=== PATIENT | male | born 1950 | race Caucasian/White ===

== ENCOUNTER 2016-04-06 05:29 | Inpatient (IN) | payer MEDICARE ==
[2016-04-06] VITALS (11 sets, daily range): BP systolic 132–149; BP diastolic 68–85; PULSE 73–97; RESP 10–16; O2SAT 99–100
[~2016-04-06] VITALS: Ht 176.5 cm; Wt 72.5 kg
[~2016-04-06 05:29] MED LIST: ASPI-973 PO; ATOR20TA65 PO; Acetaminophen IV 1,000 mg IV ONE; Bupivacaine Liposome 1.3% 20 mL Inj INFILTRATE ONE; EMPA25TA PO; GLIP2.5T2 PO; Heparin 5,000 Unit/mL Inj SUBQ ONE; LISI40TA PO; Lactated Ringer's 1,000 ML IV SCH; METF1000 PO; OMEG300C3 PO; OMEG500C3 PO; PANT20T PO
[2016-04-06] MEDS ORDERED: CeFAZolin 2 Gm/50 mL D5W IV Premix IV ONE (06:00)
[2016-04-06] MEDS ORDERED: Lactated Ringer's 1,000 ML IV ONE ×2 (06:10→11:10)
--- NOTE | 2016-04-06 07:18 | PCM.HPANE ---
Patient Data Surgeon Admitting Provider: Attending Provider:Fred Esposito MD Primary Care Physician:Darshana Yi PA-C Other Provider:Davina Baldwiningham Anesthesia Reason for Visit Colonic Mass Ht/WT & BMI Height (Feet): 5 Height (Inches): 9.50 Weight (Kilograms): 72 Body Mass Index 22.00 Allergies Coded Allergies: No Known Allergies (Verified Allergy, Unknown, 03/16/16) Past Anesthesia History Anesthesia History: Denies:: Abnormal Airway, Anesthesia Reactions, Difficult Intubation, Fam Anesthesia Reaction, Fam Malignant Hypertherm, Malignant Hyperthermia Diabetes History Hx Diabetes?: Yes (glipizide) Current Bedside Blood Glucose: 133 MRSA MRSA: No Medications Blood Thinner: Aspirin Hypertension Medication: No Home Meds Incl Beta Brittanie: No Active Scripts Pantoprazole DR (Protonix)20 Mg Mwincx29 Mg PO DAILY #30 TABLET Ref 0 Prov:Blade Arevalo MD 02/02/16 Reported Medications Glipizide ER 2.5 Mg Tab.er.242.5 Mg PO DAILY 03/10/16 Atorvastatin Calcium 20 Mg Gqhncv61 Mg PO HS #30 02/01/16 [place]-3 Fatty Acids (Fish Oil)300 Mg [id number] Mg PO DAILY 01/31/16 Aspirin 81 Mg Annprb01 Mg PO HS 01/31/16 Discontinued Reported Medications Lisinopril 5 Mg Tablet5 Mg PO DAILY 03/10/16 Nifedipine ER (Adalat CC)60 Mg Azqcaq62 Mg PO DAILY #30 01/31/16 History History of ENT Problems?: No HEENT History: Denies:: Abnormal Airway Cataracts Difficult Intubation Dysphagia Glaucoma Hearing Problem Sinus Problem Hx of Heart Problems?: Yes Cardiovascular History: Positive for:: Hypertension (rx on hold for last few weeks) Denies:: AICD Atrial Fibrillation Cardiac Surgery Chest Pain Congestive Heart Failure Edema Heart Murmur Irregular Heartbeat Pacemaker Thrombophlebitis Valvular Heart Disease Hx of Respiratory Problem?: No Respiratory History: Denies:: Asthma COPD Chest Surgery Dyspnea Emphysema Hemoptysis Oxygen Administration Pneumonia Tuberculosis Use of C-PAP Machine Use of Inhalers / NEBS Hx Neurologic Problems?: Yes Neurological History: Denies:: Alzheimer's Disease CVA Dementia Dizziness Headaches Multiple Sclerosis Parkinson's Disease Seizures Other Neurological Pertinent: diabetic neuropathy- feet- no hx of falls Hx of GI Problems?: Yes Gastrointestinal History: Positive for:: Gastroesphageal Reflux Denies:: Cirrhosis Diverticulitis Gall Bladder Disease Gastrointestinal Bleeding Heartburn Hepatitis Hiatal Hernia Rectal Bleeding Other GI Pertinent History: right colon mass current admission problem- obstructed Hx of Problems?: Yes Genitourinary History: Denies:: HX of Hemodialysis Kidney Stones Urinary Tract Infection HX of Peritoneal Dialysis: No Other Pertinent History: hx of recent kidney injury- recent admission, CRD Male Hx: Denies:: Prostate Problems Scrotal Mass Testicular Surgery Skin History: Positive for:: History Skin Disorders? (abrasion top right foot r/t orthotics) Denies:: Pressure Ulcers Hx Musculoskeletal Problems?: No Musculoskeletal History: Denies:: Back Injury Fibromyalgia Joint Replacement Musculoskeletal Trauma Myasthenia Gravis Osteoarthritis Hx of Psycho/Social Problems?: No Psycho Social History: Denies:: Anxiety Bipolar Disorder Hx Depression Suicide Attempt Hx Surgeries?: Yes (Wide excision melanoma, MOHS- mole surgery on head) Hx Any Other Health Problems?: Yes Other History: Positive for:: Cancer (Melanoma- right arm- elbow, bowel cancer current) Hospitalization (01/2016 for N/V/kidney failure) Denies:: Thyroid Disease History Blood Transfusions: Positive for:: Accept Blood Products? Denies:: Blood Transfuse Reaction Blood Transfusions Hx Diabetes: Yes (glipizide)Bedside Blood Glucose: 133 Hx Alcohol Use: NoHx Substance Use: No Smoking Status: Former Smoker Have You Smoked inLast 12 mo: No Stop/Bang Treated for Sleep Apnea?: No Do You Have a CPAP Machine?: No S-Snoring: Do You Snore Loudly: No T-Tired: feel tired, fatigued: No O-Obsered: Observed not breath: No P-Blood Pressure: treated: No B- Body Mass Index > 35 kg/m2: No A- Age over 50: Yes N- Neck Large Circumference: No G- Gender Male: Yes ALESHA Total Score: 2 ALESHA Risk Assessment: Low Risk, <3 Yes Risk Assessment Category Category 1A: Patient has history of documented sleep apnea, and HAS NOT received any narcotic, sedative or anesthesia administration during this stay. Category 1B: Patient has history of documented sleep apnea, and HAS received any narcotic , sedative or anesthesia administration during this stay Category 2: Patient has SUSPECTED Obstructive Sleep Apnea, and HAS received any narcotic , sedative or anesthesia administration during this stay. Category 3: Patient has SUSPECTED Obstructive Sleep Apnea and HAS NOT received narcotic, sedative or anesthesia administration during this stay. Category 4: Outpatient in Procedural Areas with known sleep apnea or who screen positive for High Risk via the STOP/BANG questionnaire. Exam Exam Vital Signs Vital Signs Date Time Temp Pulse Resp B/P Pulse Ox O2 Delivery O2 Flow Rate FiO2 04/06/16 06:09 35.7 97 14 134/81 100 Room Air General Appearance: Oriented X3 HEENT/AIRWAY: MP 2 Lungs: Normal Air Movement Heart: Regular Rate/Rhythm Meds/Labs/Diagnostics Admission Meds Current Medications Acetaminophen 1000 mg 1,000 mg STK-MED ONCE IV Last administered on 04/06/16 06:35; Start 04/06/16 at 05:33; Stop 04/06/16 at 05:34; Status DC Lactated Ringer's (Lr) 1,000 ml @ ud STK-MED ONCE IV Last administered on 04/06 06:10; Start 04/06/16 at 06:10; Stop 04/06/16 at 06:11; Status DC Bedside Blood Glucose: 133 Plan Impression Patient chart reviewed, patient interviewed and anesthestic plan with risks, benefits, and alternatives discussed, and informed consent obtained. NPO Status: 04/05@2100 ASA Physical Status: ASA3 Severe Disease Anesthetic Support Modalities: Arterial Line Anesthetic Plan: GA Bene/Risks/Altern/Consents: Yes HP Complete Prior to Induction: Yes Michael Odonnell MD Apr 06, 2016 07:18
[2016-04-06] MEDS ORDERED: Bupivacaine Liposome 1.3% 20 mL Inj ONE (07:35)
[2016-04-06] MEDS ORDERED: Heparin 5,000 Unit/mL Inj ONE (07:35)
[2016-04-06] MEDS ORDERED: Heparin 5,000 Unit/mL Inj SUBQ ONE (07:45)
[2016-04-06] MEDS ORDERED: Lactated Ringer's 500 ML IV PRN (07:48)
[2016-04-06] MEDS ORDERED: Lactated Ringer's 1,000 ML IV SCH (07:48)
[2016-04-06] MEDS ORDERED: EPHEDrine Sulfate 50 mg/mL Inj IVPUSH PRN (07:50)
[2016-04-06] MEDS ORDERED: MetoCLOpramide 5 mg/mL 2 mL Inj IVPUSH PRN ×2 (07:50→11:40)
[2016-04-06] MEDS ORDERED: Dexamethasone 4 mg/mL Inj IVPUSH PRN (07:50)
[2016-04-06] MEDS ORDERED: Labetalol 5 mg/mL 4 mL Inj IV PRN (07:50)
[2016-04-06] MEDS ORDERED: fentaNYL-PF 50 mCg/mL 2 mL Inj IVPUSH PRN (07:50)
[2016-04-06] MEDS ORDERED: Phenylephrine 10,000 mCg/mL Inj IVPUSH PRN (07:50)
[2016-04-06] MEDS ORDERED: Ondansetron 2 mg/mL 2 mL Inj IVPUSH PRN ×2 (07:50→11:40)
[2016-04-06] MEDS ORDERED: HYDROmorphone 1 mg/mL Inj IVPUSH PRN (07:50)
[2016-04-06] MEDS ORDERED: Bupivacaine-MPF 0.5% 30 mL Inj INFILTRATE ONE (08:22)
[2016-04-06] MEDS ORDERED: Bupivacaine Liposome 1.3% 20 mL Inj INFILTRATE ONE (08:23)
[2016-04-06 10:47] LABS: APPEARANCE,URINE HAZY (CLEAR,HAZY); COLOR,URINE YELLOW (YELLOW); OCCULT BLOOD,URINE LARGE (NEGATIVE); PH,URINE 5.5 (5.0-8.0); UROBILINOGEN,URINE NORMAL (NORMAL)
[2016-04-06 12:19] LABS: BASOPHILS % (AUTO) 0 % (0-3); EOSINOPHILS % (AUTO) 0.1 % (0-5); MONOCYTES % (AUTO) 4.3 % (4-12); Mean Corpuscular Hemoglobin 30.9 pg (27.0-35.0); Mean Corpuscular Volume 93.8 fL (81-100); NEUTROPHILS % (AUTO) 88.1 % (40-74); Platelet Count 517 bil/L (150-400)
--- NOTE | 2016-04-06 12:39 | OP ---
[address] [address] OPERATIVE REPORT PATIENT: ANA RAY : 1950 MR#: [id number] ADMIT: 04/06/2016 JOB ID: [id number] DATE OF SURGERY: 04/06/2016 ANESTHESIA: General. PREOPERATIVE DIAGNOSIS(ES): Malignant neoplasm of the ascending colon with chronic partial obstruction. POSTOPERATIVE DIAGNOSIS(ES): Malignant neoplasm of the ascending colon with chronic partial obstruction. OPERATIVE PROCEDURES: 1. Laparoscopic right colectomy with intracorporeal [id number]-vo-[id number] functional end-to-end stapled anastomosis. 2. Diverting loop ileostomy. SURGEON: Fred Esposito MD. DIRECTOR OF COLLECTIONS AND ARCHIVES: Shira Schultz MD (paraprofessional education assistant was required for safe and timely completion of the case). COMPLICATIONS: None. ESTIMATED BLOOD LOSS: Minimal. CONDITION: Satisfactory. SPECIMEN: Right colon. FINDINGS: There was an obvious obstructing mass up by the hepatic flexure. Proximal to this, the cecum was massively dilated. The terminal ileum was also dilated. Given the patient's preoperative risk factors for anastomotic leak, as well as the floppy, dilated terminal ileum, I elected to protect the anastomosis with a defunctioning loop ileostomy. INDICATIONS/SIGNIFICANT HISTORY: The patient is a 66-year-old man with a past medical history of diabetes who was been having progressively obstructive symptoms since October. He has had two hospitalizations for this related ti dehydration and acute kidney injury. Unfortunately, there was a delay in making a diagnosis. He eventually underwent a colonoscopy as an outpatient a number of weeks ago confirming the diagnosis. By this time,he had lost greater than 10% of his body weight, as he was restricted to a liquid diet. He was eventually referred to me, and I recommended laparoscopic right colectomy. He utilized preoperative protein shakes and Impact. He underwent an antibiotic and mechanical bowel prep. OPERATIVE TECHNIQUE: The patient was taken to the operating, placed in the supine position. General anesthesia was administered, and perioperative antibiotics given. Subcutaneous heparin was administered, and a Beckford catheter was placed. The abdomen was then prepped and draped in a standard surgical fashion. A procedure pause was performed. Entry was gained into the abdomen through a periumbilical incision, an 11 mm trocar was inserted and pneumoperitoneum achieved without complication. Local anesthetic was injected, followed by insertion of 5 mm ports in the lower midline and one in the upper midline. A second 11 mm port was inserted into the left lower quadrant. The abdomen was inspected, and there was no evidence of metastatic disease. The colectomy was then begun with isolation of the ileocolic vessels. These were taken with a white vascular staple load. Dissection continued in a medial to lateral and superior fashion. Eventually, I reached the transverse colon at the transection point. The colon was cleared and the omentum transected at this point. I then was able to fire across the colon with a GINO 45 blue load. I then continued the dissection laterally to the white line of Toldt at the hepatic flexure. I then turned my attention down to the terminal ileum. The mesentery was sequentially taken with an energy device to the transection point. The terminal ileum was so dilated that it took three loads of the GINO 45 to transect it. The white line of Toldt was then taken down using the energy device. The specimen was then placed up above the liver. There were some adhesions of the distal ileum to the right lower quadrant which were carefully taken down with scissors. The small bowel was then positioned in isoperistaltic fashion next to the transverse colon. Enterotomies were made in both the colon and the small bowel, and a GINO 60 white load fired to create a yvut-ns-raia, functional end-to-end anastomosis. The common enterotomy was then closed with a running 2-0 V-Loc suture. A Lapra- Ty was placed for added security. The omentum was then placed over the anastomosis. Because of the patient's preoperative risk factors including diabetes and severe malnutrition, as well as the intraoperative findings of a massively dilated terminal ileum, I elected to perform a defunctioning loop ileostomy. The site was chosen on the right lower quadrant and disc of skin excised. A cruciate incision was made in the anterior and posterior fascia. A wound protector was placed. I attempted to bring the specimen out through this. However, the specimen was so large that it would not fit. Rather than compromise the ileostomy site, I elected to make a small Pfannenstiel incision. A wound protector was placed in this, and the specimen delivered. The Pfannenstiel was then closed with running 0 PDS suture. The skin was closed using 4-0 Monocryl. I then went back with laparoscopic visualization and made sure that the small bowel was correctly oriented and delivered that through the prepared ileostomy site. Pneumoperitoneum was released and the trocars were all removed. The skin incisions were then all closed with 4-0 Monocryl, and Dermabond applied. I then matured the ileostomy. Because of the orientation of the anastomosis the ileostomy was matured with the proximal/functional end inferior. An appliance was then applied, and the case was then concluded. TATOD
--- NOTE | 2016-04-06 13:06 | PCM.ANEP1 ---
Post Anesthesia Phase 1 PACU Phase 1 Assessment Vital Signs Vital Signs Date Time Temp Pulse Resp B/P Pulse Ox O2 Delivery O2 Flow Rate FiO2 04/06/16 12:45 74 15 134/70 100 Simple Mask 10 04/06/16 12:30 78 16 140/68 100 Simple Mask 10 04/06/16 12:15 80 14 148/73 100 Simple Mask 10 04/06/16 12:00 36.3 80 149/80 100 Simple Mask 10 04/06/16 11:45 80 11 136/77 99 Simple Mask 10 04/06/16 11:40 81 10 140/75 100 Simple Mask 10 04/06/16 11:35 36.2 80 11 140/75 100 Simple Mask 10 04/06/16 06:09 35.7 97 14 134/81 100 Room Air Anesthetic Administered: GA Level of Alertness: Awake, talking Pain: No Nausea or Vomiting: No Airway Device: Oralpharangeal Airway Lungs: Normal Air Movement Michael Odonnell MD Apr 06, 2016 13:06
--- NOTE | 2016-04-06 13:07 | PCM.ANEP2 ---
Post Anesthesia Evaluation ASA/CMS Post Anesthesia VS in Patient's Normal Range?: Yes Resp Stable; Airway Patent?: Yes CV Function & Hydration Stable: Yes Mental Status Recovered?: Yes Pain control Satisfactory?: Yes N/V Control Satisfactory?: Yes Michael Odonnell MD Apr 06, 2016 13:07
[2016-04-06] MEDS ORDERED: fentaNYL-PF 50 mCg/mL 2 mL Inj ONE (13:23)
--- NOTE | 2016-04-06 14:18 | NUR ---
Arrival to 1030 Pt arrival to 1030 at 1330. Pain 4/10 near ileostomy site. Pt alert oriented but drowsy at this time. Able to independently scoot from gurney to bed. Pt then had rapid onset of nausea which was relieved by 10mg Reglan. HELLER with equal strength, baseline neuropathy in BLE. Pt has history of non-heeling foot wounds followed by wound care. Ileostomy leaking light brown out of base of wafer, Rashad with wound care now at bedside providing education to /pt and changing bag. Pt also has 3 open sores on R foot reports are from a new set of orthotics. Rashad assessing and providing instructions on new dressing. High flow oxygen via simple mask until 1730. Hourly rounding will continue.
[2016-04-06] MEDS: Dextrose 5% Lactated Ringer's 1,000 ML IV SCH (15:12)
[2016-04-06] MEDS: Acetaminophen IV 1,000 MG in IV Premix 1 EACH IV SCH ×2 (15:13→23:25)
--- NOTE | 2016-04-06 17:08 | NUR ---
Wound care Orders for wound care and ostomy teaching received, pt seen at bedside, present. 66 yo male recently returned from OR presents with a right quadrant iliostomy and stoma flush with abdomen, draining greenish mucoid effluent, Wafer is replaced as it was leaking, replaced with a gabriela flanged 57 mm flat wafer and drainable pouch. Good seal attained with Brava strips at sides. Educational handouts are left for to peruse at her convenience. No hands on teaching with family today. Pt also presents with 3 wounds/ abrasions at the dorsum of his right foot (POA), these measure 3cm x 2cn x 0.1 cm each and are superficial, cleaned them with saline and gauze then redressed with Xeroform and kerlix wrap. Pt reports these wounds were caused by new shoes that he was wearing. Will return 04/07 for continued ostomy teaching and recheck right foot wound.
[2016-04-06] MEDS: Heparin 5,000 Unit/mL Inj SUBQ SCH (17:20)
[2016-04-06] MEDS: Polyethylene Glycol (PEG) 17 Gm Powder PO SCH (17:21)
[2016-04-06] MEDS: Insulin Human REGular 300 Unit/3 mL Inj SUBQ SCH ×2 (17:32→23:25)
[2016-04-07] VITALS (7 sets, daily range): BP systolic 111–137; BP diastolic 65–78; PULSE 76–87; RESP 15–17; O2SAT 96–98
[2016-04-07] MEDS: Dextrose 5% Lactated Ringer's 1,000 ML IV SCH ×2 (00:06→12:36)
[2016-04-07] MEDS: Heparin 5,000 Unit/mL Inj SUBQ SCH ×4 (01:06→23:32)
--- NOTE | 2016-04-07 02:17 | NUR ---
transfer pt transferred to [facility] room 246 at 0200. he is A&Ox3. he says his abdomen is slightly sore and sometimes cramps but the IV tylenol is efficient for pain management. no n/v tolerating full liquid diet. pt has been SL. pt got up and walked around unit before being transferred. denied dizziness and was steady on his feet. report called to nurse Zenia Jenkins.
--- NOTE | 2016-04-07 02:22 | NUR ---
Received from [facility] Pt awake and oriented. He denies any pain at this time. Ileostomy with noted liquid brown stool.
[2016-04-07] MEDS ORDERED: 0.9% Sodium Chloride 250 ML ONE (03:37)
[2016-04-07] MEDS: Acetaminophen IV 1,000 MG in IV Premix 1 EACH IV SCH (03:46)
--- NOTE | 2016-04-07 04:25 | NUR ---
Pain Pt alert and oriented x3. He reports pain is tolerable at 4-5/10 and reports Tylenol effective for it. He tolerates ambulation without any complains. Ileostomy with noted moderate-large amount of brown/greenish liquid stool. Pt tolerates full liquid without any c/o nausea.
[2016-04-07] MEDS: Insulin Human REGular 300 Unit/3 mL Inj SUBQ SCH ×4 (07:30→22:00)
[2016-04-07] MEDS: Pantoprazole 20 mg ER24 Tablet PO SCH (07:30)
[2016-04-07] MEDS: glipiZIDE 2.5 mg ER24 Tablet PO SCH (08:42)
[2016-04-07 08:46] LABS: BASOPHILS % (AUTO) 0.2 % (0-3); EOSINOPHILS % (AUTO) 1.6 % (0-5); MONOCYTES % (AUTO) 6.7 % (4-12); Mean Corpuscular Hemoglobin 30.8 pg (27.0-35.0); Mean Corpuscular Volume 93.1 fL (81-100); NEUTROPHILS % (AUTO) 72.3 % (40-74); Platelet Count 524 bil/L (150-400)
--- NOTE | 2016-04-07 09:08 | PROG NOTE ---
[address] [address] PROGRESS NOTE PATIENT: ANA RAY : 1950 MR#: [id number] ADMIT: 04/06/2016 JOB ID: [id number] DATE: 04/07/2016 SUBJECTIVE: The patient is postoperative day one from laparoscopic right colectomy with ileocolonic anastomosis and protecting loop ileostomy. He has done fine since surgery. He is having minimal pain and not requiring narcotic pain medications. He has already been up and ambulated. He is tolerating diet and having good ostomy output. He has remained afebrile and hemodynamically normal. This morning, he is alert, oriented and comfortable. His abdomen is soft, not significantly tender. His incisions look fine. His ostomy had some liquid stool output. His white blood cell count this morning is 12.6, down from 28.1 in the immediate postoperative period. His hematocrit is stable at 29.9. His electrolytes are still pending. ASSESSMENT AND PLAN: This is a 66-year-old man with a chronically obstructing colonic cancer of the ascending colon postop day one from a laparoscopic colectomy with a protecting ileostomy due to significantly distended ileum. Overall the patient is doing very well. He can be advanced to a regular diet. I switched him over to oral Tylenol for pain control. I have encouraged him to get up and ambulate. His Beckford was removed this morning. Anticipate that he may actually be able to go to home as early as tomorrow morning.
[2016-04-07] MEDS: Polyethylene Glycol (PEG) 17 Gm Powder PO SCH (12:00)
--- NOTE | 2016-04-07 16:51 | NUR ---
Activity/PO intake Pt up ambulating in the hallway x2 during this shift. Well tolerating activity. Denies dizziness or SOB. Continue to encourage ambulation and activity. Pt tolerating a general diet at this time. Appetite is adequate. Able to eat and drink with no reports of nausea. Ileostomy having moderate amount of liquid brown/green output. Continue to encourage intake of PO fluids.
--- NOTE | 2016-04-07 17:42 | NUR ---
Wound Care Instructed pts in removal and application of [place] flat #[id number] wafer and pouch system, instructed in peristomal skin care,how empty pouching contents. Provided with supplies for home. Also instructed in dressing changes of dorsal foot wound to be performed q 48 hrs using hydrogel and foam. Cleaned wounds at foot with gauze and redressed, they are stable. Pt has appt to follow up with Ostomy nurse and podiatry at the wound center on 04/20/16.
[2016-04-08 04:08] VITALS: BP 108/67; PULSE 77; RESP 16; O2SAT 97
--- NOTE | 2016-04-08 06:36 | NUR ---
Shift Note Assumed pt care at 1900, pt ambulated x1 around unit taylor, tolerated well, pts ileostomy draining well, patent, semi loose stools noted, @2200 pt CBG at 155, pt refused insulin coverage. @0639 am, pt up ambulating around unit taylor.
[2016-04-08] MEDS: Insulin Human REGular 300 Unit/3 mL Inj SUBQ SCH (07:30)
[2016-04-08] MEDS: Pantoprazole 20 mg ER24 Tablet PO SCH (07:30)
[2016-04-08] MEDS: glipiZIDE 2.5 mg ER24 Tablet PO SCH (08:09)
[2016-04-08] MEDS: Heparin 5,000 Unit/mL Inj SUBQ SCH (08:30)
--- NOTE | 2016-04-08 09:26 | NUR ---
Social work note - Intial assessment - and discharge Kristofer Mccartney is a 66 yr old admitted for Colonic mass - surgery. EMR reviewed: Pt has Medicare and AARP. Pt's PCP is Darshana Yi PA-C. No readmit risk available. See attached CM initial assessment. PRODUCT MGR met with pt - pt lives independent at home wit his . He has no DME, drives. Anticipates no home needs. PRODUCT MGR will follow if needs arise. Plan: Home with today in POV - no needs identified. REY Hawk Addendum: 04/08/16 at 0928 by JULISSA MIRANDA Amended: Links added.
--- NOTE | 2016-04-08 09:28 | NUR ---
HOSPICE CARE CONSULTANT witnessed BENNIE signature LINDSEY HawkSW
--- NOTE | 2016-04-08 10:42 | PCM.DISURG ---
Surgical Discharge Instruction Date of Service Apr 08, 2016 Dates of Hospitalization Date of Hospital Admission Apr 06, 2016 at 13:22 Providers Admitting Physician: Fred Esposito MD Primary Care Physician: Darshana Yi PA-C Attending Physician: Fred Esposito MD Discharge Diagnosis Discharge Diagnosis obstructing colon mass Post Operative diagnosis laparoscopic right colectomy with diverting ileostomy Activity Discharge Activity-General: No restrictions Dressing and Incisional Care Hygiene: May shower, Other (ostomy care as instructed) Follow Up Plan Follow Up Plan 1-[address] Esposito Call your provider for: Fever, Chills, Wound redness Dilan Ramirez MD Apr 08, 2016 10:42
[2016-04-08] MEDS ORDERED: OXYC5TAB72 PO (10:43)
--- NOTE | 2016-04-08 12:20 | NUR ---
Discharge Pt was discharged via one person and w/c to POV accompanied by spouse. Pt has no questions about follow up.
--- NOTE | 2016-04-08 13:52 | PROG NOTE ---
[address] [address] PROGRESS NOTE PATIENT: ANA RAY : 1950 MR#: [id number] ADMIT: 04/06/2016 JOB ID: [id number] DATE: 04/08/2016 SUBJECTIVE: The patient is postop day two laparoscopic sigmoid resection with a diverting protective ileostomy. He is doing quite well and is hoping to be discharged this morning. He feels that he and his received adequate teaching regarding the ileostomy yesterday. He tells me that he feels better than he has felt for months. On examination, his stoma is pink, his incisions are all closed without signs of infection. There are no new labs ordered for today. IMPRESSION AND PLAN: He is doing well and we will discharge him home.
--- NOTE | 2016-04-10 16:09 | PCM.DC.SUR ---
Discharge Summary Date of Service: Date of Hospital Admission: Apr 06, 2016 at 13:22 Date of Operation(s): 04/06/2016 Date of Discharge: 04/08/2016 Diagnosis at Time of Discharge Primary diagnosis: Malignant neoplasm of the ascending colon Other diagnoses: Hypercholesterolemia Stage 0 cutaneous melanoma Diabetes mellitus Hypertension Problems: Operation 1. Laparoscopic right colectomy with intracorporeal [id number] functional end-to-end stapled anastomosis. 2. Diverting loop ileostomy. Brief History and Physical: The patient is a 66-year-old man with a past medical history of diabetes who has been having progressively obstructive symptoms since October. He has had two hospitalizations for this related to dehydration and acute kidney injury. Unfortunately, there was a delay in making a diagnosis. He eventually underwent a colonoscopy as an outpatient a number of weeks ago confirming the diagnosis. By this time, he had lost greater than 10% of his body weight, as he was restricted to a liquid diet. He was eventually referred to Dr. Fred Esposito, who recommended laparoscopic right colectomy. He utilized preoperative protein shakes and Impact. He underwent an antibiotic and mechanical bowel prep. Consultants: None. Hospital Course: The patient was taken to the operating room where he underwent the above procedure. There were no intraoperative complications. Postoperatively he was admitted to the surgical floor. On his first postsurgical day the patient was seen by Dr. Fred Esposito: SUBJECTIVE: The patient is postoperative day one from laparoscopic right colectomy with ileocolonic anastomosis and protecting loop ileostomy. He has done fine since surgery. He is having minimal pain and not requiring narcotic pain medications. He has already been up and ambulated. He is tolerating diet and having good ostomy output. He has remained afebrile and hemodynamically normal. This morning, he is alert, oriented and comfortable. His abdomen is soft, not significantly tender. His incisions look fine. His ostomy had some liquid stool output. His white blood cell count this morning is 12.6, down from 28.1 in the immediate postoperative period. His hematocrit is stable at 29.9. His electrolytes are still pending. ASSESSMENT AND PLAN: This is a 66-year-old man with a chronically obstructing colonic cancer of the ascending colon postop day one from a laparoscopic colectomy with a protecting ileostomy due to significantly distended ileum. Overall the patient is doing very well. He can be advanced to a regular diet. I switched him over to oral Tylenol for pain control. I have encouraged him to get up and ambulate. His [place] was removed this morning. Anticipate that he may actually be able to go to home as early as tomorrow morning. On the second postsurgical day the patient was seen by Dr. Dilan Ramirez: SUBJECTIVE: The patient is postop day two laparoscopic sigmoid resection with a diverting protective ileostomy. He is doing quite well and is hoping to be discharged this morning. He feels that he and his received adequate teaching regarding the ileostomy yesterday. He tells me that he feels better than he has felt for months. On examination, his stoma is pink, his incisions are all closed without signs of infection. There are no new labs ordered for today. IMPRESSION AND PLAN: He is doing well and we will discharge him home. Pathology: Pending at time of discharge. Disposition: The patient was discharged home tolerating oral intake, with no nausea or vomiting. He had been given instructions in ileostomy care. He was ambulating independently and pain was controlled on only Tylenol. Follow-up Plan: Follow-up is in 1-[address] Esposito at the [facility] outpatient general surgery clinic. Aspirin (Aspirin) 81 Mg Tablet 81 MG PO HS (Reported) Atorvastatin Calcium (Atorvastatin Calcium) 20 Mg Tablet 20 MG PO HS (Reported) Glipizide ER (Glipizide ER) 2.5 Mg Tab.er.24 2.5 MG PO DAILY (Reported) [place]-3 Fatty Acids (Fish Oil) 300 Mg Capsule 300 MG PO DAILY (Reported) Pantoprazole DR (Protonix) 20 Mg Tablet 20 MG PO DAILY oxyCODONE (oxyCODONE) 5 Mg Tablet 5 MG PO Q4H PRN PRN For Pain copies to: Darshana Yi PA-C, Danielle B PA-C Apr 10, 2016 16:09
--- NOTE | 2016-04-11 13:02 | PATH ---
SURGICAL PATHOLOGY Attending Physician:Fred Esposito MD CASE STATUS: Signed Out PATIENT NAME: ANA RAY PID: [id number] : 1950 DATE COLLECTED:04/06/2016 21:07 SPECIMEN: Colon, Segment Resection, Non-Tumor CLINICAL HISTORY: COLONIC MASS 1). RIGHT COLON TERMINAL ILEUM FINAL DIAGNOSIS: Right Colon Resection Specimen: Invasive carcinoma with the following features: 1. Tumor site: Cecum. 2. Tumor size: 4.0 x 3.5 x 2.4 cm. 3. 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 4. Histologic grade: High grade. 5. Gross tumor configuration: Infiltrative. 6. Tumor perforation: Not identified. 7. Depth of tumor infiltration: Tumor invades through the muscularis propria and extensively involves the adventitial tissues. 8. Tumor involvement of serosal surface: Negative. 9. Existing changes at primary site: None identified. 10. Surgical margins: Widely free of tumor. 11. Lymphatic/vascular channel invasion: Positive with multiple foci noted in the adventitial tissues. 12. Perineural invasion: Not identified. 13. Tumor deposit (discontinuous extramural extension): Multiple tumor deposits present within the adventitial tissues. 14. Lymph nodes: 17 of 45 lymph nodes positive for metastatic carcinoma with multiple areas of extranodal extension by tumor. 15. Other: Terminal ileum and appendix unremarkable. Mismatch repair gene immunohistochemistry panel pending. To be reported by addendum. Pathologic stage: pT3, pN2b. ICD10 C18.0 GROSS DESCRIPTION: The specimen is received in formalin, labeled with the patient's name, sublabeled as right colon and terminal ileum and consists of terminal ileum (length-6.5 cm, proximal diameter-5.2 cm), cecum and ascending colon (length-19.3 cm, distal diameter-3.5 cm) with attached appendix (length-7.2 cm, diameter-1.2 cm), mesentery (up to 6.5 cm in depth) and omentum (up to 19.5 cm). The resection margins are received stapled. The cecum is dilated and diffusely white with flat smooth shiny mucosa and a diffusely thickened wall. A julian-white solid firm annular mass (4.0 x 3.5 x 2.4 cm) is located within the cecum and proximal ascending colon. The mass is 1.5 cm from the serosa, 12.9 cm from the proximal, 4.0 cm from the distal, and 5.5 cm from the radial resection margins. The mass extends into the mesentery but does not appear to extend into diffuse omentum the mass does not involve the ileocecal valve or appendix. The ileum is julian hyperemic mucosa with normal folds. The distal ascending colon is julian smooth shiny mucosa with minimal normal folds and a focally thin wall. The appendix is unremarkable. No other nodules or masses or lesions are identified. Multiple possible lymph nodes and mass deposits (0.1 x 0.1 x 0.1 cm-2.1 x 1.5 x 1.4 cm) are identified. Ink code: black-resection margin; blue-serosa. Section code: (A) proximal resection margin, longitudinally sectioned, retail representative; (B) distal resection margin, longitudinally sectioned, retail representative; (C) radial resection margin, retail representative; (D-E) serosa with mass and possible mass deposit; (F-I) mass, retail representative; (J) terminal ileum serially sectioned, retail representative; (K) cecum, retail representative; (L) distal ascending colon, serially sectioned, retail representative; (M) appendix, retail representative; (N-Q) lymph nodes and mass deposits; (R, S) 2 bisected lymph nodes in each cassette; (T) one lymph node, bisected; (U) one lymph node, serially sectioned; (V-W) mass deposit, serially sectioned; (X-Z) omentum, retail representative. 04/08/16 SABINA. ICD-9 CODES: CPT CODES: 97979, 59110, 75937, 62302, 96909 PROCEDURE/ADDENDA: Addendum SPI Addendum Diagnosis Immunohistochemistry results (mismatch repair gene panel): MLH-1:Positive MSH-2:Positive. MSH-6:Positive. PMS-2:Positive. INTERPRETATION: These four positive staining reactions indicate that this colon carcinoma is negative for mismatch repair gene deletion. Addendum Comment {Not Entered} Electronically Signed Out Nazario Neri MD Addendum SPI Addendum Diagnosis TEST: Detection of Microsatellite Instability by PCR INTERPRETATION: These results are consistent with INTACT DNA MISMATCH REPAIR FUNCTION (Microsatellite Stable - ANNA). TEST: BRAF Mutation Detection by PCR-SNAPSHOT Analysis INTERPRETATION: Negative for a V600 BRAF mutation TEST: KRAS Mutation Detection by PCR-SNAPSHOT Analysis INTERPRETATION: Negative - No evidence of KRAS mutations was detected in codons 12, 13, 59, 61, 117 and 146 of exons 2, 3 and 4. TEST: NRAS Mutation Detection by PCR-SNAPSHOT Analysis INTERPRETATION: Negative - No evidence of NRAS mutations was detected in codons 12, 13, 59, 60, 61, 117 and 146 of exons 2, 3 and 4. Addendum Comment Please see [facility] Reports, for complete details. [id number] Testing and Interpretation by [facility], [place], [place]. Testing requested by Dr. Roberts, [facility]. Electronically Signed Out Nazario Neri MD Electronically Signed Out Nazario Neri MD [facility] [address], [place] [address] Technical component performed at [facility], [facility] [address], [place], [address]
[2016-04-25] MEDS ORDERED: LOPE-147 PO (13:21)
[2016-05-16] MEDS ORDERED: FOLI-52 PO (09:58)
[2016-05-30] MEDS ORDERED: ONDA8TAB7 PO (11:49)
[2016-08-22] MEDS ORDERED: LISI-571 PO (17:44)
[2016-08-22] MEDS ORDERED: OMEG-83 PO (17:44)
== END 2016-04-08 12:07 | disposition home or self-care (01) | DRG 329 ==
LOC: SAS 05:29 → OSC 13:22 → MOC 04-07 02:29
PROVIDERS: ADMIT General Practice; ATTEND General Practice
PROC: 0D1B4Z4 Bypass Ileum to Cutaneous, Percutaneous Endoscopic Approach (ICD-10-PCS; 2016-04-06)
PROC: 0DTF4ZZ Resection of Right Large Intestine, Percutaneous Endoscopic Approach (ICD-10-PCS; principal; 2016-04-06 07:15)
DX: C18.2 Malignant neoplasm of ascending colon (principal); E43 Unspecified severe protein-calorie malnutrition; K56.69 Other intestinal obstruction; E11.9 Type 2 diabetes mellitus without complications; I10 Essential (primary) hypertension; E78.00 Pure hypercholesterolemia, unspecified; Z68.23 Body mass index [BMI] 23.0-23.9, adult; K63.89 Other specified diseases of intestine

== ENCOUNTER 2016-04-12 10:41 | Inpatient (IN) | payer MEDICARE ==
[2016-04-12] VITALS (8 sets, daily range): BP systolic 108–142; BP diastolic 69–76; PULSE 84–127; RESP 14–21; O2SAT 98–100
[~2016-04-12] VITALS: Ht 175.3 cm; Wt 70.4 kg
[~2016-04-12 10:41] MED LIST changes: -Acetaminophen IV 1,000 mg IV ONE; -Bupivacaine Liposome 1.3% 20 mL Inj INFILTRATE ONE; -Heparin 5,000 Unit/mL Inj SUBQ ONE; -Lactated Ringer's 1,000 ML IV SCH; +OXYC5TAB72 PO
--- NOTE | 2016-04-12 11:03 | ED.REPORT ---
HPI-General Illness Date of Service Apr 12, 2016 ED Provider: Gregory Wu DO The patient is a 66 year old male with history of melanoma, acute renal failure , diabetes mellitus, hypertension, and hyperlipidemia, who was sent to the emergency department by his surgeon for shortness of breath that started 2 days ago. He has also experienced generalized weakness and a non-productive cough. His breathing is exacerbated with exertion. His symptoms have worsened since onset. He had a right colectomy and ileostomy placed 6 days ago. His surgeon is concerned about dehydration and a possible blood clot. The patient states his current symptoms are similar to when he was dehydrated. He has been drinking plenty of fluids over the last few days. He denies fever, chills, sputum production, abdominal pain, vomiting, hematemesis, hematochezia. His blood sugar this morning was 209. Nursing Notes Stated Complaint: POST OP/DIFFICULTY BREATHING Chief Complaint: Respiratory Distress Nursing Notes Reviewed: Yes Allergies: Coded Allergies: No Known Allergies (Verified Allergy, Unknown, 03/16/16) Scheduled Aspirin (Aspirin) 81 Mg Tablet 81 MG PO HS Atorvastatin Calcium (Atorvastatin Calcium) 20 Mg Tablet 20 MG PO HS Glipizide ER (Glipizide ER) 2.5 Mg Tab.er.24 2.5 MG PO DAILY General Time Seen by MD: 11:02 Chief Complaint Weakness, Other (shortness of breath) Hx Obtained From: Patient Arrived By: Walk-in Sudden in Onset?: Yes Onset Occurred: 2 days ago Symptom Duration: Since onset Severity: Current: No pain currently Severity: Maximum: No pain Recent Healthcare: Recent doctor visit, Recent hospitalization, Previous surgery Similar Sx Previous: No PERC Rule Age 50 or over, Heart rate 100 or over, Recent trauma or surgery PERC rule not satisfied Well's Criteria for PE HR > 100 (1.5), Immob/surg past 4wk (1.5), Cancer Tx past 6mo (1) Well's PE Score: 3-6 pts (mod risk 20.5%) Past Medical History Past Medical History Melanoma ARF Reports: Diabetes mellitus, Hyperlipidemia, Hypertension Past Surgical History Melanoma excision MOS Laparoscopic right colectomy with intracorporeal [id number] functional end-to-end stapled anastomosis. Diverting loop ileostomy. Family History Noncontributory Smoking History Former Smoker Social History Alcohol Use: Denies alcohol use Drug Use: Denies drug use Other Social History: Good social support, , Local resident Ambulatory Status Independent Review of Systems Full Review of Systems Constitutional: Reports: Weakness - generalized, Denies: Chills, Fever Respiratory: Reports: Dyspnea on exertion, Non-productive cough, Shortness of breath, Denies: Prod cough, white, Prod cough, yellow GI: Denies: Abdominal pain, Bloody/tarry stool, Hematemesis, Hematochezia, Vomiting Neurologic: Reports: Weakness Complete sys rev & neg: except as marked. Physical Exam Vital Signs Vital Signs Date Time Temp Pulse Resp B/P Pulse Ox O2 Delivery O2 Flow Rate FiO2 04/12/16 13:00 84 18 100 Room Air 04/12/16 10:54 36.7 121 14 108/72 98 Room Air Initial VS: Reviewed Head / Eyes: Atraumatic, Normocephalic, PERRL ENT: Mucous membranes moist, Conjunctiva normal, No scleral icterus Neck: Supple, Non-tender, Full range of motion Respiratory: Breath sounds normal, Clear to auscultation, No respiratory distress Cardiovascular: Regular rate & rhythm, Heart sounds normal, Intact distal pulses Lymphatic: No lymphadenopathy Extremities: Vascular intact, Neuro intact, No swelling, No tenderness Skin: Warm, Dry, No cyanosis Neurologic: Alert, Oriented, Nonfocal Psychiatric: Mood/affect normal, Behavior normal, Normal thought content General/Constitutional: Awake, Alert Appearance / Presentation: Positive: Pale Cardiovascular: Regular rhythm, Heart sounds NL, No murmurs, No rubs Heart Rate / Rhythm: Positive: Tachycardia Abdomen: Soft, Non-tender, No guarding, No rebound, BS normoactive, No distention Ileostomy bag in RLQ. Fresh laparoscopic incision sites that are clean, dry, and intact. There is no redness, swelling, drainage or sign of any infection. Interpretation & Diagnostics Lab Results Interpretation Result Diagram: 04/12/16 1138 04/12/16 1138 Test 04/12/16 11:38 White Blood Count 14.9th/mm3 (3.8-10.1) Red Blood Count 4.24mil/mm3 (4.40-5.80) Hemoglobin 13.2g/dL (13.8-17.2) Hematocrit 38.8% (41.0-50.0) Mean Corpuscular Volume 91.5fL (81-100) Mean Corpuscular Hemoglobin 31.1pg (27.0-35.0) Mean Corpuscular Hemoglobin Concent 34.0% (32.0-37.0) Red Cell Distribution Width 13.2% (12.3-15.4) Platelet Count 624bil/L (150-400) Neutrophils (%) (Auto) 73.9% (40-74) Lymphocytes (%) (Auto) 17.7% (14-46) Monocytes (%) (Auto) 5.3% (4-12) Eosinophils (%) (Auto) 2.6% (0-5) Basophils (%) (Auto) 0.2% (0-3) Sodium Level 123mEq/L (134-144) Potassium Level 7.6mEq/L (3.5-5.2) Chloride Level 86mEq/L (97-108) Carbon Dioxide Level 17mmol/L (18-29) Blood Urea Nitrogen 75mg/dL (8-27) Creatinine 3.19mg/dL (0.76-1.27) Estimat Glomerular Filtration Rate 21mL/min (>59) Glucose Level 248mg/dL (60-99) Calcium Level 10.2mg/dL (8.5-10.1) Magnesium Level 2.1mg/dL (1.6-2.6) Total Bilirubin 0.6mg/dL (0.0-1.2) Aspartate Amino Transf (AST/SGOT) 26U/L (0-50) Alanine Aminotransferase (ALT/SGPT) 24U/L (0-44) Alkaline Phosphatase 207U/L (25-160) Troponin T < 0.010ug/L (0.0-0.011) Total Protein 8.9g/dL (6.4-8.4) Albumin 4.1g/dL (3.4-5.0) Hold Bennett Top Tube Received (Received) ECG Interpretation ECG Interpretation: Sinus rhythm with a rate of 92 Peaked T waves Time: 11:24 Interpreted by: ED physician X-Ray Chest Interpretation Chest Xray Interpretation: IMPRESSION: Source of dyspnea is not found. Slight amount of free air is seen beneath the right hemidiaphragm laterally. This information was immediately called to the emergency room physician reports the patient had recent prior abdominal surgery and therefore this is an expected finding. Dictated by: Will De La Vega M.D. on 04/12/2016 at 11:45 Interpretation / Wet Read by: Discussed w radiologist Re-Eval/Medical Decision Med Decision/Clinical Course Hyperkalemia and associated acute kidney injury, requiring IV calcium gluconate, 10 mg inhaled albuterol, 10 units of IV insulin, 100 mL's of D50 IV, 2 Amps bicarbonate, 2 L normal saline bolused. PH 7.37. Patient is seen by the surgeon, I do not think this patient has an active infection. Nephrology is consulted. Patient will be admitted. Source of Hx: Old records, Private physician Time of Eval: 12:47 Re-Evaluation/Progress Note: Rechecked the patient. Discussed plan for admission. All questions were addressed. Consultation #1: Referral / Consult Name: Fred Esposito MD Consulted With: Surgeon Call Returned at: 13:02 Tobacco Drying Machine Operator: Will see patient, Agrees with eval, Agrees with plan Note: Agrees to consult. Consultation #2: Referral / Consult Name: Krishan Guzman MD Consulted With: Nephrology Call Returned at: 13:02 Tobacco Drying Machine Operator: Agrees with eval, Agrees with plan Note: Agrees to consult Consultation #3: Referral / Consult Name: Jaylan Simental MD Consulted With: Hospitalist Call Returned at: 13:22 Tobacco Drying Machine Operator: Will see patient, Agrees with eval, Agrees with plan, Accepts admit Counseled Regarding: Diagnosis, Lab results, Need for admission Discharge & Departure Primary Impression: Hyperkalemia Additional Impressions: Acute kidney injury Dehydration Disposition: ADMITTED TO HOSPITAL Discharge Condition All VS Reviewed: Yes Condition: Stable Referrals: Darshana Yi PA-C (PCP) Crit Care Except Billable Proc Time Spent: 30-74 minutes Services Performed: Patient management by me, Time spent at bedside, Reviewing test results Critical Care Notes: See MDM Scribe Attestation Portions of this note were transcribed by Linda Esposito. I, Dr. Wu personally performed the history, physical exam and medical decision-making; I reviewed and confirmed the accuracy of the information in the transcribed note. Signed by: Erma Knox, 04/12/2016 and 1328. copies to: Darshana Yi PA-C, Timothy S DO Apr 12, 2016 11:03 Vaibhav,Linda Hirsch Apr 12, 2016 11:14
[2016-04-12] MEDS ORDERED: Ondansetron 2 mg/mL 2 mL Inj IVPUSH ONE (11:15)
[2016-04-12] MEDS ORDERED: 0.9% Sodium Chloride 1,000 ML IV ONE ×4 (11:15→15:05)
--- NOTE | 2016-04-12 11:48 | DRSVH ---
PROCEDURE: X-RAY CHEST ONE VIEW, PORTABLE ([id number]) INDICATIONS: dyspnea TECHNIQUE: One view of the chest was acquired. COMPARISON: [facility], CR, XR CHEST 1VW (PORTABLE), 01/31/2016, 12:18. FINDINGS: Surgical changes and devices: Several surgical clips right axilla area.. Lungs and pleura: No pleural effusions or pneumothorax. Lungs are clear. There is a slight amount of free air beneath the right hemidiaphragm laterally. Mediastinum: Mediastinal contours appear normal. Heart size is normal. Bones and chest wall: No suspicious bony lesions. Overlying soft tissues appear unremarkable. IMPRESSION: Source of dyspnea is not found. Slight amount of free air is seen beneath the right elida diaphragm laterally. This information was immediately called to the emergency room physician reports the patient had recent prior abdominal surgery and therefore this is an expected finding. Dictated by: Will De La Vega M.D. on 04/12/2016 at 11:45 Approved by: Will De La Vega M.D. on 04/12/2016 at 11:47
[2016-04-12 11:55] LABS: BASOPHILS % (AUTO) 0.2 % (0-3); EOSINOPHILS % (AUTO) 2.6 % (0-5); MONOCYTES % (AUTO) 5.3 % (4-12); Mean Corpuscular Hemoglobin 31.1 pg (27.0-35.0); Mean Corpuscular Volume 91.5 fL (81-100); NEUTROPHILS % (AUTO) 73.9 % (40-74); Platelet Count 624 bil/L (150-400)
[2016-04-12 12:23] LABS: TROPONIN T < 0.010 ug/L (0.0-0.011)
[2016-04-12 12:28] LABS: Magnesium 2.1 mg/dL (1.6-2.6)
[2016-04-12] MEDS ORDERED: Sodium Bicarb (50 mEq) 8.4% 1 mEq/mL 50 mL Syringe IVPUSH ONE (12:40)
[2016-04-12] MEDS ORDERED: Calcium GLUCOnate 10% (Gm) 1 Gm/10 mL Inj IVPUSH PRN (12:40)
[2016-04-12] MEDS ORDERED: Insulin Human REGular-Omnicell 100 Unit/mL IV ONE (12:40)
[2016-04-12] MEDS ORDERED: Albuterol 2.5 mg/3 mL Inhalation Solution NEB ONE (12:55)
--- NOTE | 2016-04-12 13:09 | ABG ---
DateTimeAnalyzed 13:03:00 -_ pH ____7.378 - pCO2 ___36.2__ -mmHg pO2 ___27.5__ -mmHg HCO3- ___20.8__ -mmol/L ABE ___-3.2__ -mmol/L tHb ___14.8__ -g/dL O2Hb ___48.4__ -% COHb ____1.1__ -% MetHb ____1.2__ -% sO2 ___49.5__ -% FIO2 ___21.0__ -% Drawn By as - Date/Time Notified____ 13:08:00 -_ Notified By as - Notified Whom _o'aliyah - B 764 -mmHg tO2 ___10.0__ -Vol% Phi test N/A -
[2016-04-12] MEDS ORDERED: LISI-571 PO (13:14)
[2016-04-12] MEDS ORDERED: PANT20TA2 PO (13:14)
[2016-04-12] MEDS ORDERED: 0.9% Sodium Chloride 1,000 ML IV SCH (13:24)
[2016-04-12] MEDS ORDERED: Ondansetron 2 mg/mL 2 mL Inj IVPUSH PRN ×2 (13:25→14:20)
[2016-04-12] MEDS ORDERED: Alum-Mag Hydrox-Simeth 30 mL Suspension PO PRN ×2 (13:25→14:20)
--- NOTE | 2016-04-12 13:37 | PROG NOTE ---
[address] [address] PROGRESS NOTE PATIENT: ANA RAY : 1950 MR#: [id number] ADMIT: 04/12/2016 JOB ID: [id number] DATE: 04/12/2016 SUBJECTIVE: The patient is seen in the emergency department. He is almost a week out from a laparoscopic right colectomy with diverting loop ileostomy for an obstructing right colon cancer. He did very well in the immediate postoperative period and was discharged home on postop day two. However, he has a history of dehydration secondary to obstruction in the past few months and has had a couple of episodes of acute kidney injury. Over the past two days he has had high ileostomy output and this morning called, feeling weak, and telling me he has not been having much urine. I asked him to come meet me in the emergency department. There he was found to have a creatinine of 3.19, a potassium of 7.6, and a sodium of 123. His white blood cell count is up at 14.9, his hematocrit is 38.8, platelet count is 624. A presumptive diagnosis of dehydration has been made and he is currently receiving fluids and electrolytes, as well as insulin for that elevated potassium. OBJECTIVE: He was initially tachycardic on arrival but now has a heart rate of 84 beats per minute. His blood pressure is 108/72, satting 100% on room air. He is afebrile. In general, he appears comfortable, in no acute distress. His abdomen is soft, nontender, nondistended. His incisions look fine. ASSESSMENT AND PLAN: This is a 66-year-old man with a stage 3 colon cancer involving the hepatic flexure, just under a week out from laparoscopic colectomy with loop ileostomy, being admitted for dehydration secondary to high ileostomy output. I agree with the hospital admission. I will continue to follow along. Probably tomorrow, if his electrolytes are looking better, we can start him on low dose loperamide. I will start him at 1 mg a day and then titrate it up. I will see him and order that tomorrow as indicated.
--- NOTE | 2016-04-12 14:55 | PCM.CHPMED ---
Subjective Date of Service: Apr 12, 2016 Primary Physician: Admitting Physician: Primary Care Physician: Darshana Yi PA-C Attending Physician: Chief Complaint: Chief Complaint: MORENA and hyperkalemia. . History of Present Illness: Nephrology Consultation Note: Attending Dr. 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 Esposito, for his shortness of breath that started 2 days ago. He also endorses nasal congestion and generalized weakness to the extent that he was unable to walk earlier this afternoon. His shortness of breath is exacerbated by exertion. His symptoms have worsened since onset. His surgeon was concerned about dehydration and a possible blood clot. The patient states his current symptoms are similar to when he was dehydrated and he reports decreased urine output. He has had high output from his ileostomy with approximately 6-8 loose BM's per day. He has been drinking plenty of fluids approximately 1 gallon a day in the form of Impact, Ensure, water, tomato juice and Gatorade. He has had a normal appetite and has eaten at least 3 meals per day since his surgery. He denies headache, throat pain, chest pain, cough, abdominal pain, nausea, vomiting, fever, chills , or dysuria. Vitals in the ER: Temperature 36.7. Pulse 121. Respiratory rate 14. Blood pressure 108/72. Pulse ox 90% on room air. He received 1 amp of calcium gluconate, 2 amps of bicarbonate, 10 units of regular insulin, 2 amps of D50, albuterol 10 mg tab, ondansetron 4 mg IV 1, and 2 L of NS. . Review of Systems: A comprehensive review of systems was conducted with the patient and found to be negative except as above in the History of Present Illness. . PMH Past Medical History 1. Hypertension. 2. Hyperlipidemia. 3. Diabetes mellitus type II, non-insulin using. 4. Nonhealing right foot ulcers followed by wound care clinic. 5. 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 6. 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 7. Chronic kidney disease stage II. . Bedside Blood Glucose: 199 Surgical History 1. Right elbow surgery. 2. Mohs resection of SCC of face. 3. Laparoscopic sigmoid resection with a diverting protective ileostomy on . . Home Medications Aspirin 81 mg daily. Atorvastatin 20 mg daily at bedtime. Glipizide 2.5 mg daily. . Allergies: Coded Allergies: No Known Allergies (Verified Allergy, Unknown, 03/16/16) Family History Family History Father who had diabetes and dementia and at 86 years old. Mother from an MVA at the age of 4747 years old. Brother who in a drowning accident at 14 years old. Brother who in an airforce crash. Sister who is alive and healthy in her 60's. . Social History Hx Alcohol Use: NoHx Substance Use: No Smoking Status: Former Smoker Exam Vital Signs Vital Sign - Last Date Time Temp Pulse Resp B/P Pulse Ox O2 Delivery O2 Flow Rate FiO2 04/12/16 13:00 84 18 100 Room Air 04/12/16 10:54 36.7 108/72 General: Alert, Oriented X3, Cooperative Head: Normal Eyes: PERRLA, EOMI, Scleral Anicteric Mouth: Mouth Normal, Mucous Membranes Dry Neck: Supple, No Thyromegaly Chest & Lungs: Clear to auscultation & percussion, No adventitious breath sounds Cardiovascular: Normal S1, Normal S2, No Murmurs/Rubs/Gallops, Other (sinus tachycardia) Pulses: NL carotid, radial, femoral, DP, PT Abdomen: Non-tender, Non-distended, Ostomy (ileostomy in place), Soft, Other ( laprascopic surgical scars healing well) Genitourinary: Beck[place] Absent Musculoskeletal: Normal Range of Motion Extremities: No cyanosis/clubbing/edma bilat, Lesions (3 nonhealing right foot ulcers with dressing in place, c/d/i) Neurological: Grossly Neurologically Intact Lab and Diagnostics Labs Item Value Date Time Calcium Level 10.2 mg/dL H 04/12/16 1138 Magnesium Level 2.1 mg/dL 04/12/16 1138 Total Bilirubin 0.6 mg/dL 04/12/16 1138 Aspartate Amino Transf (AST/SGOT) 26 U/L 04/12/16 1138 Alanine Aminotransferase (ALT/SGPT) 24 U/L 04/12/16 1138 Alkaline Phosphatase 207 U/L H 04/12/16 1138 Troponin T < 0.010 ug/L 04/12/16 1138 Total Protein 8.9 g/dL H 04/12/16 1138 Albumin 4.1 g/dL 04/12/16 1138 Result Diagram: 04/12/16 1138 04/12/16 1138 X-Rays, CTs and MRIs X-RAY CHEST ONE VIEW, PORTABLE IMPRESSION: Source of dyspnea is not found. Slight amount of free air is seen beneath the right hemidiaphragm laterally. This information was immediately called to the emergency room physician reports the patient had recent prior abdominal surgery and therefore this is an expected finding. Dictated by: Will De La Vega M.D. on 04/12/2016 at 11:45 Approved by: Will De La Vega M.D. on 04/12/2016 at 11:47 . 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 Esposito, for his shortness of breath that started 2 days ago. Impression: 1. High output ileostomy. 2. Acute kidney injury secondary to prerenal azotemia (significant hypovolemia and intravascular volume depletion from high output ileostomy) on chronic kidney disease stage II. 3. Hyperkalemia secondary to acute kidney injury. 4. Mixed anion gap metabolic acidosis and metabolic alkalosis. - Etiology secondary to acute kidney injury, intravascular volume depletion and high output of diarrhea from ileostomy. - Delta delta gap > 1.0 indicative of a mixed acid base disorder. 5. Hypertension with possible hypertensive nephrosclerosis. 6. Hypovolemic hyponatremia secondary to hypovolemia and iatrogenic excessive free water intake. Plan: - Continue supportive treatment including IV fluid hydration with an additional 1 L NS bolus and then NS at 100 mL/hr for MORENA, hyperkalemia, and hyponatremia. The patient received 2 L of NS in the ED. - Repeat stat potassium level pending now. If continues to be persistently hyperkalemic we will repeat 1 amp calcium gluconate, albuterol nebs, 10 units regular insulin and 1 amp of D50. Would recommend avoiding Kayexalate as patient acquired acute kidney injury secondary to high output ileostomy. - Ordered urinalysis with culture if indicated and urine protein to creatinine ratio, pending. - Ordered lactic acid, pending. - Baseline creatinine ~ 1.1 on 09/01. Continue to monitor renal function and urine output closely. Does not require renal replacement therapy at this time. . Problems: VTE Prophylaxis: Sub-Q Heparin (Unfractionated) Resuscitation Status: CPR: Attempt Resuscitation Yumiko Dias DO Apr 12, 2016 13:47 Yumiko Dias DO Apr 12, 2016 13:47
[2016-04-12 15:36] LABS: Magnesium 2.1 mg/dL (1.6-2.6); Phosphorus 4.3 mg/dL (2.5-4.9)
[2016-04-12 15:48] LABS: APPEARANCE,URINE CLEAR (CLEAR,HAZY); COLOR,URINE YELLOW (YELLOW); OCCULT BLOOD,URINE NEGATIVE (NEGATIVE); UROBILINOGEN,URINE NORMAL (NORMAL)
[2016-04-12] MEDS ORDERED: Glucose 40% Oral Gel 15 Gm Tube PO PRN (16:00)
--- NOTE | 2016-04-12 16:22 | PCM.HPMED ---
Subjective Date of Service Apr 12, 2016 Primary Provider: Admitting Physician: Fred Esposito MD Primary Care Physician: Darshana Yi PA-C Attending Physician: Fred Esposito MD Chief Complaint: Weakness and shortness of breath History of Present Illness: Kristofer Mccartney is a 66 year old male with recent laparoscopic right colectomy with diverting loop ileostomy for an obstructing right colon cancer by Dr. Esposito on 04/06 discharged on 04/08, type II diabetes non insulin using, and hypertension presents to the ED with progressive weakness and shortness of breath. Patient was doing well after discharge able to tolerate general diet without nausea vomiting and ambulating without difficulty. Over the past 48 hours patient had high ileostomy output requiring changing ileostomy bag 8-10 times per day. He states he was attempting to increase fluid intake to compensate drinking at leas 1 gallon of water a day. He has had some minimal pain due to abdominal surgery and has taken Tylenol as needed with relief. No narcotics, aspirin, or ibuprofen use. He was scheduled to follow up with oncology to proceed with chemotherapy but has not had an appointment at this time. At the time of my examination patient stated he was feeling much improved. He was able to ambulate on his own to the restroom and denied any ongoing shortness of breath. He denies fever, chills, nausea, vomiting, chest pain, palpitations, low extremity pain, or dysuria. Upon presentation to the ED vitals were temp 36.7, pulse 121, respiratory rate 14, blood pressure 108/72, and oxygen saturation of 98% on room air. Pertinent labs include potassium of 7.6, sodium of 123, BUN 75, creatinine 3.19, and WBC 14.9. He received 2L NS bolus, calcium gluconate, sodium bicarb, albuterol, and insulin in the ED. Review of Systems: Comprehensive review of systems was conducted with the patient and found to be negative except as noted above in HPI. Allergies Coded Allergies: No Known Allergies (Verified Allergy, Unknown, 03/16/16) Home Medications Glipizide 2.5 mg daily Atorvastatin 20 mg daily Aspirin 81 mg daily Lisinopril and nifedipine discontinued for the last month as blood pressure was well-controlled without. 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 External ears without defect. Pupils equal, round, and reactive to light and accommodation. Anicteric sclerae, moist conjunctivae, and no lid lag. Oropharynx free of erythema and cobble stoning with moist mucosa. Neck: Supple with full range of motion. No jugular venous distension. No bruits. No lymphadenopathy or thyromegaly. Cardiovascular: Tachycardic with regular rhythm no murmurs, rubs, or gallops appreciated Pulmonary: Clear to auscultation bilaterally with no crackles, wheezes, or rhonchi. Normal respiratory effort with no use of accessory muscles. Abdomen: Bowel tones present. Ileostomy present in right lower quadrant. Surgical incisions from laparoscopy healing without surrounding erythema. Soft , nontender, nondistended. No hepatosplenomegaly or masses appreciated. Extremities: Right medial foot ulcer. No clubbing, cyanosis, edema, or lymphadenopathy appreciated. Skin: Normal temperature, turgor, and texture; no rash, ulcers, or subcutaneous nodules appreciated. Neurological: Cranial nerves grossly intact. Normal muscle strength, tone, and bulk. Reflexes, coordination, and sensory function within normal limits. No known gait impairment. Psychiatric: Normal mood and affect. Alert and oriented to person, place, and time. Lab and Diagnostics Result Diagram: 04/12/16 1138 04/12/16 1138 X-Rays, CTs and MRIs X-RAY CHEST ONE VIEW, PORTABLE IMPRESSION: Source of dyspnea is not found. Slight amount of free air is seen beneath the right hemidiaphragm laterally. This information was immediately called to the emergency room physician reports the patient had recent prior abdominal surgery and therefore this is an expected finding. Dictated by: Will De La Vega M.D. on 04/12/2016 at 11:45 Approved by: Will De La Vega M.D. on 04/12/2016 at 11:47 12-lead ECG Regular rate and rhythm with heart rate of [address] changes Peaked T waves compared to prior EKG on 01/31/16 Assessment & Plan Kristofer Mccartney is a 66 year old male with recent laparoscopic right colectomy with diverting loop ileostomy for an obstructing right colon cancer by Dr. Esposito on 04/06 discharged on 04/08, type II diabetes non insulin using, and hypertension presents to the ED with progressive weakness and shortness of breath. Admitted for hyperkalemia and acute on chronic kidney disease. 1. Hyperkalemia, present on admission. Active. - Etiology likely due to high ileostomy output. - Potassium on admission 7.6. - In the ED patient was given calcium gluconate, albuterol, insulin, bicarbonate , 2 L NS bolus. - EKG showed peaked T waves compared to prior. - Kayexalate avoided due to recent colectomy and ileostomy on 04/06. - Repeat potassium 5.4. - 1 L 0.45% normal saline bolus continued at 150 mL/hr. - Repeat BMP pending. - Nephrology consulted. Appreciate time and expertise. 2. Mixed anion gap metabolic acidosis, present on admission. Active. - Etiology multifactorial including dehydration, hyperkalemia, and lactic acidosis. - Fluid as above. - ABG 7.378/36.2/27.5/20.8 3. Hyponatremia, present on admission. Active. - Patient consuming large quantities of water attempting to compensate for high ileostomy output. - Sodium on admission 123. - Repeat sodium 143 question accuracy. Repeating the lab. - Switched patient from 0.9% normal saline to 0.45% normal saline. 4. Acute on chronic kidney disease, present on admission. Active. - Patient's baseline creatinine between 1.1 and 1.3. - BUN and creatinine on admission 75 and 3.19. - Fluids as above. - Post void residual pending. - Urinalysis pending. - Repeat BMP in the a.m. - Nephrology consulted. Appreciate time and expertise. 5. Lactic acidosis, present on admission. Active. - Lactic acid 5.7 on admission - Questioning accuracy repeating currently. - Fluid as above. - ABG 7.378/36.2/27.5/20.8 6. Colon cancer status post laparoscopic right colectomy with diverting loop ileostomy, present on admission. Active. - High ileostomy output contributing to electrolyte abnormalities. - Ostomy care. - Dr. Esposito and perform surgery on 04/06 and is following. 7. Diabetes type II, present on admission. Chronic. - Hemoglobin A1c 6.5. - Home regimen includes glipizide 2.5 mg. - Nutritional scale lispro per protocol. 8. Hyperlipidemia, present on admission. Chronic. - Home regimen includes atorvastatin. Held at this time. Patient is admitted under inpatient status with expected length of stay greater than 2 minutes due to severity of presenting symptoms, risk of adverse event, and complexity of treatment plan. Pain Evaluation: Adequate Pain Control GI Prophylaxis: Not indicated VTE Prophylaxis: Sub-Q Heparin (Unfractionated), SCDs Resuscitation Status: CPR: Attempt Resuscitation Attending Statement The patient was seen and examined together with Dr. Dominguez on 04/12/2016 and I agree with the history, exam and plan as outlined in the note above. . copies to: Darshana Yi PA-C, BETHANY A DO Apr 12, 2016 14:03 Jaylan Simental MD Apr 13, 2016 07:39
--- NOTE | 2016-04-12 16:48 | DRSVH ---
PROCEDURE: US VENOUS LEG DUPLEX BILATERAL INDICATIONS: shortness of breath TECHNIQUE: Real-time imaging, as well as color and pulse Doppler interrogation, were performed of the deep veins of both legs from the inguinal ligament to the popliteal fossa. COMPARISON: None. FINDINGS: The deep veins are normally compressible, and free of intraluminal thrombus. Color and pu lse Doppler demonstrate normal phasic intravascular flow. There is normal augmentation response to d istal compression maneuver. IMPRESSION: No deep venous thrombosis identified within either the left or right lower extremities. Dictated by: Ezequiel Cotter [facility] Interpreted: Ramon Grullon MD on 04/12/2016 at 16:48 Transcribed by: RAYMOND on 04/12/2016 at 16:48 Approved by: Ramon Grullon M.D. on 04/12/2016 at 17:34
[2016-04-12] MEDS: Insulin LISPRO 300 Unit/3 mL Inj SUBQ SCH ×2 (17:27→22:00)
[2016-04-12 17:35] LABS: BASOPHILS % (AUTO) 0.2 % (0-3); EOSINOPHILS % (AUTO) 1.3 % (0-5); MONOCYTES % (AUTO) 6.7 % (4-12); Mean Corpuscular Hemoglobin 31.2 pg (27.0-35.0); NEUTROPHILS % (AUTO) 72.9 % (40-74); Platelet Count 451 bil/L (150-400)
--- NOTE | 2016-04-12 18:13 | NUR ---
Arrived He arrived to [facility] 2022 from the ED with hyperkalemia and dehydration about 1415. Report was taken from Kathie ALVARES in the ED. He was A&Ox3 and able to transfer himself independently from the gurney to the bed. No c/o pain. Ileostomy has minimal output. Telemetry was sinus tachycardia 122 ( made aware). Admit completed by admit RN. No complaints of pain. Care continues.
[2016-04-12] MEDS: Heparin 5,000 Unit/mL Inj SUBQ SCH (19:24)
[2016-04-13] VITALS (8 sets, daily range): BP systolic 114–134; BP diastolic 72–77; PULSE 80–114; RESP 16–18; O2SAT 97–100
[2016-04-13] MEDS: Heparin 5,000 Unit/mL Inj SUBQ SCH ×3 (02:14→17:06)
[2016-04-13 02:52] LABS: BASOPHILS % (AUTO) 0.2 % (0-3); EOSINOPHILS % (AUTO) 4.5 % (0-5); Mean Corpuscular Hemoglobin 31.3 pg (27.0-35.0); Mean Corpuscular Volume 92.2 fL (81-100); NEUTROPHILS % (AUTO) 59.6 % (40-74); Platelet Count 417 bil/L (150-400)
[2016-04-13 03:16] LABS: Magnesium 1.9 mg/dL (1.6-2.6)
--- NOTE | 2016-04-13 04:49 | NUR ---
Ileostomy Pt's had a night bag put onto his ileostomy and there was gas build up that could not be cleared out due to a blockage. The bag had to be removed from the stoma and flushed with water repeatedly to remove the blockage. Once the blockage was removed the ileostomy night bag was replaced and the fecal matter was able to drain to gravity from the stoma bag into the hanging bag.
--- NOTE | 2016-04-13 05:04 | NUR ---
Labs Pt's lactic acid at 0030 decreased to 1.2 and is now within normal limits. The lactic acid series has now been DC'd. Pt's potassium at 0230 has now increased to 5.9. There are no future lab draws at this time to recheck the pt's potassium.
[2016-04-13] MEDS ORDERED: 0.9% Sodium Chloride 1,000 ML IV ONE (06:40)
[2016-04-13] MEDS: Insulin LISPRO 300 Unit/3 mL Inj SUBQ SCH ×4 (09:26→21:28)
[2016-04-13] MEDS ORDERED: Insulin Human REGular-Omnicell 100 Unit/mL IV ONE (09:30)
[2016-04-13] MEDS ORDERED: Albuterol 2.5 mg/3 mL Inhalation Solution NEB ONE (09:55)
[2016-04-13] MEDS: 0.9% Sodium Chloride 1,000 ML IV SCH ×2 (10:07→11:59)
--- NOTE | 2016-04-13 10:51 | NUR ---
Social Work: Initial Assessment D: Per EMR review, pt is a 66 year old male admitted for hyperkalemia, MORENA, Dehydration. Pt is Medicare with AARP supplement; pt has no LTC insurance or VA benefits. PCP is Darshana Yi PA-C. NOK is Angela Mccartney, , . Pt declined advanced directive information and states he does not wish to complete any future planning ppw. Pt is a readmit and was discharged home on 04/10 with no sw needs. Readmit score is high, 4/8. REMOTE SENSING SPECIALIST met with pt at bedside to discuss dcp. Sw role explained; see initial assessment. Pt lives at home with his spouse on [address]. He lives in a single story home with 3 steps to enter. He uses no DME and continues to drive. Pt is I at baseline and has never had HH or skilled rehab. Pt anticipates no d/c needs from [employer] S[employer] SPECIALIST and states his will transport at time of discharge. EMR reviewed and no needs identified at this time; pt has been ambulating the hall I during admission. A: Pt who is I at baseline. P: Anticipate pt to discharge home via POV once medically stable; REMOTE SENSING SPECIALIST to continue to follow if needs arise. KEN Sarah Addendum: 04/13/16 at 1055 by DEVIKA BARKER Amended: Links added.
--- NOTE | 2016-04-13 11:39 | PCM.PNMED ---
Subjective Date of Service Apr 13, 2016 Subjective Nephrology Progress Note: Attending Dr. 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 Esposito, for his shortness of breath that started 2 days ago. Hospital day #2. Overnight: There were no acute events. Telemetry overnight: Sinus rhythm, heart rate 80-90's, with occasional PVC's and runs up to 130's. The patient is resting in bed comfortably and in no acute distress. He reports decreased output through his ostomy. He continues to have minimal urine output. He endorses feeling much better than the day prior and states that he does not feel weak or as dry. He denies headache, rhinitis, sore throat, cough, shortness of breath, chest pain, abdominal pain, nausea, vomiting, fever, chills , dysuria, diarrhea or constipation. . Exam Vital Signs Vital Sign - Last Date Time Temp Pulse Resp B/P Pulse Ox O2 Delivery O2 Flow Rate FiO2 04/13/16 04:21 90 04/13/16 03:49 36.5 16 122/75 100 Room Air Intake and Output 04/12/16 04/12/16 04/13/16 Cumulative From/Thru 15:00 23:00 07:00 04/12/16 10:54 - 04/13/16 06:56 Intake Total 2000 ml 642 ml 477 ml 3119 ml Output Total 100 ml 550 ml 650 ml Balance 2000 ml 542 ml -73 ml 2469 ml Intake Oral 0 ml 400 ml 400 ml IV Total 2000 ml 642 ml 77 ml 2719 ml Output Urine Total 100 ml 250 ml 350 ml Stool Total 300 ml 300 ml # Bowel Movements 0 0 Exam General: Older gentleman lying in bed and in no acute distress, well-developed, well-nourished, appropriately interactive. HEENT: Normocephalic, atraumatic. External ears without defect. Pupils equal, round, and reactive to light. Anicteric sclerae, moist conjunctivae, and no lid lag. Oropharynx free of erythema and cobble stoning with moist mucosa. Neck: Supple with full range of motion. No lymphadenopathy or thyromegaly. Cardiovascular: Regular rhythm and rate without murmurs, rubs, or gallops appreciated. Pulmonary: Clear to auscultation bilaterally with no crackles, wheezes, or rhonchi. Normal respiratory effort with no use of accessory muscles. Abdomen: Soft, nontender, nondistended, bowel sounds present. No hepatosplenomegaly or masses appreciated. Ileostomy in right lower quadrant with green/brown stool. Surgical incisions from laparoscopy healing without surrounding erythema. Extremities: No clubbing, cyanosis, or edema appreciated. 3 right medial foot ulcers with dressing in place c/d/i. Skin: Normal temperature, turgor, and texture; Eczematous rash at right ankle. Neurological: Cranial nerves grossly intact. Normal muscle strength, tone, and bulk. Reflexes, coordination, and sensory function within normal limits. No known gait impairment. Psychiatric: Normal mood and affect. Alert and oriented to person, place, and time. . IVs and Medications Medications Reviewed: Medications were reviewed in detail Lab and Diagnostics Item Value Date Time Lactic Acid Level 5.7 mmol/L *H 04/12/16 1458 Lactic Acid Level 4.0 mmol/L H 04/12/16 1620 Lactic Acid Level 2.6 mmol/L H 04/12/16 2036 Lactic Acid Level 1.4 mmol/L 04/12/16 2221 Lactic Acid Level 1.2 mmol/L 04/13/16 0028 Item Value Date Time Calcium Level 8.7 mg/dL 04/13/16 0230 Phosphorus Level 5.0 mg/dL H 04/13/16 0230 Magnesium Level 1.9 mg/dL 04/13/16 0230 Total Bilirubin 0.5 mg/dL 04/13/16 0230 Aspartate Amino Transf (AST/SGOT) 21 U/L 04/13/16 0230 Alanine Aminotransferase (ALT/SGPT) 21 U/L 04/13/16 0230 Alkaline Phosphatase 147 U/L 04/13/16 0230 Total Protein 6.3 g/dL L 04/13/16 0230 Albumin 3.4 g/dL 04/13/16 0230 Result Diagram: 04/13/16 0230 04/13/16 0230 X-Rays, CTs and MRIs X-RAY CHEST ONE VIEW, PORTABLE IMPRESSION: Source of dyspnea is not found. Slight amount of free air is seen beneath the right hemidiaphragm laterally. This information was immediately called to the emergency room physician reports the patient had recent prior abdominal surgery and therefore this is an expected finding. Dictated by: Will De La Vega M.D. on 04/12/2016 at 11:45 Approved by: Will De La Vega M.D. on 04/12/2016 at 11:47 VENOUS LEG DUPLEX BILATERAL IMPRESSION: No deep venous thrombosis identified within either the left or right lower extremities. Dictated by: Ezequiel Cotter RRA Interpreted: Ramon Grullon MD on 04/12/2016 at 16:48 Transcribed by: RAYMOND on 04/12/2016 at 16:48 Approved by: Ramon Grullon M.D. on 04/12/2016 at 17:34 . 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 Esposito, for his shortness of breath that started 2 days ago. Hospital day #2. Impression: 1. High output ileostomy. Resolving. 2. Acute kidney injury secondary to prerenal azotemia (significant hypovolemia and intravascular volume depletion from high output ileostomy) on chronic kidney disease stage II. 3. Hyperkalemia secondary to acute kidney injury, hypovolemia, metabolic acidosis. 4. Mixed anion gap metabolic acidosis and metabolic alkalosis. - Etiology secondary to acute kidney injury, intravascular volume depletion with decreased tissue perfusion and lactic acidosis and high output of diarrhea from ileostomy. - Delta delta gap > 1.0 indicative of a mixed acid base disorder. 5. Hypertension with possible hypertensive nephrosclerosis. 6. Hypovolemic hyponatremia secondary to GI loss, hypovolemia leading to release of ADH, and iatrogenic excessive free-electrolyte water intake. Plan: - Continue supportive treatment including IV fluid hydration with NS at 150 mL/ hr for MORENA, hyperkalemia, and hyponatremia. The patient received 3 L boluses of NS in the ED. - Repeat 1 amp calcium gluconate, albuterol nebs, 10 units regular insulin and 1 amp of D50 for persistent hyperkalemia. Would recommend avoiding Kayexalate as patient acquired acute kidney injury secondary to high output ileostomy. - Urinalysis did not indicate culture and showed trace proteinuria. - Lactic acidosis resolved. - Ordered post void residual. - Started a diabetic and low potassium diet. - Baseline creatinine ~ 1.1 on 09/01. Renal function is improving. Does not require renal replacement therapy at this time. Continue to monitor renal function and urine output closely. Case discussed with Dr. Dias. Agreed as above. , pg [phone] . GI Prophylaxis: Not indicated VTE Prophylaxis: Sub-Q Heparin (Unfractionated) Resuscitation Status: CPR: Attempt Resuscitation Yumiko Dias DO Apr 13, 2016 09:04 Krishan Guzman MD Apr 13, 2016 12:35
--- NOTE | 2016-04-13 11:40 | PCM.PNMED ---
Subjective Date of Service Apr 13, 2016 Subjective Kristofer Mccartney is a 66 year old male with recent laparoscopic right colectomy with diverting loop ileostomy for an obstructing right colon cancer by Dr. Esposito on 04/06 discharged on 04/08, type II diabetes non insulin using, and hypertension presents to the ED with progressive weakness and shortness of breath. Admitted for hyperkalemia and acute on chronic kidney disease. Hospital day 2. Overnight: No acute events. Lactic normalized. Ostomy bag emptied once. Today: Patient sitting at bedside eating breakfast. No complaints. Denies chest pain, shortness of breath, abdominal pain, or dysuria. Remaining review of systems negative. Exam Vital Signs Vital Sign - Last Date Time Temp Pulse Resp B/P Pulse Ox O2 Delivery O2 Flow Rate FiO2 04/13/16 04:21 90 04/13/16 03:49 36.5 16 122/75 100 Room Air Intake and Output 04/12/16 04/12/16 04/13/16 Cumulative From/Thru 15:00 23:00 07:00 04/12/16 10:54 - 04/13/16 05:22 Intake Total 2000 ml 642 ml 77 ml 2719 ml Output Total 100 ml 100 ml Balance 2000 ml 542 ml 77 ml 2619 ml Intake Oral 0 ml 0 ml IV Total 2000 ml 642 ml 77 ml 2719 ml Output Urine Total 100 ml 100 ml # Bowel Movements 0 0 Exam General: No acute distress, well-developed, well-nourished, appropriately interactive HEENT: Normocephalic, atraumatic. External ears without defect. Pupils equal, round, and reactive to light and accommodation. Anicteric sclerae, moist conjunctivae, and no lid lag. Oropharynx free of erythema and cobble stoning with moist mucosa. Neck: Supple with full range of motion. No jugular venous distension. No bruits. No lymphadenopathy or thyromegaly. Cardiovascular: Tachycardic with regular rhythm no murmurs, rubs, or gallops appreciated Pulmonary: Clear to auscultation bilaterally with no crackles, wheezes, or rhonchi. Normal respiratory effort with no use of accessory muscles. Abdomen: Bowel tones present. Ileostomy present in right lower quadrant. Surgical incisions from laparoscopy healing without surrounding erythema. Soft , nontender, nondistended. No hepatosplenomegaly or masses appreciated. Extremities: Right medial foot ulcer. No clubbing, cyanosis, edema, or lymphadenopathy appreciated. Skin: Normal temperature, turgor, and texture; no rash, ulcers, or subcutaneous nodules appreciated. Neurological: Cranial nerves grossly intact. Normal muscle strength, tone, and bulk. Reflexes, coordination, and sensory function within normal limits. No known gait impairment. Psychiatric: Normal mood and affect. Alert and oriented to person, place, and time. Lab and Diagnostics Result Diagram: 04/13/16 0230 04/13/16 0230 X-Rays, CTs and MRIs X-RAY CHEST ONE VIEW, PORTABLE IMPRESSION: Source of dyspnea is not found. Slight amount of free air is seen beneath the right hemidiaphragm laterally. This information was immediately called to the emergency room physician reports the patient had recent prior abdominal surgery and therefore this is an expected finding. Dictated by: Will De La Vega M.D. on 04/12/2016 at 11:45 Approved by: Will De La Vega M.D. on 04/12/2016 at 11:47 12-lead ECG Regular rate and rhythm with heart rate of [address] changes Peaked T waves compared to prior EKG on 01/31/16 Repeat EKG on 04/13/15 Continues to show NSR with slightly peaked T waves but improved from 04/12/15. Assessment & Plan Kristofer Mccartney is a 66 year old male with recent laparoscopic right colectomy with diverting loop ileostomy for an obstructing right colon cancer by Dr. Esposito on 04/06 discharged on 04/08, type II diabetes non insulin using, and hypertension presents to the ED with progressive weakness and shortness of breath. Admitted for hyperkalemia and acute on chronic kidney disease. Hospital day 2. 1. Hyperkalemia, present on admission. Active. - Etiology likely due to high ileostomy output. - Potassium on admission 7.6. - In the ED patient was given calcium gluconate, albuterol, insulin, bicarbonate , 2 L NS bolus. - EKG showed peaked T waves compared to prior. Improved today. - Kayexalate avoided due to recent colectomy and ileostomy on 04/06. - Repeat potassium this morning is 5.9. - Insulin and albuterol given again on 04/13. - Repeat potassium at 1400. - Nephrology consulted. Appreciate time and expertise. 2. Mixed anion gap metabolic acidosis, present on admission. Active. - Etiology multifactorial including dehydration, hyperkalemia, and lactic acidosis. - Fluid as above. - ABG 7.378/36.2/27.5/20.8 3. Hyponatremia, present on admission. Active. - Patient consuming large quantities of water attempting to compensate for high ileostomy output. - Sodium on admission 123. Current sodium is 134. - 0.9% normal saline at 150ml/hr. 4. Acute on chronic kidney disease, present on admission. Improving. - Patient's baseline creatinine between 1.1 and 1.3. - BUN and creatinine on admission 75 and 3.19. - BUN and creatinine improving. - 0.9% normal saline at 150ml/hr. - Repeat BMP at 1400. - Nephrology consulted. Appreciate time and expertise. 5. Lactic acidosis, present on admission. Active. - Lactic acid 5.7 on admission. Normalized overnight. - Fluid as above. - ABG 7.378/36.2/27.5/20.8 6. Colon cancer status post laparoscopic right colectomy with diverting loop ileostomy, present on admission. Active. - High ileostomy output contributing to electrolyte abnormalities. - Ostomy care. - Dr. Esposito performed surgery on 04/06 and is following. 7. Diabetes type II, present on admission. Chronic. - Hemoglobin A1c 6.5. - Home regimen includes glipizide 2.5 mg. - Nutritional scale lispro per protocol. 8. Hyperlipidemia, present on admission. Chronic. - Home regimen includes atorvastatin. Held at this time. Disposition: Patient discharge pending improved kidney function and normalized potassium. Discharge home with no needs. Pain Evaluation: Adequate Pain Control GI Prophylaxis: Not indicated VTE Prophylaxis: Sub-Q Heparin (Unfractionated) Resuscitation Status: CPR: Attempt Resuscitation Attending Statement The patient was seen and examined together with Dr. Miranda on 04/13/2016 and I agree with the history, exam and plan as outlined in the note above. . EMORY MIRANDA DO Apr 13, 2016 06:47 Jaylan Simental MD Apr 15, 2016 14:38
--- NOTE | 2016-04-13 14:09 | NUR ---
Post Void Residual Post Void Residual was done this morning and there was noted to be 84 mls urine left in bladder 30 min after voiding.
--- NOTE | 2016-04-13 16:01 | PROG NOTE ---
[address] [address] PROGRESS NOTE PATIENT: ANA RAY : 1950 MR#: [id number] ADMIT: 04/12/2016 JOB ID: [id number] DATE: 04/13/2016 September 05, 2016 SUBJECTIVE: The patient is seen in followup for his recent admission for dehydration and acute kidney injury. This afternoon the patient tells me he is feeling great. He has been doing well in terms of eating. He is eager to get home. OBJECTIVE: He has remained afebrile and hemodynamically normal other than a single episode of tachycardia recorded this afternoon. When I saw him, he is up and about, alert, oriented and comfortable. His abdomen is soft, nontender, nondistended. His incisions look fine. His ostomy is working well. Yesterday he had 2.6 L in and 100 cc out of urine. He has had 300 cc of ostomy output overnight and some additional today. He has had additional 250 cc of urine output recorded today. His white blood cell count remains mildly elevated at 12.5 this morning. His hematocrit is stable at 31.8. His creatinine this morning was 2.11 and his potassium is 5.9. ASSESSMENT AND PLAN: This is a 66-year-old man week out from a laparoscopic right colectomy with diverting loop ileostomy for obstructing colon cancer readmitted with dehydration thought to be due to high ostomy output. Overall, he seems to be doing well. He is in good spirits. His ostomy output is reasonable at this point. I have reiterated the importance of monitoring how much he is having out and if he is having to empty the bag more than four times in a 24 hour period, then he needs to let me know. At this point, there is no reason to start loperamide. I will continue to follow along.
[2016-04-13 16:13] LABS: Magnesium 1.7 mg/dL (1.6-2.6)
[2016-04-14] VITALS (8 sets, daily range): BP systolic 117–133; BP diastolic 69–77; PULSE 68–80; RESP 16–18; O2SAT 98–99
[2016-04-14] MEDS: Heparin 5,000 Unit/mL Inj SUBQ SCH ×3 (00:07→16:30)
[2016-04-14] MEDS: 0.9% Sodium Chloride 1,000 ML IV SCH ×4 (01:07→13:26)
[2016-04-14 04:28] LABS: Mean Corpuscular Hemoglobin 31.1 pg (27.0-35.0); Mean Corpuscular Volume 94.1 fL (81-100)
[2016-04-14 04:49] LABS: Magnesium 1.9 mg/dL (1.6-2.6); Phosphorus 3.7 mg/dL (2.5-4.9)
--- NOTE | 2016-04-14 06:17 | NUR ---
ileostomy output pts ileostomy put out 1650cc of liquid stool this payer specialist, pt potassium this morning is 5.4 and BUN/creatinine trending down.
[2016-04-14] MEDS: Insulin LISPRO 300 Unit/3 mL Inj SUBQ SCH ×4 (08:00→22:00)
--- NOTE | 2016-04-14 09:09 | PCM.PNSURG ---
Subjective Date of Service: Apr 14, 2016 Visit Information: Reason for Visit Hyperkalemia,Volodymyr Dehydration Surgery/Surgery Date Post-Op Day # Date of Admission: Apr 12, 2016 at 13:55 Hospital Day #3 Subjective: Expresses confusion over understanding of renal diet. Last night decided to have vegetables for dinner: [place], ample, celery, carrots. Ostomy was emptied 4 times overnight with an output of over 1600 mL. Denies pain. Ambulating without assistance. Postop General: No Complaints Gastrointestinal: Good Appetite, Tolerating Oral Feedings, No N/V, Passing Stool (the ostomy) Pain Management: No or Minimal Pain Postop Activity: Ambulating Independently Objective Vital Sign- Last 8 Hours Date Time Temp Pulse Resp B/P Pulse Ox O2 Delivery O2 Flow Rate FiO2 04/14/16 04:55 71 04/14/16 04:00 36.5 75 16 117/76 98 Room Air Intake and Output- Last 8 Hour 04/14/16 Cumulative From/Thru 07:00 04/12/16 10:54 - 04/14/16 05:56 Intake Total 2286 ml 7485 ml Output Total 2100 ml 3325 ml Balance 186 ml 4160 ml Intake Oral 600 ml 1900 ml IV Total 1686 ml 5585 ml Output Urine Total 450 ml 1175 ml Stool Total 1650 ml 2150 ml # Bowel Movements 0 General: Alert, Cooperative, No Acute Distress Lungs: Clear to Auscultation Heart: Regular Rate/Rhythm Abdomen: Soft, Non-tender, Non-distended, Ostomy pink & viable (with liquid stool in the bag) SURGICAL WOUND : Wound General Appearence: Incision Healing Extremities: Thigh&Calf Soft/Nontender Neuro: Normal Speech Catheters: None Result Diagram: 04/14/16 0408 04/14/16 0408 Assessment & Plan Impression Primary diagnosis: Stage III colon cancer on weeks status post laparoscopic right colectomy with ileostomy admitted for acute kidney injury, dehydration secondary to high ileostomy output. He continues to have high ileostomy output most likely related to high fiber diet this morning. Other diagnoses: 1. Hypertension. 2. Hyperlipidemia. 3. Diabetes mellitus type II, non-insulin using. 4. Nonhealing right foot ulcers followed by wound care clinic. 5. 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 6. 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 7. Chronic kidney disease stage II. Problems: Plan 1. The patient will receive a single Imodium this morning. 2. A discussion was held with the patient cautioning him to not eat too many vegetables as it will increase his ostomy output. A discussion was held with the hospital dietitian who will revisit the patient and reinforce renal diet teaching for this patient. VTE Prophylaxis: Sub-Q Heparin (Unfractionated) Resuscitation Status: CPR: Attempt Resuscitation Don Alanis PA-C Apr 14, 2016 09:09
--- NOTE | 2016-04-14 11:37 | PCM.PNMED ---
Subjective Date of Service Apr 14, 2016 Subjective Nephrology Progress Note: Attending Dr. 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 Esposito, for his shortness of breath that started 2 days ago. Hospital day #3. Overnight: There were no acute events. Telemetry overnight: Sinus rhythm, heart rate 80-90's, with occasional PVC's and runs up to 130's. The patient is resting in bed comfortably and in no acute distress. He reports increased output through his ostomy after eating vegetables after many months. He continues to have minimal urine output that is improving. He continues to feel well overall. He denies headache, rhinitis, sore throat, cough, shortness of breath, chest pain, abdominal pain, nausea, vomiting, fever, chills, dysuria , diarrhea or constipation. . Exam Vital Signs Vital Sign - Last Date Time Temp Pulse Resp B/P Pulse Ox O2 Delivery O2 Flow Rate FiO2 04/14/16 08:00 74 04/14/16 04:00 36.5 16 117/76 98 Room Air Intake and Output 04/13/16 04/13/16 04/14/16 Cumulative From/Thru 15:00 23:00 07:00 04/12/16 10:54 - 04/14/16 05:56 Intake Total 2080 ml 2286 ml 7485 ml Output Total 575 ml 2100 ml 3325 ml Balance 1505 ml 186 ml 4160 ml Intake Oral 900 ml 600 ml 1900 ml IV Total 1180 ml 1686 ml 5585 ml Output Urine Total 375 ml 450 ml 1175 ml Stool Total 200 ml 1650 ml 2150 ml # Bowel Movements 0 Exam General: Older gentleman lying in bed and in no acute distress, well-developed, well-nourished, appropriately interactive. HEENT: Normocephalic, atraumatic. External ears without defect. Pupils equal, round, and reactive to light. Anicteric sclerae, moist conjunctivae, and no lid lag. Oropharynx free of erythema and cobble stoning with moist mucosa. Neck: Supple with full range of motion. No lymphadenopathy or thyromegaly. Cardiovascular: Regular rhythm and rate without murmurs, rubs, or gallops appreciated. Pulmonary: Clear to auscultation bilaterally with no crackles, wheezes, or rhonchi. Normal respiratory effort with no use of accessory muscles. Abdomen: Soft, nontender, nondistended, bowel sounds present. No hepatosplenomegaly or masses appreciated. Ileostomy in right lower quadrant with green/brown stool. Surgical incisions from laparoscopy healing without surrounding erythema. Extremities: No clubbing, cyanosis, or edema appreciated. 3 right medial foot ulcers with dressing in place c/d/i. Skin: Normal temperature, turgor, and texture; Eczematous rash at right ankle. Neurological: Cranial nerves grossly intact. Normal muscle strength, tone, and bulk. Reflexes, coordination, and sensory function within normal limits. No known gait impairment. Psychiatric: Normal mood and affect. Alert and oriented to person, place, and time. . IVs and Medications Medications Reviewed: Medications were reviewed in detail Lab and Diagnostics Result Diagram: 04/14/1640704/14/16407 X-Rays, CTs and MRIs X-RAY CHEST ONE VIEW, PORTABLE IMPRESSION: Source of dyspnea is not found. Slight amount of free air is seen beneath the right hemidiaphragm laterally. This information was immediately called to the emergency room physician reports the patient had recent prior abdominal surgery and therefore this is an expected finding. Dictated by: Will De La Vega M.D. on 04/12/2016 at 11:45 Approved by: Will De La Vega M.D. on 04/12/2016 at 11:47 VENOUS LEG DUPLEX BILATERAL IMPRESSION: No deep venous thrombosis identified within either the left or right lower extremities. Dictated by: Ezequiel Cotter RR Interpreted: Ramon Grullon MD on 04/12/2016 at 16:48 Transcribed by: RAYMOND on 04/12/2016 at 16:48 Approved by: Ramon Grullon M.D. on 04/12/2016 at 17:34 . 12-lead ECG EKG: Sinus rhythm, heart rate of 92, normal axis, no ST changes, peaked T waves compared to prior EKG on 01/31/16. . 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 Esposito, for his shortness of breath that started 2 days ago. Hospital day #3. Impression: 1. High output ileostomy. Stable. 2. Acute kidney injury secondary to prerenal azotemia (significant hypovolemia and intravascular volume depletion from high output ileostomy) on chronic kidney disease stage II. 3. Hyperkalemia secondary to acute kidney injury, hypovolemia, metabolic acidosis. Resolving. 4. Mixed anion gap metabolic acidosis and metabolic alkalosis. - Etiology secondary to acute kidney injury, intravascular volume depletion with decreased tissue perfusion and lactic acidosis and high output of diarrhea from ileostomy. - Delta delta gap > 1.0 indicative of a mixed acid base disorder. 5. Hypovolemic hyponatremia secondary to GI loss, hypovolemia leading to release of ADH, and iatrogenic excessive free-electrolyte water intake. Resolved. 6. Hypertension with possible hypertensive nephrosclerosis. Plan: - Continue supportive treatment including IV fluid hydration with NS at 80 mL/ hr. - Repeat 1 amp calcium gluconate, albuterol nebs, 10 units regular insulin and 1 amp of D50 for persistent hyperkalemia. Would recommend avoiding Kayexalate as patient acquired acute kidney injury secondary to high output ileostomy. - Urinalysis did not indicate culture and showed trace proteinuria. - Lactic acidosis resolved. - Post void residual which was normal. - Continue diabetic and low potassium diet. - Baseline creatinine ~ 1.1 on 09/01. Renal function is improving. Does not require renal replacement therapy at this time. Continue to monitor renal function and urine output closely. . GI Prophylaxis: Not indicated VTE Prophylaxis: Sub-Q Heparin (Unfractionated) Resuscitation Status: CPR: Attempt Resuscitation Yumiko Dias DO Apr 14, 2016 11:37 Krishan Guzman MD Apr 14, 2016 12:18
--- NOTE | 2016-04-14 12:03 | PCM.PNMED ---
Subjective Date of Service Apr 14, 2016 Subjective Kristofer Mccartney is a 66 year old male with recent laparoscopic right colectomy with diverting loop ileostomy for an obstructing right colon cancer by Dr. Esposito on 04/06 discharged on 04/08, type II diabetes non insulin using, and hypertension presents to the ED with progressive weakness and shortness of breath. Admitted for hyperkalemia and acute on chronic kidney disease. Hospital day 3. Overnight: No acute events. Ostomy bag emptied 4 times overnight. Today: Patient sitting at bedside eating breakfast. No complaints. Denies chest pain, shortness of breath, abdominal pain, or dysuria. Remaining review of systems negative. Exam Vital Signs Vital Sign - Last Date Time Temp Pulse Resp B/P Pulse Ox O2 Delivery O2 Flow Rate FiO2 04/14/16 04:55 71 04/14/16 04:00 36.5 16 117/76 98 Room Air Intake and Output 04/13/16 04/13/16 04/14/16 Cumulative From/Thru 15:00 23:00 07:00 04/12/16 10:54 - 04/14/16 05:56 Intake Total 2080 ml 2286 ml 7485 ml Output Total 575 ml 2100 ml 3325 ml Balance 1505 ml 186 ml 4160 ml Intake Oral 900 ml 600 ml 1900 ml IV Total 1180 ml 1686 ml 5585 ml Output Urine Total 375 ml 450 ml 1175 ml Stool Total 200 ml 1650 ml 2150 ml # Bowel Movements 0 Exam General: No acute distress, well-developed, well-nourished, appropriately interactive HEENT: Normocephalic, atraumatic. External ears without defect. Pupils equal, round, and reactive to light and accommodation. Anicteric sclerae, moist conjunctivae, and no lid lag. Oropharynx free of erythema and cobble stoning with moist mucosa. Neck: Supple with full range of motion. No jugular venous distension. No bruits. No lymphadenopathy or thyromegaly. Cardiovascular: Tachycardic with regular rhythm no murmurs, rubs, or gallops appreciated Pulmonary: Clear to auscultation bilaterally with no crackles, wheezes, or rhonchi. Normal respiratory effort with no use of accessory muscles. Abdomen: Bowel tones present. Ileostomy present in right lower quadrant. Surgical incisions from laparoscopy healing without surrounding erythema. Soft , nontender, nondistended. No hepatosplenomegaly or masses appreciated. Extremities: Right medial foot ulcer. No clubbing, cyanosis, edema, or lymphadenopathy appreciated. Skin: Normal temperature, turgor, and texture; no rash, ulcers, or subcutaneous nodules appreciated. Neurological: Cranial nerves grossly intact. Normal muscle strength, tone, and bulk. Reflexes, coordination, and sensory function within normal limits. No known gait impairment. Psychiatric: Normal mood and affect. Alert and oriented to person, place, and time. Lab and Diagnostics Result Diagram: 04/14/1640704/14/16407 X-Rays, CTs and MRIs X-RAY CHEST ONE VIEW, PORTABLE IMPRESSION: Source of dyspnea is not found. Slight amount of free air is seen beneath the right hemidiaphragm laterally. This information was immediately called to the emergency room physician reports the patient had recent prior abdominal surgery and therefore this is an expected finding. Dictated by: Will De La Vega M.D. on 04/12/2016 at 11:45 Approved by: Will De La Vega M.D. on 04/12/2016 at 11:47 12-lead ECG Regular rate and rhythm with heart rate of [address] changes Peaked T waves compared to prior EKG on 01/31/16 Repeat EKG on 04/13/15 Continues to show NSR with slightly peaked T waves but improved from 04/12/15. Assessment & Plan Kristofer Mccartney is a 66 year old male with recent laparoscopic right colectomy with diverting loop ileostomy for an obstructing right colon cancer by Dr. Esposito on 04/06 discharged on 04/08, type II diabetes non insulin using, and hypertension presents to the ED with progressive weakness and shortness of breath. Admitted for hyperkalemia and acute on chronic kidney disease. Hospital day 3. 1. Hyperkalemia, present on admission. Active. - Etiology likely due to high ileostomy output. - Potassium on admission 7.6. - In the ED patient was given calcium gluconate, albuterol, insulin, bicarbonate , 2 L NS bolus. - EKG showed peaked T waves compared to prior. - Insulin and albuterol given again on 04/13. - Kayexalate avoided due to recent colectomy and ileostomy on 04/06. - Repeat potassium this morning is 5.4. - Repeat potassium in the morning. - Nephrology consulted. Appreciate time and expertise. 2. Mixed anion gap metabolic acidosis, present on admission. Resolved. - Etiology multifactorial including dehydration, hyperkalemia, and lactic acidosis. 3. Hyponatremia, present on admission. Resolved. - Patient consuming large quantities of water attempting to compensate for high ileostomy output. - Sodium on admission 123. Sodium normalized. - 0.9% normal saline at 150ml/hr. 4. Acute on chronic kidney disease, present on admission. Improving. - Patient's baseline creatinine between 1.1 and 1.3. - BUN and creatinine on admission 75 and 3.19. - BUN and creatinine improving. - 0.9% normal saline at 150ml/hr. - Repeat BMP in the morning. - Nephrology consulted. Appreciate time and expertise. 5. Lactic acidosis, present on admission. Resolved. - Lactic acid 5.7 on admission. Normalized now. 6. Colon cancer status post laparoscopic right colectomy with diverting loop ileostomy, present on admission. Active. - High ileostomy output contributing to electrolyte abnormalities. - Loperamide added to regimen. - Ostomy care. - Dr. Esposito performed surgery on 04/06 and is following. 7. Diabetes type II, present on admission. Chronic. - Hemoglobin A1c 6.5. - Home regimen includes glipizide 2.5 mg. - Nutritional scale lispro per protocol. 8. Hyperlipidemia, present on admission. Chronic. - Home regimen includes atorvastatin. Held at this time. Disposition: Patient discharge pending improved kidney function and normalized potassium. Discharge home with no needs. Pain Evaluation: Adequate Pain Control GI Prophylaxis: Not indicated VTE Prophylaxis: Sub-Q Heparin (Unfractionated) Resuscitation Status: CPR: Attempt Resuscitation Attending Statement The patient was seen and examined together with Dr. Miranda on 04/14/2016 and I agree with the history, exam and plan as outlined in the note above. . EMORY MIRANDA DO Apr 14, 2016 07:57 Jaylan Simental MD Apr 15, 2016 14:39
--- NOTE | 2016-04-14 12:53 | NUR ---
NUTRITION ASSESSMENT Assess: 66 yo M w/ MORENA and s/p recent ileostomy r/t stage 3 colon cancer. Pt having difficulty understanding various dietary restrictions for MORENA and ileostomy in addition to trying to gain weight and improve nutrition status for initiation of cancer treatment. Pt also notes significant wt loss since November when he was his UBW of 196 lbs. He also adds that he has had significant loss of LBM, and estimates that he has lost 20 lbs in muscle. Pt is to start treatment for his colon cancer at the [facility] in the next few weeks. Potassium, BUN, and Cr trending down. PMHx: HTN, HLD, DM 2, Melanoma, Colon cancer LABS: Reviewed. K 5.4, BUN 46, Cr 1.76, Glu 116 MEDICATIONS: Reviewed. DIET: Renal, PO 75-95% NUTRITION FOCUSED PHYSICAL ASSESSMENT: GI symptoms/stool: High ileostomy output Lucas: 23 Skin integrity: No issues noted Overall Appearance: Thin man sitting in bed - no signs of wasting. ANTHROPOMETRICS: Current Wt: 69.2 kg BMI: 22.5 kg/[id number] Wt: 68.1 kg IBW: 72.7 kgUBW: 196 lbs (89.1 kg) Recent wt changes: 20 kg wt loss x4 months (22% wt loss x4 mo = significant) ESTIMATED NEEDS: Wt gain/Initiation of cancer treatment/MORENA Calories: 8677-6342 kcal/d (30-35 kcal/kg/d) Protein: 55-83 g/d (0.8-1.2 g/kg/d) Fluids: 1807-8124 ml/d (1 ml/kcal/d) NUTRITION DIAGNOSIS: 1) Altered nutrition related lab values related to kidney disease as evidenced by MORENA and hyperkalemia. 2) Moderate malnutrition related to cancer as evidenced by 22% wt loss x4 months and significant loss of LBM. INTERVENTION: 1) Discussed low potassium, low fiber, moderate protein diet - pt demonstrates understanding 2) Contact information provided will follow-[facility] w/ [facility] MONITOR/EVALUATE: Labs, PO intake, Nutrition status, POC. Will follow per moderate nutrition risk guidelines.
--- NOTE | 2016-04-14 16:16 | NUR ---
Wound care Dressings taken down at right foot, cleaned with saline and gauze then redressed with hydrogel and mepilex foam dressing. present and instructed in dressing change. Pt will follow up at the wound center 04/20/16 for wound/ostomy care. Ostomy appliance changed out using a large Eakins ring then a Winlock #[id number] wafer and a Winlock #[id number] pouch. Peristomal skin looks a little better today. Stoma powder working to protect this area. Pt's provided with a prescription for ostomy supplies.
--- NOTE | 2016-04-14 18:24 | NUR ---
Ileostomy Ileostomy had 1650cc out. Surgical team aware. Dr.Fred Alanis consulted pt and ordered Imodium. About 500cc output of green liquid. Tolerating renal diet. Nephrology consulted. SR 70's. WC wrapped bilateral foot wounds. RA at 97% Ambulating independently with steady gait.
[2016-04-15] MEDS: Heparin 5,000 Unit/mL Inj SUBQ SCH ×2 (00:30→07:53)
[2016-04-15] MEDS: 0.9% Sodium Chloride 1,000 ML IV SCH (01:11)
[2016-04-15 03:42] VITALS: BP 116/65; PULSE 79; RESP 18; O2SAT 98
--- NOTE | 2016-04-15 04:26 | NUR ---
Rest/Ileostomy Pt was able to rest throughout the shift with few interruptions. Pt's ileostomy bag has been emptied twice with a total of 600ml output.
[2016-04-15 05:51] LABS: Magnesium 1.8 mg/dL (1.6-2.6); Phosphorus 3.3 mg/dL (2.5-4.9)
--- NOTE | 2016-04-15 07:34 | PCM.PNSURG ---
Subjective Visit Information: Reason for Visit Hyperkalemia,Volodymyr Dehydration Surgery/Surgery Date Post-Op Day # Date of Admission: Apr 12, 2016 at 13:55 Hospital Day # Subjective: feels good, took 1 pill of loperamide yesterday, only emptied bag once overnight , saw a animal hospital office supervisor yesterday, wants to go home Objective Objective Awake Able to stand up in room RLQ ileostomy bag in place Vital Sign- Last 8 Hours Date Time Temp Pulse Resp B/P Pulse Ox O2 Delivery O2 Flow Rate FiO2 04/15/16 03:42 36.8 79 18 116/65 98 Room Air Intake and Output- Last 8 Hour 04/15/16 Cumulative From/Thru 07:00 04/12/16 10:54 - 04/15/16 06:39 Intake Total 2465 ml 21540 ml Output Total 1000 ml 5400 ml Balance 1465 ml 4770 ml Intake Oral 400 ml 2520 ml IV Total 2065 ml 7650 ml Output Urine Total 350 ml 2200 ml Stool Total 650 ml 3200 ml # Bowel Movements 0 Result Diagram: 04/14/16 0408 04/15/16 0443 Assessment & Plan Impression s/p RLQ ileostomy Dehydration, improved Problems: Plan Home today F/U with [facility] and [facility] On[facility] VTE Prophylaxis: Sub-Q Heparin (Unfractionated) Resuscitation Status: CPR: Attempt Resuscitation Parish Saenz MD Apr 15, 2016 07:34
[2016-04-15] MEDS: Insulin LISPRO 300 Unit/3 mL Inj SUBQ SCH (07:41)
[2016-04-15 08:30] VITALS: BP 116/71; PULSE 72; RESP 16; O2SAT 99
--- NOTE | 2016-04-15 08:45 | NUR ---
[place] Signed
[2016-04-15] MEDS ORDERED: LOPE2CAP PO (10:31)
--- NOTE | 2016-04-15 10:39 | PCM.DIMED ---
EMORY MIRANDA DO 04/15/16 1039: Discharge Instructions Date of Service Apr 15, 2016 Dates of Hospitalization Apr 12, 2016 at 13:55 Discharge Diagnosis Discharge Diagnosis 1. Hyperkalemia, present on admission. Resolved. 2. Mixed anion gap metabolic acidosis, present on admission. Resolved. 3. Hyponatremia, present on admission. Resolved. 4. Acute on chronic kidney disease, present on admission. Improving. 5. Lactic acidosis, present on admission. Resolved. 6. Colon cancer status post laparoscopic right colectomy with diverting loop ileostomy, present on admission. Active. 7. Diabetes type II, present on admission. Chronic. 8. Hyperlipidemia, present on admission. Chronic. Medication Instructions One medication has been added during your hospitalization as follows: - Loperamide 2 mg every 6 hours as needed to keep ostomy changes to less than 4 per day. You may take two tablets (4 mg) immediately in the morning if the prior day you had more than 4 ostomy changes. Diet Other (As discussed with Dr. Hampton, harp repairer, and with auditor appraiser. ) Call your provider Fever or Chills, Shortness of breath, Bleeding, Chest pain, Vomitting, Excessive diarrhea, Weakness (unilateral) Patient Instructions - During your hospitalization you were found to have an elevated potassium level and kidney injury. These have both significantly improved. These derangements were due to your high ostomy output. - Please use the loperamide to control ostomy output as detailed above. - Please have labs drawn on Sunday including a BMP, magnesium, and phosphate level. - Please follow up with your primary care doctor, Dr. Darshana Yi, in 3-4 days. - Please follow up with Dr. Esposito as scheduled. - Please follow up with nephrology, Dr. Guzman in the 2-3 weeks. - We attempted to change you oncology appointment from [facility] to our facility here but we were unable to do so. You may call yourself and should be able to switch this appointment. Follow-up Provider: Darshana Yi PA-C Follow-up with PCP in: Other (3-4 days) Provider: Fred Esposito MD Follow-up in: Other (as scheduled) Mid-level Provider (F9): Krishan Guzman MD Follow-up with Mid-level in: 2 weeks Kamille,Jaylan W MD 04/15/16 1442: Discharge Instructions Attending's Statement The patient was seen and examined together with Dr. Miranda on 04/15/2016 and I agree with the history, exam and plan as outlined in the note above. . EMORY MIRANDA DO Apr 15, 2016 10:39 Jaylan Simental MD Apr 15, 2016 14:42
--- NOTE | 2016-04-15 10:50 | NUR ---
Social Work: Discharge D: Pt discussed in am rounds. Pt is medically stable for discharge home today. Orders are written. Pt has been ambulating the halls I. ACTIVATED SLUDGE ATTENDANT met with pt at bedside to review dcp. He agrees with plan to go home and states his will be coming to pick him up. He is eager to leave. A: Pt who is I P: Anticipate pt to discharge home today via POV; no sw needs or barriers identified. KEN Sarah
--- NOTE | 2016-04-15 12:00 | NUR ---
Discharge Pt left via private car at 1145. PT A&Ox3 and walked to car. IV removed. All discharge instructions gone over and understood. Prescription given to patient. Instructed to call and make follow up apt since its the weekend.
--- NOTE | 2016-04-15 13:53 | PCM.DC.MED ---
Discharge Summary Date of Service Apr 15, 2016 Dates of Hospitalization Date of Hospital Admission Apr 12, 2016 at 13:55 Date of Discharge: Apr 15, 2016 Providers: Admitting Physician: Fred Esposito MD Primary Care Physician: Darshana Yi PA-C Attending Physician: Fred Esposito MD Diagnosis at Time of Discharge Diagnosis at Time of Discharge 1. Hyperkalemia, present on admission. Resolved. 2. Mixed anion gap metabolic acidosis, present on admission. Resolved. 3. Hyponatremia, present on admission. Resolved. 4. Acute on chronic kidney disease, present on admission. Improving. 5. Lactic acidosis, present on admission. Resolved. 6. Colon cancer status post laparoscopic right colectomy with diverting loop ileostomy, present on admission. Active. 7. Diabetes type II, present on admission. Chronic. 8. Hyperlipidemia, present on admission. Chronic. Consultations Dr. Guzman - nephrology Dr. Esposito - surgery Procedures XRay, CTs & MRIs X-RAY CHEST ONE VIEW, PORTABLE IMPRESSION: Source of dyspnea is not found. Slight amount of free air is seen beneath the right hemidiaphragm laterally. This information was immediately called to the emergency room physician reports the patient had recent prior abdominal surgery and therefore this is an expected finding. Dictated by: Will De La Vega M.D. on 04/12/2016 at 11:45 Approved by: Will De La Vega M.D. on 04/12/2016 at 11:47 ECG 12 Lead Regular rate and rhythm with heart rate of [address] changes Peaked T waves compared to prior EKG on 01/31/16 Repeat EKG on 04/13/15 Continues to show NSR with slightly peaked T waves but improved from 04/12/15. Brief History Per Dr. Miranda's H&P: Kristofer Mccartney is a 66 year old male with recent laparoscopic right colectomy with diverting loop ileostomy for an obstructing right colon cancer by Dr. Esposito on 04/06 discharged on 04/08, type II diabetes non insulin using, and hypertension presents to the ED with progressive weakness and shortness of breath. Patient was doing well after discharge able to tolerate general diet without nausea vomiting and ambulating without difficulty. Over the past 48 hours patient had high ileostomy output requiring changing ileostomy bag 8-10 times per day. He states he was attempting to increase fluid intake to compensate drinking at leas 1 gallon of water a day. He has had some minimal pain due to abdominal surgery and has taken Tylenol as needed with relief. No narcotics, aspirin, or ibuprofen use. He was scheduled to follow up with oncology to proceed with chemotherapy but has not had an appointment at this time. At the time of my examination patient stated he was feeling much improved. He was able to ambulate on his own to the restroom and denied any ongoing shortness of breath. He denies fever, chills, nausea, vomiting, chest pain, palpitations, low extremity pain, or dysuria. Upon presentation to the ED vitals were temp 36.7, pulse 121, respiratory rate 14, blood pressure 108/72, and oxygen saturation of 98% on room air. Pertinent labs include potassium of 7.6, sodium of 123, BUN 75, creatinine 3.19, and WBC 14.9. He received 2L NS bolus, calcium gluconate, sodium bicarb, albuterol, and insulin in the ED. Hospital Course Kristofer Mccartney is a 66 year old male with recent laparoscopic right colectomy with diverting loop ileostomy for an obstructing right colon cancer by Dr. Esposito on 04/06 discharged on 04/08, type II diabetes non insulin using, and hypertension presents to the ED with progressive weakness and shortness of breath. Admitted for hyperkalemia and acute on chronic kidney disease. 1. Hyperkalemia, present on admission. Resolved. - Potassium on admission 7.6. - In the ED patient was given calcium gluconate, albuterol, insulin, bicarbonate , 2 L NS bolus. - EKG showed peaked T waves compared to prior. - Insulin and albuterol given again on 04/13. - Kayexalate avoided due to recent colectomy and ileostomy on 04/06. - Potassium normalized and was 4.6 upon discharge. - Labs to be repeated on 04/17. - Nephrology consulted. Appreciated time and expertise. 2. Mixed anion gap metabolic acidosis, present on admission. Resolved. - Etiology multifactorial including dehydration, hyperkalemia, and lactic acidosis. 3. Hyponatremia, present on admission. Resolved. - Patient consuming large quantities of water attempting to compensate for high ileostomy output. - Sodium on admission 123. Sodium normalized. 4. Acute on chronic kidney disease, present on admission. Improving. - Patient's baseline creatinine between 1.1 and 1.3. - BUN and creatinine on admission 75 and 3.19. - BUN and creatinine improved. - 0.9% normal saline at 150ml/hr during hospitalization. - Outpatient nephrology follow up needed. - Nephrology consulted. Appreciated time and expertise. 5. Lactic acidosis, present on admission. Resolved. - Lactic acid 5.7 on admission. Normalized now. 6. Colon cancer status post laparoscopic right colectomy with diverting loop ileostomy, present on admission. Active. - High ileostomy output contributing to electrolyte abnormalities. - Loperamide added to regimen to keep ostomy changes to less than [address] Esposito. - Ostomy care. - Oncology appointment to be scheduled by patient to discuss further treatment. - Dr. Esposito performed surgery on 04/06 and followed during hospitalization. 7. Diabetes type II, present on admission. Chronic. - Hemoglobin A1c 6.5. - Home regimen includes glipizide 2.5 mg held. - Nutritional scale lispro per protocol. 8. Hyperlipidemia, present on admission. Chronic. - Home regimen includes atorvastatin held. Exam Vital Signs (Last) Date Time Temp Pulse Resp B/P Pulse Ox O2 Delivery O2 Flow Rate FiO2 04/15/16 08:30 36.7 72 16 116/71 99 04/15/16 03:42 Room Air Exam General: No acute distress, well-developed, well-nourished, appropriately interactive HEENT: Normocephalic, atraumatic. External ears without defect. Pupils equal, round, and reactive to light and accommodation. Anicteric sclerae, moist conjunctivae, and no lid lag. Oropharynx free of erythema and cobble stoning with moist mucosa. Neck: Supple with full range of motion. No jugular venous distension. No bruits. No lymphadenopathy or thyromegaly. Cardiovascular: Tachycardic with regular rhythm no murmurs, rubs, or gallops appreciated Pulmonary: Clear to auscultation bilaterally with no crackles, wheezes, or rhonchi. Normal respiratory effort with no use of accessory muscles. Abdomen: Bowel tones present. Ileostomy present in right lower quadrant. Surgical incisions from laparoscopy healing without surrounding erythema. Soft , nontender, nondistended. No hepatosplenomegaly or masses appreciated. Extremities: Right medial foot ulcer. No clubbing, cyanosis, edema, or lymphadenopathy appreciated. Skin: Normal temperature, turgor, and texture; no rash, ulcers, or subcutaneous nodules appreciated. Neurological: Cranial nerves grossly intact. Normal muscle strength, tone, and bulk. Reflexes, coordination, and sensory function within normal limits. No known gait impairment. Psychiatric: Normal mood and affect. Alert and oriented to person, place, and time. Test 04/12/16 11:38 04/12/16 14:15 04/12/16 14:55 04/13/16 00:28 Troponin T < 0.010ug/L (0.0-0.011) Urine Color Yellow (YELLOW) Urine Appearance Clear (CLEAR,HAZY) Urine pH 5.0 (5.0-8.0) Urine Specific Anderson 1.025 (1.003-1.035) Urine Protein Tracemg/dL (NEG,TRACE) Urine Glucose (UA) 250mg/dL (NEGATIVE) Urine Ketones Negativemg/dL (NEGATIVE) Urine Occult Blood Negative (NEGATIVE) Urine Nitrite Negative (NEGATIVE) Urine Bilirubin Negative (NEGATIVE) Urine Urobilinogen Normalmg/dL (NORMAL) Urine Leukocyte Esterase Negative (NEGATIVE) Urine RBC 0-2/hpf (0-2) Urine WBC 0-5/hpf (0-5) Urine Epithelial Cells Few/hpf (NONE-MOD) Urine Crystals Amorphous urates (NONE Urine Bacteria None/hpf (NONE-FEW) Urine Hyaline Casts None/lpf (NONE) Urine Granular Casts None seen (NONE SEEN) Urine Waxy Casts None seen (NONE SEEN) Urine Red Blood Cell Casts None seen (NONE SEEN) Urine White Blood Cell Casts None seen (NONE SEEN) Urine Mucus Present (None Seen) Urine Trichomonas None seen (NONE SEEN) Urine Yeast None (NONE SEEN) Urinalysis Comment None Urine Culture Reflexed Not indicated Urine Random Creatinine 195mg/dL (22-328) Urine Random Total Protein 28mg/dL (0-15) Urine Protein/Creatinine Ratio 0.14 Procalcitonin 0.06ng/mL (See Comment) Lactic Acid Level 1.2mmol/L (0.4-2.0) Test 04/13/16 02:30 04/13/16 06:39 04/14/16 04:08 04/15/16 04:43 Neutrophils (%) (Auto) 59.6% (40-74) Lymphocytes (%) (Auto) 28.5% (14-46) Monocytes (%) (Auto) 7.0% (4-12) Eosinophils (%) (Auto) 4.5% (0-5) Basophils (%) (Auto) 0.2% (0-3) Total Bilirubin 0.5mg/dL (0.0-1.2) Aspartate Amino Transf (AST/SGOT) 21U/L (0-50) Alanine Aminotransferase (ALT/SGPT) 21U/L (0-44) Alkaline Phosphatase 147U/L (25-160) Total Protein 6.3g/dL (6.4-8.4) Albumin 3.4g/dL (3.4-5.0) Hold Bennett Top Tube Received (Received) White Blood Count 11.1th/mm3 (3.8-10.1) Red Blood Count 3.22mil/mm3 (4.40-5.80) Hemoglobin 10.0g/dL (13.8-17.2) Hematocrit 30.3% (41.0-50.0) Mean Corpuscular Volume 94.1fL (81-100) Mean Corpuscular Hemoglobin 31.1pg (27.0-35.0) Mean Corpuscular Hemoglobin Concent 33.0% (32.0-37.0) Red Cell Distribution Width 13.5% (12.3-15.4) Platelet Count 369bil/L (150-400) Sodium Level 134mEq/L (134-144) Potassium Level 4.6mEq/L (3.5-5.2) Chloride Level 101mEq/L (97-108) Carbon Dioxide Level 21mmol/L (18-29) Blood Urea Nitrogen 29mg/dL (8-27) Creatinine 1.35mg/dL (0.76-1.27) Estimat Glomerular Filtration Rate 56mL/min (>59) Glucose Level 125mg/dL (60-99) Calcium Level 8.2mg/dL (8.5-10.1) Phosphorus Level 3.3mg/dL (2.5-4.9) Magnesium Level 1.8mg/dL (1.6-2.6) Discharge Medications Discharge Medications Aspirin (Aspirin) 81 Mg Tablet 81 MG PO HS (Reported) Atorvastatin Calcium (Atorvastatin Calcium) 20 Mg Tablet 20 MG PO HS (Reported) Glipizide ER (Glipizide ER) 2.5 Mg Tab.er.24 2.5 MG PO DAILY (Reported) As needed Loperamide (Loperamide) 2 Mg Capsule 2 MG PO Q6H PRN PRN For Diarrhea or Loose Stool Prescribed by: EMORY MIRANDA DO Additional med instructions One medication has been added during your hospitalization as follows: - Loperamide 2 mg every 6 hours as needed to keep ostomy changes to less than 4 per day. You may take two tablets (4 mg) immediately in the morning if the prior day you had more than 4 ostomy changes. Followup Plan Discharge Diet: Other (As discussed with Dr. Hampton, pcb design engineer, and with data processing clerk. ) Patient Instructions - During your hospitalization you were found to have an elevated potassium level and kidney injury. These have both significantly improved. These derangements were due to your high ostomy output. - Please use the loperamide to control ostomy output as detailed above. - Please have labs drawn on Sunday including a BMP, magnesium, and phosphate level. - Please follow up with your primary care doctor, Dr. Darshana Yi, in 3-4 days. - Please follow up with Dr. Esposito as scheduled. - Please follow up with nephrology, Dr. Guzman in the 2-3 weeks. - We attempted to change you oncology appointment from [facility] to our facility here but we were unable to do so. You may call yourself and should be able to switch this appointment. Follow-up Provider: Darshana Yi PA-C Follow-up with PCP in: Other (3-4 days) Provider: Fred Esposito MD Follow-up in: Other (as scheduled) Mid-level Provider: Krishan Guzman MD Follow-up with Mid-level in: 2 weeks Time spent Greater than 30 minutes was spent in preparation of discharge with greater than 50% of that time dedicated to patient counseling and coordination of care. . Attending Statement The patient was seen and examined together with Dr. Miranda on 04/15/2016 and I agree with the history, exam and plan as outlined in the note above. . copies to: Fred Esposito MD; Darshana Yi PA-C, BETHANY A DO Apr 15, 2016 13:53 Jaylan Simental MD Apr 15, 2016 14:42
[2016-04-25] MEDS ORDERED: LOPE-147 PO (13:21)
[2016-05-16] MEDS ORDERED: FOLI-52 PO (09:58)
[2016-05-30] MEDS ORDERED: ONDA8TAB7 PO (11:49)
[2016-08-22] MEDS ORDERED: OMEG-83 PO (17:44)
[2016-08-22] MEDS ORDERED: LISI-571 PO (17:44)
== END 2016-04-15 12:00 | disposition home or self-care (01) | DRG 683 ==
LOC: SED 10:41 → PCC 13:55
PROVIDERS: ADMIT General Practice; ATTEND General Practice
PROC: 4A033R1 Measurement of Arterial Saturation, Peripheral, Percutaneous Approach (ICD-10-PCS; principal; 2016-04-12)
DX: N17.8 Other acute kidney failure (principal); E87.2 Acidosis; E87.3 Alkalosis; E87.1 Hypo-osmolality and hyponatremia; C18.9 Malignant neoplasm of colon, unspecified; C77.9 Secondary and unspecified malignant neoplasm of lymph node, unspecified; E87.5 Hyperkalemia; E86.0 Dehydration; I12.9 Hypertensive chronic kidney disease with stage 1 through stage 4 chronic kidney disease, or unspecified chronic kidney disease; N18.2 Chronic kidney disease, stage 2 (mild); L97.519 Non-pressure chronic ulcer of other part of right foot with unspecified severity; E11.9 Type 2 diabetes mellitus without complications; E78.5 Hyperlipidemia, unspecified; Z87.891 Personal history of nicotine dependence; Z93.2 Ileostomy status

== ENCOUNTER 2016-05-11 13:01 | Day surgery (SDC) | payer MEDICARE ==
[~2016-05-11] VITALS: Ht 176.5 cm; Wt 75.7 kg
[2016-05-11] VITALS (8 sets, daily range): BP systolic 120–140; BP diastolic 62–88; PULSE 64–75; RESP 11–18; O2SAT 98–100
[~2016-05-11 13:01] MED LIST changes: +CeFAZolin Inj 2 GM in IV Premix 1 EACH IV ONE; -EMPA25TA PO; -LISI40TA PO; +LOPE-147 PO; +Lactated Ringer's 1,000 ML IV SCH; -METF1000 PO; -OMEG300C3 PO; -OMEG500C3 PO; -OXYC5TAB72 PO; -PANT20T PO
[2016-05-11] MEDS ORDERED: Propofol 10,000 mCg/mL 20 mL Inj ONE (13:02)
[2016-05-11] MEDS ORDERED: Lactated Ringer's 1,000 ML IV ONE (13:40)
[2016-05-11] MEDS ORDERED: CeFAZolin Inj 2 gm / 50mL D5W IV ONE (13:56)
--- NOTE | 2016-05-11 14:10 | PCM.HPANE ---
Patient Data Surgeon Admitting Provider: Attending Provider:Fred Esposito MD Primary Care Physician:Darshana Yi PA-C Other Provider:Obdulio Baldwin Anesthesia Reason for Visit Colon Cancer Ht/WT & BMI Height (Feet): 5 Height (Inches): 9.50 Weight (Kilograms): 75.700 Body Mass Index 24.00 Allergies Coded Allergies: No Known Allergies (Verified Allergy, Unknown, 03/16/16) Past Anesthesia History Anesthesia History: Denies:: Abnormal Airway, Anesthesia Reactions, Difficult Intubation, Fam Anesthesia Reaction, Fam Malignant Hypertherm, Malignant Hyperthermia Diabetes History Hx Diabetes?: Yes Current Bedside Blood Glucose: 112 MRSA MRSA: No Medications Blood Thinner: Aspirin Home Meds Incl Beta Brittanie: No Active Scripts Aspirin 81 Mg Scelox99 Mg PO DAILY #1 BOTTLE Ref 0 Prov:Micah Anderson SKYLER 08/18/15 Reported Medications Loperamide HCl (Imodium A-D)2 Mg Capsule1 Mg PO BID 04/25/16 Glipizide ER 2.5 Mg Tab.er.242.5 Mg PO DAILY 03/10/16 Atorvastatin Calcium 20 Mg Neegcl08 Mg PO HS 02/01/16 History History of ENT Problems?: No HEENT History: Denies:: Abnormal Airway Cataracts Difficult Intubation Dysphagia Hearing Problem Sinus Problem Hx of Heart Problems?: Yes Cardiovascular History: Positive for:: Hypertension Denies:: AICD Atrial Fibrillation Cardiac Surgery Chest Pain Congestive Heart Failure Edema Heart Murmur Irregular Heartbeat Pacemaker Thrombophlebitis Valvular Heart Disease Hx of Respiratory Problem?: No Respiratory History: Denies:: Asthma COPD Chest Surgery Dyspnea Emphysema Hemoptysis Oxygen Administration Pneumonia Tuberculosis Use of C-PAP Machine Hx Neurologic Problems?: No Neurological History: Denies:: Alzheimer's Disease CVA Dementia Dizziness Headaches Multiple Sclerosis Parkinson's Disease Seizures Hx of GI Problems?: No Gastrointestinal History: Positive for:: Gastroesphageal Reflux Denies:: Cirrhosis Diverticulitis Gastrointestinal Bleeding Heartburn Hepatitis Hiatal Hernia Rectal Bleeding Other GI Pertinent History: hx of right colon resection with ileostomy in place. surgery here 04/06/2016 Hx of Problems?: No Genitourinary History: Denies:: HX of Hemodialysis Kidney Stones Urinary Tract Infection HX of Peritoneal Dialysis: No Male Hx: Denies:: Prostate Problems Scrotal Mass Testicular Surgery Skin History: Positive for:: History Skin Disorders? (abrasion top right foot r/t orthotics h/of) Pressure Ulcers (h/of foot ulcer- being seen in wound care for) Hx Musculoskeletal Problems?: No Musculoskeletal History: Denies:: Back Injury Joint Replacement Musculoskeletal Trauma Hx of Psycho/Social Problems?: No Psycho Social History: Denies:: Anxiety Bipolar Disorder Hx Depression Suicide Attempt Hx Surgeries?: Yes (Wide excision melanoma, MOHS- mole surgery on head, colon resection) Hx Any Other Health Problems?: Yes Other History: Positive for:: Cancer (Melanoma- right arm- elbow 2013; Colon cancer 2016) Hospitalization (01/2016 for N/V/kidney failure) Denies:: Thyroid Disease History Blood Transfusions: Denies:: Blood Transfuse Reaction Blood Transfusions Hx Diabetes: YesBedside Blood Glucose: 112 Hx Alcohol Use: NoHx Substance Use: No Smoking Status: Former Smoker Have You Smoked inLast 12 mo: No Stop/Bang Treated for Sleep Apnea?: No Do You Have a CPAP Machine?: No P-Blood Pressure: treated: No B- Body Mass Index > 35 kg/m2: No A- Age over 50: Yes N- Neck Large Circumference: No G- Gender Male: Yes ALESHA Risk Assessment: Low Risk, <3 Yes Risk Assessment Category Category 1A: Patient has history of documented sleep apnea, and HAS NOT received any narcotic, sedative or anesthesia administration during this stay. Category 1B: Patient has history of documented sleep apnea, and HAS received any narcotic , sedative or anesthesia administration during this stay Category 2: Patient has SUSPECTED Obstructive Sleep Apnea, and HAS received any narcotic , sedative or anesthesia administration during this stay. Category 3: Patient has SUSPECTED Obstructive Sleep Apnea and HAS NOT received narcotic, sedative or anesthesia administration during this stay. Category 4: Outpatient in Procedural Areas with known sleep apnea or who screen positive for High Risk via the STOP/BANG questionnaire. Exam Exam Vital Signs Vital Signs Date Time Temp Pulse Resp B/P Pulse Ox O2 Delivery O2 Flow Rate FiO2 05/11/16 13:33 36.6 68 14 140/74 98 Room Air General Appearance: Oriented X3 HEENT/AIRWAY: MP 2 Lungs: Normal Air Movement Heart: Regular Rate/Rhythm Meds/Labs/Diagnostics Admission Meds Current Medications Lactated Ringer's (Lr) 1,000 ml @ ud STK-MED ONCE IV Last administered on 05/11t 13:40; Start 05/11/16 at 13:40; Stop 05/11/16 at 13:41; Status DC Bedside Blood Glucose: 112 Plan Impression Patient chart reviewed, patient interviewed and anesthestic plan with risks, benefits, and alternatives discussed, and informed consent obtained. NPO Status: confirmed before mn ASA Physical Status: ASA2 Mod Systemic Disease Anesthetic Plan: GA Bene/Risks/Altern/Consents: Yes HP Complete Prior to Induction: Yes Michael Odonnell MD May 11, 2016 14:10
[2016-05-11] MEDS ORDERED: Lidocaine PF 1% 30 mL Inj INFILTRATE ONE (15:03)
[2016-05-11] MEDS ORDERED: HepLOK Flush 100 unit/mL 5 mL Inj IVFLUSH ONE (15:04)
[2016-05-11] MEDS ORDERED: Bupivacaine-MPF 0.25% 30 mL Inj INFILTRATE ONE (15:04)
[2016-05-11] MEDS ORDERED: Lactated Ringer's 1,000 ML IV SCH (15:28)
[2016-05-11] MEDS ORDERED: Lactated Ringer's 500 ML IV PRN (15:28)
[2016-05-11] MEDS ORDERED: Phenylephrine 10,000 mCg/mL Inj IVPUSH PRN (15:30)
[2016-05-11] MEDS ORDERED: EPHEDrine Sulfate 50 mg/mL Inj IVPUSH PRN (15:30)
[2016-05-11] MEDS ORDERED: Dexamethasone 4 mg/mL Inj IVPUSH PRN (15:30)
[2016-05-11] MEDS ORDERED: Ondansetron 2 mg/mL 2 mL Inj IVPUSH PRN (15:30)
[2016-05-11] MEDS ORDERED: fentaNYL-PF 50 mCg/mL 2 mL Inj IVPUSH PRN (15:30)
[2016-05-11] MEDS ORDERED: MetoCLOpramide 5 mg/mL 2 mL Inj IVPUSH PRN (15:30)
[2016-05-11] MEDS ORDERED: HYDROmorphone 1 mg/mL Inj IVPUSH PRN (15:30)
--- NOTE | 2016-05-11 15:30 | PCM.ANEP1 ---
Post Anesthesia Phase 1 PACU Phase 1 Assessment Vital Signs Vital Signs Date Time Temp Pulse Resp B/P Pulse Ox O2 Delivery O2 Flow Rate FiO2 05/11/16 15:26 36.5 132/67 05/11/16 13:33 36.6 68 14 140/74 98 Room Air Anesthetic Administered: GA Level of Alertness: Awake, talking Pain: No Nausea or Vomiting: No Oxygen Delivery: Room Air Lungs: Normal Air Movement Michael Odonnell MD May 11, 2016 15:30
--- NOTE | 2016-05-11 15:30 | PCM.ANEP2 ---
Post Anesthesia Evaluation ASA/CMS Post Anesthesia VS in Patient's Normal Range?: Yes Resp Stable; Airway Patent?: Yes CV Function & Hydration Stable: Yes Mental Status Recovered?: Yes Pain control Satisfactory?: Yes N/V Control Satisfactory?: Yes Michael Odonnell MD May 11, 2016 15:30
[2016-05-11] MEDS ORDERED: HYDROcodone-APAP 5-325 mg Tablet PO PRN (15:40)
--- NOTE | 2016-05-11 16:14 | DRSVH ---
PROCEDURE: X-RAY CHEST ONE VIEW, PORTABLE ([id number]) INDICATIONS: PORT PLACEMENT TECHNIQUE: One view of the chest was acquired. COMPARISON: [facility], CR, XR CHEST 1VW (PORTABLE), 04/12/2016, 11:20. FINDINGS: Surgical changes and devices: There is a Port-A-Cath with the tip in the superior vena cava. There i s a right mastectomy. Surgical clips are present in the right axilla. Lungs and pleura: No pleural effusions or pneumothorax. Lungs are clear. Mediastinum: Mediastinal contours appear normal. Heart size is normal. Bones and chest wall: No suspicious bony lesions. Overlying soft tissues appear unremarkable. IMPRESSION: Port-A-Cath tip in expected position. Dictated by: Ramon Grullon M.D. on 05/11/2016 at 16:12 Approved by: Ramon Grullon M.D. on 05/11/2016 at 16:13
--- NOTE | 2016-05-11 23:50 | OP ---
[address] [address] OPERATIVE REPORT PATIENT: ANA RAY : 1950 MR#: [id number] ADMIT: 05/11/2016 JOB ID: [id number] DATE OF SURGERY: 05/11/2016 ANESTHESIA: General. PREOPERATIVE DIAGNOSIS(ES): Stage III colon cancer. POSTOPERATIVE DIAGNOSIS(ES): Stage III OPERATIVE PROCEDURE: Insertion of left subclavian vein Port-A-Cath using fluoroscopy with interpretation for guidance. SURGEON: Dr. Fred Esposito. PROPOSAL MANAGER: None. COMPLICATIONS: None. ESTIMATED BLOOD LOSS: Minimal. CONDITION: Satisfactory. SPECIMEN: None. FINDINGS: The regular profile port was placed in the left subclavian vein without complication. INDICATIONS AND SIGNIFICANT HISTORY: The patient is a 66-year-old man with whom I recently performed a laparoscopic right colectomy for an obstructing colon cancer. Final pathology demonstrated node positive disease. He is going to begin chemotherapy in the near future. OPERATIVE TECHNIQUE: The patient was taken to the operating room and placed in the supine position. General anesthesia was administered and perioperative antibiotics were given. The neck and chest were prepped and draped in standard surgical fashion and a procedural pause was performed. The left subclavian vein was accessed with the first pass of the needle and a wire inserted into the vein under fluoroscopic visualization. The wire was seen to course through the heart into the inferior vena cava, confirming it was in the venous system. Local anesthetic was injected, followed by creation of a subcutaneous pocket in the left anterior chest. The Port-A-Cath was secured in place using three 2-0 Prolene sutures. The catheter was tunneled up to the wire exit point and then inserted into the vein under fluoroscopic visualization using the Seldinger technique. Good final position was confirmed. The port aspirated and flushed nicely. This was locked with heparin. The skin was then closed using 3-0 Vicryl deep dermal followed by running 4-0 Monocryl. Dermabond was applied. The entire procedure was well tolerated without complication. [facility]
[2016-05-16] MEDS ORDERED: FOLI-52 PO (09:58)
[2016-05-30] MEDS ORDERED: ONDA8TAB7 PO (11:49)
[2016-08-22] MEDS ORDERED: LISI-571 PO (17:44)
[2016-08-22] MEDS ORDERED: OMEG-83 PO (17:44)
== END 2016-05-11 23:59 | disposition home or self-care (01) ==
LOC: SAS 13:01
PROVIDERS: ATTEND General Practice
DX: C18.2 Malignant neoplasm of ascending colon (principal); I12.9 Hypertensive chronic kidney disease with stage 1 through stage 4 chronic kidney disease, or unspecified chronic kidney disease; E11.621 Type 2 diabetes mellitus with foot ulcer; E11.22 Type 2 diabetes mellitus with diabetic chronic kidney disease; R63.4 Abnormal weight loss; K21.9 Gastro-esophageal reflux disease without esophagitis; N18.9 Chronic kidney disease, unspecified; E78.00 Pure hypercholesterolemia, unspecified; Z79.84 Long term (current) use of oral hypoglycemic drugs; Z79.82 Long term (current) use of aspirin; Z93.2 Ileostomy status; Z87.891 Personal history of nicotine dependence; Z85.828 Personal history of other malignant neoplasm of skin
CPT/HCPCS: 36561; 71010; 77001; C1788; J0690; J1642; J7120

== ENCOUNTER 2016-08-24 08:55 | Inpatient (IN) | payer MEDICARE ==
[2016-08-24] VITALS (12 sets, daily range): BP systolic 135–170; BP diastolic 66–89; PULSE 55–105; RESP 11–20; O2SAT 94–100
[~2016-08-24] VITALS: Ht 175.3 cm; Wt 90.2 kg
[~2016-08-24 08:55] MED LIST changes: +Acetaminophen IV 1,000 MG in IV Premix 1 EACH IV ONE; +CeFAZolin 2 Gm/50 mL D5W IV Premix IV ONE; -CeFAZolin Inj 2 GM in IV Premix 1 EACH IV ONE; +Heparin 5,000 Unit/mL Inj SUBQ ONE; +LISI-571 PO; -LOPE-147 PO; -Lactated Ringer's 1,000 ML IV SCH; +OMEG-83 PO; +metroNIDAZOLE Inj 500 MG in IV Premix 1 EACH IV ONE
[2016-08-24] MEDS ORDERED: CeFAZolin Inj 2 gm / 50mL D5W IV ONE (09:31)
[2016-08-24] MEDS: Lactated Ringer's 1,000 ML IV SCH ×2 (09:59→10:29)
[2016-08-24] MEDS ORDERED: Lactated Ringer's 1,000 ML IV SCH (10:13)
[2016-08-24] MEDS ORDERED: Lactated Ringer's 500 ML IV PRN (10:13)
--- NOTE | 2016-08-24 10:13 | PCM.HPANE ---
Patient Data Date of Service: Aug 24, 2016 Surgeon Admitting Provider: Attending Provider:Fred Esposito MD Primary Care Physician:Darshana Yi PA-C Other Provider:Obdulio Baldwin Anesthesia Reason for Visit Ileostomy In Place Ht/WT & BMI Height (Feet): 5 Height (Inches): 9.00 Weight (Kilograms): 84.200 Body Mass Index 27.00 Allergies Coded Allergies: No Known Allergies (Verified Allergy, Unknown, 08/22/16) Past Anesthesia History Anesthesia History: Denies:: Abnormal Airway, Anesthesia Reactions, Difficult Intubation, Fam Anesthesia Reaction, Fam Malignant Hypertherm, Malignant Hyperthermia Diabetes History Hx Diabetes?: Yes Type of Diabetes: Type II Glycemic Control: Oral Medication Current Bedside Blood Glucose: 132 MRSA MRSA: No Medications Blood Thinner: Aspirin Hypertension Medication: Yes (LISINOPRIL) Home Meds Incl Beta Brittanie: No Active Scripts Aspirin 81 Mg Cwynvs12 Mg PO DAILY #1 BOTTLE Ref 0 Prov:Micah Anderson SKYLER 08/18/15 Reported Medications Lisinopril 5 Mg Tablet5 Mg PO DAILY #30 TABLET Ref 0 08/22/16 [place]-3/Dha/Epa/Fish Oil (Fish Oil 500 mg Softgel)1 Each Capsule1 Each PO DAILY 08/22/16 Glipizide ER 2.5 Mg Tab.er.242.5 Mg PO DAILY 03/10/16 Atorvastatin Calcium 20 Mg Jaqkaq74 Mg PO HS 02/01/16 Discontinued Reported Medications Ondansetron ODT (Zofran ODT)8 Mg Tablet8 Mg PO Q8HRS PRN PRN For Nausea 05/30/16 Multivitamin/Iron/Folic Acid (Centrum Complete Multivit Tab)1 Each Tablet1 Each PO DAILY 05/16/16 Loperamide HCl (Imodium A-D)2 Mg Capsule1 Mg PO BID 04/25/16 History History of ENT Problems?: No HEENT History: Denies:: Abnormal Airway Cataracts Difficult Intubation Dysphagia Hearing Problem Sinus Problem Denture Type: None Teeth Condition: Within Normal Limits Hx of Heart Problems?: Yes Cardiovascular History: Positive for:: Hypertension (hyperlipidemia) Denies:: AICD Atrial Fibrillation Cardiac Surgery Chest Pain Congestive Heart Failure Edema Heart Murmur Irregular Heartbeat Pacemaker Thrombophlebitis Valvular Heart Disease Hx of Respiratory Problem?: No Respiratory History: Denies:: Asthma COPD Chest Surgery Dyspnea Emphysema Hemoptysis Oxygen Administration Pneumonia Tuberculosis Use of C-PAP Machine Hx Neurologic Problems?: No Neurological History: Denies:: Alzheimer's Disease CVA Dementia Dizziness Headaches Multiple Sclerosis Parkinson's Disease Seizures Hx of GI Problems?: Yes Other GI Pertinent History: S/P RT COLON RESECTION W/ ILEOSTOMY (NOW PROLAPSED ) COLON CA HX/ILEOSTOMY=CURRENT PROBLEM Hx of Problems?: No Genitourinary History: Denies:: HX of Hemodialysis Kidney Stones Urinary Tract Infection HX of Peritoneal Dialysis: No Male Hx: Denies:: Prostate Problems Scrotal Mass Testicular Surgery Skin History: Positive for:: History Skin Disorders? (abrasion top right foot r/t orthotics h/of) Pressure Ulcers (h/of foot ulcer- being seen in wound care for) Hx Musculoskeletal Problems?: No Musculoskeletal History: Denies:: Back Injury Joint Replacement Musculoskeletal Trauma Hx of Psycho/Social Problems?: No Psycho Social History: Denies:: Anxiety Bipolar Disorder Hx Depression Suicide Attempt Hx Surgeries?: Yes (Wide excision melanoma, MOHS- mole surgery on head, colon resection,PORT) Hx Any Other Health Problems?: Yes Other History: Positive for:: Cancer (Melanoma- right arm- elbow 2013; Colon cancer 2016) Hospitalization (01/2016 for N/V/kidney failure) Denies:: Endocrine Disease Thyroid Disease History Blood Transfusions: Denies:: Blood Transfuse Reaction Blood Transfusions Hx Diabetes: YesBedside Blood Glucose: 132 Hx Alcohol Use: NoHx Substance Use: No Smoking Status: Former Smoker Have You Smoked inLast 12 mo: No Stop/Bang S-Snoring: Do You Snore Loudly: No T-Tired: feel tired, fatigued: No O-Obsered: Observed not breath: No P-Blood Pressure: treated: Yes B- Body Mass Index > 35 kg/m2: No A- Age over 50: Yes N- Neck Large Circumference: No G- Gender Male: Yes ALESHA Total Score: 3 ALESHA Risk Assessment: High Risk, =/>3 Yes ALESHA Category 2: Yes Risk Assessment Category Category 1A: Patient has history of documented sleep apnea, and HAS NOT received any narcotic, sedative or anesthesia administration during this stay. Category 1B: Patient has history of documented sleep apnea, and HAS received any narcotic , sedative or anesthesia administration during this stay Category 2: Patient has SUSPECTED Obstructive Sleep Apnea, and HAS received any narcotic , sedative or anesthesia administration during this stay. Category 3: Patient has SUSPECTED Obstructive Sleep Apnea and HAS NOT received narcotic, sedative or anesthesia administration during this stay. Category 4: Outpatient in Procedural Areas with known sleep apnea or who screen positive for High Risk via the STOP/BANG questionnaire. Exam Exam Vital Signs Vital Signs Date Time Temp Pulse Resp B/P Pulse Ox O2 Delivery O2 Flow Rate FiO2 08/24/16 09:15 36.2 72 16 142/74 99 Room Air General Appearance: Alert, Oriented X3, Cooperative HEENT/AIRWAY: MP 2, Neck Movement (Full), Mouth Opening (Wide) Lungs: Clear to Auscultation, Normal Air Movement Heart: Regular Rate/Rhythm, Normal S1, Normal S2 Meds/Labs/Diagnostics Admission Meds Current Medications Lactated Ringer's (Lr) 1,000 ml @ 120 mls/hr Q8H20M IV Last administered on 09:59; Start 08/24/16 at 05:00; Stop 08/24/16 at 13:19 Heparin Sodium (Porcine) (Heparin Inj) 5,000 unit PREOP ONCE SUBQ Last administered on 08/24/16 10:00; Start 08/24/16 at 06:00; Stop 08/24/16 at 06:01; Status DC Bedside Blood Glucose: 132 Labs 08/21 labs reviewed Plan Impression Patient chart reviewed, patient interviewed and anesthestic plan with risks, benefits, and alternatives discussed, and informed consent obtained. NPO per Anesth. Guidelines: Yes ASA Physical Status: ASA3 Severe Disease Anesthetic Plan: GA Bene/Risks/Altern/Consents: Yes HP Complete Prior to Induction: Yes Brent Noyola MD Aug 24, 2016 10:13
[2016-08-24] MEDS ORDERED: Atropine 0.4 mg/mL Inj IVPUSH PRN (10:15)
[2016-08-24] MEDS ORDERED: fentaNYL-PF 50 mCg/mL 2 mL Inj IVPUSH PRN (10:15)
[2016-08-24] MEDS ORDERED: Labetalol 5 mg/mL 4 mL Inj IV PRN (10:15)
[2016-08-24] MEDS ORDERED: EPHEDrine Sulfate 50 mg/mL Inj IVPUSH PRN (10:15)
[2016-08-24] MEDS ORDERED: Ondansetron 2 mg/mL 2 mL Inj IVPUSH PRN ×2 (10:15→11:45)
[2016-08-24] MEDS ORDERED: Dexamethasone 4 mg/mL Inj IVPUSH PRN (10:15)
[2016-08-24] MEDS ORDERED: hydrALAZINE 20 mg/mL Inj IVPUSH PRN (10:15)
[2016-08-24] MEDS ORDERED: MetoCLOpramide 5 mg/mL 2 mL Inj IVPUSH PRN ×2 (10:15→11:45)
[2016-08-24] MEDS ORDERED: HYDROmorphone 1 mg/mL Inj IVPUSH PRN (10:15)
[2016-08-24] MEDS ORDERED: Phenylephrine 10,000 mCg/mL Inj IVPUSH PRN (10:15)
[2016-08-24] MEDS ORDERED: Bupivacaine-MPF 0.25% 30 mL Inj INFILTRATE ONE (11:24)
--- NOTE | 2016-08-24 13:11 | NUR ---
Ad[place] [facility] received report from [employer] ARCHITECT. patient arrived to room 1011 at 1250hrs. patient A&Ox3, somnolent answering all questions appropriately. patient able to move himself fro stretcher to bed without assistance. able to HELLER, all distal pulse present and sensations intact. oriented to room and plan of care. patient verbalized understanding.
[2016-08-24] MEDS: D5 0.45% NaCl + KCl 20 mEq/L 1,000 ML IV SCH (13:38)
[2016-08-24] MEDS: Acetaminophen IV 1,000 MG in IV Premix 1 EACH IV SCH ×2 (14:18→20:49)
[2016-08-24] MEDS: HYDROmorphone 1 mg/mL Inj IVPUSH PRN ×2 (15:34→21:06)
[2016-08-24] MEDS: Heparin 5,000 Unit/mL Inj SUBQ SCH (16:10)
--- NOTE | 2016-08-24 19:13 | NUR ---
unable to void post-op patient has been unable void since returning from surgery. bladder scan done showing 200ml. encourage PO intake, continue to monitor.
--- NOTE | 2016-08-24 22:14 | OP ---
[address] [address] OPERATIVE REPORT PATIENT: ANA RAY : 1950 MR#: [id number] ADMIT: 08/24/2016 JOB ID: [id number] DATE OF SURGERY: 08/24/2016 ANESTHESIA: General. PREOPERATIVE DIAGNOSIS(ES): History of stage III colon cancer status post right colectomy with loop ileostomy. POSTOPERATIVE DIAGNOSIS(ES): History of stage III colon cancer status post right colectomy with loop ileostomy. OPERATIVE PROCEDURE: Takedown of loop ileostomy. SURGEON: Dr. Fred Esposito. MANAGER OF EXHIBITIONS AND COLLECTIONS: Don Alanis PA-C (the sourcing assistant was required for safe and timely completion of this case). COMPLICATIONS: None. ESTIMATED BLOOD LOSS: 5 mL. CONDITION: Satisfactory. SPECIMEN: Ileostomy. FINDINGS: A takedown of the loop ileostomy was performed with a stapled [id number] functional end-to-end anastomosis created using GINO 55. INDICATIONS/SIGNIFICANT HISTORY: The patient is a 66-year-old man who developed obstructing cecal cancer for whom I performed a laparoscopic right colectomy a number of months ago. His small bowel at the time of that operation was so dilated that I ended up performing a diverting loop ileostomy at the same time because of concerns for the risk for anastomotic leak. He did well. He ended up having stage III disease. He has been receiving chemotherapy, but has developed significant prolapse through the ileostomy. Therefore, he desired to have this taken down prior to completion of his chemotherapy. He took a brief break from chemotherapy and then comes in today for his ostomy reversal. OPERATIVE TECHNIQUE: The patient was taken to the operating room and placed in supine position. General anesthesia was administered and preoperative antibiotics were given. The ileostomy was sutured shut. The abdomen was then prepped and draped in standard surgical fashion and a procedural pause performed. I began with a sharp elliptical incision around the ileostomy. I then carried the dissection down through the skin. The ileostomy was then circumferentially dissected free from the abdominal wall until I could bring the small bowel out through the incision. I then made two enterotomies just distal and proximal to the ileostomy site, and performed a [id number] functional end-to-end GINO 55 blue load stapled anastomosis. I then used the same staple to transect the ileostomy site. That took two fires. There was a nice patent anastomosis at the completion. I oversewed the common staple line with a single 3-0 silk suture. The anastomosis was then reduced into the abdomen. I then closed the fascia with a running 0 PDS suture. Skin was closed using interrupted 2-0 nylons. Betadine-soaked roula were placed into the subcutaneous tissue. Local anesthetic was injected. The case was then concluded.
[2016-08-25] MEDS: Heparin 5,000 Unit/mL Inj SUBQ SCH ×3 (01:03→17:17)
[2016-08-25] MEDS: D5 0.45% NaCl + KCl 20 mEq/L 1,000 ML IV SCH (01:06)
[2016-08-25 01:08] VITALS: BP 160/84; PULSE 91; RESP 20; O2SAT 97
[2016-08-25] MEDS: HYDROmorphone 1 mg/mL Inj IVPUSH PRN ×4 (01:52→20:57)
[2016-08-25] MEDS: Acetaminophen IV 1,000 MG in IV Premix 1 EACH IV SCH ×3 (04:46→14:55)
--- NOTE | 2016-08-25 04:58 | NUR ---
Inability to void/ paged Around 0230, Dr. Ramirez paged, as pt. had not voided yet, and could not void despite multiple attempts. Bladder scan done with an amount 603ml. Dr. Ramirez ordered a turcios catheter to be placed. When this RN came in to place the turcios cath, the pt. refused and said "I'll try again". Pt. was able to void, however a small amount of around 150 ml. Pt. is still refusing the turcios cath at this time despite education. Pt. is willing to try to void again, which pt. is attempting now. Will continue to monitor.
[2016-08-25 05:02] LABS: APPEARANCE,URINE CLEAR (CLEAR,HAZY); COLOR,URINE YELLOW (YELLOW)
[2016-08-25 05:03] LABS: OCCULT BLOOD,URINE NEGATIVE (NEGATIVE); UROBILINOGEN,URINE NORMAL (NORMAL)
[2016-08-25 06:07] VITALS: BP 111/70; PULSE 86; RESP 18; O2SAT 94
[2016-08-25 06:12] LABS: BASOPHILS % (AUTO) 0.1 % (0-3); EOSINOPHILS % (AUTO) 0 % (0-5); MONOCYTES % (AUTO) 7.1 % (4-12); Mean Corpuscular Hemoglobin 32.2 pg (27.0-35.0); Mean Corpuscular Volume 95.8 fL (81-100); Platelet Count 133 bil/L (150-400)
[2016-08-25] MEDS: Dextrose 5% 0.9% NaCl 1,000 ML IV SCH ×2 (08:02→17:17)
[2016-08-25 09:02] VITALS: BP 119/72; PULSE 89; RESP 18; O2SAT 93
[2016-08-25] MEDS: glipiZIDE 2.5 mg ER24 Tablet PO SCH (09:55)
[2016-08-25] MEDS: 0.9% Sodium Chloride 250 ML IV SCH (12:22)
[2016-08-25] MEDS ORDERED: HepLOK Flush 100 unit/mL 5 mL Inj IVFLUSH PRN (12:25)
[2016-08-25] MEDS ORDERED: Sodium Chloride LOK Flush 10 mL Syringe IVFLUSH PRN ×2 (12:25)
[2016-08-25 13:53] VITALS: BP 123/64; PULSE 89; RESP 18; O2SAT 95
[2016-08-25 14:03] VITALS: BP 187/93; PULSE 97; RESP 20; O2SAT 96
--- NOTE | 2016-08-25 15:53 | NUR ---
Social Work: Initial Assessment D: EMR reviewed. Pt is a 66 y/o male admitted for ileostomy per H&P. BASIL met with pt and spouse at bedside to conduct initial assessment. Pt was alert and oriented x3. SW explained role and wrote phone number on white board. Pt's primary contact is his spouse Angela Kelly ([phone]). Pt gave verbal consent to contact spouse for discharge planning. Pt's insurance is Medicare and [employer] Supplmental. Pt's PCP is Darshana Yi PA-C. BASIL provided DPOA/advanced directive ppw at pt's request and encouraged pt to provide a copy to the hospital when complete. Pt has no hx of HH or SNF. Pt does not have LTC insurance or VA benefits. Pt is independent with ADLs. Pt does not use or own any DME. Pt drives. Pt is independent at baseline. Pt lives at home with his spouse in [place]. Pt lives in a split level home with 4 steps to enter the main level and 13 steps down to the second level. Pt's spouse confirmed she will provide transport home when pt is medically stable. BASIL does not anticipate any discharge needs at this time but will continue to follow if needs arise. A: Pt who is independent at baseline P: Pt's spouse confirmed she will provide transport home when pt is medically stable. BASIL does not anticipate any discharge needs at this time but will continue to follow if needs arise. KEN Varma Addendum: 08/25/16 at 1557 by INDY TRAYLOR Amended: Links added.
--- NOTE | 2016-08-25 17:45 | NUR ---
Urinary retention / Beckford After lunch pt ambulated in hallway with his spouse. Upon returning to his room he began having increased abdominal pain that he reported as 10/10. Administered 1 mg IVP Dilaudid but this helped only a little; pt was moaning in pain. Bladder scan at 1425 hours showed 744 mL in the bladder. Explained to pt that his pain may be related to the increased amount of urine in his bladder. Pt agreed to have Beckford catheter reinserted. Beckford catheter reinserted at approximately 1440 hours without complication. Beckford catheter drainage was 700 mL immediately after insertion. Pt reported feeling much better soon after Beckford was placed. Pt sleeping now.
[2016-08-25 20:37] VITALS: BP 131/72; PULSE 109; RESP 18; O2SAT 92
--- NOTE | 2016-08-25 22:32 | PROG NOTE ---
[address] [address] PROGRESS NOTE PATIENT: ANA RAY : 1950 MR#: [id number] ADMIT: 08/24/2016 JOB ID: [id number] DATE: 08/25/2016 SUBJECTIVE: Patient is seen postoperative day one from taking down his loop ileostomy. He had some discomfort this morning likely due to urinary retention. He finally allowed Beckford to be placed with 700 cc of urine out and tremendous improvement in his symptoms. He is having no flatus or bowel movement. He has remained afebrile and hemodynamically normal. This morning and afternoon, he was alert, oriented, and overall appeared comfortable. I changed his dressing. The roula remain in place. The wound looks fine. His white blood cell count was a little elevated at 10.7 as anticipated on postoperative day one. His hematocrit is fine at 34.2. His creatinine was 1.74. Potassium was a little bit elevated at 5.5 this morning. I rechecked it. It is 5.4 this afternoon. ASSESSMENT AND PLAN: This is a 66-year-old man postop day one from takedown of loop ileostomy. I changed his IV fluids to normal saline to eliminate the potassium. We will recheck his labs in the morning. At this point, really is waiting return of bowel function.
[2016-08-25] MEDS: Insulin Human REGular 300 Unit/3 mL Inj SUBQ SCH (22:37)
[2016-08-26] MEDS: Heparin 5,000 Unit/mL Inj SUBQ SCH ×3 (00:54→16:14)
[2016-08-26] MEDS: Dextrose 5% 0.9% NaCl 1,000 ML IV SCH ×4 (02:57→23:23)
[2016-08-26] MEDS: Insulin Human REGular 300 Unit/3 mL Inj SUBQ SCH ×4 (03:02→20:23)
[2016-08-26] MEDS: HYDROmorphone 1 mg/mL Inj IVPUSH PRN ×7 (03:05→23:20)
[2016-08-26 03:19] VITALS: BP 146/75; PULSE 98; RESP 18; O2SAT 93
--- NOTE | 2016-08-26 04:09 | NUR ---
pain/fever pt has ran a low grade temp this shift. no higher then 38.2. he denies any chills, says he feels warm but not uncomfortable. pt has taken 1mg of IV dilaudid twice this shift and says it does a very good job of taking care of his pain for several hours. he was encouraged to ambulate in the hallways last night but he fell asleep. he says he plans on getting up and walking today. will continue to encourage ambulation. bowel tones are hypoactive and pt doesn't think he has passed gas this shift. but he denies N/V, tolerating full liquid diet. care continues.
[2016-08-26 05:41] LABS: Mean Corpuscular Hemoglobin 32.7 pg (27.0-35.0); Mean Corpuscular Volume 96.7 fL (81-100)
[2016-08-26] MEDS ORDERED: Neostigmine 1 mg/mL 10 mL Inj ONE (05:47)
[2016-08-26] MEDS ORDERED: Rocuronium 10 mg/mL 5 mL Inj ONE (05:47)
[2016-08-26] MEDS ORDERED: Ondansetron 2 mg/mL 2 mL Inj ONE (05:47)
[2016-08-26] MEDS ORDERED: Phenylephrine/NS 100 mCg/mL 10 mL Syringe IVPUSH ONE (05:47)
[2016-08-26] MEDS ORDERED: fentaNYL-PF 50 mCg/mL 2 mL Inj ONE (05:47)
[2016-08-26] MEDS ORDERED: Glycopyrrolate 0.2 MG/ML 1mL Inj ONE (05:47)
[2016-08-26] MEDS ORDERED: Propofol 10,000 mCg/mL 20 mL Inj ONE (05:47)
[2016-08-26] MEDS: glipiZIDE 2.5 mg ER24 Tablet PO SCH (08:21)
[2016-08-26 11:12] VITALS: BP 139/72; PULSE 93; RESP 18; O2SAT 94
[2016-08-26] MEDS: 0.9% Sodium Chloride 250 ML IV SCH (12:22)
[2016-08-26 15:22] VITALS: BP 110/67; PULSE 101; RESP 20; O2SAT 93
--- NOTE | 2016-08-26 18:08 | PROG NOTE ---
[address] [address] PROGRESS NOTE PATIENT: ANA RAY : 1950 MR#: [id number] ADMIT: 08/24/2016 JOB ID: [id number] DATE: 08/26/2016 CHIEF COMPLAINT: Patient is afebrile, stable vital signs. He tells me he has not passed any gas yet but feels some "rumbling." On examination, his incision is in good shape. His abdomen is soft. LABORATORY DATA: White count is 8.4, hematocrit is 32.5. Chemistries are normal with a creatinine down towards 1.69. Glucose is 151. IMPRESSION/PLAN: Doing well. Advance his diet as tolerated.
--- NOTE | 2016-08-26 18:24 | NUR ---
Pain Pt c/o quick onset abdominal pain. States that it comes in waves and was requiring 1mg IVP Dilaudid q2h. Continues to have little to no flatus, is burping. Tolerating Full Liquid diet but poor intake. IVF infusing. Pt encouraged to be OOB and ambulating and pt was agreeable and spoke of being up and about this shift, but due to increased pain in comparison to previous day, has not yet been OOB into hallway. At 1820, pt again stating wanting to ambulate in hallway prior to getting cleaned up and ready for bed. No current c/o pain at this time. Care continues.
[2016-08-26 20:48] VITALS: BP 146/78; PULSE 100; RESP 20; O2SAT 92
[2016-08-27 00:39] VITALS: BP 129/77; PULSE 106; RESP 18; O2SAT 93
[2016-08-27] MEDS: Heparin 5,000 Unit/mL Inj SUBQ SCH ×3 (00:46→15:54)
[2016-08-27] MEDS: Insulin Human REGular 300 Unit/3 mL Inj SUBQ SCH ×4 (02:30→21:40)
[2016-08-27] MEDS: HYDROmorphone 1 mg/mL Inj IVPUSH PRN ×6 (03:02→19:34)
--- NOTE | 2016-08-27 03:52 | NUR ---
pain/activity pt has remained in bed this shift. nurse talked to patient about importance of ambulating pt was agreeable to ambulating but would then fall asleep. he has requested pain medication every 2-3 hrs this shift. he has been given 1mg of IV dilaudid for abdominal pain however it has only been lasting 2 hrs before pt says his pain is severe again. previously the 1mg of IV dilaudid was lasting 4-5hrs. pt is on full liquid diet, he has no N/V but has poor intake. bowel tones are hypoactive and pt denies passing any flatus this shift. nursing staff will continue to encourage ambulation. call light within reach, care continues.
[2016-08-27 04:36] VITALS: BP 155/80; PULSE 107; RESP 20; O2SAT 94
[2016-08-27] MEDS: glipiZIDE 2.5 mg ER24 Tablet PO SCH (08:41)
[2016-08-27] MEDS: 0.9% Sodium Chloride 250 ML IV SCH (09:55)
[2016-08-27] MEDS: Dextrose 5% 0.9% NaCl 1,000 ML IV SCH ×2 (10:28→19:46)
[2016-08-27 12:50] VITALS: BP 153/92; PULSE 115; RESP 18; O2SAT 94
--- NOTE | 2016-08-27 13:36 | NUR ---
Pop/Activity POP: Spoke with pt re: taking pop out. No parameters or orders received with initial order for placement of catheter. Pt stating agreeable to having catheter taken out. Spoke with Dr. Ramirez re: pop and the want to d/c it. Stated that he had already spoke with pt re: pop removal. Pt anxious and requesting pain medication prior to removal. Pop removed at 0945. Educated on the need to hydrate and of the need to void by 1345. IVF also continue to infuse. ACTIVITY: Post pop removal and pain medications, pt encouraged to be up and about especially after not having been mobile the last two days post surgery. Pt up ambulating hallway (1.5 laps around unit). Did not require q2h IVP Dilaudid this AM and had 50% lunch intake which is the most he has had since surgery. Tolerated. Further encouraged to be up and about. Does state that he feels "rumblings" in his abdomen. Care continues. Addendum: 08/27/16 at 1921 by BEN SAAVEDRA RN At end of shift, per [employer] SALESPERSON, pt with 25cc urine output and another large loose BM. Care continues.
--- NOTE | 2016-08-27 14:34 | PROG NOTE ---
[address] [address] PROGRESS NOTE PATIENT: ANA RAY : 1950 MR#: [id number] ADMIT: 08/24/2016 JOB ID: [id number] DATE: 08/27/2016 NOTE: Postop day three. His T-max was 37.8, his pulse is in the 100-115 range. Blood pressure is within normal limits. He has not had a bowel movement. Says that he feels like he is about to pass gas. He does feel a bit more hungry today. On exam, his abdomen is soft, seems mildly distended, but he tells me this is normal for him. His incision is healing well, and I have removed the Betadine-soaked roula. There are no new labs today. IMPRESSION AND PLAN: Doing well. I have recommended to him that he go slow in order to avoid overdistention. His Beckford, which was placed for urinary retention on the evening after surgery, should come out today.
--- NOTE | 2016-08-27 16:17 | NUR ---
ZAN Signed. Azalia Alvarez SANIPRACTIC PHYSICIAN
[2016-08-27 20:08] VITALS: BP 142/76; PULSE 109; RESP 22; O2SAT 92
[2016-08-28] MEDS: Heparin 5,000 Unit/mL Inj SUBQ SCH ×3 (00:44→17:10)
[2016-08-28] MEDS: HYDROmorphone 1 mg/mL Inj IVPUSH PRN ×2 (00:45→06:02)
[2016-08-28] MEDS: Insulin Human REGular 300 Unit/3 mL Inj SUBQ SCH ×4 (02:30→20:30)
[2016-08-28 05:15] VITALS: BP 152/88; PULSE 108; RESP 20; O2SAT 94
[2016-08-28 05:54] LABS: BASOPHILS % (AUTO) 0.1 % (0-3); EOSINOPHILS % (AUTO) 2.1 % (0-5); MONOCYTES % (AUTO) 10.1 % (4-12); Mean Corpuscular Hemoglobin 32.7 pg (27.0-35.0); Mean Corpuscular Volume 96.1 fL (81-100); NEUTROPHILS % (AUTO) 73.9 % (40-74); Platelet Count 189 bil/L (150-400)
[2016-08-28] MEDS: Dextrose 5% 0.9% NaCl 1,000 ML IV SCH (06:02)
--- NOTE | 2016-08-28 06:28 | NUR ---
Void Patient able to void spontaneously s/p dc urinary catheters. Passed stool twice during shift. Ambulating independently in room. Pain management effective. Bed in low position, call light within reach, and intentional rounding.
--- NOTE | 2016-08-28 08:52 | PROG NOTE ---
[address] [address] PROGRESS NOTE PATIENT: ANA RAY : 1950 MR#: [id number] ADMIT: 08/24/2016 JOB ID: [id number] DATE: 08/28/2016 SUBJECTIVE: The patient is seen postoperative day four from takedown of loop ileostomy. The patient tells me he is doing well. He started having bowel movements yesterday and is passing frequent liquid stool. He denies any significant pain. He has had no shortness of breath. He does not feel distended. OBJECTIVE: He has remained afebrile over the last 24 hours. However, he had a mild tachycardia up as high as 115, down to 108 this morning. His blood pressure is 152/88, satting 94% on room air with a respiratory rate of 20 breaths per minute. In general, he appears comfortable, in no acute distress. His abdomen feels a little bit distended, but is soft and nontender. His incision looks clean, dry and intact, without erythema or evidence of infection. Yesterday, he took in a total of 963 oral, and had also 2.3 L IV. He had 925 of urine output. He had additional 800 of oral intake overnight and 700 of urine out. He has had two bowel movements recorded yesterday and two more overnight, though he tells me he has been having many more bowel movements. LABORATORY DATA: His white blood cell count of 12.2 today from 8.4 on the 10th. Hematocrit is 29.7, his platelet count is 189. His creatinine is 1.61. ASSESSMENT AND PLAN: This is a 66-year-old man, four days out from takedown of loop ileostomy. I am not sure why the patient is having tachycardia and has a mild leukocytosis. He otherwise feels fine. He is having frequent foul-smelling bowel movements. I am going to check a C. diff just to be sure, though I doubt this is going to be positive. He denies any shortness of breath and has been on heparin, as well as has been ambulating frequently, so I think pulmonary embolus (PE) is low on the differential. He is at risk for wound infection with ostomy takedown. At this point, the wound looks fine. His roula were removed over the weekend. At this point, I am going to see how he does today. He may be able to go home this afternoon, though I suspect I will probably keep him overnight.
[2016-08-28] MEDS: glipiZIDE 2.5 mg ER24 Tablet PO SCH (09:25)
[2016-08-28] MEDS: 0.9% Sodium Chloride 250 ML IV SCH (10:22)
[2016-08-28 13:35] VITALS: BP 147/74; PULSE 103; RESP 19; O2SAT 96
--- NOTE | 2016-08-28 14:00 | NUR ---
Social Work: Readiness for Discharge D: EMR reviewed. Pt is on day 4 of hospitalization. Pt is POD4 for removal of ileostomy. Per MD progress notes,pt is having tachycardia and has a mild leukocytosis. Pt is also being tested for C. Diff. MD could potentially discharge pt this afternoon but is likely to hold pt overnight to watch tachycardia and wait for C. Diff results. SW confirmed that pt's spouse will provide transport home via POV. SW does not anticipate any discharge needs at this time but will continue to follow if needs arise. A: Pt who is independent at baseline P: SW confirmed that pt's spouse will provide transport home via POV. SW does not anticipate any discharge needs at this time but will continue to follow if needs arise. KEN Varma
--- NOTE | 2016-08-28 14:10 | PATH ---
SURGICAL PATHOLOGY Attending Physician:Fred Esposito MD CASE STATUS: Signed Out PATIENT NAME: ANA RAY PID: [id number] : 1950 DATE COLLECTED:08/24/2016 00:00 SPECIMEN: Colon, Segment Resection, Non-Tumor CLINICAL HISTORY: HISTORY STAGE 3 COLON CANCER 1). ILEOSTOMY FINAL DIAGNOSIS: 1.ILEOSTOMY SITE RESECTION: ILEOSTOMY SITE WITH ACUTE INFLAMMATION, ULCERATION, AND GRANULATION TISSUE AT THE SQUAMOUS ILEAL JUNCTION. RESECTION MARGINS FREE OF INFLAMMATION. Negative for malignancy. ICD10 Z85.038 GROSS DESCRIPTION: The specimen is received in formalin, labeled with the patient's name, sublabeled as ileostomy and consists of segments of small intestine (length-6.3 cm, diameter-2.8 cm) attached to a stoma encircled by a rim of skin (2.6 x 0.9 cm). The resection margins are received stapled and the stoma is sutured. The mucosa is julian with normal folds. The skin is valadez smooth shiny and unremarkable. No nodules, masses or lesions are identified. Section code: (A, B) specimen, serially sectioned, development representative. 08/27/16 JM MICRO DESCRIPTION: See diagnosis. ICD-9 CODES: CPT CODES: 44746 Electronically Signed Out Nazario Neri MD [facility]ly [facility] Pathology [facility] [address], [place] [address] Technical component performed at [facility], [address] [place] [address] Ave[address], [place], [address]
--- NOTE | 2016-08-28 14:16 | NUR ---
NUTRITION ASSESSMENT: ASSESS: 66 YO M POD 4 s/p takedown of prolapsed ileostomy. Pt remains on full liquid diet, appears to be tolerating well per notes, noted variable intake with improvement in abdominal distention. MD notes indicate pt now experiencing tachycardia,leukocytosis, stool sample sent to check for possible C.Diff. PMHX: Colon CA s/p R colon resection, Type II DM DIET: Full Liquid LABS: Glu 160, Alb 3.6, Ca 8.0 MEDS: Reviewed. GI: 2 BM today 08/28 WEIGHT: 89.6kg, BMI 29.2 ; admit wt:84.2kg EST.NEEDS: (25-30kcal/kg;1.0-1.2g/kg pro) Kcal: [id number] Pro: 85-100g NUTRITION DIAGNOSIS: (1) Inadequate oral intake related to altered GI tract function as evidenced by po intake ~50% x 4d on full liquid diet. INTERVENTION: (1) Glucerna supplement added to meal trays. (2) Diet modified to diabetic. MONITOR/EVALUATE: PO intake, lab values, GI status. F/U per moderate risk.
[2016-08-28 19:19] VITALS: BP 155/87; PULSE 95; RESP 18; O2SAT 95
[2016-08-29] MEDS: Heparin 5,000 Unit/mL Inj SUBQ SCH ×2 (00:07→08:30)
[2016-08-29] MEDS: Insulin Human REGular 300 Unit/3 mL Inj SUBQ SCH ×2 (00:11→08:30)
[2016-08-29 00:31] VITALS: BP 147/78; PULSE 100; RESP 16; O2SAT 96
--- NOTE | 2016-08-29 00:34 | NUR ---
ACTIVITY Patient has been ambulating around the unit several times this evening. Attempted to eat a regular dinner but only managed a few bites. Continues to have liquid stool. Looking forward to discharge. Asked to be left alone through the night for improved sleep.
[2016-08-29 05:49] LABS: Mean Corpuscular Hemoglobin 31.9 pg (27.0-35.0); Mean Corpuscular Volume 95.4 fL (81-100)
[2016-08-29 06:41] VITALS: BP 146/82; PULSE 87; RESP 18; O2SAT 94
--- NOTE | 2016-08-29 09:01 | PCM.DISURG ---
Surgical Discharge Instruction Date of Service Aug 29, 2016 Dates of Hospitalization Date of Hospital Admission Aug 24, 2016 at 13:04 Providers Admitting Physician: Fred Esposito MD Primary Care Physician: Darshana Yi PA-C Attending Physician: Fred Esposito MD Discharge Diagnosis Discharge Diagnosis reversal of ileostomy Diet Discharge Diet: No restrictions Activity Discharge Activity-General: No restrictions, Be up and about Dressing and Incisional Care Hygiene: May shower, NO bathtub, hot tub or whirlpool Follow Up Plan Follow Up Plan follow up with June in surg clinic next sun or sun for suture removal Call your provider for: Fever, Chills, Increasing abdominal pain, Nausea, Vomiting, Wound redness, Increasing wound pain Fred Esposito MD Aug 29, 2016 09:00
[2016-08-29 09:11] VITALS: BP 130/80; PULSE 114; RESP 18; O2SAT 96
--- NOTE | 2016-08-29 09:23 | PROG NOTE ---
[address] [address] PROGRESS NOTE PATIENT: ANA RAY : 1950 MR#: [id number] ADMIT: 08/24/2016 JOB ID: [id number] DATE: 08/29/2016 SUBJECTIVE: The patient is seen postoperative day five from takedown of loop ileostomy. He tells me he is doing very well this morning. He continues to have bowel movements that are well formed. He tolerated a regular diet last night. He is eager to go home. OBJECTIVE: He has remained afebrile and hemodynamically normal. He had mild tachycardia yesterday which is now resolved. This morning's temperature is 36.6, heart rate 87, blood pressure is 146/82, satting 94% on room air. In general, he appears comfortable, in no acute distress. Abdomen is soft, nontender, nondistended. The incision looks fine without erythema or drainage. His blood sugar this morning was 92, was 104 yesterday evening. His white blood cell count is 12.2, which is exactly the same as yesterday. His hematocrit is up a little bit to 30.8. His creatinine is 1.1. ASSESSMENT AND PLAN: This is a 66-year-old man with a history of obstructing colon cancer status post right colectomy and loop ileostomy who is now five days out from takedown of his loop ileostomy. The patient is doing well. He is having good bowel function. He is tolerating a regular diet. He is having adequate pain control with Tylenol alone. He can go home today. He will followup early next week with my nurse in the clinic to have his sutures removed.
--- NOTE | 2016-08-29 09:45 | PCM.DC.SUR ---
Discharge Summary Date of Service: Date of Hospital Admission: Aug 24, 2016 at 13:04 Date of Operation(s): 08/24/2016 Date of Discharge: 08/29/2016 Diagnosis at Time of Discharge Primary diagnoses: 1.History of stage III colon cancer status post right colectomy with loop ileostomy. 2. Invasive carcinoma of the right colon, T3, N2b 3. Postsurgical urinary retention. Other chronic conditions: 1. Hypercholesterolemia 2. Cutaneous melanoma, stage 0 3. Diabetes mellitus 4. Hypertension 5. Former cigarette smoker Problems: Operation Take down of loop ileostomy Brief History and Physical: Mr Mccartney is a 66 on man for whom was performed a right colectomy for obstructing colon cancer couple months prior to admission. Because his small bowel was so dilated from chronic obstruction a protective loop ileostomy was performed at the same time. He was receiving chemotherapy due to node positive disease. Recently he had experienced occasional prolapse of the ileostomy. About 3 inches would intermittently prolapse. It was not at all painful. There was no bleeding. Consultants: None Hospital Course: The patient was admitted and underwent the above-mentioned operation without complication. He developed urinary retention on his first postsurgical day and Beckford catheter had to be replaced. This was removed on the patient's third postsurgical day. Also, on the patient's third postsurgical day he began having bowel movements, diet was advanced. He was discharged from the hospital 2 days following this requiring time for adjustment of analgesic for pain control and observation of what ultimately proved to be a benign tachycardia. Pathology: FINAL DIAGNOSIS: 1.ILEOSTOMY SITE RESECTION: ILEOSTOMY SITE WITH ACUTE INFLAMMATION, ULCERATION, AND GRANULATION TISSUE AT THE SQUAMOUS ILEAL JUNCTION. RESECTION MARGINS FREE OF INFLAMMATION. Negative for malignancy. Disposition: The patient was discharged to home on his fifth postsurgical day at which time he was no longer tachycardic, his bowels were working, he was voiding without difficulty, pain was well controlled on oral analgesic, and his wounds appeared to be healing with no sign of infection. Follow-up Plan: He will follow-up with the office nurse in 6-7 days for suture removal. Aspirin (Aspirin) 81 Mg Tablet 81 MG PO DAILY Atorvastatin Calcium (Atorvastatin Calcium) 20 Mg Tablet 20 MG PO HS (Reported) Glipizide ER (Glipizide ER) 2.5 Mg Tab.er.24 2.5 MG PO DAILY (Reported) Lisinopril (Lisinopril) 5 Mg Tablet 5 MG PO DAILY (Reported) [place]-3/Dha/Epa/Fish Oil (Fish Oil 500 mg Softgel) 1 Each Capsule 1 EACH PO DAILY (Reported) copies to: Darshana Yi PA-C, Fred H PA-C Aug 29, 2016 09:45
[2016-08-29 10:18] VITALS: BP 154/83; PULSE 117; RESP 16; O2SAT 95
[2016-08-29] MEDS: glipiZIDE 2.5 mg ER24 Tablet PO SCH (10:59)
--- NOTE | 2016-08-29 11:07 | NUR ---
Social Work: Discharge D: EMR reviewed. Pt is on day 5 of hospitalization. Pt is POD 5 for removal of ileostomy. Pt is medically ready for discharge. SW met with pt and spouse in room prior to discharge. Pt and spouse denied and questions or concerns related to discharge. SW confirmed that pt's spouse will provide transport home via POV. No discharge needs identified. A: Pt who is independent at baseline P: SW confirmed that pt's spouse will provide transport home via POV. No discharge needs identified. Azalia Alvarez ROLL OVER LOADER
--- NOTE | 2016-08-29 11:26 | NUR ---
Discharge Patient discharged home with via private vehicle. Escorted out by PEDIATRIC CNS in a wheelchair. Patient's assisted him in getting dressed. All personal belongings went with patient. Educated on discharge information and contents of discharge packet. Information about ileostomy closure was provided.
[2016-08-29] MEDS ORDERED: Insulin Human REGular 300 Unit/3 mL Inj SUBQ SCH (11:30)
== END 2016-08-29 11:30 | disposition home or self-care (01) | DRG 331 ==
LOC: SAS 08:55 → OSC 13:04
PROVIDERS: ADMIT General Practice; ATTEND General Practice
PROC: 0DQB0ZZ Repair Ileum, Open Approach (ICD-10-PCS; principal; 2016-08-24 11:00)
DX: Z43.2 Encounter for attention to ileostomy (principal); Z85.038 Personal history of other malignant neoplasm of large intestine; E11.9 Type 2 diabetes mellitus without complications; I10 Essential (primary) hypertension; E78.00 Pure hypercholesterolemia, unspecified; Z87.891 Personal history of nicotine dependence; R33.9 Retention of urine, unspecified; Z79.84 Long term (current) use of oral hypoglycemic drugs

== ENCOUNTER 2016-09-09 19:59 | Inpatient (IN) | payer MEDICARE ==
[~2016-09-09] VITALS: Ht 175.3 cm; Wt 86.3 kg
[~2016-09-09 19:59] MED LIST changes: -Acetaminophen IV 1,000 MG in IV Premix 1 EACH IV ONE; +Bupivacaine-MPF 0.5% W/EPI 30 mL Inj INFILTRATE ONE; -CeFAZolin 2 Gm/50 mL D5W IV Premix IV ONE; -Heparin 5,000 Unit/mL Inj SUBQ ONE; +Lactated Ringer's 1,000 ML IV ONE; -metroNIDAZOLE Inj 500 MG in IV Premix 1 EACH IV ONE
[2016-09-09 20:01] VITALS: BP 114/67; PULSE 154; RESP 20; RESP 28; O2SAT 98
[2016-09-09] MEDS: 0.9% Sodium Chloride 1,000 ML IV ONE (20:30)
[2016-09-09 21:00] LABS: BASOPHILS % (AUTO) 0.2 % (0-3); EOSINOPHILS % (AUTO) 0.2 % (0-5); MONOCYTES % (AUTO) 2.6 % (4-12); Mean Corpuscular Hemoglobin 31.9 pg (27.0-35.0); Mean Corpuscular Volume 92.6 fL (81-100); NEUTROPHILS % (AUTO) 77.6 % (40-74); Platelet Count 745 bil/L (150-400)
[2016-09-09] MEDS: HYDROmorphone 1 mg/mL Inj IVPUSH PRN ×2 (21:00→22:39)
--- NOTE | 2016-09-09 21:24 | DRSVH ---
PROCEDURE: X-RAY CHEST ONE VIEW, PORTABLE ([id number]) INDICATIONS: 66-year-old male with colon carcinoma and tachypnea. TECHNIQUE: One view of the chest was acquired. COMPARISON: [facility], CR, XR CHEST 1VW (PORTABLE), 05/11/2016, 15:42. [facility], CR, XR CHEST 1VW (PORTABLE), 04/12/2016, 11:20. [facility], CR, XR CHEST 1VW (POR TABLE), 01/31/2016, 12:18. FINDINGS: Surgical changes and devices: Left chest wall Port-A-Cath is again noted. Patient is status post righ t axillary lymph node dissection. Lungs and pleura: No pleural effusions or pneumothorax. Lungs are clear. Mediastinum: Mediastinal contours appear normal. Heart size is normal. Bones and chest wall: No suspicious bony lesions. There is pneumoperitoneum beneath the left hemidia phragm. IMPRESSION: Pneumoperitoneum beneath the left hemidiaphragm, consistent with bowel perforation in the absence of any recent laparotomy. Findings were discussed with patient's nurse at 2122 hrs on September 09, 2016. Dictated by: Anthony Cannon M.D. on 09/09/2016 at 21:17 Approved by: Anthony Canonn M.D. on 09/09/2016 at 21:22
[2016-09-09 21:30] LABS: Magnesium 1.7 mg/dL (1.6-2.6); TROPONIN T 0.01 ug/L (0.0-0.011)
--- NOTE | 2016-09-09 21:35 | ED.REPORT ---
HPI-General Illness Date of Service Sep 09, 2016 ED Provider: Eligio Chiu MD Patient is a 66 year old male with a hx of colon cancer on chemo, HTN, hyperlipidemia, and DM who presents to the ED with sudden onset abdominal pain this afternoon. He describes his pain as a 10/10 in severity. Associated symptoms include fever and vomiting.Yesterday he saw his oncologist and his WBC was elevated in the 30's but he refused to be hospitalized. He denies chest pain. SOB, melena, hematochezia, vision changes, or any other symptoms. Patient has an ileostomy take down 2 weeks ago. Nursing Notes Stated Complaint: TEMP, LOW WHITE COUNT Chief Complaint: General Complaint Nursing Notes Reviewed: Yes Allergies: Coded Allergies: No Known Allergies (Verified Allergy, Unknown, 08/22/16) Scheduled Aspirin (Aspirin) 81 Mg Tablet 81 MG PO DAILY Atorvastatin Calcium (Atorvastatin Calcium) 20 Mg Tablet 20 MG PO HS Glipizide ER (Glipizide ER) 2.5 Mg Tab.er.24 2.5 MG PO DAILY Lisinopril (Lisinopril) 5 Mg Tablet 5 MG PO DAILY [place]-3/Dha/Epa/Fish Oil (Fish Oil 500 mg Softgel) 1 Each Capsule 1 EACH PO DAILY General Time Seen by MD: 20:51 Chief Complaint Abdominal pain Hx Obtained From: Patient, Spouse Arrived By: Walk-in Sudden in Onset?: Yes Location: : Abdomen Quality: Painful Radiation: : Does not radiate Severity: Current: Pain level 4 out of 10 Severity: Maximum: Pain level 10 out of 10 Associated with: Reports: Fever Context Related History: Reports Cancer Recent Healthcare: Recent doctor visit Past Medical History Past Medical History Melanoma ARF Colon cancer on chemo Reports: Diabetes mellitus, GERD, Hyperlipidemia, Hypertension Past Surgical History Melanoma excision MOS Laparoscopic right colectomy with intracorporeal [id number] functional end-to-end stapled anastomosis. Diverting loop ileostomy Ileostomy reversal. Family History Noncontributory Smoking History Former Smoker Social History Alcohol Use: Denies alcohol use Drug Use: Denies drug use Other Social History: Good social support, , Local resident Ambulatory Status Independent Review of Systems Full Review of Systems Constitutional: Reports: Fever Respiratory: Denies: Shortness of breath Cardiovascular: Denies: Chest pain GI: Reports: Abdominal pain, Vomiting, Denies: Hematochezia, Melena Neurologic: Denies: Vision change Complete sys rev & neg: except as marked. Physical Exam Nursing note and vitals reviewed. Constitutional: Pale, ill appearing male sitting up in bed. Head: Normocephalic and atraumatic. Mouth/Throat: Oropharynx is clear and moist. No oropharyngeal exudate. Eyes: EOM are normal. Pupils are equal, round, and reactive to light. Neck: Supple, no tracheal deviation. Cardiovascular: Tachycardic. Equal and intact distal pulses throughout. Pulmonary/Chest: Effort normal and breath sounds normal. No respiratory distress. Abdominal: Soft. No distension. Diffusely tender throughout with increased pain to palpation in the epigastrium. No rebound or guarding. Well healing surgical scar in the RLQ. Musculoskeletal: Range of motion grossly intact, moving all extremities. Neurological: AOx3. Grossly nonfocal exam. Strength and sensation intact and equal to bilateral upper and lower extremities. Skin: Pale and warm, no rashes or pallor appreciated. Psychiatric: Appropriate mood and affect. Behavior appears normal. Vital Signs Vital Signs Date Time Temp Pulse Resp B/P Pulse Ox O2 Delivery O2 Flow Rate FiO2 09/09/16 22:00 144 18 94/56 99 Room Air 09/09/16 21:50 147 22 83/43 94 Room Air 09/09/16 20:01 37.8 154 28 114/67 98 Room Air Interpretation & Diagnostics Lab Results Interpretation Result Diagram: 09/09/16202909/09/16 2030 Test 09/09/16 20:30 White Blood Count 12.5th/mm3 (3.8-10.1) Red Blood Count 2.82mil/mm3 (4.40-5.80) Hemoglobin 9.0g/dL (13.8-17.2) Hematocrit 26.1% (41.0-50.0) Mean Corpuscular Volume 92.6fL (81-100) Mean Corpuscular Hemoglobin 31.9pg (27.0-35.0) Mean Corpuscular Hemoglobin Concent 34.5% (32.0-37.0) Red Cell Distribution Width 15.3% (12.3-15.4) Platelet Count 745bil/L (150-400) Neutrophils (%) (Auto) 77.6% (40-74) Lymphocytes (%) (Auto) 18.8% (14-46) Monocytes (%) (Auto) 2.6% (4-12) Eosinophils (%) (Auto) 0.2% (0-5) Basophils (%) (Auto) 0.2% (0-3) Hold Purple Top Tube Received (Received) Prothrombin Time 11.4sec (8.1-12.5) Prothromb Time International Ratio 1.06ratio Activated Partial Thromboplast Time 22.9sec (22.8-33.0) Hold Blue Top Tube Received (Received) Sodium Level 136mEq/L (134-144) Potassium Level 3.2mEq/L (3.5-5.2) Chloride Level 99mEq/L (97-108) Carbon Dioxide Level 12mmol/L (18-29) Blood Urea Nitrogen 45mg/dL (8-27) Creatinine 1.94mg/dL (0.76-1.27) Estimat Glomerular Filtration Rate 37mL/min (>59) Glucose Level 146mg/dL (60-99) Lactic Acid Level 5.8mmol/L (0.4-2.0) Calcium Level 8.4mg/dL (8.5-10.1) Magnesium Level 1.7mg/dL (1.6-2.6) Total Bilirubin 0.6mg/dL (0.0-1.2) Aspartate Amino Transf (AST/SGOT) 68U/L (0-50) Alanine Aminotransferase (ALT/SGPT) 66U/L (0-44) Alkaline Phosphatase 266U/L (25-160) Troponin T 0.010ug/L (0.0-0.011) Total Protein 6.9g/dL (6.4-8.4) Albumin 2.6g/dL (3.4-5.0) Hold Red Top Tube Received (Received) Hold Natoma Top Tube Received (Received) Hold Bennett Top Tube Received (Received) ECG Interpretation ECG Interpretation: Sinus tachy rate 149 ST depression, probably rate related Prolonged QT interval Time: 20:21 Interpreted by: ED physician X-Ray Chest Interpretation Chest Xray Interpretation: IMPRESSION: Pneumoperitoneum beneath the left hemidiaphragm, consistent with bowel perforation in the absence of any recent laparotomy. Findings were discussed with patient's nurse at 2122 hrs on September 09, 2016. Dictated by: Anthony Cannon M.D. on 09/09/2016 at 21:17 Approved by: Anthony Cannon M.D. on 09/09/2016 at 21:22 View: Portable, 1 view Interpretation / Wet Read by: Interpret - Radiologist Re-Eval/Medical Decision Med Decision/Clinical Course 66-year-old male with history of colon cancer and recent ileostomy takedown with reanastomosis presenting to the ED for evaluation of sudden onset of abdominal pain earlier today. Had a significant leukocytosis yesterday. Upon our initial evaluation, patient is in significant distress, very uncomfortable. He does have diffuse abdominal tenderness to palpation, however does not appear to have peritoneal signs at this time. Chest x-ray demonstrates what appears to be free air underneath his diaphragm concerning for bowel perforation in the clinical context noted above. Patient was started on Zosyn, given IV fluids and pain medicine. General surgery was consulted emergently upon noting the pneumoperitoneum. After discussion with the family and the surgery service, patient was taken emergently to the operating room for further management. Discussed plan with the family and the patient, who were agreeable , no further questions. Time of Eval: 21:28 Re-Evaluation/Progress Note: Patient's pain is now a 4/10. Discussed plan to go to surgery. Patient understands and agrees with plan. All questions addressed at this time. Consultation : Referral / Consult Name: Dilan Rmairez MD Consulted With: Surgeon Call Returned at: 21:39 Residential Service Technician: Will see patient, Requested OR Note: Discussed pt's case. Will see patient in the OR. Counseled Regarding: Diagnosis, Lab results, Need for admission Discharge & Departure Primary Impression: Bowel perforation Disposition: ADMITTED TO HOSPITAL Discharge Condition All VS Reviewed: Yes Condition: Stable Referrals: Darshana Yi PA-C (PCP) Crit Care Except Billable Proc Time Spent: 30-74 minutes Services Performed: Patient management by me, Time spent at bedside, Reviewing test results, Reviewing imaging, Discussing patient care, Documentation in record, Time with fam/surrogate Critical Care Notes: Please see MDM. Scribe Attestation Portions of this note were transcribed by Shay Hernandez. I, Dr. Chiu personally performed the history, physical exam and medical decision-making; I reviewed and confirmed the accuracy of the information in the transcribed note. Signed by: Shay Hernandez 09/09/16, 2204 copies to: Darshana Yi PA-C, William B MD Sep 09, 2016 21:35 SHAY HERNANDEZ Sep 09, 2016 21:45
[2016-09-09] MEDS ORDERED: Piperacillin-Tazo 3.375 Gm Inj 3.375 GM in Dextrose 5% Minibag Plus 50 ML IV ONE (21:45)
[2016-09-09 21:50] VITALS: BP 83/43; PULSE 147; RESP 22; O2SAT 94
[2016-09-09 22:00] VITALS: BP 94/56; PULSE 144; RESP 18; O2SAT 99
[2016-09-09] MEDS ORDERED: Phenylephrine/NS-PF 100 mCg/mL 5 mL Syringe IVPUSH ONE (22:19)
[2016-09-09] MEDS ORDERED: Ondansetron 2 mg/mL 2 mL Inj ONE (22:19)
[2016-09-09] MEDS ORDERED: Propofol 10,000 mCg/mL 20 mL Inj ONE (22:19)
[2016-09-09] MEDS ORDERED: fentaNYL-PF 50 mCg/mL 2 mL Inj ONE (22:19)
[2016-09-09] MEDS ORDERED: Rocuronium 10 mg/mL 5 mL Inj ONE (22:19)
[2016-09-09] MEDS ORDERED: Vasopressin 20 Unit/mL Inj ONE (22:19)
[2016-09-09] MEDS ORDERED: Glycopyrrolate 0.2 MG/ML 1mL Inj ONE (22:19)
[2016-09-09] MEDS ORDERED: Succinylcholine Chloride 20 mg/mL 5 mL Inj ONE (22:19)
[2016-09-09] MEDS ORDERED: Neostigmine 1 mg/mL 10 mL Inj ONE (22:19)
[2016-09-09 22:26] LABS: INR 1.06 ratio
[2016-09-09] MEDS ORDERED: 0.9% Sodium Chloride 1,000 ML IV ONE ×2 (23:00)
[2016-09-09] MEDS ORDERED: Potassium Chloride Inj 30 MEQ in Dextrose 5% 500 ML IV ONE (23:00)
[2016-09-09 23:05] VITALS: BP 104/87; PULSE 129; RESP 28; O2SAT 97
[2016-09-09] MEDS ORDERED: Potassium Chloride Inj 20 MEQ in Dextrose 5% 250 ML IV ONE (23:10)
[2016-09-09] MEDS ORDERED: KCl 20 mEq/100 mL IV Premix (K 3 - 3.7 & Cr 2.1 - 2.9) IV ONE (23:15)
[2016-09-09] MEDS ORDERED: Lactated Ringer's 1,000 ML IV ONE ×2 (23:35)
[2016-09-10] VITALS (19 sets, daily range): BP systolic 88–137; BP diastolic 46–73; PULSE 99–115; RESP 18–28; O2SAT 92–98
--- NOTE | 2016-09-10 00:18 | CONS ---
[address] [address] CONSULTATION REPORT PATIENT: ANA RAY : 1950 MR#: [id number] ADMIT: 09/09/2016 JOB ID: [id number] DATE OF SERVICE: 09/09/2016 CHIEF COMPLAINT/IDENTIFICATION: Dr. Chiu has asked me to see this 66-year-old man with pneumoperitoneum on chest x-ray. HISTORY OF PRESENT ILLNESS: The patient is well known to the General Surgery service. He has a history of stage III colon cancer, status post laparoscopic resection in March of this year with a protective loop ileostomy. The ileostomy was closed roughly 16 days ago in an uneventful operation. The patient had received seven cycles of FOLFOX post initial resection, but has not received any chemotherapy since. Yesterday, he presented for routine lab check with his oncologist and was noted to have a white blood cell count of 28,000, and a potassium of 2.5, but be relatively asymptomatic. After negotiation to the patient, it was decided to simply hydrate him, replete his potassium and follow him up on Sunday. Today, the patient noted sudden onset of what he describes as a bubble popping in his abdomen and going up, followed by excruciating pain. He was seen in the emergency department where he is was noted to be tachycardic, mildly hypotensive, and chest x-ray demonstrates free air under the diaphragm. I was called in consultation. On questioning the patient, he confirms that he has been doing progressively better each day after his ileostomy closure. He has been having normal bowel movements. He has been having some of his chronic back pain for which he takes Misael's back pills. He says that he takes four pills a day, but his says it is more like six, possibly more. He takes no other nonsteroidal anti-inflammatory drugs other than 81 mg of aspirin a day. He has no known history of peptic ulcer disease. He has no known history of diverticulitis. PAST MEDICAL HISTORY: Hypertension, type 2 diabetes mellitus, chronic back pain. MEDICATIONS: 1. Lisinopril 5 mg daily. 2. Glipizide at 2.5 mg daily. 3. Atorvastatin. 4. Fish oils. 5. Aspirin 81 mg. ALLERGIES: None. SOCIAL HISTORY: The patient is seen with his . Negative tobacco. Negative daily alcohol. FAMILY HISTORY: Noncontributory. REVIEW OF SYSTEMS: Per Dr. Chiu's note. PHYSICAL EXAMINATION: The patient is not in extremis but is quite uncomfortable, lying relatively still on his ED gurney. Pulses range from 87-154 recorded, was in the 140s when I saw him. His temperature currently is 37.8, blood pressures range from 90/51 as a low, to 154/83 as a high. Currently, his room air saturation is 98%. HEENT: Sclerae are anicteric. His neck is supple. Lungs are clear. Heart sounds are regular. His abdomen is a bit tender, has a healing right lower quadrant ileostomy closure site. There is no purulence coming from the ileostomy site. He is diffusely tender to palpation. There are no groin hernias. LABORATORIES: Interestingly, his white count that was 28.4 yesterday is down to 12.5. Preoperatively, his white count is normal and was 12.2 on August 29. However, his platelets are ascending from 204 on discharge on the , at 11 days ago, to 534 on Sunday, and 745 today. Chemistries show a potassium of 3.2, a bicarbonate of only 12, BUN of 45, with a creatinine improving from yesterday of 1.94. His glucose is 146. His lactic acid is 5.8. Liver function tests are acceptable, with a total bilirubin of 0.6, mild elevation of his AST and ALT at 68 and 66, and alkaline phosphatase at 266. This is compared with normal liver function tests on the of this month. IMAGING: Chest x-ray: I have reviewed the chest x-ray films and the report, and I concur that he has a pneumoperitoneum beneath the left hemidiaphragm. This pneumoperitoneum is more than one would expect at 16 days status post surgery. IMPRESSION AND PLAN: A 66-year-old man with a pneumoperitoneum, complains of severe abdominal pain, and abnormal labs. My index of suspicion for a true bowel perforation that requires operative intervention is high enough that we will go ahead to the operating room. I have discussed with the patient and his the possibility of gastric or duodenal ulcer perforation versus some problem at the ileostomy closure site versus some other colon perforation. He understands that we will proceed with repair as needed in the OR and that he may end up with some sort of ostomy after the surgery. He agrees to proceed. He says that he is in too much pain to sign the consent and has asked his to do this for him. We will proceed to the OR tonight.
[2016-09-10] MEDS ORDERED: Lactated Ringer's 1,000 ML IV SCH (00:38)
[2016-09-10] MEDS ORDERED: Lactated Ringer's 500 ML IV PRN (00:38)
--- NOTE | 2016-09-10 00:38 | PCM.HPANE ---
Patient Data Surgeon Admitting Provider:Dilan Ramirez MD Attending Provider:Dilan Ramirez MD Primary Care Physician:Darshana Yi PA-C Other Provider:Obdulio Baldwin Anesthesia Reason for Visit Bowel Perforated Ht/WT & BMI Height (Feet): 5 Height (Inches): 9 Weight (Kilograms): 80.45 Body Mass Index Allergies Coded Allergies: No Known Allergies (Verified Allergy, Unknown, 08/22/16) Past Anesthesia History Anesthesia History: Denies:: Abnormal Airway, Anesthesia Reactions, Difficult Intubation, Fam Anesthesia Reaction, Fam Malignant Hypertherm, Malignant Hyperthermia Diabetes History Hx Diabetes?: Yes Type of Diabetes: Type II Glycemic Control: Oral Medication MRSA MRSA: No Medications Blood Thinner: Aspirin Active Scripts Aspirin 81 Mg [id number] Mg PO DAILY #1 BOTTLE Ref 0 Prov:Micah Anderson 08/18/15 Reported Medications Lisinopril 5 Mg Tablet5 Mg PO DAILY #30 TABLET Ref 0 08/22/16 Deerton-3/Dha/Epa/Fish Oil (Fish Oil 500 mg Softgel)1 Each Capsule1 Each PO DAILY 08/22/16 Glipizide ER 2.5 Mg Tab.er.242.5 Mg PO DAILY 03/10/16 Atorvastatin Calcium 20 Mg Hylmtb18 Mg PO HS 02/01/16 History History of ENT Problems?: No HEENT History: Denies:: Abnormal Airway Cataracts Difficult Intubation Dysphagia Hearing Problem Sinus Problem Denture Type: None Teeth Condition: Within Normal Limits Hx of Heart Problems?: Yes Cardiovascular History: Positive for:: Hypertension (hyperlipidemia) Denies:: AICD Atrial Fibrillation Cardiac Surgery Chest Pain Congestive Heart Failure Edema Heart Murmur Irregular Heartbeat Pacemaker Thrombophlebitis Valvular Heart Disease Hx of Respiratory Problem?: No Respiratory History: Denies:: Asthma COPD Chest Surgery Dyspnea Emphysema Hemoptysis Oxygen Administration Pneumonia Tuberculosis Use of C-PAP Machine Hx Neurologic Problems?: No Neurological History: Denies:: Alzheimer's Disease CVA Dementia Dizziness Headaches Multiple Sclerosis Parkinson's Disease Seizures Hx of GI Problems?: No Hx of Problems?: No Genitourinary History: Denies:: HX of Hemodialysis Kidney Stones Urinary Tract Infection HX of Peritoneal Dialysis: No Male Hx: Denies:: Prostate Problems Scrotal Mass Testicular Surgery Skin History: Positive for:: History Skin Disorders? (abrasion top right foot r/t orthotics h/of) Pressure Ulcers (h/of foot ulcer- being seen in wound care for) Hx Musculoskeletal Problems?: No Musculoskeletal History: Denies:: Back Injury Joint Replacement Musculoskeletal Trauma Hx of Psycho/Social Problems?: No Psycho Social History: Denies:: Anxiety Bipolar Disorder Hx Depression Suicide Attempt Hx Surgeries?: Yes (Wide excision melanoma, MOHS- mole surgery on head, colon resection,PORT) Hx Any Other Health Problems?: Yes Other History: Positive for:: Cancer (Melanoma- right arm- elbow 2013; Colon cancer 2016) Hospitalization (01/2016 for N/V/kidney failure) Denies:: Endocrine Disease Thyroid Disease History Blood Transfusions: Denies:: Blood Transfuse Reaction Blood Transfusions Hx Diabetes: Yes Hx Alcohol Use: NoHx Substance Use: No Smoking Status: Former Smoker Have You Smoked inLast 12 mo: No Stop/Bang Risk Assessment Category Category 1A: Patient has history of documented sleep apnea, and HAS NOT received any narcotic, sedative or anesthesia administration during this stay. Category 1B: Patient has history of documented sleep apnea, and HAS received any narcotic , sedative or anesthesia administration during this stay Category 2: Patient has SUSPECTED Obstructive Sleep Apnea, and HAS received any narcotic , sedative or anesthesia administration during this stay. Category 3: Patient has SUSPECTED Obstructive Sleep Apnea and HAS NOT received narcotic, sedative or anesthesia administration during this stay. Category 4: Outpatient in Procedural Areas with known sleep apnea or who screen positive for High Risk via the STOP/BANG questionnaire. Exam Exam Vital Signs Vital Signs Date Time Temp Pulse Resp B/P Pulse Ox O2 Delivery O2 Flow Rate FiO2 09/09/16 22:00 144 18 94/56 99 Room Air 09/09/16 21:50 147 22 83/43 94 Room Air 09/09/16 20:01 37.8 154 28 114/67 98 Room Air General Appearance: Alert, Oriented X3, Cooperative, Moderate Distress HEENT/AIRWAY: MP 2 Lungs: Clear to Auscultation Heart: Exam Unremarkable Meds/Labs/Diagnostics Admission Meds Current Medications Sodium Chloride 1,000 ml @ 0 mls/hr Q0M ONCE IV Last administered on t 20:30; Start 09/09/16 at 20:52; Stop 09/09/16 at 20:54; Status DC Piperacillin Sod/ Tazobactam Sod 3.375 gm/Dextrose/ Water 50 ml @ 100 mls/hr ONCE ONCE IV Last administered on 09/09/16 22:05; Start 09/09/16 at 21:45; Stop 09/09/16 at 22:14; Status DC Sodium Chloride 1,000 ml @ 0 mls/hr Q0M ONCE IV Last administered on 21:30; Start 09/09/16 at 23:00; Stop 09/09/16 at 23:03; Status DC Sodium Chloride (Normal Saline) 1,000 ml @ 0 mls/hr Q0M ONCE IV Last administered on 09/09/16 22:40; Start 09/09/16 at 23:00; Stop 09/09/16 at 23:03 ; Status DC Labs Test 09/09/16 20:30 White Blood Count 12.5th/mm3 (3.8-10.1) Red Blood Count 2.82mil/mm3 (4.40-5.80) Hemoglobin 9.0g/dL (13.8-17.2) Hematocrit 26.1% (41.0-50.0) Mean Corpuscular Volume 92.6fL (81-100) Mean Corpuscular Hemoglobin 31.9pg (27.0-35.0) Mean Corpuscular Hemoglobin Concent 34.5% (32.0-37.0) Red Cell Distribution Width 15.3% (12.3-15.4) Platelet Count 745bil/L (150-400) Neutrophils (%) (Auto) 77.6% (40-74) Lymphocytes (%) (Auto) 18.8% (14-46) Monocytes (%) (Auto) 2.6% (4-12) Eosinophils (%) (Auto) 0.2% (0-5) Basophils (%) (Auto) 0.2% (0-3) Hold Purple Top Tube Received (Received) Prothrombin Time 11.4sec (8.1-12.5) Prothromb Time International Ratio 1.06ratio Activated Partial Thromboplast Time 22.9sec (22.8-33.0) Hold Blue Top Tube Received (Received) Sodium Level 136mEq/L (134-144) Potassium Level 3.2mEq/L (3.5-5.2) Chloride Level 99mEq/L (97-108) Carbon Dioxide Level 12mmol/L (18-29) Blood Urea Nitrogen 45mg/dL (8-27) Creatinine 1.94mg/dL (0.76-1.27) Estimat Glomerular Filtration Rate 37mL/min (>59) Glucose Level 146mg/dL (60-99) Lactic Acid Level 5.8mmol/L (0.4-2.0) Calcium Level 8.4mg/dL (8.5-10.1) Magnesium Level 1.7mg/dL (1.6-2.6) Total Bilirubin 0.6mg/dL (0.0-1.2) Aspartate Amino Transf (AST/SGOT) 68U/L (0-50) Alanine Aminotransferase (ALT/SGPT) 66U/L (0-44) Alkaline Phosphatase 266U/L (25-160) Troponin T 0.010ug/L (0.0-0.011) Total Protein 6.9g/dL (6.4-8.4) Albumin 2.6g/dL (3.4-5.0) Hold Red Top Tube Received (Received) Hold Austin Top Tube Received (Received) Hold Bennett Top Tube Received (Received) Plan Impression Patient chart reviewed, patient interviewed and anesthestic plan with risks, benefits, and alternatives discussed, and informed consent obtained. NPO per Anesth. Guidelines: Yes ASA Physical Status: ASA4 Plus Emergency Anesthetic Support Modalities: [place]wai Scope Anesthetic Plan: GA Bene/Risks/Altern/Consents: Yes HP Complete Prior to Induction: Yes Cristofer Hernandez MD Sep 09, 2016 23:09
[2016-09-10] MEDS ORDERED: MetoCLOpramide 5 mg/mL 2 mL Inj IVPUSH PRN (00:40)
[2016-09-10] MEDS ORDERED: EPHEDrine Sulfate 50 mg/mL Inj IVPUSH PRN (00:40)
[2016-09-10] MEDS ORDERED: Ondansetron 2 mg/mL 2 mL Inj IVPUSH PRN ×2 (00:40→01:55)
[2016-09-10] MEDS ORDERED: Dexamethasone 4 mg/mL Inj IVPUSH PRN (00:40)
[2016-09-10] MEDS ORDERED: HYDROmorphone 1 mg/mL Inj IVPUSH PRN (00:40)
[2016-09-10] MEDS ORDERED: Phenylephrine 10,000 mCg/mL Inj IVPUSH PRN (00:40)
[2016-09-10] MEDS: Dextrose 5% 500 ML IV SCH (01:54)
[2016-09-10] MEDS ORDERED: HYDROmorphone 0.5 mg/0.5 mL iSecure Syringe IVPUSH PRN (01:55)
[2016-09-10] MEDS ORDERED: diphenhydrAMINE 25 mg Capsule PO PRN (01:55)
[2016-09-10] MEDS: fentaNYL-PF 50 mCg/mL 2 mL Inj IVPUSH PRN ×2 (02:05→02:30)
--- NOTE | 2016-09-10 02:14 | PCM.ANEP1 ---
Post Anesthesia PACU Phase 1 Assessment Vital Signs Vital Signs Date Time Temp Pulse Resp B/P Pulse Ox O2 Delivery O2 Flow Rate FiO2 09/09/16 23:05 36.6 129 28 104/87 97 Room Air 09/09/16 22:00 144 18 94/56 99 Room Air 09/09/16 21:50 147 22 83/43 94 Room Air 09/09/16 20:01 37.8 154 28 114/67 98 Room Air Anesthetic Administered: GA Level of Alertness: Awake, talking HELLER's with Equal Strength: Yes Pain: No Pain Scale Score: 10 Nausea or Vomiting: No CV Function & Hydration Stable: Yes Airway Device: Oxygen Delivery: Simple Mask Lungs: Clear to Auscultation Dermatome Level: Full Sensation PACU Phase 2 Assessment Complications: No Patient Instructions Provided: N/A Cristofer Hernandez MD Sep 10, 2016 02:14
[2016-09-10] MEDS: Insulin Human REGular 300 Unit/3 mL Inj SUBQ SCH ×4 (02:26→19:41)
[2016-09-10 02:40] LABS: Mean Corpuscular Hemoglobin 31.8 pg (27.0-35.0); Mean Corpuscular Volume 94.6 fL (81-100); Platelet Count 442 bil/L (150-400)
[2016-09-10 02:40] LABS: APPEARANCE,URINE CLOUDY (CLEAR,HAZY); COLOR,URINE YELLOW (YELLOW); OCCULT BLOOD,URINE NEGATIVE (NEGATIVE); PH,URINE 5.5 (5.0-8.0); UROBILINOGEN,URINE NORMAL (NORMAL)
[2016-09-10 03:08] LABS: BASOPHILS % (AUTO) 0.2 % (0-3); EOSINOPHILS % (AUTO) 1.7 % (0-5); MONOCYTES % (AUTO) 6.5 % (4-12)
--- NOTE | 2016-09-10 03:08 | OP ---
[address] [address] OPERATIVE REPORT PATIENT: ANA RAY : 1950 MR#: [id number] ADMIT: 09/09/2016 JOB ID: [id number] DATE OF SURGERY: 09/09/2016 PREOPERATIVE DIAGNOSIS(ES): Perforated viscus. POSTOPERATIVE DIAGNOSIS(ES): Intra-abdominal abscess with intraperitoneal rupture. PROCEDURE: 1. Laparoscopic lysis of adhesions. 2. Placement of drains x3. 3. Extended degree of difficulty with modifier 22. SURGEON: Dilan Ramirez MD CHILDREN'S SERVICE SUPERVISOR: SHELIA Jernigan MS4 INDICATIONS: A 66-year-old man, who is 2-1/2 weeks status post loop ileostomy closure. He did well, was discharged with a white blood cell count of 12,000, seen for routine lab check by his oncologist on Sunday, with a white blood cell count of 28,000, and a potassium of 2.5. He was relatively asymptomatic until earlier today when he had sudden onset of abdominal pain and developed peritoneal signs. In the emergency department, he was noted to have free air under the diaphragm, and he is brought to the operating room after informed consent for perforated viscus. FINDINGS: 1. Surgical assistance was mandatory and medically necessary for safe completion of this operation including camera operation, retraction, and wound closure. 2. Intraoperative findings were somewhat surprising but are consistent with his recent hospital and outpatient course. What we found was shiraz peritonitis with green, purulent-smelling material that was sent for Gram stain and culture. This appeared to have been localized in a contained abscess with the maximal area of inflammation being along the right paracolic gutter and up around the old ileostomy site closure. I had hypothesized that this intra-abdominal abscess resulted from his ileostomy closure and was contained until today when it ruptured. However, we could find no active bile leak. Three drains were placed to both minimize recurrent abscess formation and to herald any missed enterotomy as described below. DESCRIPTION OF PROCEDURE: The patient was brought to the operating room. SCOAP protocol was followed. He received preoperative antibiotics for therapy beginning in the emergency department. After induction of general anesthetic, further IVs were placed. His abdomen was prepped and draped in sterile fashion. Beckford catheter was placed. SCDs were placed. The SCOAP protocol was followed and surgical time-out was performed. We then prepped and draped in a sterile fashion. I began with an optical trocar in the left upper quadrant. We entered the abdomen and insufflated. We could see that he had diffuse peritoneal soilage with green purulent material. I placed one additional port for a dissector and suction. What I found was that there was a fair amount of filmy adhesions in the anterior abdominal wall that we took down bluntly. At this point, the stomach was further decompressed with a nasogastric tube. We placed a third 5 mm port to have two operating hands, and began inspecting the abdomen somewhat methodically. First, we looked in the upper abdomen and suctioned out as much of this green fluid as we could. Some was saved for possible Gram stain and culture. Given its nature, I initially focused on looking up near the duodenal bulb where there was some what appeared to be secondary inflammation of the greater omentum, and the duodenum was stuck to the gallbladder. However, as we were suctioned out most of the fluid, the duodenum was soft and I could not identify any obvious perforation. Now, as planned, I looked down in the sigmoid colon in case there could be diverticulitis, but this was clearly not diverticulitis, as the sigmoid colon was soft with only secondary inflammation that taken down bluntly. We now turned our attention to the right paracolic gutter in the ileostomy site. There were inflammatory adhesions up to the anterior abdominal wall that we took down carefully. What I found was that hydrodissection was very effective and we were able to bring down some of the adhesions. As we got to denser ones, I went more over to the right paracolic gutter and entered a very large abscess cavity that had a fair amount of pus in it. We suctioned this out, and more pus seemed to fill up from the backside. Using primarily careful blunt dissection, we were able to pull everything off the anterior abdominal wall without injuring any bowel. We then began taking interloop adhesions apart, once again primarily with blunt dissection and hydrodissection. We got down into the pelvis where there was a fair amount of walled off pus, but again the tissues were soft down in the pelvis. At this point, we then surveyed the entire abdomen and what we encountered was what appeared to be a right pericolic abscess that was communicating more anteriorly within the area of bowel stuck up to the anterior abdominal wall where the ileostomy had been closed. The proximal bowel had secondary inflammation but was soft. The area of maximal inflammation seemed to correspond with the small bowel directly under the ileostomy closure site. However, I was never able to, with certainty, identify the recent small bowel anastomosis. However, what I was able to identify was that all loose adhesions that yielded easily to blunt dissection or hydrodissection opened up without signs of active enteric leak. As well, any nooks and crannies that we irrigated with the hydrodissection did not result in filling of the small bowel. We ran the small bowel as best we could, but at this point, my feeling was that the patient's problem was likely due to an intra-abdominal abscess that had formed sometime after his ileostomy closure, possibly related to a microperforation or some sort of intraoperative infection. This developed into a fairly large abscess that accounts for his white count of 28,000 yesterday when he was relatively asymptomatic, and a rupture of the abscess would account for his clinical picture today. Therefore, having irrigated out all of the infection and not identifying an active leak, I felt that what would be the most prudent course would be to do further irrigation and then leave drains into both to prevent recurrent abscess, but as much to herald any missed small bowel leak. The plan would be that a large output of enteric contents would prompt reoperation within the next 24-48 hours, whereas a small amount of enteric contents would simply be treated as a controlled small-bowel fistula that one would anticipate should close as there was no sign of distal small-bowel obstruction, both intraoperatively or by history. I therefore proceeded along these lines. We took down a few more adhesions bluntly. We irrigated out with almost 9 L of sterile saline. We essentially irrigated until the irrigant was returning clear or just simply blood-stained. We did early in the procedure send off some fluid and a piece of the fibrinous exudate that was coating some of the small bowel and the colon, to microbiology. I had to place a 4th laparoscopic port to allow me to place three drains, and I eventually placed one drain with its tip down in the pelvis, another drain going up over the left upper quadrant, and a 3rd drain that was over the central area of inflammation, or I believe where the recent small bowel anastomosis should be, and with its tip extending up over the edge of the liver. Prior to removing the ports and placing the drains, we did recheck the stomach and the lesser sac as well as the duodenal C curve to be certain that we were not missing a perforated ulcer, but indeed the tissues were all soft and all of the inflammation was secondary to this recent perforation and diffuse peritonitis. We checked the sigmoid colon again and looked at the small bowel as best we could running the soft free parts and leaving the dense adhesions of the area of maximal inflammation that were either the source of the initial abscess or simply walled-off initial abscess. We now let our CO2 out of the abdomen, removed our remaining single port, closed this at the fascial level with 0-Vicryl and subcuticular Monocryl for the skin. The three drains were secured with nylon suture. We placed to bulb suction. The patient was extubated and transferred to the recovery room. The plan will be to keep him on intravenous Zosyn. I will keep his Beckford catheter in for at least 24-48 hours, possibly longer, despite protocol for early removal as the patient did suffer from urinary retention during his last hospitalization.
[2016-09-10] MEDS: Lactated Ringer's 1,000 ML IV SCH ×2 (03:38→08:05)
[2016-09-10] MEDS ORDERED: [UNRECOGNIZED DRUG - OTHER] IV ONE (05:55)
[2016-09-10] MEDS ORDERED: Acetaminophen IV 1,000 MG in IV Premix 1 EACH IV ONE (05:55)
[2016-09-10 06:20] LABS: Mean Corpuscular Hemoglobin 31.7 pg (27.0-35.0); Mean Corpuscular Volume 91.7 fL (81-100)
--- NOTE | 2016-09-10 06:50 | NUR ---
Admit/Hemodynamics/ Patient transferred from Sx to room 2016, abd pain 5/10, abd dressing CDI, 3 SUZETTE drains to bulb suction, A&O x4 in room with patient, recheck HCT 22.9, 1 unit PRBC's given, hypotensive and BP's 80's/50's with MAP 57-61, Lactic 5.9, Dr. Lynn notified, new orders received, ordered to bolus 1st unit PRBS and bolus 2nd unit as well, LR 250ml bolus over 15 min, increased LR to 200ml/hr, unable to start Dilaudid LAPEL BASTER due to hypotension, Oxycodone given for pain 5/10, 45 min later pain 9/10, notified and Ofirmev ordered, Administered at 0558 and pain down to 4/10 at 0630, reecheck CBC done, HGB 9.5, minimal urine output this shift, will continue to monitor. Addendum: 09/10/16 at 0719 by JUAN R CID RN Amended: Links added.
[2016-09-10] MEDS ORDERED: Albumin 25% 50 GM in IV Premix 1 EACH IV ONE (07:10)
[2016-09-10] MEDS ORDERED: Piperacillin-Tazo 3.375 Gm Inj 3.375 GM in Dextrose 5% Minibag Plus 50 ML IV SCH (08:30)
[2016-09-10] MEDS ORDERED: Norepinephrine 8,000 mCg/250 mL NS Premix IV ONE (09:07)
[2016-09-10] MEDS ORDERED: Norepineph 8,000 mCg/250 mL NS 8,000 MCG in IV Premix 1 EACH IV SCH (09:10)
--- NOTE | 2016-09-10 10:59 | CONS ---
[address] [address] CONSULTATION REPORT PATIENT: ANA RAY : 1950 MR#: [id number] ADMIT: 09/09/2016 JOB ID: [id number] DATE OF SERVICE: 09/10/[address] Simental for this timely consult. REASON FOR CONSULTATION: Septic shock secondary to a large intraabdominal abscess. HISTORY OF PRESENT ILLNESS: The patient is a 66-year-old gentleman who was diagnosed late last year with stage 3 colon cancer. In early March he underwent surgery and had formation of an ileostomy as well as resection of the tumor. He was found to have 17/45 lymph nodes, which were positive for malignancy and was started on FOLFOX chemotherapy. He has now received 7 of his scheduled 12 cycles of chemotherapy. He was having considerable problems with his ileostomy as it was right at the belt line in the right lower quadrant and it was causing him a great deal of just day-to-day difficulty, so on August 24 Dr. Esposito performed an ileostomy reanastomosis. This was initially quite successful and the patient was happy with the results. On September 08 though he was seen in [facility] for followup on his chemotherapy regimen and was noted to have a very elevated white count without any explanation, such as any cytokine administration. The patient declined additional evaluation at that time, though as he did not really feel bad at all. Yesterday, on SundaySeptember 09, the patient went to take a nap feeling a bit fatigued and when he got up he noticed he had developed really agonizing lower mid abdominal pain, which he described as at least 10/10. This seemed to come out of nowhere and was associated with violent shaking chills, though the ER record says he complains of fever, the patient, who is now awake and alert, states he did not have fever, but only chills along with severe abdominal pain and nausea. This severe abdominal pain of course led the patient fairly quickly to the emergency department where he was evaluated and found to have an intraabdominal abscess. Dr. Ramirez took the patient to the operating room yesterday to clean out the abscess and look for possible leak or other process producing the abscess and that surgery was completed in the tool and machine maintainer hours. The patient was returned to the ICU where he has now been extubated. He is perhaps a bit groggy because of some pain medications he is receiving, but is able to give a rather comprehensive history. At this point he states he is not having fever or chills. He continues to have abdominal pain and feels very weak. He notes that when his pain medications are turned up, he hallucinates. He states he had these hallucinatory problems with narcotics after his first surgery as well. He currently as mentioned has no headache. He is bothered by the NG tube present in his nose, but otherwise no sore throat, minimal if any cough. He has pain over deep inspiration but it actually hurts in his abdomen and not in his thorax. PAST MEDICAL HISTORY: 1. Colon cancer diagnosed late 2016 status post primary resection with formation of ileostomy and takedown of the ileostomy on August 24. 2. Status post 09/27 cycles of planned FOLFOX therapy. 3. Hypertension. 4. Hyperlipidemia. 5. Diabetes mellitus with neuropathy. 6. Mild chronic renal insufficiency with creatinine typically perhaps about 1.5, but numerous episodes that are documented in the record over the past few months when his creatinine bumped as high as 2.5. SOCIAL HISTORY: The patient grew up in [place] and has worked in a variety of industries. 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 He quit smoking in 1989, drinks alcohol rarely and has not traveled recently, though he did spend several years in the [facility] as a young man. FAMILY HISTORY: The patient has no exposure to tuberculosis and denies TB in either first or second-degree relatives. REVIEW OF SYSTEMS: Was done. The patient right now has no headache, no visual complaints. He is bothered by the NG tube in his nose. He does have some mild sore throat he attributes to that NG tube. His neck is not stiff. He has a port in his left upper chest which he says does not bother him. He has no cough and no real chest pain, though with deep inspiration he develops epigastric pain. He does have some significant abdominal pain as he is only hours removed from an abdominal exploration. He was not having urinary symptoms prior to admission. He now has a Beckford catheter. He was not having any synovitis or skin rash prior to admission and does not have any now that he is aware of. He notes neuropathy in his feet, but otherwise no neurologic complaints.Remainder of the ROS negative PHYSICAL EXAMINATION: Physical exam reveals an afebrile gentleman, temp 37.1, pulse 113, respiratory rate in the low to mid 20s. Blood pressure 105/60. Saturating well on room air. Note that his blood pressure is dropping, however and this morning it was 103/60 just an hour or so ago, when I am in the room it is 79/48, and there is a discussion and he will be started on vasopressor agents which represents a major change obviously in his status. Examination of the mental status reveals he is quite lucid. Eyes without conjunctivitis or scleral icterus. He has an NG tube. His oral cavity is without thrush or hairy leukoplakia. His neck is without adenopathy. He has a port in his left upper chest which appears benign. His lungs are clear. His cardiac tones regular rate and rhythm without murmur. His abdomen is freshly postop so I did not poke around too much. There is no dramatic tenderness or peritoneal signs, but he does have SUZETTE drains on the left side as well as a midline incision. There is also a bandage over the area where his ileostomy was taken down on the right lower quadrant. Penis and scrotum are normal. There is no inguinal adenopathy. A Beckford catheter is present. The extremities are without synovitis. There is no skin rash. Neurologically, he is intact except for some neuropathy in the feet reparable to his diabetes. Otherwise has good strength throughout. DIAGNOSTIC STUDIES: Labs include a white count of 4800. The diff is relatively normal. Platelets 374. Creatinine is 1.9. His lactic acid was 5.9 early this morning. It is now 3.0 so much improved. ALT is 46 yesterday, it was 66. Alk phos yesterday 266, today 146 so much improved. Albumin 1.4. Urinalysis without pyuria. Cultures of the abdomen were just received in the laboratory so I do not even have a Gram stain yet. MRSA screen is already back and it is fortunately negative. Blood cultures are pending. In looking at his data from outpatient visits he had a negative stool PCR for C. diff about two weeks ago, and he grew Staph pseudintermedius from a wound about a year ago. This is a dog staph. Imaging: Includes a chest x-ray done yesterday which I reviewed, which shows pneumoperitoneum below the left diaphragm which is of course one of the reasons he was taken to the operating room. IMPRESSION: This is an unfortunate gentleman who was diagnosed with fairly advanced colon cancer last year and in early March of this year underwent his initial surgery and started off on a long cycle of chemotherapy utilizing his left chest port catheter. He was bothered by his ileostomy placement and so on August 24 had his ileostomy reanastomosed and reversed. He did fine for about two weeks and then had an insidious creep in his white blood count noted on September 08 followed by development of very severe abdominal pain and the discovery of a large abdominal abscess yesterday which required surgery which only concluded early this morning. He is now relatively stable in the Intensive Care Unit, though his blood pressure is a bit soft and he is going to be requiring some vasopressor agents. Whether this hypotension is on truly on the basis of septic shock or secondary to the pain meds he is receiving in a contributory relative hypovolemia remains unclear, but it is certainly prudent to start the vasopressors and treat this as septic shock. Likely organisms here would include the usual bowel linwood including anaerobes. Whether or not to treat for yeast at this point is unclear, but I think I would probably hold off until we see what is in the cultures as we do have good material in the lab and if yeast grows we can subsequently add in fluconazole or micafungin. RECOMMENDATIONS: 1. Will continue with Zosyn. Note that his dose has been renally adjusted, but I think overly renally adjusted so I am going to increase that to q.8 hour dosing. In septic shock somewhat higher doses of Zosyn are definitely indicated, and I think that our dosing protocol may underdose people on occasion especially in critical illness such as this. 2. I would hold off on antifungal therapy at this point, but will closely follow the results of the cultures that were obtained during surgery. 3. This case discussed at the bedside with the ICU nurse as well as with Dr. Simental who kindly requested this consult. JONES
--- NOTE | 2016-09-10 14:01 | PROG NOTE ---
[address] [address] PROGRESS NOTE PATIENT: ANA RAY : 1950 MR#: [id number] ADMIT: 09/09/2016 JOB ID: [id number] DATE: 09/10/2016 SUBJECTIVE: The patient is currently roughly 12 hours status post laparoscopic lysis of adhesions with placement of drains. He has been intermittently hypotensive overnight, requiring fluid boluses, but is currently normotensive with a pulse of 99, respiratory rate is between 22 and 28, and his room air saturation remains at 95%. OBJECTIVE: On examination he is awake and alert, though somewhat groggy. The abdomen is soft. His incision and drain sites are without sign of infection. His Arie-Whitehead drains are putting out a small amount of serosanguineous fluid, no sign of enteric staining. LABORATORY DATA: He received 2 units of blood overnight and his hematocrit is 27.5, his white count is 4.8, his platelet count is down to 374. Electrolytes are normalizing with a potassium of 3.4. His creatinine has dropped down to 1.9. His lactic acid is resolving from 5.8 to 5.9, and now 3.0 this morning. Albumin remains low at 1.5. IMPRESSION AND PLAN: Doing well status post laparoscopic lysis of adhesions. At this point he has no sign of enteric leak or small-bowel fistula. He should continue on Zosyn due to the amount of inflammation in his abdomen. At this point I believe he is resuscitated. He is being seen by the hospitalist and the Critical Care service. Their plan is to start him on subcutaneous DVT prophylaxis and cut back his fluids. We discussed that he would likely benefit from TPN in the next day or so as he may have a prolonged ileus.
--- NOTE | 2016-09-10 14:32 | CONS ---
[address] [address] CONSULTATION REPORT PATIENT: ANA RAY : 1950 MR#: [id number] ADMIT: 09/09/2016 JOB ID: [id number] DATE OF SERVICE: 09/10/2016 PULMONARY CRITICAL CARE CONSULTATION NOTE: The patient is a 66-year-old man with a history of stage IIIC colon cancer admitted with paracolonic abscess, seen in consultation at the request of Dr. Simental for septic shock. HISTORY OF PRESENT ILLNESS: The patient goes by "Phi." He has a history of type 2 diabetes with complications including chronic kidney disease and neuropathy. He was diagnosed with a right colon mass, stage 3 colon cancer, in February 2016 and underwent laparoscopic colonic resection with diverting loop ileostomy on April 06, [address] Fred Esposito for this diagnosis. He has been followed by Dr. Roberts in Medical Oncology and has been getting chemotherapy with 5-FU and oxaliplatin since April. His last dose of chemotherapy was a few weeks ago. He was admitted on March 26 for elective ileostomy takedown by Dr. Esposito, which was uneventful, and discharged after that. He has been doing well since that time, but approximately 24-48 hours prior to admission he was found to have a white blood cell count at around 30,000. Less than 24 hours prior to admission he developed severe abdominal pain and an episode of fever with chills. He presented to the emergency department and a chest x-ray showed free air under the left diaphragm for which surgery was consulted. He was taken to the operating room emergently for suspicion of bowel perforation. Intraoperatively he was found to have a large amount of pus in the right lower quadrant from a paracolic abscess. He came out of the operating room in the early hours of this morning and was extubated postop without issues. However, he has had low blood pressure since that time, and now they have dropped into the 70s systolic, and I was asked to see him for hypotension and shock. Symptom-manning he says he does have some abdominal pain. He seems a little bit "groggy" and talkative, most likely due to the pain meds. He denies any fevers, chills, cough, shortness of breath, etc. today. He is on room air. PAST MEDICAL HISTORY: 1. Type 2 diabetes. 2. Chronic kidney disease. 3. Stage IIIC colon cancer diagnosed February 2016 status post laparoscopic colectomy with diverting loop ileostomy in March 2016, and takedown of ileostomy on August 24, 2016. 4. Hypertension. SOCIAL HISTORY: Ex-smoker with [id number] smoking history who quit smoking in 1989. 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 FAMILY HISTORY: No history of lung cancer in parents, siblings, or children. REVIEW OF SYSTEMS: A 10-point review of systems is positive only as mentioned above in HPI. He denies any nausea, vomiting, hemoptysis, hematemesis, hematochezia, etc. PHYSICAL EXAMINATION: Vital signs reviewed. T-max of 37.9, although currently afebrile. Pulse 113, respirations 25, sats 97% on room air. BP currently 105/60, but that is on norepinephrine. General: Lying in bed, pale appearing gentleman. Mostly has his eyes closed, appearing lethargic and talking sometimes to himself and sometimes to others. Neck: No cervical lymphadenopathy. HEENT: Oral mucosa is moist. No ulcers or thrush. Chest: Clear to auscultation. Heart: Regular rate, rhythm. No murmurs or rubs. Abdomen: Three SUZETTE drains in place with serosanguineous fluid. Incision has dressings over it. Extremities: No cyanosis or clubbing. LABORATORIES: Reviewed. WBC was 12.5 yesterday night and is down to 4.8 this morning. Hemoglobin 9.5, platelets 374. Chemistry notable for potassium of 3.4, serum bicarb of 14, BUN of 42, creatinine of 1.9. Lactate was 5.9 in the early hours of this morning and is down to 3 now. Calcium is low at 7.0. Mag from last night was 1.7 and was not checked this morning. Albumin is down to 1.5. ALT, AST, and alk phos were slightly elevated yesterday but are back down to normal today. IMAGING: Chest x-ray from yesterday shows free air under the left diaphragm. CULTURES: No growth to date. ASSESSMENT: 1. Septic shock. 2. Peritonitis due to right paracolic abscess, status post washout on September 09, [address] Ramirez. 3. Stage 3 colon cancer status post laparoscopic colectomy in March 2016, chemotherapy with FOLFOX between April and August 2016. 4. Type 2 diabetes with complications including neuropathy and nephropathy. 5. Acute on chronic kidney disease. RECOMMENDATIONS: This 66-year-old man is presenting about two weeks out from the elective ileostomy takedown with septic shock due to paracolic abscess in the right lower quadrant/pelvis. He had a washout done last night by Dr. Ramirez and was successfully extubated subsequently, but his blood pressures have been drifting lower and lower today. We started him on norepinephrine infusion and he is currently on 0.1 mcg/kg of that, which is a moderate dose. I put in an arterial catheter for accurate blood pressure monitoring. With regards to antibiotics, he has been seen by Infectious Diseases and the recommendation is to continue Zosyn since there seems to be no significant indication for antifungal therapy. If his pressor requirement continues to go up, I would have a low threshold to add either micafungin or fluconazole later today, but if he continues to improve I think it is fine to hold off on that. He is doing extremely well from a respiratory standpoint on room air but he needs an incentive spirometer to prevent atelectasis. At the moment he is not on any DVT prophylaxis and if this is okay with the general surgery team we will start heparin subcu. Gastrointestinal prophylaxis is not indicated. Defer to the surgical team regarding p.o. intake, etc. The patient is a FULL CODE. CRITICAL CARE TIME: 45 minutes.
--- NOTE | 2016-09-10 15:23 | NUR ---
P: Pain I: Pt had 8/10 pain. Dilaudid STEAM BRUSH OPERATOR started and pt states pain is 0-3 depending on his activity. Pt refuses to turn and refuses CLRT even with education. Pt allows a tilt of his buttocks every so often. IS in room but pt reluctant to do deep breathes. Norepinephrine started for low BP. left arterial line placed and BP 140's and is 50 points higher than NBP. Norepinephrine weaned off and BP stable. Portacath patent . NS TKO with antibiotics in RAC. NPO except ice chips with NGT LIS per Dr. Ramirez. SUZETTE x 3 with some serous sang fluid. Abdominal dressing with small amount of drainage. Other small abdominal dressings dry and intact. Beckford patent and draining minimal light amparo output. Left Portacath patent with NS and STEAM BRUSH OPERATOR Dilaudid infusing. NS TKO Left antecubital site for antibiotics. at bedside on and off. SCD's on. E: Stable S: Uses call light. Frequent rounding. Continue to encourage pt to move.
--- NOTE | 2016-09-10 17:12 | PROCED ---
[address] [address] PROCEDURE NOTE PATIENT: ANA RAY : 1950 MR#: [id number] ADMIT: 09/09/2016 JOB ID: [id number] DATE OF SERVICE: 09/10/2016 POSTOPERATIVE DIAGNOSIS(ES): PREOPERATIVE DIAGNOSIS(ES): SURGEON: Citlali Watson MD PROCEDURE PERFORMED: Ultrasound guided left radial arterial catheter placement. INDICATION: Shock, hypotension. DESCRIPTION OF PROCEDURE: Informed consent was obtained from the patient after the risks and benefits of the procedure were discussed. The left radial artery was identified. A good pulse was palpable. The artery was also located easily via ultrasound and site was marked. The area was prepped and draped. Approximately 1 cc of lidocaine was administered for local anesthetic. A 20-gauge radial artery catheter was used to enter the left radial artery without difficulty. A good flash of blood was obtained and a guidewire passed easily. The catheter was placed and IV therapy took over to secure the catheter. COMPLICATIONS: None.
[2016-09-10] MEDS: Piperacillin-Tazo 3.375 Gm Inj 3.375 GM in Dextrose 5% Minibag Plus 50 ML IV SCH (17:35)
[2016-09-10] MEDS: Heparin 5,000 Unit/mL Inj SUBQ SCH (17:35)
--- NOTE | 2016-09-10 21:00 | PCM.HPMED ---
Subjective Date of Service Sep 10, 2016 Primary Provider: Admitting Physician: Dilan Ramirez MD Primary Care Physician: Darshana Yi PA-C Attending Physician: Dilan Ramirez MD Chief Complaint: Abdominal pain History of Present Illness: 66-year-old man with type II diabetes, CKD secondary diabetes, hypertension, history of stage III colon cancer with resection in March 2016 with a loop ileostomy that was closed proximally 2 weeks ago without complication. The patient was doing well and received postop FOLFOX chemotherapy. Yesterday the patient presented to emergency department due to excruciating pain following what he describes as a popping in his abdomen. Patient presented emergency departments found to be in early septic shock and chest x-rays noted that there was a rind of the diaphragm. This is a step backwards for the patient has been doing relatively well since his last surgery and is back to having normal bowel movements. Of note, the patient was his oncologist office 24 hours before presentation and was noted to have a white count 28,000. At that time the patient requested that he only be treated with fluids and conservative measures. Last night Dr. Ramirez took the patient to surgery emergently and noted shiraz peritonitis but appears to be ruptured pericolonic abscess. The abdomen was washed and 3 drains were placed. There also number of adhesions that were taken down this time as well. 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 Patient is currently on Zosyn and intra-abdominal infection. Blood glucose at remained untouched tight control with the highest since surgery of only 144. Otherwise white count has decreased nicely from 12.5-4.8 his anemia appears to be stable, although initially attempted dropped from 9.0 to 7.7. Patient's lactic acid was 5.9 this morning but after fluid resuscitation is also trending down to 3.0. 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 Stage III colorectal cancer Hyperlipidemia Surgical History Right elbow surgery Mohs procedure of right temporal region Laparoscopic right colectomy with diverting loop ileostomy Closure of loop ileostomy and takedown of adhesions Family History His father at age 86, he had dementia, diabetes His mother of car accident at age 47 Social History Hx Alcohol Use: No Hx Substance Use: No Smoking Status: Former Smoker Living Arrangement: with Family Exam Vital Signs Vital Sign - Last Date Time Temp Pulse Resp B/P Pulse Ox O2 Delivery O2 Flow Rate FiO2 09/10/16 19:38 37.3 106 26 137/49 94 Room Air 09/10/16 02:40 10 Intake and Output 09/09/16 09/09/16 09/10/16 Cumulative From/Thru 15:00 23:00 07:00 09/08/16 03:00 - 09/10/16 06:43 Intake Total 1000 ml 3688 ml 15563 ml Output Total 200 ml 840 ml Balance 1000 ml 3488 ml 9648 ml Intake Oral 100 ml 100 ml IV Total 1000 ml 3003 ml 9803 ml Packed Cells 585 ml 585 ml Output Urine Total 125 ml 455 ml Gastric Drainage Total 0 ml 0 ml Drainage Total 75 ml 385 ml Exam Gen.: Lying in bed, no acute distress HEENT: No lymphadenopathy, no lymphadenopathy, mucosa moist, no thrush Cardio: Regular rate and rhythm, no murmurs appreciated Respiratory: Clear to auscultation without wheezing Abdomen: [address]: Abdomen mildly tender, noted patient is on Dilaudid Extremities: No cyanosis clubbing, or edema present Psych: Patient seems appropriate but mentation soft Neuro: Appears to be intact grossly although full neurological exam was deferred at this time due to patient condition. Lab and Diagnostics Result Diagram: 09/10/16 0610 09/10/16 0226 X-Rays, CTs and MRIs Chest x-ray IMPRESSION: Pneumoperitoneum beneath the left hemidiaphragm, consistent with bowel perforation in the absence of any recent laparotomy. Findings were discussed with patient's nurse at 2122 hrs on September 09, 2016. Dictated by: Anthony Cannon M.D. on 09/09/2016 at 21:17 Assessment & Plan 66-year-old male with a history of type II diabetes, CK D, hypertension, and stage III colorectal cancer status post reversed ileostomy with new abscess formation with peritonitis. Septic shock secondary to right paracolic abscess with peritonitis; present admission; ongoing -Patient underwent laparoscopic washout by Dr. Ramirez on 09/09/16; appreciated his expertise on this case -Patient currently being treated by Zosyn -Patient currently off all pressor support -Continue to follow labs procalcitonin and CBC -Infectious disease following, appreciate recs by Dr. Dowling -Expect step down from ICU tomorrow Type II diabetes; present admission; ongoing -Patient presents with elevated blood glucose and last A1c of 6.5 -Patient currently on insulin subcutaneous -Continue to follow BG -Ordered new A1c Chronic kidney disease; present admission; ongoing -Due to hypertension and diabetes -Baseline creatinine seems to be around 1.5, currently at 1.9 -Patient is currently up close to 9 L fluid -Will continue to follow avoid nephrotoxic meds; we will attempt to avoid any drink Zosyn combinations Metabolic acidosis with lactic acidosis - AG 17, but earlier was 21; likely all due to elevated lactic acid which is resolving; likely some component of chronic kidney disease as well - Continue to trend Hypertension: Present admission; stable -Patient's been hypotensive and on pressors for most of his stay -Will continue to follow Disposition: Patient was admitted to inpatient status in the ICU due to severity of presentation, duration of treatment, risk of adverse events. Patient's length of stay is expected B greater than 2 minutes. Pain Evaluation: Adequate Pain Control VTE Mechanical Devices: Intermittant Pneumatic CD Resuscitation Status: CPR: Attempt Resuscitation Attending Statement The patient was seen and examined together with Dr. Carpio on 09/10/2016 and I agree with the history, exam and plan as outlined in the note above. copies to: Darshana Yi PA-C, Michael R DO Sep 10, 2016 21:00 Jaylan Simental MD Sep 12, 2016 03:54
[2016-09-10] MEDS: HYDROmorphone PCA 0.2 mg/mL 30 mL Inj IV PRN (22:19)
[2016-09-10] MEDS: Famotidine Inj 20 MG in IV Premix 1 EACH IV SCH (22:20)
[2016-09-11] VITALS (12 sets, daily range): BP systolic 106–152; BP diastolic 50–80; PULSE 101–113; RESP 17–26; O2SAT 92–95
[2016-09-11] MEDS: Dextrose 5% 500 ML IV SCH (00:13)
[2016-09-11] MEDS: Piperacillin-Tazo 3.375 Gm Inj 3.375 GM in Dextrose 5% Minibag Plus 50 ML IV SCH ×3 (00:13→17:49)
[2016-09-11] MEDS: Heparin 5,000 Unit/mL Inj SUBQ SCH ×3 (00:13→16:46)
[2016-09-11] MEDS: Insulin Human REGular 300 Unit/3 mL Inj SUBQ SCH ×4 (02:30→20:30)
[2016-09-11 03:17] LABS: Mean Corpuscular Volume 91.3 fL (81-100); Platelet Count 243 bil/L (150-400)
[2016-09-11 03:32] LABS: BASOPHILS % (AUTO) 0 % (0-3); EOSINOPHILS % (AUTO) 0 % (0-5); MONOCYTES % (AUTO) 3 % (4-12); NEUTROPHILS % (AUTO) 57 % (40-74)
[2016-09-11 03:44] LABS: INR 1.43 ratio
--- NOTE | 2016-09-11 06:20 | NUR ---
Resp / Activity SpO2 90-91% on RA, 2L OM started with SpO2 in the middle 90s. Patient does need reminders at times to keep his oxygen on. Patient given teaching on the importance of using IS and C/D/B. Re-enforcement given throughout the shift and more is needed. Patient does allow Q2 turns over night and does assist slightly in a couple of them as well.
[2016-09-11] MEDS ORDERED: Famotidine Inj 20 MG in IV Premix 1 EACH IV SCH (08:30)
--- NOTE | 2016-09-11 08:30 | PROG NOTE ---
[address] [address] PROGRESS NOTE PATIENT: ANA RAY : 1950 MR#: [id number] ADMIT: 09/09/2016 JOB ID: [id number] DATE: 09/11/2016 REASON FOR FOLLOW UP: Intra-abdominal abscess. INTERVAL HISTORY: The patient remains in the ICU but is improving today. He states that he is free of fevers, chills, has no significant headache. He is mentally clear in spite of his pain meds. Has no cough or shortness of breath and minimal abdominal pain. The main thing he complains about is being very thirsty and the fact he still has a Beckford catheter. PHYSICAL EXAMINATION: Reveals an afebrile gentleman, 36.8, pulse 100, respiratory rate in the low 20s, blood pressure 152/51. He is saturating well right now on room air, though recently he was on 2 L. He has an NG tube in his nose. His lungs are quite clear. Cardiac tones regular rate and rhythm. The abdomen is obviously postoperative. There are three drains along the left side of his abdomen. I had the opportunity to examine his abdomen carefully with Dr. Fred Esposito who is the attending surgeon today. His abdomen is remarkably nontender despite the recent extensive surgery and the placement of the drain with laparoscopic surgery. He still has a Beckford catheter. He has no skin rash. LABORATORIES: Include a white count which has jumped to 15,700 postop, which includes 29% bands, 5% metamyelocytes, but of course, this is not surprising. His creatinine is relatively stable at 1.88. Procalcitonin 134, reflecting his obvious sepsis. His MRSA screen of the nares negative. Blood cultures negative. I have discussed the abdominal washout cultures with Micro and they are growing some viridans strep to be identified in the next day or two. IMAGING: No new imaging is available. IMPRESSION: This patient is doing reasonably well today. There is no evidence for ongoing sepsis at this point. The patient continues to improve. His vasopressor agents are off. He is awake, completely alert and, though his white count has an impressive left shift and his procalcitonin is over 100, he has had primary control of his infection with surgery and is on appropriate antibiotics with Zosyn. RECOMMENDATIONS: 1. Continue with Zosyn. 2. I have asked the lab to workup the viridans strep isolated from his abdomen. 3. Would follow his cultures to see if any anaerobes or yeasts grow. 4. This case was discussed at the bedside with the attending, Dr. Fred Esposito.
[2016-09-11] MEDS: Famotidine Inj 20 MG in IV Premix 1 EACH IV SCH (08:34)
--- NOTE | 2016-09-11 08:35 | PROG NOTE ---
[address] [address] PROGRESS NOTE PATIENT: ANA RAY : 1950 MR#: [id number] ADMIT: 09/09/2016 JOB ID: [id number] DATE: 09/11/2016 SUBJECTIVE: The patient is seen in followup for his recent laparoscopic drainage of intraabdominal abscess related undoubtedly to his ileostomy take down. Yesterday the patient was having significant hypotension recorded using a blood pressure cuff. Levophed was hung and an A-line was placed. Following placement of the A-line it became immediately apparent that there was a significant discrepancy between the blood pressure cuff readings and the A-line readings. His Levophed has been off since yesterday afternoon. His blood pressure has been more than adequate. This morning he tells me he feels much better than when he presented with this abscess. He is not passing any flatus. He has had no nausea. OBJECTIVE: He has remained afebrile over the last 24 hours. Has a mild tachycardia up to 109 this morning. His blood pressure is 152/51. He is satting 95% on 2 L nasal cannula. In general, he appears comfortable in no acute distress. He is alert and oriented x3. His abdomen is soft, nontender, nondistended. He has three SUZETTE drains in place. The wounds look fine. His ileostomy takedown site looks fine with no erythema or induration. The SUZETTE drains have scant serous fluid in them. Over the last 24 hours he had 30 mL out of his NG tube. His SUZETTE drains put out 50, 70, and 85 cc and an additional 60, 25, and 25 overnight. His white blood cell count is 15.7 this morning which is up from 4.8 yesterday. His hematocrit is 25.1. His platelet count is 243. His creatinine is down from 1.9 to 1.88. Procalcitonin this morning is 134.2. Blood cultures had no growth. The abdominal culture is still pending. ASSESSMENT AND PLAN: This is a 66-year-old man with a history of obstructing cecal cancer who is about two weeks out from takedown of loop ileostomy with an intraabdominal abscess that was drained laparoscopically. At this point the patient seems to be doing a little bit better. I have removed his NG tube. His Beckford catheter can come out. I have encouraged him to get up and ambulate. If his blood pressure cuff readings by the cuff seem to be a bit more accurate today we could get the A-line out. He will remain on broad-spectrum antibiotics. I anticipate he will likely have an ileus and will go slow with respect to his diet.
[2016-09-11] MEDS: 0.9% Sodium Chloride 1,000 ML IV SCH (11:51)
--- NOTE | 2016-09-11 13:24 | NUR ---
Evaluation completed. Please go to "Notes" then click on "Assessments and Notes" (bottom left corner of screen). Then select appropriate discipline tab on top of screen.
--- NOTE | 2016-09-11 13:26 | NUR ---
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 Taking ice chips only. 'pablito NGT and Analy hurt'd around 0900. HNV yet. Portacath with NS 75cc/hr with antibiotics. Two peripheral saline locks patent without redness or swelling at the site. at bedside and up to date on plan of care. Pt is alert and oriented. Occasionally forgetful. Up with PT. Refused bath and oral care. Using IS and coughing with lots of encouragement. Report called to Leyda Ayers on [facility]. ST. BP stable Room air with sats 94%. E: Stable S: Uses call light appropriately. Frequent rounding. at bedside.
--- NOTE | 2016-09-11 14:41 | NUR ---
Transfer to RM 1001 Patient transferred into room 1001 at 1330 by wheelchair. Able to transfer to bed with 2 person assist. Patient was groggy and weak during transfer. Once in bed, patient moaned and stated he was in pain. ASSEMBLER CARBON BRUSHES button given to patient and informed on use. at bedside. IV fluids infusing, ASSEMBLER CARBON BRUSHES settings confirmed, SCDs in place. Room air. Call light within reach. Oriented to new room.
[2016-09-11] MEDS: 0.9% Sodium Chloride 250 ML IV SCH (18:28)
[2016-09-11] MEDS ORDERED: Sodium Chloride LOK Flush 10 mL Syringe IVFLUSH PRN ×2 (18:30)
[2016-09-11] MEDS ORDERED: HepLOK Flush 100 unit/mL 5 mL Inj IVFLUSH PRN (18:30)
[2016-09-11] MEDS: Acetaminophen IV 1,000 MG in IV Premix 1 EACH IV SCH (21:55)
--- NOTE | 2016-09-11 23:38 | NUR ---
Lab results CHERYI sent to night hospitalist positive blood culture for cocci first out of four, and SUZETTE drain #2 output of 245ml in 3 hours. Will continue to monitor output and vitals. Addendum: 09/12/16 at 0408 by SHON COOMBS RN Patient speech less slurred. Continues to have moments of confusion, however answers questions appropriately.
[2016-09-12] VITALS (13 sets, daily range): BP systolic 119–143; BP diastolic 63–74; PULSE 75–96; RESP 16–20; O2SAT 92–99
[2016-09-12] MEDS: 0.9% Sodium Chloride 1,000 ML IV SCH ×2 (00:05→08:27)
[2016-09-12] MEDS: Piperacillin-Tazo 3.375 Gm Inj 3.375 GM in Dextrose 5% Minibag Plus 50 ML IV SCH ×3 (00:41→18:39)
[2016-09-12] MEDS: Heparin 5,000 Unit/mL Inj SUBQ SCH ×3 (00:52→18:39)
[2016-09-12] MEDS: Dextrose 5% 500 ML IV SCH (01:54)
[2016-09-12] MEDS: Insulin Human REGular 300 Unit/3 mL Inj SUBQ SCH ×4 (02:30→20:30)
[2016-09-12] MEDS: Acetaminophen IV 1,000 MG in IV Premix 1 EACH IV SCH ×4 (02:45→22:31)
[2016-09-12 05:56] LABS: BASOPHILS % (AUTO) 0 % (0-3); MONOCYTES % (AUTO) 5.1 % (4-12)
[2016-09-12 06:12] LABS: EOSINOPHILS % (AUTO) 0.1 % (0-5); Mean Corpuscular Hemoglobin 31.9 pg (27.0-35.0); Mean Corpuscular Volume 91.1 fL (81-100); NEUTROPHILS % (AUTO) 85.7 % (40-74); Platelet Count 205 bil/L (150-400)
--- NOTE | 2016-09-12 07:41 | PCM.PNMED ---
Subjective Date of Service Sep 11, 2016 Subjective 66-year-old man with type II diabetes, CKD secondary diabetes, hypertension, history of stage III colon cancer with resection in March 2016 with a loop ileostomy that was closed proximally 2 weeks ago without complication. The patient was doing well and received postop FOLFOX chemotherapy. Yesterday the patient presented to emergency department due to excruciating pain following what he describes as a popping in his abdomen. Patient presented emergency departments found to be in early septic shock and chest x-rays noted that there was a rind of the diaphragm. This is a step backwards for the patient has been doing relatively well since his last surgery and is back to having normal bowel movements. Of note, the patient was his oncologist office 24 hours before presentation and was noted to have a white count 28,000. At that time the patient requested that he only be treated with fluids and conservative measures. 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 Patient is currently on Zosyn and intra-abdominal infection. Patient's lactic acid was 3 yesterday this morning but after fluid resuscitation it has normalized. Patient currently denies flatus and stool. Exam Vital Signs Vital Sign - Last Date Time Temp Pulse Resp B/P Pulse Ox O2 Delivery O2 Flow Rate FiO2 09/11/16 03:08 36.8 109 22 152/51 95 Nasal Cannula 2.00 Intake and Output 09/10/16 09/10/16 09/11/16 Cumulative From/Thru 15:00 23:00 07:00 09/08/16 03:00 - 09/11/16 06:10 Intake Total 1655 ml 424 ml 83296 ml Output Total 610 ml 810 ml 2260 ml Balance 1045 ml -386 ml 10909 ml Intake Oral 200 ml 300 ml IV Total 1455 ml 424 ml 50226 ml Packed Cells 585 ml Output Urine Total 450 ml 700 ml 1605 ml Gastric Drainage Total 30 ml 30 ml Drainage Total 130 ml 110 ml 625 ml Exam Gen.: Lying in bed, no acute distress HEENT: No lymphadenopathy, no lymphadenopathy, mucosa moist, no thrush Cardio: Regular rate and rhythm, no murmurs appreciated Respiratory: Clear to auscultation without wheezing Abdomen: [address]: Abdomen mildly tender, noted patient is on Dilaudid Extremities: No cyanosis clubbing, or edema present Psych: Patient seems appropriate but mentation soft Neuro: Appears to be intact grossly although full neurological exam was deferred at this time due to patient condition. Lab and Diagnostics Result Diagram: 09/11/16 0300 09/11/16 0300 X-Rays, CTs and MRIs Chest x-ray IMPRESSION: Pneumoperitoneum beneath the left hemidiaphragm, consistent with bowel perforation in the absence of any recent laparotomy. Findings were discussed with patient's nurse at 2122 hrs on September 09, 2016. Dictated by: Anthony Cannon M.D. on 09/09/2016 at 21:17 Assessment & Plan 66-year-old male with a history of type II diabetes, CK D, hypertension, and stage III colorectal cancer status post reversed ileostomy with new abscess formation with peritonitis. Septic shock secondary to right paracolic abscess with peritonitis; present admission; improving - Patient underwent laparoscopic washout by Dr. Ramirez on 09/09/16; appreciated his expertise on this case - Patient currently being treated by Zosyn - Patient currently off all pressor support - Continue to follow labs procalcitonin and CBC - Infectious disease following, appreciate recs by Dr. Dowling - Advance diet to clears, NG out. Consider Relistor for poss opioid induced illeus. Type II diabetes; present admission; ongoing - Patient presents with elevated blood glucose and last A1c of 6.5 - Patient currently on insulin subcutaneous - Continue to follow BG - A1c pending, previous 6.5, Chronic kidney disease; present admission; ongoing - Due to hypertension and diabetes - Baseline creatinine seems to be around 1.5, currently at 1.9 - Patient is currently up close to 9 L fluid - Will continue to follow avoid nephrotoxic meds; we will attempt to avoid any drink Zosyn combinations Metabolic acidosis with lactic acidosis - AG 17, but earlier was 21; likely all due to elevated lactic acid which is resolving; likely some component of chronic kidney disease as well - Continue to trend Hypertension: Present admission; stable - Patient's been hypotensive and on pressors for most of his stay - Will continue to follow Acetaminophen for mild pain when necessary. Bowel regimen Senna and MiraLAX scheduled and PRN. Zofran when necessary for nausea and vomiting. SubQ heparin for now. SCDs in place. High-risk medications: IV Dilaudid BREASTFEEDING EDUCATOR Disposition: Patient was admitted to inpatient status in the ICU due to severity of presentation, duration of treatment, risk of adverse events. Patient 's length of stay is expected B greater than 2 minutes. Pain Evaluation: Adequate Pain Control VTE Mechanical Devices: Intermittant Pneumatic CD Resuscitation Status: CPR: Attempt Resuscitation Attending Statement The patient was seen and examined together with Dr. Daniel on 09/12/2016 and I agree with the history, exam and plan as outlined in the note above. . WILFRED DANIEL DO Sep 11, 2016 07:36 Jaylan Simental MD Sep 15, 2016 07:42
[2016-09-12] MEDS: HYDROmorphone PCA 0.2 mg/mL 30 mL Inj IV PRN (08:23)
[2016-09-12] MEDS: Famotidine Inj 20 MG in IV Premix 1 EACH IV SCH (08:24)
--- NOTE | 2016-09-12 11:20 | PCM.PNMED ---
Subjective Date of Service Sep 12, 2016 Subjective pt denied n/v, pain is controlled with RETAIL SERVICES PROFESSIONAL denied SOB, cough, tolerating liquid diet, no BM today Exam Vital Signs Vital Sign - Last Date Time Temp Pulse Resp B/P Pulse Ox O2 Delivery O2 Flow Rate FiO2 09/12/16 09:15 36.2 96 18 143/74 97 Room Air 09/11/16 03:08 2.00 Intake and Output 09/11/16 09/11/16 09/12/16 Cumulative From/Thru 15:00 23:00 07:00 09/08/16 03:00 - 09/12/16 06:15 Intake Total 678 ml 994 ml 18177 ml Output Total 265 ml 900 ml 3425 ml Balance 413 ml 94 ml 37219 ml Intake Oral 200 ml 150 ml 650 ml IV Total 478 ml 844 ml 60485 ml Packed Cells 585 ml Output Urine Total 150 ml 600 ml 2355 ml Gastric Drainage Total 30 ml Drainage Total 115 ml 300 ml 1040 ml # Bowel Movements 0 0 Exam NAD, comfortably laying down on the bed no JVD, MMM, no LAD RRR, nl s1, s2 no mrg CTAB, no w,c S,distended, diffuse tenderness, normoactive BS+ warm, no edema, pulses 2/2 IVs and Medications Medications Reviewed: Medications were reviewed in detail Lab and Diagnostics Result Diagram: 09/12/16 0530 09/12/16 0530 X-Rays, CTs and MRIs Chest x-ray IMPRESSION: Pneumoperitoneum beneath the left hemidiaphragm, consistent with bowel perforation in the absence of any recent laparotomy. Findings were discussed with patient's nurse at 2122 hrs on September 09, 2016. Dictated by: Anthony Cannon M.D. on 09/09/2016 at 21:17 Assessment & Plan 66-year-old male with a history of type II diabetes, CK D, hypertension, and stage III colorectal cancer status post reversed ileostomy with new abscess formation with peritonitis. acute, active Septic shock secondary to right paracolic abscess with peritonitis; present admission; pt underwent laparoscopic washout by Dr. Ramirez on 09/09/16, pt underwent ICU course with vasopressors -pt is clinically stable, afebrile, HD stable, markedly elevated PCT and wbc is trending down - Patient currently being treated by Zohalien, continue for now, appreciate ID management - Continue to follow labs procalcitonin and CBC - Infectious disease following, appreciate recs by Dr. Dowling - Advance diet to clears, NG out. Consider Relistor for poss opioid induced illeus. - pain control with RETAIL SERVICES PROFESSIONAL dilaudid, will try to switch to iv and oral combination. chronic, stable Type II diabetes, last A1c of 6.5, continue RISS q6h, fsg qd CKD, Due to hypertension and diabetes, Baseline creatinine seems to be around 1.5, currently at 1.9, likely new normal, avoid nephrotoxic meds, renally adjust meds Metabolic acidosis with lactic acidosis, resolving as sepsis clears Hypertension, stable SubQ heparin for now. SCDs in place. High-risk medications: IV Dilaudid RETAIL SERVICES PROFESSIONAL Disposition: prolonged course, pending VTE Mechanical Devices: Intermittant Pneumatic CD Resuscitation Status: CPR: Attempt Resuscitation Time spent 35min Tonio Melgar MD Sep 12, 2016 11:20
--- NOTE | 2016-09-12 11:35 | NUR ---
NUTRITION ASSESSMENT: ASSESS: Pt is a 66yo M admitted for bowel perforation. He is two weeks out from takedown of loop ileostomy with an intraabdominal abscess that was drained laparoscopically. NGT was removed. Diet was advanced to CL 09/11. POx1 meal 25%. No reported nausea, no BMx3 days. PMHX: type II diabetes, CKD secondary diabetes, hypertension, history of stage III colon cancer LABS: Reviewed. CL 111, Bun 46, Donor Relations Officer 1.82, Glu 110, Ca 7.5, AST 71, Alk phos 270, Alb 2.0 MEDS: Reviewed. GI: 0 BM SKIN: Lucas 15, no major issues CURRENT WTS: 86.2kg, BMI 28.1kg/m2, admit wt 87.1kg DIET: CL, PO 25%x1 meal EST. NEEDS: Kcals: 2155-2585kcal/day (25-30kcal/kg) Pro: 85-100g/day (1.0-1.2g/kg) NUTRITION DIAGNOSIS: 1.) Inadequate oral intake related to altered gi function as evidence by bowel perforation, need for slow diet advancement and possible ileus NUTRITION INTERVENTION: 1.) Will add Ensure CL on B&L Trays while pt is on CL diet to help increase protein intake 2.) Recommend advance diet when medically appropriate MONITOR / EVAL: PO, diet advance, GI, labs, wt, POC, nutrition status. Will continue to monitor per high nutrition risk guidelines.
[2016-09-12] MEDS ORDERED: 0.9% Sodium Chloride 1,000 ML IV ONE (11:40)
--- NOTE | 2016-09-12 13:27 | PCM.PNSURG ---
Subjective Date of Service: Sep 12, 2016 Date of Service: Sep 12, 2016 Visit Information: Reason for Visit Bowel Perforated Surgery/Surgery Date Post-Op Day # 2 s/p laparoscopic lysis of adhesions and drain placement Date of Admission: Sep 09, 2016 at 22:18 Hospital Day # Subjective: Patient describes feeling quite a bit better, tolerating clears and passing flatus/ no BM. Just completed a lap around hospital wing with PT who says he's doing better. Denies nausea /vomiting. Admits to some belching. Postop General: No Shortness of Breath, No Chest Pain Gastrointestinal: Tolerating Oral Feedings, No N/V, Passing Flatus Postop Activity: Ambulates with Assist Device (with PT) Objective Objective pleasant male in no apparent distress.afebrile, VSS. Vital Sign- Last 8 Hours Date Time Temp Pulse Resp B/P Pulse Ox O2 Delivery O2 Flow Rate FiO2 09/12/16 11:38 Room Air 09/12/16 09:15 36.2 96 18 143/74 97 Room Air 09/12/16 08:58 18 97 09/12/16 06:16 36.8 91 18 119/63 94 Room Air 09/12/16 05:44 18 93 Intake and Output- Last 8 Hour 09/12/16 Cumulative From/Thru 07:00 09/08/16 03:00 - 09/12/16 06:15 Intake Total 994 ml 04553 ml Output Total 900 ml 3425 ml Balance 94 ml 72470 ml Intake Oral 150 ml 650 ml IV Total 844 ml 43663 ml Packed Cells 585 ml Output Urine Total 600 ml 2355 ml Gastric Drainage Total 30 ml Drainage Total 300 ml 1040 ml # Bowel Movements 0 0 General: Alert, Oriented X3, Cooperative, No Acute Distress Lungs: Clear to Auscultation Heart: Exam Unremarkable Abdomen: Soft, Appropriately tender, Non-distended SURGICAL WOUND : Wound General Appearence: Steri Strips, Incision Healing Dressing & Drainage Status: Intact Wound Drainage Type: SUZETTE Drain #1 (15 serosang), SUZETTE Drain #2 (255 serosang), SUZETTE Drain #3 (30 serosang) Result Diagram: 09/12/16 0530 09/12/16 0530 Lab & Micro Results: + blood cx x 1-->GPC Abdominal fluid--> probable s.viridans Diagnostics: procalcitonin 134-->118 Assessment & Plan Impression protracted course s/p BULL, drain placement APRs very high with procalcitonin level though appears to be slowly receding, with improved lactic acid WBC increased to 21K from 16K H/H stable at 8.6 and 24.6 mild oliguria Problems: Plan MIVF at 75/h Bolus ivf x 1 AM labs follow wbc, LFT's Will consider abd CT if not improving tomorrow with high procalcitonin to better evaluate small bowel anastamosis Leave drains; likely remove low output choice tomorrow Await bowel function slow return; possible picc tomorrow for tpn Full liquid diet Ambulate IS VTE Prophylaxis: Sub-Q Heparin (Unfractionated) Resuscitation Status: CPR: Attempt Resuscitation León Aguero PA-C Sep 12, 2016 13:27 León Aguero PA-C Sep 12, 2016 13:27
[2016-09-12] MEDS: D5 0.45% NaCl + KCl 20 mEq/L 1,000 ML IV SCH (13:33)
--- NOTE | 2016-09-12 15:22 | PROG NOTE ---
[address] [address] PROGRESS NOTE PATIENT: ANA RAY : 1950 MR#: [id number] ADMIT: 09/09/2016 JOB ID: [id number] DATE: 09/12/2016 REASON FOR FOLLOWUP: Intra-abdominal abscess following reversal of an ileostomy. INTERVAL HISTORY: The patient continues to feel better. He has no fevers or chills. No significant shortness of breath, cough or chest pain. No significant abdominal pain. No genitourinary symptoms. PHYSICAL EXAMINATION: Reveals an afebrile gentleman, temperature 36.4, pulse 81, respiratory rate 18, blood pressure 119/72, saturating well on room air. He is in no acute distress though he is covered with blankets. His mental status is clear. His lungs are clear. His cardiac tones without any murmurs. Abdomen has a few bowel tones and is essentially nontender. There are still three drains present on the left side of the abdomen as before. LABORATORY DATA: Labs include white count which has jumped from 15-21,000 today. He did have the huge left shift yesterday with 34% bands and metamyelocytes and this probably accounts for the rise in the total white count today and the drop in the bandemia. Creatinine 1.82 which is stable. LFTs have jumped and his AST has gone from 33 to 71. His alk phos has gone from 86 to 270. Procalcitonin has gone from 134 to 118. Micro includes a single positive blood culture from the and we wait on the identification of this gram-positive coccal organism. MRSA screen negative. The abdominal fluid is growing strep viridans and we await this identification and susceptibility. IMPRESSION: This is a complex case of a patient who had a significant intra-abdominal abscess which has been drained. He seems to be improving but there is still some elements of concern including identify of the positive blood culture organism as well as his climbing white blood count and bump in alkaline phosphatase. RECOMMENDATIONS: 1. Will continue with Zosyn as our sole antibiotic. 2. Will continue to closely follow his white blood count as well as his liver function tests. 3. Should his alk phos and LFTs continue to increase, we may need to consider imaging of his right upper quadrant looking for acalculous cholecystitis or some similar process. Will continue to closely follow this complex patient with you.
[2016-09-12] MEDS: 0.9% Sodium Chloride 250 ML IV SCH (18:28)
--- NOTE | 2016-09-12 18:52 | NUR ---
Wound Care Patient seen for skin assessment and foot care, no pressure related skin issues at this time. Dressings changed at drain sites (#3), dressing changed at right foot. Patient has follow up appointment at wound center with Dr Mcfarland 7,09/02.
--- NOTE | 2016-09-12 19:09 | NUR ---
Activity Patient up with SBA. Ambulated in room and up in chair for meals. Pain managed with SALVAGE ENGINEER, 1 mg used this shift. Denies nausea. Patient and staff repositions patient for comfort. Call light and tray table within reach. Will continue to monitor patient hourly.
[2016-09-13] VITALS (10 sets, daily range): BP systolic 108–131; BP diastolic 62–76; PULSE 74–80; RESP 16–18; O2SAT 92–99
[2016-09-13] MEDS: Piperacillin-Tazo 3.375 Gm Inj 3.375 GM in Dextrose 5% Minibag Plus 50 ML IV SCH ×2 (00:17→09:28)
[2016-09-13] MEDS: D5 0.45% NaCl + KCl 20 mEq/L 1,000 ML IV SCH ×3 (01:00→19:16)
[2016-09-13] MEDS: Heparin 5,000 Unit/mL Inj SUBQ SCH ×3 (01:15→17:34)
--- NOTE | 2016-09-13 01:29 | NUR ---
Activity/Mentation Patient up to chair and ambulating to bathroom and around unit with FWW. Patient appropriately answering questions, denies pain at this time however c/o constipation. Bed in low position, call light within reach, yellow non skid socks on at all time. Addendum: 09/13/16 at 0414 by SHON COOMBS RN 0230 BS- 149. There was not a vial readily available in drawer, pharmacy notified. Patient requested not to be awoken again and thus declining the unit of insulin. The Range requiring insulin begins at a BS of 141-199 for a single unit.
[2016-09-13] MEDS: Dextrose 5% 500 ML IV SCH (01:54)
[2016-09-13] MEDS: Insulin Human REGular 300 Unit/3 mL Inj SUBQ SCH ×4 (02:30→20:30)
[2016-09-13 05:19] LABS: Mean Corpuscular Hemoglobin 31.4 pg (27.0-35.0); Mean Corpuscular Volume 92.3 fL (81-100); Platelet Count 190 bil/L (150-400)
[2016-09-13 05:37] LABS: BASOPHILS % (AUTO) 0 % (0-3); EOSINOPHILS % (AUTO) 0 % (0-5); MONOCYTES % (AUTO) 3 % (4-12); NEUTROPHILS % (AUTO) 86 % (40-74)
[2016-09-13 05:41] LABS: Magnesium 1.6 mg/dL (1.6-2.6)
--- NOTE | 2016-09-13 09:11 | PCM.PNSURG ---
Subjective Date of Service: Sep 13, 2016 Date of Service: Sep 13, 2016 Visit Information: Reason for Visit Bowel Perforated Surgery/Surgery Date Post-Op Day # 3 s/p laparoscopic lysis of adhesions and drain placement Date of Admission: Sep 09, 2016 at 22:18 Hospital Day # Subjective: Patient seen with General Surgery team this a.m including Dr. Schultz reporting significant overall improvement, tolerating full liquids and passing flatus with 4 x BM yesterday. He is ambulating within normal limits with PT. Denies significant pain, nausea, or vomitting & reports burping. The patient is also being seen by Infectious Disease & the Hospitalist. Postop General: No Complaints Gastrointestinal: Tolerating Oral Feedings, No N/V, Passing Flatus, Passing Stool (Loose) Pain Management: No or Minimal Pain Postop Activity: Ambulating in [place] Objective Vital Sign- Last 8 Hours Date Time Temp Pulse Resp B/P Pulse Ox O2 Delivery O2 Flow Rate FiO2 09/13/16 08:26 36.5 80 18 129/76 98 Room Air 09/13/16 06:23 18 94 09/13/16 05:10 37.4 74 17 124/72 99 Room Air 09/13/16 01:22 18 92 Intake and Output- Last 8 Hour 09/13/16 Cumulative From/Thru 07:00 09/08/16 03:00 - 09/13/16 05:07 Intake Total 1557 ml 66041 ml Output Total 768 ml 93974 ml Balance 789 ml 6858 ml Intake Oral 1557 ml 2767 ml IV Total 92674 ml Packed Cells 585 ml Output Urine Total 750 ml 12302 ml Gastric Drainage Total 30 ml Drainage Total 18 ml 1103 ml # Bowel Movements 3 3 General: Alert, Oriented X3, Cooperative Lungs: Other (Minimal Diffuse Expiratory Wheezes) Heart: Exam Unremarkable Abdomen: Benign, Soft, Appropriately tender, Normoactive bowel tones SURGICAL WOUND : Wound General Appearence: Intact, Well Approximated, Incision Healing, No Erythema, No Discharge, No Inflammatory Changes Wound Drainage Type: SUZETTE Drain #1 (minimal output), SUZETTE Drain #2 (245 mL over 12 hours), SUZETTE Drain #3 (minimal output) Extremities: Thigh&Calf Soft/Nontender Result Diagram: 09/13/1651209/13/16512 Additional Information: Patient examined with on-call general surgeon Dr. Shira Schultz MD Assessment & Plan Impression 1. Postoperative day #3 status post lysis of adhesions & drains 3 with persistent leukocytosis & improved elevated pro-calcitonin levels 2. Intra-abdominal abscess 3. Approximately 3.5 weeks status post Laparoscopic right colectomy with diverting loop ileostomy Closure of loop ileostomy and takedown of adhesions Past Medical & Surgical History: 1. Hypertension 2. Type II diabetes, uncontrolled with neuropathy and CK D 3. 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 Stage III colorectal cancer 5. Hyperlipidemia 6. Status post right elbow surgery 7. Status post Mohs procedure of right temporal region Problems: Plan Other than the patient's hypocalcemia, elevated pro-calcium persistent leukocytosis is doing well postop day #3 status post lysis of adhesions & drains 3 perform secondary to Intra-abdominal abscess approximately 3.5 weeks status post Laparoscopic right colectomy with diverting loop ileostomy, closure of loop ileostomy and takedown of adhesions. Plan for PO analgesics & calcium supplementation, continued monitoring & advancing diet if the patient's labs stabilized. Dr. Schultz also recommended SUZETTE drain #1. It was also suggested that we reach out to Oncology & Infectious Disease input is appreciated. VTE Prophylaxis: Sub-Q Heparin (Unfractionated) Resuscitation Status: CPR: Attempt Resuscitation Will Lerner PA-C Sep 13, 2016 09:11 Will Lerner PA-C Sep 13, 2016 09:11
[2016-09-13] MEDS: Famotidine Inj 20 MG in IV Premix 1 EACH IV SCH (09:21)
[2016-09-13] MEDS: 0.9% Sodium Chloride 250 ML IV SCH (09:21)
--- NOTE | 2016-09-13 11:48 | PCM.PNMED ---
Subjective Date of Service Sep 13, 2016 Subjective pt remained HD stable, afebrile, abd pain controlled with COMMUNITY PHARMACIST, denied n/v had four BM advanced diet per surgery, no plan for TPN zosyn continued per ID Exam Vital Signs Vital Sign - Last Date Time Temp Pulse Resp B/P Pulse Ox O2 Delivery O2 Flow Rate FiO2 09/13/16 08:26 36.5 80 18 129/76 98 Room Air 09/11/16 03:08 2.00 Intake and Output 09/12/16 09/12/16 09/13/16 Cumulative From/Thru 15:00 23:00 07:00 09/08/16 03:00 - 09/13/16 05:07 Intake Total 1155 ml 1645 ml 1557 ml 58385 ml Output Total 7545 ml 768 ml 79158 ml Balance 1155 ml -5900 ml 789 ml 6858 ml Intake Oral 560 ml 1557 ml 2767 ml IV Total 1155 ml 1085 ml 88511 ml Packed Cells 585 ml Output Urine Total 7500 ml 750 ml 22747 ml Gastric Drainage Total 30 ml Drainage Total 45 ml 18 ml 1103 ml # Bowel Movements 3 3 Exam NAD, comfortably laying down on the bed no JVD, MMM, no LAD RRR, nl s1, s2 no mrg CTAB, no w,c S,distended, diffuse tenderness, normoactive BS+ warm, no edema, pulses 2/2 IVs and Medications Medications Reviewed: Medications were reviewed in detail Lab and Diagnostics Result Diagram: 09/13/16 0513 09/13/16 0513 X-Rays, CTs and MRIs Chest x-ray IMPRESSION: Pneumoperitoneum beneath the left hemidiaphragm, consistent with bowel perforation in the absence of any recent laparotomy. Findings were discussed with patient's nurse at 2122 hrs on September 09, 2016. Dictated by: Anthony Cannon M.D. on 09/09/2016 at 21:17 Assessment & Plan 66-year-old male with a history of type II diabetes, CK D, hypertension, and stage III colorectal cancer status post reversed ileostomy with new abscess formation with peritonitis. acute, active Septic shock secondary to right paracolic abscess with peritonitis; present admission; pt underwent laparoscopic washout by Dr. Ramirez on 09/09/16, pt underwent ICU course with vasopressors. abscess culture showed strep Angionosus , pansensitive -pt is clinically stable, afebrile, HD stable, markedly elevated PCT and wbc is trending down - Patient currently being treated by Zosyn, switched to PCN G 09/13 based on culture by ID, awaits BCX as well - Continue to follow labs procalcitonin and CBC - Infectious disease following, appreciate recs by Dr. Dowling - Advance diet to soft today per IRENA Ledesma out. Consider Relistor for poss opioid induced illeus. - pain control with COMMUNITY PHARMACIST dilaudid, will try to switch to iv and oral combination. chronic, stable Type II diabetes, last A1c of 6.5, continue RISS q6h, fsg qd CKD, Due to hypertension and diabetes, Baseline creatinine seems to be around 1.5, improving, avoid nephrotoxic meds, renally adjust meds Metabolic acidosis with lactic acidosis, resolving as sepsis clears Hypertension, stable SubQ heparin for now. SCDs in place. High-risk medications: IV Dilaudid COMMUNITY PHARMACIST Disposition: prolonged course, pending VTE Prophylaxis: Sub-Q Heparin (Unfractionated) VTE Mechanical Devices: Intermittant Pneumatic CD Resuscitation Status: CPR: Attempt Resuscitation Time spent 35min Tonio Melgar MD Sep 13, 2016 11:48
--- NOTE | 2016-09-13 11:57 | NUR ---
Ambulate w/Nsg Pt is released to ambulate with nsg 2-3x/day as pt tolerates. PT will cont to see 2x/week for progression of AD.
--- NOTE | 2016-09-13 12:26 | PROG NOTE ---
[address] [address] PROGRESS NOTE PATIENT: ANA RAY : 1950 MR#: [id number] ADMIT: 09/09/2016 JOB ID: [id number] DATE: 09/13/2016 INFECTIOUS DISEASE FOLLOWUP NOTE: REASON FOR FOLLOWUP: Intra-abdominal abscess following takedown of ileostomy. INTERVAL HISTORY: Over the night the patient feels okay. He denies fevers, chills, or sweats. No chest pain. He has some abdominal pain, but fairly minimal. No complaints of skin rash or other issue. PHYSICAL EXAMINATION: Reveals an afebrile, more comfortable gentleman. Temp 36.5, pulse 80, respiratory rate 18, blood pressure 129/76, saturating well on room air. He is awake, alert, and lucid. Oral cavity negative. Lungs clear. Cardiac tones negative. Abdomen still with three drains along the right side. They are going to pull one of those SUZETTE drains later today. The abdomen is minimally tender. No skin rash noted. LABORATORIES: Include a white count stable at exactly 20,000. The diff is still left shifted, 86% segs, but no more bands. Creatinine has improved to 1.66. Alk phos has actually bumped up to 270 to 382. ALT and AST are more or less constant. Procalcitonin has declined from an impressive 134 to 66 over the past couple of days. Micro shows a positive blood culture for what appears to be a peptostreptococcus, and that is 1/4 bottles. The intra-abdominal fluid collection grew a Strep anginosus. MRSA screen was negative. IMPRESSION: This is a gentleman who approximately two weeks after takedown of an ileostomy developed intra-abdominal abscess requiring debridement and placement of numerous drains. The culture from the purulent material that was found is Strep anginosus, whereas the blood culture is a different strep and probably an anaerobic strep. The most parsimonious way to treat this would be with high-dose IV penicillin and given the fact we have not isolated anything else I think that is a reasonable way to proceed. RECOMMENDATIONS: 1. Will discontinue his Zosyn. 2. Will treat the patient with penicillin G by the intravenous route 3. Will continue to follow this patient with you. If he does well, he would be amenable to outpatient transition to an oral penicillin based drug. 4. Because of his elevated LFTs we have ordered a right upper quadrant ultrasound to investigate the possibility of acalculous cholecystitis or other biliary tract disease. Thank you very much. JONES
[2016-09-13] MEDS ORDERED: DEXTROSE 5% IV SCH (12:30)
[2016-09-13] MEDS ORDERED: PENICILLIN K IV SCH (12:30)
--- NOTE | 2016-09-13 12:50 | NUR ---
SUZETTE SUZETTE #1 D/c'd intact.
[2016-09-13] MEDS: Penicillin G K Inj 3,000,000 UNITS in IV Premix 1 EACH IV SCH ×3 (13:31→21:26)
--- NOTE | 2016-09-13 15:40 | NUR ---
Activity/Pain Pt up with SBA to the bathroom, and up with PT today. Tolerating activity well. Encouraged pt to be oob for meals. Pt declined for breakfast and lunch, will encourage again for dinner.
--- NOTE | 2016-09-13 16:28 | DRSVH ---
PROCEDURE: US ABDOMEN INDICATIONS: rising Alk phos, possible ellen TECHNIQUE: Real-time scanning was performed of the abdominal and retroperitoneal organs, with image documentatio n. COMPARISON: [facility], US, US ABDOMEN, 02/01/2016, 10:42. FINDINGS: Liver length: 17.12 cm Spleen length: 13.40 cm Right kidney length: 10.90 cm Left kidney length: 11.14 cm Aorta(Proximal): 2.62 cm Aorta(Mid): 1.93 cm Aorta(Distal): 1.91 cm Liver: Liver is diffusely increased in echogenicity. No focal hepatic abnormalities identified. No rmal hepatic size. Gallbladder: No gallstones or sludge. Gallbladder wall is prominent measuring 3.6 mm. Small amount pericholecystic fluid. Biliary ducts: Intrahepatic bile ducts are non-dilated. Extrahepatic bile duct is not well-seen. Pancreas: Visualized portions of the pancreas are sonographically normal. Spleen: Spleen is mildly enlarged in size and homogeneous in echotexture. Kidneys: Kidneys are normal in size and echotexture. No hydronephrosis or nephrolithiasis. No anastacia d masses. Aorta: Visualized aorta is normal in caliber at less than 3 cm. Iliacs: Proximal common iliac arteries are normal in caliber at less than 2.5 cm. IVC: Intrahepatic inferior vena cava is patent. Miscellaneous: Small amount of complex fluid within the right and left upper quadrants as well as wit hin the pelvis. Small pleural effusions. IMPRESSION: 1. Increased hepatic echogenicity noted likely related to fatty infiltration of the liver but other s ources of hepatocellular disease cannot be excluded. Recommend clinical correlation. 2. Gallbladder wall is prominent which may be related to surrounding fluid. Correlate clinically. 3. Mild symmetric splenomegaly. 4. Trace amount of scattered complex fluid within the pelvis and upper abdomen with volume not suffic ient for safe paracentesis. 5. Small pleural effusions. Dictated by: Ezequiel REID Interpreted: Will De La Vega MD on 09/13/2016 at 14:44 Approved by: Will De La Vega M.D. on 09/13/2016 at 16:25
--- NOTE | 2016-09-13 17:08 | NUR ---
Social Work: Initial Assessment Data: Pt is a 66 y/o male admitted for Bowel Perforated. Pt's PCP is Dr Yi, pt's insurance is Medicare with [employer] supp. EMR reviewed. PT recommending home no PT needs at d/c. ID states pt will likely d/c home with POABX, WHISKEY FILTERER will continue to follow for possible change to IVABX. WHISKEY FILTERER met with pt at bedside, role explained. Pt states he lives on [address] with his in a two story home where he uses no DME. Pt drives, has no hx of HH or SNF, no LTC or VA benefits, and is not a caregiver. Pt states his will take him home at d/c. Assessment: Pt who is independent at baseline. Plan: Pt will d/c home via POV when medically stable. Per ID note, pt will likely d/c home with POABX, WHISKEY FILTERER will continue to follow for possible change to IVABX. WHISKEY FILTERER will continue to follow. KEN Mojica Addendum: 09/13/16 at 1710 by DENA NOBLE SS Amended: Links added.
[2016-09-14] VITALS (7 sets, daily range): BP systolic 122–135; BP diastolic 70–79; PULSE 76–88; RESP 17–20; O2SAT 95–98
[2016-09-14] MEDS: Penicillin G K Inj 3,000,000 UNITS in IV Premix 1 EACH IV SCH ×6 (01:27→22:38)
[2016-09-14] MEDS: Heparin 5,000 Unit/mL Inj SUBQ SCH ×3 (01:32→17:51)
[2016-09-14] MEDS: Dextrose 5% 500 ML IV SCH (01:54)
[2016-09-14] MEDS: Insulin Human REGular 300 Unit/3 mL Inj SUBQ SCH ×4 (02:28→20:30)
[2016-09-14 05:14] LABS: Mean Corpuscular Hemoglobin 31.5 pg (27.0-35.0); Mean Corpuscular Volume 93.7 fL (81-100)
[2016-09-14 05:38] LABS: BASOPHILS % (AUTO) 0 % (0-3); EOSINOPHILS % (AUTO) 1 % (0-5); MONOCYTES % (AUTO) 6 % (4-12); NEUTROPHILS % (AUTO) 72 % (40-74)
[2016-09-14 05:39] LABS: Platelet Count 197 bil/L (150-400)
[2016-09-14 05:55] LABS: Magnesium 1.4 mg/dL (1.6-2.6); Phosphorus 2.1 mg/dL (2.5-4.9)
--- NOTE | 2016-09-14 06:38 | NUR ---
activity pt states the MACHINE SWEEPER BRUSH MAKER benjamin is controlling his pain well. he has gotten up to the bathroom multiple times this shift SBA and he sat in his chair for a short while. he is steady on his feet and tolerates activity well. Addendum: 09/14/16 at 0714 by LAUREL DAVILA RN also of note pt had 3 dark soft bowel movements this shift. pt states these are the first "normal looking BMs since before all this started".
[2016-09-14] MEDS: D5 0.45% NaCl + KCl 20 mEq/L 1,000 ML IV SCH (08:48)
[2016-09-14] MEDS: Famotidine Inj 20 MG in IV Premix 1 EACH IV SCH (09:54)
--- NOTE | 2016-09-14 10:12 | PCM.PNMED ---
Subjective Date of Service Sep 14, 2016 Subjective pt remained stable, eating well, had huge BM no n/v still on TRAINING DEVELOPMENT DIRECTOR had brief episode of confusion per , but lucid and alert this AM abd US unremarkable. labs in right direction Exam Vital Signs Vital Sign - Last Date Time Temp Pulse Resp B/P Pulse Ox O2 Delivery O2 Flow Rate FiO2 09/14/16 08:37 36.4 80 18 122/76 98 09/14/16 05:21 Room Air 09/11/16 03:08 2.00 Intake and Output 09/13/16 09/13/16 09/14/16 Cumulative From/Thru 14:59 22:59 06:59 09/08/16 03:00 - 09/14/16 05:22 Intake Total 1114 ml 2267 ml 1662 ml 08669 ml Output Total 615 ml 475 ml 85780 ml Balance 1114 ml 1652 ml 1187 ml 51653 ml Intake Oral 1200 ml 800 ml 4767 ml IV Total 1114 ml 1067 ml 862 ml 32149 ml Packed Cells 585 ml Output Urine Total 600 ml 450 ml 16517 ml Gastric Drainage Total 30 ml Drainage Total 15 ml 25 ml 1143 ml # Bowel Movements 2 5 Exam NAD, comfortably laying down on the bed no JVD, MMM, no LAD RRR, nl s1, s2 no mrg CTAB, no w,c S,distended, diffuse tenderness, normoactive BS+ warm, no edema, pulses 2/2 IVs and Medications Medications Reviewed: Medications were reviewed in detail Lab and Diagnostics Result Diagram: 09/14/16 0455 09/14/16 0455 X-Rays, CTs and MRIs Chest x-ray IMPRESSION: Pneumoperitoneum beneath the left hemidiaphragm, consistent with bowel perforation in the absence of any recent laparotomy. Findings were discussed with patient's nurse at 2122 hrs on September 09, 2016. Dictated by: Anthony Cannon M.D. on 09/09/2016 at 21:17 Assessment & Plan 66-year-old male with a history of type II diabetes, CK D, hypertension, and stage III colorectal cancer status post reversed ileostomy with new abscess formation with peritonitis. acute, active Septic shock secondary to right paracolic abscess with peritonitis; present admission; pt underwent laparoscopic washout by Dr. Ramirez on 09/09/16, pt underwent ICU course with vasopressors.Abscess culture showed strep Angionosus, pansensitive. Patient was started on zosyn, switched to PCN G 09/13 based on culture by ID, Diet was advanced, pt tolerated well, pt made good BM 09/14 -pt is clinically stable, afebrile, HD stable, markedly elevated PCT and wbc is trending down -continue PCN G 09/13 based on culture by ID, awaits BCX as well, likely oral PCN on d/c, appreciate ID FU - Continue to follow labs procalcitonin and CBC - pain control with TRAINING DEVELOPMENT DIRECTOR dilaudid, stop today, try Oxycodone and dialudid prn -SUZETTE drain managed by surgery, appreciate daily FU chronic, stable Type II diabetes, last A1c of 6.5, continue RISS q6h, fsg qd CKD, Due to hypertension and diabetes, Baseline creatinine seems to be around 1.5, improving, avoid nephrotoxic meds, renally adjust meds Metabolic acidosis with lactic acidosis, resolving as sepsis clears Hypertension, stable SubQ heparin for now. SCDs in place. High-risk medications: IV Dilaudid TRAINING DEVELOPMENT DIRECTOR Disposition:pt seems medically stable, appreciate surgical service for opimal time for d/c, likely in 1-2days. home no need VTE Prophylaxis: Sub-Q Heparin (Unfractionated) VTE Mechanical Devices: Intermittant Pneumatic CD Resuscitation Status: CPR: Attempt Resuscitation Time spent 35min Tonio Melgar MD Sep 14, 2016 09:35
--- NOTE | 2016-09-14 11:13 | PROG NOTE ---
[address] [address] PROGRESS NOTE PATIENT: ANA RAY : 1950 MR#: [id number] ADMIT: 09/09/2016 JOB ID: [id number] DATE: 09/14/2016 REASON FOR FOLLOW UP: Intraabdominal abscess following takedown of ileostomy. INTERVAL HISTORY: Overnight, the patient has felt quite well. 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 His pain is manageable. He is having no fevers, chills, or sweats. No respiratory complaints. No significant abdominal pain. He is gratified that one of his SUZETTE drain has been pulled and hopes the other two will be shortly. No other complaints. PHYSICAL EXAMINATION: Reveals an afebrile gentleman, in no acute distress. Temp 36.4, pulse 80, respiratory rate 18, blood pressure 122/76. He is saturating well on room air. Examination of oral cavity is unremarkable. Lungs clear. Cardiac tones without new murmur. Abdomen relatively soft and essentially nontender. Two SUZETTE drains remain on the left. They have scant amount of serosanguineous drainage. No rash is noted. LABORATORIES: Include white count down to 15,000 still with some left shift 2% metamyelocytes, 2% myelocytes, and his creatinine is stable at 1.47. Alk phos 248. Pro calcitonin is coming down fairly rapidly now. It was as high as 134, now down to 31. Micro studies include the strep anginosus cultured from the abdomen as well as an anaerobic strep Peptoniphilus that grew from the abdomen. This is a beta lactamase negative organism. Abdominal ultrasound done yesterday shows increased hepatic echogenicity likely secondary to fatty liver. Gallbladder wall is prominent, but could be due to surrounding fluid. Some mild splenomegaly is noted. Recall that this ultrasound had been ordered because of liver function test which showed a cholestatic picture, but those liver functions are rapidly improving. AST and ALT are normal today and the alk phos is down to 248. IMPRESSION: This patient is fairly rapidly improving at this point. We are using penicillin alone to cover the isolated organisms Streptococcus anginosus and an anaerobic Streptococcus and this seems to be working very well. RECOMMENDATIONS: 1. Will continue with IV penicillin. 2. I would continue with aggressive IV therapy certainly the patient is much improved and his procalcitonin has declined to more reasonable levels. Probably would be reasonable to continue with the IV antibiotics until the drains are out and then will transition to an appropriate oral agent.
--- NOTE | 2016-09-14 15:51 | PCM.PNSURG ---
Subjective Date of Service: Sep 14, 2016 Date of Service: Sep 14, 2016 Visit Information: Reason for Visit Bowel Perforated Surgery/Surgery Date Post-Op Day # 4 s/p laparoscopic lysis of adhesions and drain placement Date of Admission: Sep 09, 2016 at 22:18 Hospital Day # Subjective: Patient seen this afternoon reporting significant overall improvement, tolerating regular diabetic diet and passing flatus with BM today . He is ambulating within normal limits with PT. Denies significant pain, nausea, or vomitting & reports burping. The patient is also being seen by the Hospitalist and Infectious Disease who is managing his antibiotics. Objective Vital Sign- Last 8 Hours Date Time Temp Pulse Resp B/P Pulse Ox O2 Delivery O2 Flow Rate FiO2 09/14/16 14:20 36.8 76 18 127/70 98 Room Air 09/14/16 10:20 18 09/14/16 08:37 36.4 80 18 122/76 98 Intake and Output- Last 8 Hour 09/14/16 Cumulative From/Thru 07:00 09/08/16 03:00 - 09/14/16 05:22 Intake Total 1662 ml 02594 ml Output Total 475 ml 23466 ml Balance 1187 ml 26699 ml Intake Oral 800 ml 4767 ml IV Total 862 ml 14555 ml Packed Cells 585 ml Output Urine Total 450 ml 39292 ml Gastric Drainage Total 30 ml Drainage Total 25 ml 1143 ml # Bowel Movements 2 5 General: Alert, Oriented X3 Lungs: Clear to Auscultation Heart: Exam Unremarkable Abdomen: Benign, Non-tender, Normoactive bowel tones SURGICAL WOUND : Wound General Appearence: Intact, Well Approximated, Incision Healing, No Erythema, No Discharge, No Inflammatory Changes Wound Drainage Type: SUZETTE Drain #2 (output minimum), SUZETTE Drain #3 (output minimum recently greater 48 hours ago) Extremities: Thigh&Calf Soft/Nontender Neuro: Normal Speech Result Diagram: 09/14/16 0455 09/14/16 0455 Assessment & Plan Impression Impression 1. Postoperative day #4 status post lysis of adhesions & drains 2 with persistent leukocytosis & improved elevated pro-calcitonin levels 2. Intra-abdominal abscess 3. Approximately 3.5 weeks status post Laparoscopic right colectomy with diverting loop ileostomy Closure of loop ileostomy and takedown of adhesions Past Medical & Surgical History: 1. Hypertension 2. Type II diabetes, uncontrolled with neuropathy and CK D 3. 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 Stage III colorectal cancer 5. Hyperlipidemia 6. Status post right elbow surgery 7. Status post Mohs procedure of right temporal region Problems: Plan Other than the patient's improved persistent hypocalcemia, pro-calcitonin, & leukocytosis he is doing well postop day #4 status post lysis of adhesions & drains 2 perform secondary to Intra-abdominal abscess approximately 3.5 weeks status post Laparoscopic right colectomy with diverting loop ileostomy, closure of loop ileostomy and takedown of adhesions. Plan for PO analgesics & calcium supplementation, continued monitoring & advancing diet if the patient's labs stabilized. Dr. Esposito also recommended removal of SUZETTE drain # 2. Infectious Disease input is appreciated with regards to his antibiotics. VTE Prophylaxis: Sub-Q Heparin (Unfractionated) Resuscitation Status: CPR: Attempt Resuscitation Will Lerner PA-C Sep 14, 2016 15:51
--- NOTE | 2016-09-14 18:07 | NUR ---
Pain/Activity RN WELLNESS Dilaudid d/c'd. Pain controlled adequately with po pain medications. Pt up and ambulating in the hallway, steady gait. Will encourage pt to be up and oob.
--- NOTE | 2016-09-14 18:07 | NUR ---
SUZETTE SUZETTE drain labeled #2 removed intact.
[2016-09-15] MEDS: Dextrose 5% 500 ML IV SCH (00:28)
[2016-09-15] MEDS: Heparin 5,000 Unit/mL Inj SUBQ SCH ×4 (00:44→23:56)
[2016-09-15] MEDS: 0.9% Sodium Chloride 250 ML IV SCH ×2 (00:44→18:10)
[2016-09-15] MEDS: Insulin Human REGular 300 Unit/3 mL Inj SUBQ SCH ×4 (02:30→21:38)
[2016-09-15] MEDS: Penicillin G K Inj 3,000,000 UNITS in IV Premix 1 EACH IV SCH ×6 (03:48→23:27)
--- NOTE | 2016-09-15 03:59 | NUR ---
Pain Pt pain has been controlled with PO oxycodone. He states he is having crazy dreams. He thinks it is related to the pain meds. Advised he should try to extend time out from every 4hrs to 5hrs if he can. He was agreeable to try. Pt has been up to bathroom with + outcomes, but forgets to call and ask for help with IV lines, reminders given. Call light in reach. [place] alarm on. care continues
[2016-09-15 04:43] VITALS: BP 152/82; PULSE 85; RESP 20; O2SAT 98
[2016-09-15] MEDS: D5 0.45% NaCl + KCl 20 mEq/L 1,000 ML IV SCH ×2 (06:13→19:40)
[2016-09-15 06:29] LABS: Mean Corpuscular Hemoglobin 31.2 pg (27.0-35.0); Mean Corpuscular Volume 94.3 fL (81-100); Platelet Count 235 bil/L (150-400)
[2016-09-15 07:06] LABS: Magnesium 1.3 mg/dL (1.6-2.6); Phosphorus 2.6 mg/dL (2.5-4.9)
[2016-09-15] MEDS ORDERED: Magnesium Sulf 2 Gm/50mL Water 2 GM in IV Premix 1 EACH IV ONE (07:30)
[2016-09-15 07:46] LABS: BASOPHILS % (AUTO) 0 % (0-3); EOSINOPHILS % (AUTO) 0 % (0-5); MONOCYTES % (AUTO) 5 % (4-12); NEUTROPHILS % (AUTO) 79 % (40-74)
--- NOTE | 2016-09-15 07:46 | NUR ---
Lab Called from pharmacy with a report of a low magnesium of 1.3 this AM from labs. paged and received and order for IV Magnesium.
[2016-09-15] MEDS: Famotidine Inj 20 MG in IV Premix 1 EACH IV SCH (08:06)
[2016-09-15 08:34] VITALS: BP 155/81; PULSE 85; RESP 18; O2SAT 98
--- NOTE | 2016-09-15 11:09 | PCM.PNSURG ---
Subjective Date of Service: Sep 15, 2016 Date of Service: Sep 15, 2016 Visit Information: Reason for Visit Bowel Perforated Surgery/Surgery Date Post-Op Day # 5 s/p laparoscopic lysis of adhesions and drain placement Date of Admission: Sep 09, 2016 at 22:18 Hospital Day # Subjective: The patient was seen by the Gen. surgery care team reporting significant overall improvement, regular diabetic diet and passing flatus with BM today . He is ambulating within normal limits with PT. Denies significant pain, nausea , or vomiting & reports burping. The patient is also being seen by the Hospitalist and Infectious Disease who is making recommendations with regards to his antibiotics. The patient also reports usual good glycemic control, and blood pressure with plans to follow-up with Oncology when he is able to discharge. Objective Vital Sign- Last 8 Hours Date Time Temp Pulse Resp B/P Pulse Ox O2 Delivery O2 Flow Rate FiO2 09/15/16 08:34 36.7 85 18 155/81 98 Room Air 09/15/16 04:43 36.9 85 20 152/82 98 Room Air Intake and Output- Last 8 Hour 09/15/16 Cumulative From/Thru 07:00 09/08/16 03:00 - 09/15/16 06:29 Intake Total 1257 ml 07881 ml Output Total 1265 ml 99541 ml Balance -8 ml 9570 ml Intake Oral 1000 ml 6624 ml IV Total 257 ml 98351 ml Packed Cells 585 ml Output Urine Total 1250 ml 65526 ml Gastric Drainage Total 30 ml Drainage Total 15 ml 1198 ml # Bowel Movements 10 General: Alert Lungs: Clear to Auscultation Heart: Exam Unremarkable Abdomen: Benign, Soft, Non-tender, Non-distended, Normoactive bowel tones SURGICAL WOUND : Wound Drainage Type: SUZETTE Drain #3 (Minimum output) Extremities: Thigh&Calf Soft/Nontender Neuro: Normal Speech Result Diagram: 09/15/16 0610 09/15/16 0610 Assessment & Plan Impression Impression 1. Doing well postoperative day # 5 status post lysis of adhesions & drains 2 secondary to Intra-abdominal abscess resolving with persistent but improved leukocytosis & pro-calcitonin levels. 2. Approximately 3.5 weeks status post Laparoscopic right colectomy with diverting loop ileostomy and closure of loop ileostomy and takedown of adhesions. Past Medical & Surgical History: 1. Hypertension 2. Type II diabetes, uncontrolled with neuropathy and CKD 3. 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 Stage III colorectal cancer 5. Hyperlipidemia 6. Status post right elbow surgery 7. Status post Mohs procedure of right temporal region Problems: Plan Other than the patient's improved persistent hypocalcemia, pro-calcitonin, & leukocytosis he is doing well postop day # 5 status post lysis of adhesions & drains 2 perform secondary to Intra-abdominal abscess approximately 3.5 weeks status post Laparoscopic right colectomy with diverting loop ileostomy, closure of loop ileostomy and takedown of adhesions. Plan for PO analgesics & calcium supplementation, continued medical treatment, and monitoring. We will also hold SUZETTE drain # 3 until Infectious Disease can make disposition recommendation. VTE Prophylaxis: Sub-Q Heparin (Unfractionated) Resuscitation Status: CPR: Attempt Resuscitation Will Lerner PA-C Sep 15, 2016 11:09
--- NOTE | 2016-09-15 12:11 | PCM.PNMED ---
Subjective Date of Service Sep 15, 2016 Subjective pt is clinically stable, denied abd pain, controlled with Oxycodone adamantly wants to be d/keyla today Exam Vital Signs Vital Sign - Last Date Time Temp Pulse Resp B/P Pulse Ox O2 Delivery O2 Flow Rate FiO2 09/15/16 08:34 36.7 85 18 155/81 98 Room Air 09/11/16 03:08 2.00 Intake and Output 09/14/16 09/14/16 09/15/16 Cumulative From/Thru 15:00 23:00 07:00 09/08/16 03:00 - 09/15/16 06:29 Intake Total 857 ml 1257 ml 03897 ml Output Total 2090 ml 1265 ml 42055 ml Balance -1233 ml -8 ml 9570 ml Intake Oral 857 ml 1000 ml 6624 ml IV Total 257 ml 32239 ml Packed Cells 585 ml Output Urine Total 2050 ml 1250 ml 77304 ml Gastric Drainage Total 30 ml Drainage Total 40 ml 15 ml 1198 ml # Bowel Movements 5 10 Exam NAD, comfortably laying down on the bed no JVD, MMM, no LAD RRR, nl s1, s2 no mrg CTAB, no w,c S,distended, diffuse tenderness, normoactive BS+ warm, no edema, pulses 2/2 IVs and Medications Medications Reviewed: Medications were reviewed in detail Lab and Diagnostics Result Diagram: 09/15/16 0610 09/15/16 0610 X-Rays, CTs and MRIs Chest x-ray IMPRESSION: Pneumoperitoneum beneath the left hemidiaphragm, consistent with bowel perforation in the absence of any recent laparotomy. Findings were discussed with patient's nurse at 2122 hrs on September 09, 2016. Dictated by: Anthony Cannon M.D. on 09/09/2016 at 21:17 Assessment & Plan 66-year-old male with a history of type II diabetes, CK D, hypertension, and stage III colorectal cancer status post reversed ileostomy with new abscess formation with peritonitis. acute, active Septic shock secondary to right paracolic abscess with peritonitis; present admission; pt underwent laparoscopic washout by Dr. Ramirez on 09/09/16, pt underwent ICU course with vasopressors.Abscess culture showed strep Angionosus, pansensitive. Patient was started on zosyn, switched to PCN G 09/13 based on culture by ID, Diet was advanced, pt tolerated well, pt made good BM 09/14 -pt is clinically stable, afebrile, HD stable, markedly elevated PCT and wbc is trending down -continue PCN G 09/13 based on culture by ID, awaits BCX as well, likely oral PCN on d/c, appreciate ID FU - Continue to follow labs procalcitonin and CBC - pain control with ASSEMBLY HAND dilaudid, stop today, try Oxycodone and dialudid prn -SUZETTE drain managed by surgery, appreciate daily FU chronic, stable Type II diabetes, last A1c of 6.5, continue RISS q6h, fsg qd CKD, Due to hypertension and diabetes, Baseline creatinine seems to be around 1.5, improving, avoid nephrotoxic meds, renally adjust meds Metabolic acidosis with lactic acidosis, resolving as sepsis clears Hypertension, stable SubQ heparin for now. SCDs in place. High-risk medications: IV Dilaudid ASSEMBLY HAND Disposition:pt seems medically stable, appreciate ID for timing for d/c VTE Prophylaxis: Sub-Q Heparin (Unfractionated) VTE Mechanical Devices: Intermittant Pneumatic CD Resuscitation Status: CPR: Attempt Resuscitation Time spent 35min Tonio Melgar MD Sep 15, 2016 10:18
[2016-09-15 12:47] VITALS: BP 145/73; PULSE 90; RESP 18; O2SAT 99
--- NOTE | 2016-09-15 13:44 | NUR ---
NUTRITION FOLLOW-UP: ASSESS: Pt is a 66yo M admitted for bowel perforation. He is three weeks out from takedown of loop ileostomy with an intraabdominal abscess that was drained laparoscopically. He was able to have his diet advanced to Diabetic on 09/13. PO has been fair at 25-75% of meals and seems to be slowly improving every day. Wt has been stable throughout hospital stay. PMHX: type II diabetes, CKD secondary diabetes, hypertension, history of stage III colon cancer LABS: Reviewed. Glu 137, Ca 7.5, Mg 1.3, alk phos 186, alb 2.0 MEDS: Reviewed. GI: BMx7 09/14 SKIN: Lucas 17, no major issues CURRENT WTS: 86.3kg, BMI 28.1kg/m2, admit wt 87.1kg DIET: Diabetic, PO 25-75% EST. NEEDS: Kcals: 2155-2585kcal/day (25-30kcal/kg) Pro: 85-100g/day (1.0-1.2g/kg) NUTRITION DIAGNOSIS: 1.) Inadequate oral intake related to altered gi function as evidence by bowel perforation, need for slow diet advancement and possible ileus--IMPROVING NUTRITION INTERVENTION: 1.) Glucerna added to L tray 2.) Continue to encourage PO intake MONITOR / EVAL: PO, GI, labs, wt, POC, nutrition status. Will continue to monitor per moderate nutrition risk guidelines.
--- NOTE | 2016-09-15 15:04 | PROG NOTE ---
[address] [address] PROGRESS NOTE PATIENT: NAA RAY : 1950 MR#: [id number] ADMIT: 09/09/2016 JOB ID: [id number] DATE: 09/15/2016 INFECTIOUS DISEASE FOLLOW UP NOTE: INTERVAL HISTORY: Overnight, the patient has felt relatively well. He is getting up and walking some. He denies any fevers, chills or sweats. No cough. Minimal abdominal pain. Two of the three drains have now been removed. No problems with urination. PHYSICAL EXAMINATION: Reveals a more comfortable and more coherent gentleman. No acute distress. Temperature 36.6, pulse 90, respiratory rate 18, blood pressure 145/73, saturating 99% on room air. He is in no distress whatsoever. Lungs are clear. Cardiac tones regular rate and rhythm. Abdomen: Decreased bowel tones, a bit tender but not much even with the deepest of palpation. One drain remains. LABORATORIES: Include white count stubbornly elevated at 15,000 and note that he has nucleated red cells in his peripheral circulation. Creatinine is down to 1.24 which is improving. Alk phos down to 186. Procalcitonin is down to 15, which is extremely elevated, 90 fold reduction over prior. Micro studies include strep anginosus and Bacteroides and Peptostreptococcus from the abdomen and just the Peptostreptococcus isolated from blood. IMPRESSION: This patient has had a very complicated polymicrobial intra-abdominal infection following ileostomy takedown. After a short stay in the ICU he is now improving rapidly but I remain quite concerned about his leukocytosis as well as his impressive procalcitonin. We have now isolated a third organism, namely Bacteroides, which is not susceptible to the penicillin he is currently receiving. RECOMMENDATIONS: 1. Will add Flagyl to his current antibiotics and we will use a dose of 500 t.i.d. by the oral route is adequate. 2. I would be inclined to keep this patient in the hospital through the weekend and I discussed that today with Will Lerner of the General Surgical team. The patient still has depleted red blood cells in his peripheral smear as well as leukocytosis and quite an unimpressive procalcitonin. Two of the three organisms that grew from his belly, strep anginosus and Bacteroides fragilis are virulent pathogens even under the best of circumstances and I would have a healthy respect for this toxic combination of bacteria. RECOMMENDATIONS: 1. Continue the IV penicillin at least through Sunday morning. 2. Start Flagyl 500 p.o. t.i.d. 3. Probable discharge on Sunday on oral antibiotics probably including Augmentin and perhaps Flagyl. 4. This recommendation discussed with Will Lerner of General Surgery as well as the patient, his and sister.
--- NOTE | 2016-09-15 17:06 | NUR ---
Wound Note Patient seen at bedside for wound care at his right plantar foot diabetic ulcer, wound appears completely healed with callous formation over the area, Applied moisturizer and recommended patient follow up with Dr Mcfarland for diabetic foot care on discharge. No dressing needed at this time.
[2016-09-15 17:30] VITALS: BP 148/82; PULSE 88; RESP 16; O2SAT 99
--- NOTE | 2016-09-15 17:56 | NUR ---
Activity Patient up out of bed to the bathroom and to sit in the chair. Requested custodial officer IV pole and robe to ambulate in the hallway and was able to tolerate a lap and a half. Patient stated he plans on completing more laps later in the day. Denies pain when ambulating.
[2016-09-15 20:43] VITALS: BP 168/78; PULSE 89; RESP 18; O2SAT 99
[2016-09-16] MEDS: Dextrose 5% 500 ML IV SCH (01:54)
[2016-09-16] MEDS: Insulin Human REGular 300 Unit/3 mL Inj SUBQ SCH ×3 (02:30→12:27)
[2016-09-16] MEDS: Penicillin G K Inj 3,000,000 UNITS in IV Premix 1 EACH IV SCH ×6 (03:17→23:41)
[2016-09-16 05:06] VITALS: BP 156/82; PULSE 75; RESP 18; O2SAT 98
[2016-09-16 05:50] LABS: Mean Corpuscular Hemoglobin 31.7 pg (27.0-35.0); Platelet Count 299 bil/L (150-400)
--- NOTE | 2016-09-16 05:55 | NUR ---
Activity/Comfort Pt up ambulating in hallway independently several times, tolerates activity very well. Pt has decreased BT but passes gas and had BM, denies any pain, insignificant OP from SUZETTE drain.
[2016-09-16 07:04] LABS: BASOPHILS % (AUTO) 0 % (0-3); EOSINOPHILS % (AUTO) 1 % (0-5); MONOCYTES % (AUTO) 0 % (4-12); NEUTROPHILS % (AUTO) 72 % (40-74)
[2016-09-16] MEDS: D5 0.45% NaCl + KCl 20 mEq/L 1,000 ML IV SCH ×2 (09:00→22:20)
[2016-09-16 09:18] VITALS: BP 134/75; PULSE 87; RESP 16; O2SAT 98
[2016-09-16] MEDS: Famotidine Inj 20 MG in IV Premix 1 EACH IV SCH (10:07)
[2016-09-16] MEDS: Heparin 5,000 Unit/mL Inj SUBQ SCH ×3 (10:08→23:44)
--- NOTE | 2016-09-16 10:59 | PROG NOTE ---
[address] [address] PROGRESS NOTE PATIENT: ANA RAY : 1950 MR#: [id number] ADMIT: 09/09/2016 JOB ID: [id number] DATE: 09/16/2016 SUBJECTIVE: The patient has been stable in the past 24 hours. White blood cell count has increased slightly to 15.6, but procalcitonin has decreased from 14.9 to 7.9. Vital signs have been within normal limits. He has been tolerating a diabetic diet. He has had bowel movements, substantial oral intake, urine output greater than 2 L, and creatinine of 1.2. OBJECTIVE: Vital signs are within normal limits. General: Awake, alert, no acute distress. Abdomen: Soft, nontender, incisions are clean, dry and intact, SUZETTE drain is still in place with 40 mL of serous output. ASSESSMENT: A 66-year-old male who underwent a loop ileostomy closure more than three weeks ago and one week ago presented with an abscess in the right lower quadrant of the abdomen requiring laparoscopic lysis of adhesions with drain placement. PLAN: Per the recommendations of Dr. Dowling, he will remain an inpatient until at least Sunday morning given his purulent combination of pathogens that have grown out of his cultures. However, clinically he is looking quite well. I will consider discontinuing his drain tomorrow if his overall clinical status is as good or better than it is today. He will continue diet and IV antibiotics.
[2016-09-16 12:07] VITALS: BP 125/70; PULSE 79; RESP 18; O2SAT 98
--- NOTE | 2016-09-16 13:16 | NUR ---
Social Work: Readiness for Discharge D: EMR reviewed. Pt is on day 7 of hospitalization. As of 09/13, PT cleared pt home with no needs at discharge. Pt was up ambulating 450ft with a FWW. As of 09/15, ID noted that pt will continue IVABX (Penicillin) through 7/3 AM and pt will likely discharge 09/18 on oral antibiotics including Augmentin and perhaps Flagyl. A: Pt who is independent at baseline P: Pt to discharge home with spouse via POV when medically stable (anticipated discharge date 09/18). Pt likely to discharge on POABX. SW does not anticipate any discharge needs at this time but will continue to follow if needs arise. Marii Aragon MSW
--- NOTE | 2016-09-16 14:05 | PCM.PNMED ---
Subjective Date of Service Sep 16, 2016 Subjective She is seen today to follow up the complicated infectious picture involving the abdominal abscess. This is growing Bacteroides, strep angiossus and Petoniphilus Harei. She is being followed by general surgery and by infectious disease. Her blood pressure has been high at 156/82. Her pro-calcitonin has dropped from 14.19 down to 7.9 today. The blood sugars are ranging 131-157. The CMP is normal except for an albumin of 2.2. She says she is feeling good. Exam Vital Signs Vital Sign - Last Date Time Temp Pulse Resp B/P Pulse Ox O2 Delivery O2 Flow Rate FiO2 09/16/16 09:18 36.7 87 16 134/75 98 Room Air 09/11/16 03:08 2.00 Intake and Output 09/15/16 09/15/16 09/16/16 Cumulative From/Thru 15:00 23:00 07:00 09/08/16 03:00 - 09/16/16 06:20 Intake Total 2038 ml 750 ml 45858 ml Output Total 875 ml 590 ml 65621 ml Balance 1163 ml 160 ml 86275 ml Intake Oral 1600 ml 500 ml 8724 ml IV Total 438 ml 250 ml 01195 ml Packed Cells 585 ml Output Urine Total 850 ml 575 ml 07584 ml Gastric Drainage Total 30 ml Drainage Total 25 ml 15 ml 1238 ml # Bowel Movements 2 12 Exam Alert and oriented 3, no apparent distress. Heart is regular rate and rhythm without murmur Lungs are clear to auscultation bilaterally Abdomen is soft, pulses positive, nontender, no organomegaly. Extremities have no ankle edema. Lab and Diagnostics Result Diagram: 09/16/16 0540 09/16/16 0540 X-Rays, CTs and MRIs Chest x-ray IMPRESSION: Pneumoperitoneum beneath the left hemidiaphragm, consistent with bowel perforation in the absence of any recent laparotomy. Findings were discussed with patient's nurse at 2122 hrs on September 09, 2016. Dictated by: Anthony Cannon M.D. on 09/09/2016 at 21:17 Assessment & Plan 66-year-old male with a history of type II diabetes, CK D, hypertension, and stage III colorectal cancer status post reversed ileostomy with new abscess formation with peritonitis. acute, active Septic shock secondary to right paracolic abscess with peritonitis; present admission; pt underwent laparoscopic washout by Dr. Ramirez on 09/09/16, pt underwent ICU course with vasopressors.Abscess culture showed strep Angionosus, pansensitive. Patient was started on zosyn, switched to PCN G 09/13 based on culture by ID, Diet was advanced, pt tolerated well, pt made good BM 09/14 -pt is clinically stable, afebrile, HD stable, markedly elevated PCT and wbc is trending down -continue PCN G 09/13 based on culture by ID, awaits BCX as well, likely oral PCN on d/c, appreciate ID FU for possible discharge in 2 days. - Continue to follow labs procalcitonin and CBC - pain control with BUILDINGS AND GROUNDS COORDINATOR dilaudid, stop today, try Oxycodone and dialudid prn -SUZETTE drain managed by surgery, appreciate daily FU and it looks like it will probably be removed tomorrow. chronic, stable Type II diabetes, last A1c of 6.5, continue RISS q6h, fsg qd CKD, Due to hypertension and diabetes, Baseline creatinine seems to be around 1.5, improving, avoid nephrotoxic meds, renally adjust meds Metabolic acidosis with lactic acidosis, resolving as sepsis clears Hypertension, stable SubQ heparin for now. SCDs in place. High-risk medications: IV Dilaudid BUILDINGS AND GROUNDS COORDINATOR Disposition:pt seems medically stable, appreciate ID for timing for d/c VTE Prophylaxis: Sub-Q Heparin (Unfractionated) VTE Mechanical Devices: Intermittant Pneumatic CD Resuscitation Status: CPR: Attempt Resuscitation Dori Rodriguez MD Sep 16, 2016 10:00
[2016-09-16] MEDS ORDERED: Dextrose 10% 250 ML IV PRN (14:15)
[2016-09-16] MEDS ORDERED: Glucose 40% Oral Gel 15 Gm Tube PO PRN (14:15)
--- NOTE | 2016-09-16 15:54 | NUR ---
Activity / Diet / Sore throat Pt ambulated in hallway today; stated he did 4 laps and will do at least 1 more lap today. Pt tolerating this activity well. His pain is controlled with PO Tylenol. Pt declined lunch today but stated he would eat dinner. Encouraged pt to eat at least a little and to try to include some protein. Pt later ate a peanut butter and jelly sandwich that his prepared for him. Pt c/o throat irritation and mouth dryness. Will request an order for cepachol throat lozenges from the hospitalist.
[2016-09-16 16:33] VITALS: BP 147/79; PULSE 80; RESP 16; O2SAT 98
[2016-09-16] MEDS: Benzocaine-Menthol Lozenge 2/Pkg PO PRN (16:43)
[2016-09-16] MEDS: Insulin LISPRO 300 Unit/3 mL Inj SUBQ SCH ×2 (16:57→21:55)
[2016-09-16] MEDS: 0.9% Sodium Chloride 250 ML IV SCH (18:10)
[2016-09-16 20:11] VITALS: BP 137/71; PULSE 84; RESP 14; O2SAT 98
[2016-09-17] MEDS: Dextrose 5% 500 ML IV SCH (01:54)
[2016-09-17] MEDS: Penicillin G K Inj 3,000,000 UNITS in IV Premix 1 EACH IV SCH ×5 (04:02→20:23)
[2016-09-17 04:27] VITALS: BP 155/76; PULSE 92; RESP 16; O2SAT 99
[2016-09-17 05:15] LABS: Mean Corpuscular Hemoglobin 31.4 pg (27.0-35.0); Mean Corpuscular Volume 93.8 fL (81-100)
--- NOTE | 2016-09-17 05:20 | NUR ---
Pain pt reports gen. muscle soreness, rates pain 3-4/10, Tylenol given about q 6 hrs with good effect. Pt denies any abdominal pain, ambulates independently in hallway, tolerates well.
[2016-09-17] MEDS: Insulin LISPRO 300 Unit/3 mL Inj SUBQ SCH ×4 (08:00→20:36)
[2016-09-17 08:01] VITALS: BP 143/87; PULSE 87; RESP 16; O2SAT 98
[2016-09-17] MEDS: Heparin 5,000 Unit/mL Inj SUBQ SCH ×2 (08:22→16:44)
[2016-09-17] MEDS: Benzocaine-Menthol Lozenge 2/Pkg PO PRN (08:27)
[2016-09-17] MEDS: Famotidine Inj 20 MG in IV Premix 1 EACH IV SCH (09:24)
[2016-09-17] MEDS: D5 0.45% NaCl + KCl 20 mEq/L 1,000 ML IV SCH (11:40)
[2016-09-17 12:20] VITALS: BP 161/82; PULSE 87; RESP 18; O2SAT 99
--- NOTE | 2016-09-17 14:10 | PCM.PNMED ---
Subjective Date of Service Sep 17, 2016 Subjective He is seen to follow-up the polymicrobial peritoneal abscess and an increasingly prominent issue of reactive depression. He seems to be taking the opinion that the glass is half empty, instead of half full. He expresses frustration about not understanding how the body Works, not understanding when this whole process will timely be over and the fact that his abdominal condition seems to lag behind his general strength. He is walking the hallways without any problems. He acknowledges becoming depressed and declines any treatment. I reiterated to him that his pro-calcitonin has come down to 4.28 today, despite the white blood count going back up. He has many insightful comments. It is becoming clear that he would like to complete his antibiotic treatment either IV or oral at home as soon as he is stable. Exam Vital Signs Vital Sign - Last Date Time Temp Pulse Resp B/P Pulse Ox O2 Delivery O2 Flow Rate FiO2 09/17/16 08:01 36.7 87 16 143/87 98 Room Air 09/11/16 03:08 2.00 Intake and Output 09/16/16 09/16/16 09/17/16 Cumulative From/Thru 15:00 23:00 07:00 09/08/16 03:00 - 09/17/16 05:51 Intake Total 1921 ml 638 ml 66168 ml Output Total 20 ml 30 ml 68075 ml Balance 1901 ml 608 ml 33478 ml Intake Oral 1600 ml 400 ml 41577 ml IV Total 321 ml 238 ml 78954 ml Packed Cells 585 ml Output Urine Total 37932 ml Gastric Drainage Total 30 ml Drainage Total 20 ml 30 ml 1288 ml # Voids 3 2 5 # Bowel Movements 0 0 12 Exam He is frustrated, depressed, talkative and insightful today. 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 Heart is regular rate and rhythm without murmur Lungs are clear to auscultation bilaterally Abdomen is soft, bowel sounds heard, nontender, no organomegaly Extremities have no ankle edema Lab and Diagnostics Result Diagram: 09/17/16 0510 09/16/16 0540 X-Rays, CTs and MRIs Chest x-ray IMPRESSION: Pneumoperitoneum beneath the left hemidiaphragm, consistent with bowel perforation in the absence of any recent laparotomy. Findings were discussed with patient's nurse at 2122 hrs on September 09, 2016. Dictated by: Anthony Cannon M.D. on 09/09/2016 at 21:17 Assessment & Plan 66-year-old male with a history of type II diabetes, CK D, hypertension, and stage III colorectal cancer status post reversed ileostomy with new abscess formation with peritonitis. acute, active Septic shock secondary to right paracolic abscess with peritonitis; present admission; pt underwent laparoscopic washout by Dr. Ramirez on 09/09/16, pt underwent ICU course with vasopressors.Abscess culture showed strep Angionosus, pansensitive. Patient was started on zosyn, switched to PCN G 09/13 based on culture by ID, Diet was advanced, pt tolerated well, pt made good BM 09/14 -pt is clinically stable, afebrile, HD stable, markedly elevated PCT and wbc was trending down until rising again to 20.4 today. The pro calcitonin level is 4.28, down further today. -continue PCN G 09/13 based on culture by ID, awaits BCX as well, likely oral PCN on d/c, appreciate ID FU for possible discharge in 1 more day. Continue oral metronidazole for Bacteroides. - Continue to follow labs procalcitonin and CBC - pain control with TRAFFIC RATE ANALYST dilaudid, stopped, now on Oxycodone and dialudid prn -SUZETTE drain managed by surgery, appreciate daily FU and it looks like it will probably be removed tomorrow. chronic, stable Type II diabetes, last A1c of 6.5, continue RISS q6h, fsg qd CKD, Due to hypertension and diabetes, Baseline creatinine seems to be around 1.5, improving, avoid nephrotoxic meds, renally adjust meds Metabolic acidosis with lactic acidosis, resolved Hypertension, stable Reactive Depression -His perspective today is of overwhelming negativity -He seems unable to process the positives/improving components of his situation -He declines antidepressant therapy -SS will speak with him today SubQ heparin for now. SCDs in place. High-risk medications: None Disposition:pt seems medically stable, appreciate ID for timing for d/c Pain Evaluation: Adequate Pain Control VTE Prophylaxis: Sub-Q Heparin (Unfractionated) VTE Mechanical Devices: Intermittant Pneumatic CD Resuscitation Status: CPR: Attempt Resuscitation Dori Rodriguez MD Sep 17, 2016 10:00
[2016-09-17 16:39] VITALS: BP 137/69; PULSE 86; RESP 18; O2SAT 96
[2016-09-17] MEDS: 0.9% Sodium Chloride 250 ML IV SCH (19:38)
[2016-09-17 19:57] VITALS: BP 119/71; PULSE 83; RESP 18; O2SAT 98
[2016-09-18] VITALS (10 sets, daily range): BP systolic 110–149; BP diastolic 64–81; PULSE 79–100; RESP 16–18; O2SAT 96–100
[2016-09-18] MEDS: Penicillin G K Inj 3,000,000 UNITS in IV Premix 1 EACH IV SCH ×6 (00:41→20:33)
[2016-09-18] MEDS: Heparin 5,000 Unit/mL Inj SUBQ SCH ×2 (00:42→09:27)
[2016-09-18] MEDS: D5 0.45% NaCl + KCl 20 mEq/L 1,000 ML IV SCH ×2 (01:00→13:33)
[2016-09-18] MEDS: Dextrose 5% 500 ML IV SCH (01:54)
--- NOTE | 2016-09-18 03:57 | NUR ---
Activity Pt has denied pain this shift but did report heartburn, one time dose of Tums ordered by Hospitalist and pt reported relief. Mepilex dressing to bottom is intact, skin blanches, pt turning side to side independently.
[2016-09-18 04:30] LABS: Mean Corpuscular Hemoglobin 30.7 pg (27.0-35.0); Mean Corpuscular Volume 93.9 fL (81-100)
[2016-09-18] MEDS: Insulin LISPRO 300 Unit/3 mL Inj SUBQ SCH ×4 (07:53→22:00)
[2016-09-18] MEDS: Benzocaine-Menthol Lozenge 2/Pkg PO PRN (07:59)
[2016-09-18 08:02] LABS: Magnesium 1.2 mg/dL (1.6-2.6)
[2016-09-18] MEDS ORDERED: Magnesium Sulf 2 Gm/50mL Water 2 GM in IV Premix 1 EACH IV ONE (08:15)
--- NOTE | 2016-09-18 08:43 | PCM.PNSURG ---
Subjective Date of Service: Sep 18, 2016 Date of Service: Sep 18, 2016 Visit Information: Reason for Visit Bowel Perforated, abdominal abscess & currently worsening leukocytosis Surgery/Surgery Date Post-Op Day # 8 s/p laparoscopic lysis of adhesions and multiple drain placement secondary to abdominal abscess Date of Admission: Sep 09, 2016 at 22:18 Hospital Day # Subjective: The patient was seen by the Gen. surgery care team reporting that he is still feeling well despite worsening leukocytosis, on regular diabetic diet, and passing flatus with regular formed bowel movements daily . He is ambulating within normal limits with PT. Denies significant pain, nausea, or vomiting & reports burping. The patient is also being seen by the Hospitalist and Infectious Disease who is making recommendations with regards to his antibiotics. The patient also reports usual good glycemic control, and blood pressure with plans to follow-up with Oncology when he is able to discharge. Postop General: No Complaints Gastrointestinal: Good Appetite Pain Management: PO Postop Activity: Ambulating Independently Objective Vital Sign- Last 8 Hours Date Time Temp Pulse Resp B/P Pulse Ox O2 Delivery O2 Flow Rate FiO2 09/18/16 04:33 37.1 100 16 149/81 97 Room Air Intake and Output- Last 8 Hour 09/18/16 Cumulative From/Thru 07:00 09/08/16 03:00 - 09/18/16 06:01 Intake Total 1032 ml 05795 ml Output Total 5 ml 11901 ml Balance 1027 ml 54300 ml Intake Oral 780 ml 62158 ml IV Total 252 ml 50610 ml Packed Cells 585 ml Output Urine Total 96975 ml Gastric Drainage Total 30 ml Drainage Total 5 ml 1303 ml # Voids 4 15 # Bowel Movements 4 17 General: Alert, Oriented X3, Cooperative Lungs: Clear to Auscultation Heart: Exam Unremarkable Abdomen: Benign, Non-distended, Normoactive bowel tones SURGICAL WOUND : Wound General Appearence: Intact, Well Approximated, Incision Healing, No Erythema, No Discharge, No Inflammatory Changes Extremities: Thigh&Calf Soft/Nontender Neuro: Normal Speech Result Diagram: 09/18/1641909/18/16419 Assessment & Plan Impression 1. Feeling well postoperative day # 8 status post lysis of adhesions & drains 2 secondary to Intra-abdominal abscess resolving with persistent but worsened leukocytosis and platelet count; but improved pro-calcitonin levels. 2. Approximately 3.5 weeks status post Laparoscopic right colectomy with diverting loop ileostomy and closure of loop ileostomy and takedown of adhesions. Past Medical & Surgical History: 1. Hypertension 2. Type II diabetes, uncontrolled with neuropathy and CKD 3. 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 Stage III colorectal cancer 5. Hyperlipidemia 6. Status post right elbow surgery 7. Status post Mohs procedure of right temporal region Problems: Plan This is a 66-year-old male with history of colon cancer approximately 4 weeks status post loop ileostomy takedown performed by Dr Esposito. Unfortunately he developed a abdominal abscess and consequently was taken to the OR for lysis of adhesions and multiple drain placement performed by Dr. Ramirez 8 days ago. On admission the patient's white count was severely elevated as well as his pro- calcitonin levels. He has improved significantly throughout his hospital course and wants to go home; however despite significantly decreased pro- calcitonin levels patient's white blood cell count has increased from 20.4 to 30.0 with elevated platelets 507. The patient denies diarrhea consistent with C. difficile and is being seen regularly by the Infectious Disease Service. On physical exam the abdomen is benign, his surgical incisions are healing well, he is ambulating within normal limits, and he is using his incentive spirometry regularly. PLAN: The On-Call General Surgeon Dr. Watson recommended CT Abdomen & Pelvis with by mouth & without IV contrast for further evaluation. Dr. Watson read the CT scan to show intra-abdominal fluid collections which may be related to his recent leukocytosis therefore a CT guided peritoneal drain placement, with aspiration to run Gram stain/culture and sensitivity body fluid and results called to Dr. Watson were requested along with PT/INR. Dr. Watson discussed the CT findings with Radiologist Dr. Casas and will defer to the Infectious Disease Service for their recommendations as well. VTE Prophylaxis: Sub-Q Heparin (Unfractionated), SCDs Resuscitation Status: CPR: Attempt Resuscitation Will Lerner PA-C Sep 18, 2016 08:43
--- NOTE | 2016-09-18 09:56 | PCM.PNMED ---
Subjective Date of Service Sep 18, 2016 Subjective pt is doing really well, no n/v, tolerating diet, labs showed worsening hgb, plt, pt remained afebrile, had loose stools but no diarrhea one SUZETTE drain noted. pt explained he feels depressed "I don't know what's going on", explained the details of his situation, provided emotional support. pt seemed to be relieved mg was low, ordered 2g iv Exam Vital Signs Vital Sign - Last Date Time Temp Pulse Resp B/P Pulse Ox O2 Delivery O2 Flow Rate FiO2 09/18/16 04:33 37.1 100 16 149/81 97 Room Air Intake and Output 09/17/16 09/17/16 09/18/16 Cumulative From/Thru 15:00 23:00 07:00 09/08/16 03:00 - 09/18/16 06:01 Intake Total 847 ml 1032 ml 45756 ml Output Total 10 ml 5 ml 71379 ml Balance 837 ml 1027 ml 92928 ml Intake Oral 540 ml 780 ml 87175 ml IV Total 307 ml 252 ml 00775 ml Packed Cells 585 ml Output Urine Total 21062 ml Gastric Drainage Total 30 ml Drainage Total 10 ml 5 ml 1303 ml # Voids 6 4 15 # Bowel Movements 1 4 17 Exam NAD, comfortably laying down on the bed no JVD, MMM, no LAD RRR, nl s1, s2 no mrg CTAB, no w,c S,distended, diffuse tenderness, normoactive BS+ warm, no edema, pulses 2/2 IVs and Medications Medications Reviewed: Medications were reviewed in detail Lab and Diagnostics Result Diagram: 09/18/16 0420 09/18/16 0420 X-Rays, CTs and MRIs Chest x-ray IMPRESSION: Pneumoperitoneum beneath the left hemidiaphragm, consistent with bowel perforation in the absence of any recent laparotomy. Findings were discussed with patient's nurse at 2122 hrs on September 09, 2016. Dictated by: Anthony Cannon M.D. on 09/09/2016 at 21:17 Assessment & Plan 66-year-old male with a history of type II diabetes, CK D, hypertension, and stage III colorectal cancer status post reversed ileostomy with new abscess formation with peritonitis. acute, active Septic shock secondary to right paracolic abscess with peritonitis; present admission; pt underwent laparoscopic washout by Dr. Ramirez on 09/09/16, pt underwent ICU course with vasopressors.Abscess culture showed strep Angionosus, pansensitive. Patient was started on zosyn, switched to PCN G 09/13 based on culture by ID, Diet was advanced, pt tolerated well, pt made good BM 09/14 -pt is clinically stable, afebrile, HD stable, markedly elevated PCT and wbc was trending down until rising again to 20.4 today. The pro calcitonin level is 4.28, down further today. -continue PCN G 09/13 based on culture by ID, awaits BCX as well, added flagyl , -oral PCN/flagyl for Bacteroide, on d/c, appreciate ID FU - Continue to follow labs procalcitonin and CBC - pain control with CIRCULATION TENDER dilaudid, stopped, now on Oxycodone and dialudid prn -SUZETTE drain managed by surgery, appreciate daily FU Worsening leukocytosis, thrombocytopenia, since09/16-, unclear whether this represent worsening infection, medicine induced, simply dehydrated, pt remained afebrile, PCT further trending down.no acidosis on cmp. pt had loose stools but pt is on flagyl, unlikey c.diff. -CT abd was ordered per surgery -will repeat CBC,lactate -appreciate ID input -consider repeat BCX, trends fever curve, pct, wbc, plt, chronic, stable Type II diabetes, last A1c of 6.5, continue RISS q6h, fsg qd CKD, Due to hypertension and diabetes, Baseline creatinine seems to be around 1.5, improving, avoid nephrotoxic meds, renally adjust meds Metabolic acidosis with lactic acidosis, resolved Hypertension, stable Reactive Depression -His perspective today is of overwhelming negativity -He seems unable to process the positives/improving components of his situation -He declines antidepressant therapy -SS will speak with him today SubQ heparin for now. SCDs in place. High-risk medications: None Disposition:pt seems medically stable, appreciate ID for timing for d/c VTE Prophylaxis: Sub-Q Heparin (Unfractionated) VTE Mechanical Devices: Intermittant Pneumatic CD Resuscitation Status: CPR: Attempt Resuscitation Time spent 35min Tonio Melgar MD Sep 18, 2016 09:56
[2016-09-18] MEDS: Famotidine Inj 20 MG in IV Premix 1 EACH IV SCH (10:53)
--- NOTE | 2016-09-18 12:36 | NUR ---
Social Work: Readiness for Discharge D: EMR reviewed. Pt is on day 9 of hospitalization. As of 09/13, PT cleared pt home with no needs at discharge. Pt was up ambulating 450ft with a FWW. As of 09/15, ID noted that pt will continue IVABX (Penicillin) through 7/3 AM and pt will likely discharge on oral antibiotics including Augmentin and perhaps Flagyl. Per MD in AM multi-disciplinary rounds, pt is likely to discharge tomorrow 09/[address] scan of abdomen. SW will continue to follow for needs. A: Pt who is independent at baseline P: Pt to discharge home with spouse via POV when medically stable. Per MD in AM multi-disciplinary rounds, pt is likely to discharge tomorrow 09/[address] scan of abdomen. Pt to discharge on POABX Augmentin and Flagyl. SW does not anticipate any discharge needs at this time but will continue to follow if needs arise. KEN Varma
[2016-09-18] MEDS: Ertapenem Inj 1,000 MG in 0.9% Sodium Chloride 50 ML IV SCH (12:55)
--- NOTE | 2016-09-18 13:45 | DRSVH ---
PROCEDURE: CT ABDOMEN AND PELVIS WITHOUT CONTRAST ([id number]) INDICATIONS: Elevated WBC's TECHNIQUE: After the administration of oral contrast, 5 mm thick sections acquired from the diaphragms to the sy mphysis. 5 mm coronal and sagittal reformats were performed. For radiation dose reduction, the foll owing was used: automated exposure control, adjustment of mA and/or kV according to patient size. COMPARISON: [facility], CT, CT CHEST ABD PELVIS WO CON, 03/21/2016, 14:03. FINDINGS: Image quality: Excellent. ABDOMEN: Lung bases: Minimal to mild bilateral pleural effusions, left greater than right. Heart size is nor mal. Solid organs: Liver and spleen are normal in size. Gallbladder is contracted with a focal area of c alcification.. Pancreas is normal in size. No adrenal nodules. Both kidneys are normal in size, wi thout hydronephrosis. Nonobstructing right renal calculi are present. Peritoneum and bowel: Bowel loops are nonobstructed. There are scattered areas of bowel thickening. In addition, bowel is incompletely distended. A surgical drain is identified coursing across the ante rior abdomen and into the right lower abdomen and right lower pelvis. There is a diffuse appearance o f mesenteric fat stranding throughout the abdomen and pelvis. There is scattered areas of fluid throu ghout the abdomen and pelvis including prominent fluid in the right paracolic gutter measuring 82 mm AP by 46 mm transverse. Other focal, smaller pockets of fluid are noted within the lower central abdo men as well as anterior lateral left lower abdomen. Anastomotic sutures are identified within the bowel in the right lower quadrant. There is diffuse cristian rounding fluid. The right paracolic gutter fluid is noted along the superior level of the anastomotic site. No gross contrast extravasation. No free air is identified. Nodes and vessels: No retroperitoneal or mesenteric adenopathy by size criteria. Aorta and inferior vena cava are normal in size. Miscellaneous: No ventral hernias. PELVIS: Genitourinary: Bladder wall thickness is normal. Miscellaneous: No inguinal hernias or adenopathy. Bones: No suspicious bony lesions. No vertebral body compression fractures. IMPRESSION: 1. Diffuse mesenteric fat stranding within the abdomen and pelvis with diffuse scattered fluid as we ll as a larger focal pockets of fluid as described above. Surgical drain is present. It is noted that the prominent right paracolic other fluid collection is at the superior level of the surgical anasto motic site. However, there is no gross contrast extravasation identified indicative of bowel perforat ion. No free air. As clinical concern persists, short interval imaging followup is recommended. As to lerated, IV and oral contrast is recommended on followup imaging for better delineation of bowel-flui d interfaces. 2. Focal calcification within the gallbladder consistent with cholelithiasis. Gallbladder is signific antly contracted, limiting evaluation for additional superimposed process. 3. Mild bilateral pleural effusions. Dictated by: Jenni Casas M.D. on 09/18/2016 at 13:28 Approved by: Jenni Casas M.D. on 09/18/2016 at 13:43
[2016-09-18 14:39] LABS: BASOPHILS % (AUTO) 0.1 % (0-3); EOSINOPHILS % (AUTO) 0.1 % (0-5); MONOCYTES % (AUTO) 2.9 % (4-12); Mean Corpuscular Hemoglobin 31.3 pg (27.0-35.0); Mean Corpuscular Volume 94.7 fL (81-100); NEUTROPHILS % (AUTO) 90.5 % (40-74); Platelet Count 530 bil/L (150-400)
[2016-09-18 14:55] LABS: INR 1.19 ratio
--- NOTE | 2016-09-18 15:00 | NUR ---
Critical labs Pt had critical value for magnesium of 1.2 at 0800 hrs Hospitalist ordered Mg rider. Pt also had critical value for WBC of 34.7 at 1455 hrs. Cook page sent to hospitalist. Pt to have abdominal drain placement this p.m. under CT guidance.
--- NOTE | 2016-09-18 15:01 | PROG NOTE ---
[address] [address] PROGRESS NOTE PATIENT: ANA RAY : 1950 MR#: [id number] ADMIT: 09/09/2016 JOB ID: [id number] DATE: 09/18/2016 REASON FOR FOLLOWUP: Polymicrobial intra-abdominal abscess following ileostomy takedown. INTERVAL HISTORY: Over the weekend, the patient was initially feeling quite well on Sunday, walking all over the rice and frustrated he could not be discharged. Over the past 24 hours though, he has had more symptoms including some nausea, anorexia and malaise which he attributes perhaps to the addition of Flagyl as an agent for the B. fragilis that have been isolated. He also notes though that he has had three loose stools in the past 24 hours and in general just feels a little more tired. He has been unable to consume much in the way of food and notes that he still has some left upper quadrant pain. PHYSICAL EXAMINATION: Reveals a slightly less well-appearing gentleman than he appeared when I last saw him on Sunday afternoon, three days ago. He is afebrile. Temp 37.1, pulse 100, respiratory rate 16, blood pressure 149/81. He is saturating well on room air. He is in no obvious distress but just looks more tired in general. Oral cavity without abnormalities. Mental status is clear. Neck without notable abnormality. His left upper chest port appears benign and is nontender. His lungs are clear. Cardiac tones without new murmur. Abdomen has hypoactive bowel tones and is mild to moderately tender in the left upper quadrant. There is still one drain present in the left upper quadrant as well, but two out of three drains have now been pulled. He does not have a Beckford. He has no tenderness in his calves and no cellulitic changes. LABORATORIES: Include a white count which has doubled since Sunday. On September 16, his white count was 15,000 and today it is 30,000. Oddly, we do not have a diff with today's white count. His creatinine 1.23 today. LFTs totally normal. Albumin down to 2.1. His procalcitonin has been dropping in a linear fashion from 134, down to 2.9 today. Urinalysis without white cells. Micro studies include the abdominal abscess from September 10, which grew Strep anginosus, Peptostreptococcus and Bacteroides fragilis. Blood cultures grew only Peptostreptococcus. IMPRESSION: The patient had looked to be in a significant rally on September 16 and was walking all over the rice, eating, and talking about going home in the very near future. Today, he is definitely not as well in a generalized kind of way and has some gastrointestinal symptoms which may be at least in part due to metronidazole. Of greater concern, however, is his white count which has doubled in the past couple days to 30,000 without a clear-cut explanation. The differential diagnosis includes reaccumulating intra-abdominal abscess, the possibility of a fungal peritonitis, the possibility of a line associated bacteremia or fungemia due to the port, pancreatitis, or C. difficile colitis. DVT, drug allergy, and a host of other possibilities seem less likely on clinical criteria. RECOMMENDATIONS: 1. His current antibiotics include penicillin in high doses and Flagyl. This more than adequately covers our three isolated pathogens but may be causing toxicity, at least the Flagyl component of this therapy for the B. fragilis, so will change to a simplified regimen of ertapenem 1 g a day and continue for the time being the penicillin. 2. I agree with a CT scan of the abdomen and pelvis that has been ordered. 3. Will check a serum lipase today. 4. CBC this case should come with a differential as we are trying to establish whether or not it is due to infection. 5. A stool for C. difficile will be checked and note that the fungal blood cultures we have ordered should be done both through the port and through the skin and labeled appropriately. 6. I will hold off on antifungal therapy at this point, but certainly, if the patient does not turn around in the next 24 hours, that will be the next empiric maneuver.
[2016-09-18] MEDS: 0.9% Sodium Chloride 250 ML IV SCH (16:24)
[2016-09-18] MEDS ORDERED: fentaNYL-PF 50 mCg/mL 2 mL Inj ONE (16:44)
--- NOTE | 2016-09-18 19:02 | NUR ---
ADRIAN: Pt arrived to [facility] in bed from CT at 1740, pt with no c/o pain. RUQ drain in place, dressing C/D/I, draining milky pink colored drainage. Pt awake and talking, VSS on RA. Report called to DIA Aparicio on OSC to assume care of patient.
--- NOTE | 2016-09-18 19:25 | DRSVH ---
PROCEDURE: CT ABCESS DRAIN PERITONEAL INDICATIONS: Elevated WBC COMPARISON: [facility], CT, CT ABD PELVIS WO CON, 09/18/2016, 13:16. FINDINGS: Informed, written consent from the patient was obtained prior to the procedure. The patient was broug ht to the CT suite and conscious sedation was administered intravenously by longterm staff angel ramirez continuous cardiorespiratory monitoring was performed. Timber Estimator imaging of the intrahepatic fluid col lection was performed with overlying localization grid. The appropriate skin site was identified, pre pped and draped sterilely and infused with lidocaine. Under CT guidance an 18 gauge Chiba needle was advanced into the fluid collection. A 035 J-wire was advanced into the fluid collection. An 8 Azeri pigtail drainage catheter was placed. 10 cc of fluid was aspirated and sent to the lab for further ev aluation. IMPRESSION: Successful drain placement in a subhepatic fluid collection. Aspirated fluid sent to the lab for furt her evaluation. Dictated by: Carlos Sharpe M.D. on 09/18/2016 at 19:12 Approved by: Carlos Sharpe M.D. on 09/18/2016 at 19:17
[2016-09-18] MEDS ORDERED: Heparin 5,000 Unit/mL Inj SUBQ ONE (19:35)
[2016-09-19] MEDS: Penicillin G K Inj 3,000,000 UNITS in IV Premix 1 EACH IV SCH ×3 (00:19→07:51)
[2016-09-19] MEDS: Dextrose 5% 500 ML IV SCH (01:54)
[2016-09-19] MEDS: Heparin 5,000 Unit/mL Inj SUBQ SCH ×3 (03:19→17:44)
[2016-09-19] MEDS: D5 0.45% NaCl + KCl 20 mEq/L 1,000 ML IV SCH ×2 (03:40→17:00)
[2016-09-19 04:59] LABS: BASOPHILS % (AUTO) 0.1 % (0-3); EOSINOPHILS % (AUTO) 0 % (0-5); MONOCYTES % (AUTO) 3.2 % (4-12); Mean Corpuscular Hemoglobin 31.3 pg (27.0-35.0); Mean Corpuscular Volume 94.4 fL (81-100); Platelet Count 668 bil/L (150-400)
--- NOTE | 2016-09-19 05:25 | NUR ---
Activity Pt T drain flushed with 50 cc of saline, no issues. Drainage is purulent and sero sanguinous. Pt has denied pain or nausea this shift and overall, pt reports "feeling better" and has more energy than previous night. Pt up indep in room and is steady on feet. Pt denies loose stools and reported having 2 stools during the daytime that were "soft" but not loose. Addendum: 09/19/16 at 0611 by SHAY VALLECILLO RN WBC 35.4 this morning, made aware. T drain had out 55cc purulent/serosang drainage. SUZETTE drain had out 20cc serosang drainage.
[2016-09-19 05:59] VITALS: BP 147/73; PULSE 104; RESP 17; O2SAT 98
[2016-09-19] MEDS: Insulin LISPRO 300 Unit/3 mL Inj SUBQ SCH ×4 (08:00→20:59)
--- NOTE | 2016-09-19 08:49 | NUR ---
[facility] signed
[2016-09-19] MEDS ORDERED: Magnesium Sulf 2 Gm/50mL Water 2 GM in IV Premix 1 EACH IV ONE (09:05)
[2016-09-19] MEDS: Famotidine Inj 20 MG in IV Premix 1 EACH IV SCH (09:11)
--- NOTE | 2016-09-19 09:13 | PCM.PNMED ---
Subjective Date of Service Sep 19, [address]-guided drainage of subhepatic fluid collection. sanguineous fluid noted, initial gram stain only polys pt is doing well. denied n/v, abd pain, Exam Vital Signs Vital Sign - Last Date Time Temp Pulse Resp B/P Pulse Ox O2 Delivery O2 Flow Rate FiO2 09/19/16 05:59 36.7 104 17 147/73 98 Room Air Intake and Output 09/18/16 09/18/16 09/19/16 Cumulative From/Thru 15:00 23:00 07:00 09/08/16 03:00 - 09/19/16 05:59 Intake Total 571 ml 1130 ml 98879 ml Output Total 475 ml 11515 ml Balance 571 ml 655 ml 36930 ml Intake Oral 200 ml 800 ml 27921 ml IV Total 371 ml 330 ml 96409 ml Packed Cells 585 ml Output Urine Total 400 ml 44858 ml Gastric Drainage Total 30 ml Drainage Total 75 ml 1378 ml # Voids 2 17 # Bowel Movements 2 19 Exam NAD, comfortably laying down on the bed no JVD, MMM, no LAD RRR, nl s1, s2 no mrg CTAB, no w,c S,ND,NT normoactive BS+ warm, no edema, pulses 2/[address] IVs and Medications Medications Reviewed: Medications were reviewed in detail Lab and Diagnostics Result Diagram: 09/19/16 0430 09/19/16 0430 X-Rays, CTs and MRIs Chest x-ray IMPRESSION: Pneumoperitoneum beneath the left hemidiaphragm, consistent with bowel perforation in the absence of any recent laparotomy. Findings were discussed with patient's nurse at 2122 hrs on September 09, 2016. Dictated by: Anthony Cannon M.D. on 09/09/2016 at 21:17 Assessment & Plan 66-year-old male with a history of type II diabetes, CK D, hypertension, and stage III colorectal cancer status post reversed ileostomy with new abscess formation with peritonitis. acute, active Septic shock secondary to right paracolic abscess with peritonitis; present admission; pt underwent laparoscopic washout by Dr. Ramirez on 09/09/16, pt underwent ICU course with vasopressors.Abscess culture showed strep Angionosus, pansensitive. Patient was started on zosyn, switched to PCN G 09/13 based on culture by ID, Diet was advanced, pt tolerated well. Course was complicated as wbc was on wrong trends, CT on 09/18 showed worsening fluid collection in abdomen , underwent CT-guided drainage on 09/18, -pt is clinically stable, afebrile, HD stable, PCT still remains low, but wbc worsening. 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, stopped, now on Oxycodone and dialudid prn -drains managed by surgery, appreciate daily FU Worsening leukocytosis, thrombocytosis, since09/16-, likely as inflammatory markers from developing abscess as above, trends for now chronic, stable Type II diabetes, last A1c of 6.5, continue RISS q6h, fsg qd CKD, Due to hypertension and diabetes, Baseline creatinine seems to be around 1.5, improving, avoid nephrotoxic meds, renally adjust meds Metabolic acidosis with lactic acidosis, resolved Hypertension, stable Reactive Depression -His perspective today is of overwhelming negativity -He seems unable to process the positives/improving components of his situation -He declines antidepressant therapy -SS will speak with him today SubQ heparin for now. SCDs in place. High-risk medications: None Disposition:pending, awaits fluid cultures on 09/18 VTE Prophylaxis: Sub-Q Heparin (Unfractionated), SCDs VTE Mechanical Devices: Intermittant Pneumatic CD Resuscitation Status: CPR: Attempt Resuscitation Time spent 35min Tonio Melgar MD Sep 19, 2016 09:13
[2016-09-19] MEDS: Ertapenem Inj 1,000 MG in 0.9% Sodium Chloride 50 ML IV SCH (10:18)
--- NOTE | 2016-09-19 11:59 | PROG NOTE ---
[address] [address] PROGRESS NOTE PATIENT: ANA RAY : 1950 MR#: [id number] ADMIT: 09/09/2016 JOB ID: [id number] DATE: 09/19/2016 REASON FOR FOLLOWUP: Complex intra-abdominal infection. INTERVAL HISTORY: Overnight, the patient has been free of fevers, chills, or sweats. Because of his rising white blood count, additional CT scans were done which revealed a fluid collection on the infrahepatic area. This led to the placement of a drain which has yielded considerable amounts of relatively thin bloody fluid. Despite all these issues, the patient has very little in the way of symptoms. No fevers. No chills. No significant shortness of breath. Minimal abdominal pain. He still has a drain remaining on the left side of his abdomen from his original surgery here, as well as the new drain placed on the right. PHYSICAL EXAMINATION: Reveals a gentleman who is afebrile consistently, and his current temp is 36.7, pulse 104, respiratory rate 17, blood pressure 147/73, saturating well on room air. He is in no acute distress. He is awake and alert. His oral cavity is negative. His lungs are clear. His abdomen is slightly distended, more or less nontender. He has bilateral drains, one on the left from his surgery which is now almost 10 days ago and the other new one on the right placed yesterday. Both are draining identical fluid. LABORATORIES: Include a white count stable compared to yesterday but very elevated, 35,000. The diff continues to show 90% polys. His creatinine is 1.44, which is up a bit. Procalcitonin 2.36, which continues a steady decline. Micro studies include a Gram stain from the abscess which was punctured yesterday. This shows many polys and no organisms. Speaking to the lab, this sample was just completed, so we have no culture results whatsoever. The patient continues to have negative blood cultures except for the Peptostreptococcus which grew from a culture now 10 days ago. IMAGING: Yesterday included a CT which showed diffuse mesenteric fat stranding within the abdomen and pelvis, as well as some pockets of fluid in the right pericolic gutter is the largest collection. No extravasation was seen, and the larger of these fluid collections had a percutaneous drain placed yesterday. IMPRESSION: This is an extremely complicated case of a gentleman who had colon cancer surgery with ileostomy following an apparently uncomplicated ileostomy takedown procedure. He developed sepsis with extensive abscess formation requiring multiple drains and extensive surgery. He seemed to be improving as we covered aggressively with antibiotics the three isolated organisms which included a strep anginosus, Peptostreptococcus, and Bacteroides. He has now worsened over the past few days with a rapidly increasing white count and the discovery of additional fluid collections. A drain has been placed in the right-sided fluid collection. We await the results from this. It may be that there are more organisms present than we had assumed and for that reason yesterday, we added ertapenem to the penicillin. In addition, one must be concerned about the possibility of Summer at this point, and the patient has had abdominal surgery and has been on broad-spectrum antibiotics. RECOMMENDATIONS: 1. We await the cultures from material aspirated yesterday. 2. Will add micafungin. 3. Will continue with ertapenem and penicillin.
[2016-09-19] MEDS: PENICILLIN K IV SCH ×3 (12:58→20:59)
[2016-09-19] MEDS: DEXTROSE 5% IV SCH ×3 (12:58→20:59)
[2016-09-19] MEDS: Micafungin Inj 150 MG in 0.9% Sodium Chloride 100 ML IV SCH (14:19)
[2016-09-19 15:31] VITALS: BP 118/70; PULSE 91; RESP 16; O2SAT 96
--- NOTE | 2016-09-19 15:44 | PCM.PNSURG ---
Subjective Date of Service: Sep 19, 2016 Visit Information: Reason for Visit Bowel Perforated Surgery/Surgery Date Post-Op Day # Date of Admission: Sep 09, 2016 at 22:18 Hospital Day # Subjective: Underwent IR guided drainage of subhepatic abscess yesterday Patient has minimal complaints today. Tolerating diet without nausea or vomiting Pain is well controlled Voiding, ambulating, and no subjective fevers Of note, he is passing frequent loose stools, but he denies shiraz diarrhea. Objective Vital Sign- Last 8 Hours Date Time Temp Pulse Resp B/P Pulse Ox O2 Delivery O2 Flow Rate FiO2 09/19/16 15:31 36.8 91 16 118/70 96 Room Air Intake and Output- Last 8 Hour 09/19/16 Cumulative From/Thru 07:00 09/08/16 03:00 - 09/19/16 05:59 Intake Total 1130 ml 92520 ml Output Total 475 ml 25241 ml Balance 655 ml 69845 ml Intake Oral 800 ml 14718 ml IV Total 330 ml 55735 ml Packed Cells 585 ml Output Urine Total 400 ml 48665 ml Gastric Drainage Total 30 ml Drainage Total 75 ml 1378 ml # Voids 17 # Bowel Movements 19 General: Alert, Cooperative, No Acute Distress Lungs: Normal Air Movement Heart: Exam Unremarkable Abdomen: Soft, Non-tender, Non-distended, Other (Drains x2 with serosanguinous output. Well healed surgical incisions. ) Result Diagram: 09/19/16 0430 09/19/16 0430 Assessment & Plan Impression 66M s/p laparoscopic BULL, abdominal washout and drain placement for right paracolic abscess on 09/10 in the setting of recent ileostomy takedown. Patient looks clinically well and exam is benign, however, his WBC continues to trend upward. Problems: Plan Maintain IR and surgical drain Send culture for c.diff Await urine and blood culture Agree with additional of anti-fungal if ID recommends. No surgical intervention necessary at this time. Please call with questions or concerns. VTE Prophylaxis: Sub-Q Heparin (Unfractionated), SCDs Resuscitation Status: CPR: Attempt Resuscitation León Gonzales MD Sep 19, 2016 15:44
[2016-09-19] MEDS: 0.9% Sodium Chloride 250 ML IV SCH (17:52)
--- NOTE | 2016-09-19 18:34 | NUR ---
Activity, Drains Patient tolerated activity well this shift, ambulating in room and in halls. Patient t-drain flushed with 50cc normal saline per orders. Care is ongoing.
[2016-09-19 20:17] VITALS: BP 135/68; PULSE 95; RESP 17; O2SAT 96
[2016-09-20] MEDS: Heparin 5,000 Unit/mL Inj SUBQ SCH ×3 (00:45→17:37)
[2016-09-20] MEDS: DEXTROSE 5% IV SCH ×6 (00:45→20:58)
[2016-09-20] MEDS: PENICILLIN K IV SCH ×6 (00:45→20:58)
[2016-09-20] MEDS: Dextrose 5% 500 ML IV SCH (01:54)
--- NOTE | 2016-09-20 05:21 | NUR ---
Activity Abdominal T drain flushed with 50 cc of saline. Total drainage for this shift is 10cc of sero sanguinous fluid. Only 5 cc out of SUZETTE drain this shift. Pt continues to deny pain or nausea. Pt was able to walk the halls last night and "watched some fireworks" as well, pt appears in better spirits.
[2016-09-20 05:22] LABS: BASOPHILS % (AUTO) 0.1 % (0-3); EOSINOPHILS % (AUTO) 0.4 % (0-5); MONOCYTES % (AUTO) 4.2 % (4-12); Mean Corpuscular Hemoglobin 30.8 pg (27.0-35.0); Platelet Count 581 bil/L (150-400)
[2016-09-20 05:30] VITALS: BP 147/74; PULSE 92; RESP 17; O2SAT 98
[2016-09-20 05:51] LABS: Magnesium 1.7 mg/dL (1.6-2.6); Phosphorus 2.9 mg/dL (2.5-4.9)
[2016-09-20] MEDS: D5 0.45% NaCl + KCl 20 mEq/L 1,000 ML IV SCH ×2 (06:08→19:40)
[2016-09-20] MEDS: Insulin LISPRO 300 Unit/3 mL Inj SUBQ SCH ×4 (08:00→21:21)
[2016-09-20] MEDS: Ertapenem Inj 1,000 MG in 0.9% Sodium Chloride 50 ML IV SCH (08:23)
--- NOTE | 2016-09-20 08:50 | PCM.PNSURG ---
Subjective Date of Service: Sep 20, 2016 Date of Service: Sep 20, 2016 Visit Information: Reason for Visit Bowel Perforated Surgery/Surgery Date Post-Op Day # 10 s/p laparoscopic lysis of adhesions and multiple drain placement secondary to abdominal abscess Date of Admission: Sep 09, 2016 at 22:18 Hospital Day # Subjective: Patient was seen with general surgery team this a.m. feeling well without significant complaints of nausea, vomiting, diarrhea, or related pain tolerating a normal diabetic diet, reporting recent flatus, and soft but not loose bowel movement yesterday. He continues to ambulate within normal limits outside of the room regularly. He also reports taking in plenty of by mouth fluids. The patient had a guided abdominal drain placement a couple days ago for Gram stain/culture negative small lower abdominal fluid collections and a C. difficile was also negative. He continues to be seen by Medicine and Infectious Disease who started him also on an antifungal medication along with his antibiotics. Postop General: No Complaints Gastrointestinal: Good Appetite, Tolerating Oral Feedings, No N/V, No Belching , Passing Flatus, Passing Stool, Normal Bowel Movement (soft not loose) Pain Management: PO Postop Activity: Ambulating Independently (in the taylor.) Objective Vital Sign- Last 8 Hours Date Time Temp Pulse Resp B/P Pulse Ox O2 Delivery O2 Flow Rate FiO2 09/20/16 05:30 36.7 92 17 147/74 98 Room Air Intake and Output- Last 8 Hour 09/20/16 Cumulative From/Thru 07:00 09/08/16 03:00 - 09/20/16 05:30 Intake Total 1008 ml 33831 ml Output Total 765 ml 72809 ml Balance 243 ml 36272 ml Intake Oral 800 ml 32318 ml IV Total 208 ml 31266 ml Packed Cells 585 ml Output Urine Total 750 ml 00775 ml Stool Total 150 ml Gastric Drainage Total 30 ml Drainage Total 15 ml 1473 ml # Voids 17 # Bowel Movements 19 General: Alert, Oriented X3 Lungs: Clear to Auscultation Heart: Other (non-tachycardic) Abdomen: Soft, Non-tender, Distended (minimal), Normoactive bowel tones SURGICAL WOUND : Wound General Appearence: Intact, Well Approximated, Incision Healing, No Erythema, No Discharge Wound Drainage Type: SUZETTE Drain #1 (negligible serosanguineous output), Other (IR drain 30 mL serosanguineous fluid) Extremities: Thigh&Calf Soft/Nontender Neuro: Normal Speech Result Diagram: 09/20/16 0505 09/20/16 0505 Assessment & Plan Impression This is a 66-year-old male with a history of colon cancer postoperative day #10 status post lysis of adhesions and placement of multiple drains secondary to abdominal abscess performed by Dr. Ramirez approximately 4 weeks after takedown of ileostomy performed by Dr. Esposito who is continuing to feel well undergoing CT- guided drain placement a couple days ago for a small amount of intra-abdominal fluid collection with negative Gram stain and no culture growth performed because of a spiked white blood cell count now improved from yesterday with 35 to 26K along with platelet count of 668 to 581 and a negative C. difficile test. His elevated creatinine at 1.25 and pro-calcitonin at 1.47 have also improved. Previous abdominal and pelvis CT scan with by mouth contrast & without IV contrast showed no related leak or abscess related to complications with the anastomosis. The patient continues to have no significant daily complaints including but not limited to nausea, vomiting, significant pain, or diarrhea. He is passing gas and had a soft but not loose bowel movement yesterday. He continues to tolerate a diabetic diet and regularly ambulating within normal limits outside of his room. The SUZETTE drain outputs is negligible with serosanguineous fluid. The IR drain showed 30 mL of serosanguineous fluid. He has minimal abdominal distention without tenderness palpation and a otherwise negative related physical exam. The Infectious Disease team started him on antifungal and is following him regularly along with the Medical Service. Primary Diagnoses 1. Feeling well postoperative day # 10 status post lysis of adhesions & drains 2 secondary to Intra-abdominal abscess resolving with Gram stain/culture negative intra-abdominal fluid collections, persistent but improved leukocytosis , platelet count, and pro-calcitonin levels. 2. Approximately 4 weeks status post Laparoscopic right colectomy with diverting loop ileostomy and closure of loop ileostomy and takedown of adhesions. Past Medical & Surgical History: 1. Hypertension 2. Type II diabetes, uncontrolled with neuropathy and CKD 3. 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 Stage III colorectal cancer 5. Hyperlipidemia 6. Status post right elbow surgery 7. Status post Mohs procedure of right temporal region Problems: Plan 1. Saline lock IV fluids. 2. Consider SUZETTE drain removal tomorrow. 3. Repeat a.m. labs tomorrow. VTE Prophylaxis: Sub-Q Heparin (Unfractionated), SCDs Resuscitation Status: CPR: Attempt Resuscitation Will Lerner PA-C Sep 20, 2016 08:50
--- NOTE | 2016-09-20 09:21 | PCM.PNMED ---
Subjective Date of Service Sep 20, 2016 Subjective pt is having loose stool daily, c.diff was negative from PCR remained asymptomatic, tolerated diet, denied n/v/abdominal pain serosanguinous fluid still noted on drainage wbc finally trending down Exam Vital Signs Vital Sign - Last Date Time Temp Pulse Resp B/P Pulse Ox O2 Delivery O2 Flow Rate FiO2 09/20/16 05:30 36.7 92 17 147/74 98 Room Air Intake and Output 09/19/16 09/19/16 09/20/16 Cumulative From/Thru 15:00 23:00 07:00 09/08/16 03:00 - 09/20/16 05:30 Intake Total 1205 ml 1008 ml 91776 ml Output Total 430 ml 765 ml 94618 ml Balance 775 ml 243 ml 42764 ml Intake Oral 720 ml 800 ml 71952 ml IV Total 485 ml 208 ml 35716 ml Packed Cells 585 ml Output Urine Total 200 ml 750 ml 12493 ml Stool Total 150 ml 150 ml Gastric Drainage Total 30 ml Drainage Total 80 ml 15 ml 1473 ml # Voids 17 # Bowel Movements 19 Exam NAD, comfortably laying down on the bed no JVD, MMM, no LAD RRR, nl s1, s2 no mrg CTAB, no w,c S,ND,NT normoactive BS+ warm, no edema, pulses 2/[address] IVs and Medications Medications Reviewed: Medications were reviewed in detail Lab and Diagnostics Result Diagram: 09/20/16 0505 09/20/16 0505 X-Rays, CTs and MRIs Chest x-ray IMPRESSION: Pneumoperitoneum beneath the left hemidiaphragm, consistent with bowel perforation in the absence of any recent laparotomy. Findings were discussed with patient's nurse at 2122 hrs on September 09, 2016. Dictated by: Anthony Cannon M.D. on 09/09/2016 at 21:17 Assessment & Plan 66-year-old male with a history of type II diabetes, CK D, hypertension, and stage III colorectal cancer status post reversed ileostomy with new abscess formation with peritonitis. acute, active Septic shock secondary to right paracolic abscess with peritonitis; present admission; pt underwent laparoscopic washout by Dr. Ramirez on 09/09/16, pt underwent ICU course with vasopressors.Abscess culture showed strep Angionosus, pansensitive. Patient was started on zosyn, switched to PCN G 09/13 based on culture by ID, Diet was advanced, pt tolerated well. Course was complicated as wbc was on wrong trends, CT on 09/18 showed worsening fluid collection in abdomen , underwent CT-guided drainage on 09/18, -pt is clinically stable, afebrile, HD stable, labs in right direction. -continue PCN G 09/13 based on culture by ID, awaits BCX as well, received flagyl 09/15-09/18, changed to Ertapenem 09/19 given newly found possible absces, added micafungin 09/19, appreciate ID follow up -Continue to follow labs procalcitonin and CBC -initially pain control with STUDENT FINANCE ADVISOR dilaudid, stopped, now on Oxycodone and dialudid prn -drains managed by surgery, appreciate daily FU, likely to remove SUZETTE drain tomorrow. -awaits fluid culture 09/18, ngtd Worsening leukocytosis, thrombocytosis, since09/16-, likely as inflammatory markers from developing abscess as above, trending down, monitor for now chronic, stable Type II diabetes, last A1c of 6.5, continue RISS q6h, fsg qd CKD, Due to hypertension and diabetes, Baseline creatinine seems to be around 1.5, improving, avoid nephrotoxic meds, renally adjust meds Metabolic acidosis with lactic acidosis, resolved Hypertension, stable Reactive Depression, He declines antidepressant therapy, seemed in good spirit dvt ppx: HSQ q8h Disposition:pending, awaits fluid cultures on 09/18 VTE Prophylaxis: Sub-Q Heparin (Unfractionated), SCDs VTE Mechanical Devices: Intermittant Pneumatic CD Resuscitation Status: CPR: Attempt Resuscitation Time spent 35min Tonio Melgar MD Sep 20, 2016 09:21
[2016-09-20] MEDS: Famotidine Inj 20 MG in IV Premix 1 EACH IV SCH (10:27)
--- NOTE | 2016-09-20 10:54 | NUR ---
NUTRITION FOLLOW-UP: ASSESS: Pt is a 66yo M admitted for bowel perforation. He is postoperative day #10 status post lysis of adhesions and placement of multiple drains secondary to abdominal abscess. Pt underwent CT guided drainage of subhepatic fluid 09/18. ID is involved. He has been tolerating PO well at 50-100% of meals on a diabetic diet. Last wt recorded was 09/14. PMHX: type II diabetes, CKD secondary diabetes, hypertension, history of stage III colon cancer LABS: Reviewed. Glu 122, Ca 7.2, Alb 1.9 MEDS: Reviewed. GI: BMx1 09/19. C.Diff negative SKIN: Lucas 23, no major issues CURRENT WTS: 86.3kg (09/14/16), BMI 28.1kg/m2, admit wt 87.1kg DIET: Diabetic, PO 50-100% EST. NEEDS: Kcals: 2155-2585kcal/day (25-30kcal/kg) Pro: 85-100g/day (1.0-1.2g/kg) NUTRITION DIAGNOSIS: 1.) Inadequate oral intake related to altered gi function as evidence by bowel perforation, need for slow diet advancement and possible ileus--IMPROVING NUTRITION INTERVENTION: 1.) Continue Glucerna on L tray 2.) Will monitor for new wt. MONITOR / EVAL: PO, GI, labs, wt, POC, nutrition status. Will continue to monitor per moderate nutrition risk guidelines.
[2016-09-20] MEDS: Micafungin Inj 150 MG in 0.9% Sodium Chloride 100 ML IV SCH (11:19)
--- NOTE | 2016-09-20 11:26 | PROG NOTE ---
[address] [address] PROGRESS NOTE PATIENT: ANA RAY : 1950 MR#: [id number] ADMIT: 09/09/2016 JOB ID: [id number] DATE: 09/20/2016 INFECTIOUS DISEASE FOLLOW UP NOTE: REASON FOR FOLLOWUP: Complex intra-abdominal infection. INTERVAL HISTORY: The patient is increasingly despondent about his very long hospital stay which has now into the day. He has had no fevers, chills or sweats. Some abdominal pain, but really no change and its fairly minimal. He has a new drain that had been placed on the right side of his abdomen two days ago, which he has little or no pain from. PHYSICAL EXAMINATION: Reveals a comfortable but depressed-appearing gentleman. Temperature 36.7, pulse 92, respiratory rate 17, blood pressure 147/74. He has been consistently afebrile throughout this long hospital stay. Oral cavity unremarkable. Lungs clear. Abdomen: Little changed. Mildly distended with minimal pain. He has a new drain on the right and he has one of his original three drains remaining on the left side of his abdomen. No skin rash. No problems with the left upper chest port. The patient's white count which had reached greater than 35,000 yesterday is down to 27,000 today. Platelet count has also dropped from 668 to 581 today. His creatinine is better at 1.25. His LFTs are normal. Procalcitonin has dropped from 2.36 yesterday down to 1.47 today. Recall that his procalcitonin has basically been falling for 12 days from a level of 134 down to 1.4 today. The Fungitell we ordered yesterday is pending. The Gram stain from the fluid obtained on the from the new drain showed many polys, and so far no growth. IMPRESSION: This is an incredibly complicated case of a gentleman who had an intra-abdominal abscess with strep anginosus, Bacteroides fragilis and Peptostreptococcus, which we were treating aggressively with penicillin. He then suffered a bump in his white blood count, then we broadened by adding some ertapenem to the high-dose IV penicillin but his white count continued to rise. Out of concern that he may have disseminated or intra-abdominal fungal infection, we added micafungin yesterday and there has been a fairly dramatic drop in his white count as well as an improvement in his creatinine. RECOMMENDATIONS: 1. Will continue with micafungin, penicillin and ertapenem while we await the cultures from September 18 wound abscess drainage. 2. Will continue to closely follow this patient with you. I hope that a yeast or something else grows from the new drain so we have a more parsimonious approach to his antibiotics going forward. I am also hoping to get this patient out of here fairly soon as he is becoming quite tired of his prolonged hospital stay.
[2016-09-20 12:09] VITALS: BP 143/76; PULSE 90; RESP 16; O2SAT 97
[2016-09-20] MEDS ORDERED: Magnesium Sulf 2 Gm/50mL Water 2 GM in IV Premix 1 EACH IV ONE (13:50)
[2016-09-20 17:07] VITALS: BP 161/77; PULSE 88; RESP 18; O2SAT 96
[2016-09-20] MEDS: 0.9% Sodium Chloride 250 ML IV SCH (17:36)
--- NOTE | 2016-09-20 18:45 | NUR ---
Bowel Movements, Pain Patient has had two soft bowel movements this shift, states that they are firmer than his movements have been in the past few days. In the afternoon upon waking from a nap patient complained of an increase in right sided pain to the right lateral posterior abdomen. Drain output checked and drain flushed without incident. Vital signs and blood glucose checked and stable. Ordered antipain mediations administered to good effect. Patient asked to tell staff if pain returns or if he notices any other changes. Patient states he understands. Care is ongoing.
--- NOTE | 2016-09-20 18:49 | NUR ---
Drain Output SUZETTE drain 5 cc output this shift. T - drain 60 cc output, including 50 cc flush. 10 cc net output this shift.
[2016-09-20 20:10] VITALS: BP 133/68; PULSE 77; RESP 16; O2SAT 94
[2016-09-21] VITALS (7 sets, daily range): BP systolic 142–162; BP diastolic 71–82; PULSE 79–105; RESP 17–18; O2SAT 96–98
[2016-09-21] MEDS: Heparin 5,000 Unit/mL Inj SUBQ SCH ×3 (01:08→17:11)
[2016-09-21] MEDS: DEXTROSE 5% IV SCH ×6 (01:08→22:21)
[2016-09-21] MEDS: PENICILLIN K IV SCH ×6 (01:08→22:21)
[2016-09-21] MEDS: Dextrose 5% 500 ML IV SCH (01:54)
--- NOTE | 2016-09-21 02:19 | NUR ---
Pain Pt reported pain to lower abdomen, described as a pressure 07/26. Pt had just taken 5mg Oxycodone 2 hrs ago and requested another tablet. paged and made aware that pt abdomen also appears to be more distended than usual along with the increase in pain. MD order oxycodone 5-10mg q4 hrs. Pt wanted to continue to only take 5mg oxycodone at a time. VSS. T drain flushed with 50cc, no issues noted. On reassessment, pt reporting pain much more tolerable 05/26. Continue close monitoring. Addendum: 09/21/16 at 0525 by SHAY VALLECILLO RN Pt feeling much better this morning and reporting no pain.
[2016-09-21 04:49] LABS: BASOPHILS % (AUTO) 0.2 % (0-3); EOSINOPHILS % (AUTO) 0.6 % (0-5); MONOCYTES % (AUTO) 6.4 % (4-12); Mean Corpuscular Volume 95.7 fL (81-100); NEUTROPHILS % (AUTO) 84.4 % (40-74); Platelet Count 654 bil/L (150-400)
[2016-09-21 05:23] LABS: Magnesium 1.9 mg/dL (1.6-2.6); Phosphorus 3.2 mg/dL (2.5-4.9)
[2016-09-21] MEDS: Ertapenem Inj 1,000 MG in 0.9% Sodium Chloride 50 ML IV SCH (07:48)
[2016-09-21] MEDS: Insulin LISPRO 300 Unit/3 mL Inj SUBQ SCH ×4 (07:54→21:18)
--- NOTE | 2016-09-21 08:57 | PCM.PNMED ---
Subjective Date of Service Sep 21, 2016 Subjective pt is doing well, had solid good 2BM yesterday denied n/v, tolerating general diet. minimal output from SUZETTE and subhepatic pigtail Exam Vital Signs Vital Sign - Last Date Time Temp Pulse Resp B/P Pulse Ox O2 Delivery O2 Flow Rate FiO2 09/21/16 05:55 36.6 79 17 158/76 98 Room Air Intake and Output 09/20/16 09/20/16 09/21/16 Cumulative From/Thru 15:00 23:00 07:00 09/08/16 03:00 - 09/21/16 05:55 Intake Total 1422 ml 881 ml 82477 ml Output Total 467 ml 77285 ml Balance 1422 ml 414 ml 74421 ml Intake Oral 900 ml 650 ml 99425 ml IV Total 522 ml 231 ml 22582 ml Packed Cells 585 ml Output Urine Total 450 ml 17445 ml Stool Total 150 ml Gastric Drainage Total 30 ml Drainage Total 17 ml 1490 ml # Voids 3 20 # Bowel Movements 0 19 Exam NAD, comfortably laying down on the bed no JVD, MMM, no LAD RRR, nl s1, s2 no mrg CTAB, no w,c S,ND,NT normoactive BS+ warm, no edema, pulses 2/[address] IVs and Medications Medications Reviewed: Medications were reviewed in detail Lab and Diagnostics Result Diagram: 09/21/16 0430 09/21/16 0430 X-Rays, CTs and MRIs Chest x-ray IMPRESSION: Pneumoperitoneum beneath the left hemidiaphragm, consistent with bowel perforation in the absence of any recent laparotomy. Findings were discussed with patient's nurse at 2122 hrs on September 09, 2016. Dictated by: Anthony Cannon M.D. on 09/09/2016 at 21:17 Assessment & Plan 66-year-old male with a history of type II diabetes, CK D, hypertension, and stage III colorectal cancer status post reversed ileostomy with new abscess formation with peritonitis. acute, active Septic shock secondary to right paracolic abscess with peritonitis; present admission; pt underwent laparoscopic washout by Dr. Ramirez on 09/09/16, pt underwent ICU course with vasopressors.Abscess culture showed strep Angionosus, pansensitive. Patient was initially started on zosyn, switched to PCN G 09/13 based on culture by ID, pt also received flagyl 09/15-09/18, added Ertapenem 09/19 given newly found possible abscess, added micafungin 09/19. Course was complicated as wbc was on wrong trends, CT on 09/18 showed worsening fluid collection in abdomen, underwent CT-guided drainage on 09/18. Pt tolerated procedure well. Diet was advanced. -pt is clinically stable, afebrile, HD stable, labs in right direction. -continue PCN, ertapenem, micafungin, appreciate ID follow up -Continue to follow labs procalcitonin and CBC -initially pain control with STEM ROLLER OR CRUSHER OPERATOR dilaudid, stopped, now on Oxycodone and dialudid prn -drains managed by surgery, appreciate daily FU, likely to remove SUZETTE drain soon -awaits fluid culture 09/18, ngtd Worsening leukocytosis, thrombocytosis, since09/16-, likely as inflammatory markers from developing abscess as above, trending down, monitor for now chronic, stable Type II diabetes, last A1c of 6.5, continue RISS q6h, fsg qd CKD, Due to hypertension and diabetes, Baseline creatinine seems to be around 1.5, improving, avoid nephrotoxic meds, renally adjust meds Metabolic acidosis with lactic acidosis, resolved Hypertension, stable Reactive Depression, He declines antidepressant therapy, seemed in good spirit dvt ppx: HSQ q8h Disposition:pending surgical course, coordinate with surgery, ID VTE Prophylaxis: Sub-Q Heparin (Unfractionated), SCDs VTE Mechanical Devices: Intermittant Pneumatic CD Resuscitation Status: CPR: Attempt Resuscitation Time spent 35min Tonio Melgar MD Sep 21, 2016 08:56
[2016-09-21] MEDS: D5 0.45% NaCl + KCl 20 mEq/L 1,000 ML IV SCH ×2 (09:00→21:27)
[2016-09-21] MEDS: Micafungin Inj 150 MG in 0.9% Sodium Chloride 100 ML IV SCH (09:04)
[2016-09-21] MEDS: 0.9% Sodium Chloride 250 ML IV SCH (09:04)
[2016-09-21] MEDS: Famotidine Inj 20 MG in IV Premix 1 EACH IV SCH (11:45)
--- NOTE | 2016-09-21 12:21 | PROG NOTE ---
[address] [address] PROGRESS NOTE PATIENT: ANA RAY : 1950 MR#: [id number] ADMIT: 09/09/2016 JOB ID: [id number] INFECTIOUS DISEASE FOLLOWUP: DATE: 09/21/2016 REASON FOR FOLLOWUP: Recurrent abdominal abscesses as complication of ileostomy takedown. INTERVAL HISTORY: Recall that the patient cultured three major pathogens from blood and abscess and then seemed to be doing well on a combination of penicillin and Flagyl. He then started to have increasing white count and other issues and so our antibiotics were changed to a combination of penicillin and ertapenem, but the white count continued to rise, reaching 35,000, two days ago. At that point, we became increasingly concerned about the possibility of Summer and added micafungin. Since that time, the patient started to feel better. His white count is dropping and systemically he is more energetic. No fever. No chills. Less abdominal pain. No new complaint today. PHYSICAL EXAMINATION: Reveals an afebrile, comfortable gentleman, 36.8, pulse 87, respiratory rate 18, blood pressure 162/71, saturating well on room air. No acute distress. He is up walking in the taylor with his . Lungs are clear. Cardiac tones without murmur. Abdomen: He still has one of his original surgical drains on the left side with minimal drainage in the SUZETTE drain on the right side. There is a new drain placed in the new fluid collection which is also draining minimally. No skin rash noted. LABORATORIES: Include white count 21,500, down from 35, two days ago. The diff is improving though still 84% segs. Creatinine 1.36. LFTs: Normal. Procalcitonin dropping from 134, 10 days ago, down to 1.1 today. Fungitell is pending. The aspirate culture from the abscess on the remains negative, though it had many polys and was clearly purulent; nothing has grown yet. The prior cultures from mid August had yielded Strep anginosus, Bacteroides and peptostreptococcus. IMPRESSION: This patient seems to have turned the corner and it seems this is related to the institution of antifungal therapy. Fungal infections occurring in intensive care unit and postop patients are often difficult to prove; even with blood cultures, and we are hopeful that yeast will grow from blood, the aspirate that was done, or at least maybe that we will get an elevated Fungitell to confirm our suspicions. RECOMMENDATIONS: 1. Will continue to closely follow this patient with you. 2. The patient may be ready to go as early as tomorrow on IV ertapenem and micafungin unless we get back Summer in which case we could test for susceptibilities and go with ertapenem and fluconazole. 3. This case discussed by telephone with Dr. Ramirez of General Surgery.
--- NOTE | 2016-09-21 13:13 | NUR ---
Elevated HR / Temp At approximately 1300 hrs, the [employer] notified me that the pt's HR was 105. Checked on pt: he was alert and oriented; no c/o pain. Rechecked pt's VS. HR was 102 and pt's temperature was 37.2. Administered 975 mg PO Tylenol. Encouraged pt to increase oral fluids and to increase activity. Pt expressed understanding and agreed to this plan. Addendum: 09/21/16 at 1826 by BRAYAN DUARTE RN Pt's temperature at 1723 hrs was 37.3. Pt reports he feels fine; denies pain. Will inform [facility] jd RN to watch pt's temperature for further elevation.
--- NOTE | 2016-09-21 13:51 | NUR ---
Social Work- Multi-Disciplinary Rounds/ Readiness for Discharge Data: EMR reviewed. Pt is on day 12 of hospitalization for bowel perforated per H&P. Per multi-disciplinary rounds, ID is awaiting cultures. Pt is independent in room and ambulates throughout the hallway during this admission. Per ID note- pt may be ready to go as early as tomorrow on IV ertapenem and micafungin unless we get back Summer in which case we could test for susceptibilities and go with ertapenem and fluconazole. TAIL TRIMMER met with pt and at bedside regarding discharge plan. Pt has been reported to be depressed during this hospitalization. Pt was appropriately talkative to TAIL TRIMMER and stated that he is depressed because he is bored and wants to go home. SW offered books but pt does not have good eyesight. TAIL TRIMMER also offered oil pit attendant services but pt declined at this time as he is not particularly spiritual. Pt and pt's confirmed that pt does not anticipate any needs at home. They mentioned that he would like to come to [facility] for antibiotic therapy. Pt's confirmed that pt will have transportation to daily [facility] appointments. TAIL TRIMMER confirmed that no SW orders have been placed at this time to assist with discharge planning. TAIL TRIMMER checked hard chart and no ID orders for outpt IV therapy have been ordered in the hard chart either. TAIL TRIMMER will confirm that these appointments are scheduled prior to pt discharging. Assessment: Pt who is independent at baseline and who will likely require IV abx. Plan: Pt may be ready to discharge as early as tomorrow pending susceptibilities. Pt is eager to return home. Pt wants to come to [facility] for outpt IV abx therapies. agreeable. At this time TAIL TRIMMER confirmed that no SW orders have been placed at this time to assist with discharge planning. TAIL TRIMMER checked hard chart and no ID orders for outpt IV therapy have been ordered in the hard chart either. TAIL TRIMMER will confirm that these appointments are scheduled prior to pt discharging. KEN Matos
--- NOTE | 2016-09-21 14:21 | PROG NOTE ---
[address] [address] PROGRESS NOTE PATIENT: ANA RAY : 1950 MR#: [id number] ADMIT: 09/09/2016 JOB ID: [id number] DATE: 09/21/2016 SUBJECTIVE: The patient is afebrile, doing clinically well. His Arie-Whitehead drain has put out a minimal amount that is serosanguineous and his T-tube is only putting out 10-15 cc over a 24 hour period and is non purulent with Gram stain demonstrating no organisms and preliminary cultures negative. He is clinically doing well with the antibiotic change including coverage for fungus. LABORATORIES: Shows white count is down to 21.5, his hematocrit is 24.4. Chemistries are unremarkable. IMPRESSION AND PLAN: Doing well, I think we can get his remaining SUZETTE drain out, but leave the IR tube for the time being.
[2016-09-22] MEDS: Heparin 5,000 Unit/mL Inj SUBQ SCH ×2 (00:31→09:07)
[2016-09-22] MEDS: Dextrose 5% 500 ML IV SCH (01:04)
[2016-09-22] MEDS: PENICILLIN K IV SCH ×4 (01:48→12:30)
[2016-09-22] MEDS: DEXTROSE 5% IV SCH ×4 (01:48→12:30)
--- NOTE | 2016-09-22 03:55 | NUR ---
Pain Patient rating back pain about a 05/26. Requested/received Acetaminophen 975 mg PO, in addition to repositioning in bed. Results effective, noted to be resting with eyes closed upon reassessment.
[2016-09-22 05:03] LABS: BASOPHILS % (AUTO) 0.2 % (0-3); EOSINOPHILS % (AUTO) 0.7 % (0-5); MONOCYTES % (AUTO) 7.1 % (4-12); Mean Corpuscular Hemoglobin 30.6 pg (27.0-35.0); Mean Corpuscular Volume 95.6 fL (81-100); NEUTROPHILS % (AUTO) 83.4 % (40-74); Platelet Count 685 bil/L (150-400)
[2016-09-22 05:34] VITALS: BP 155/77; PULSE 89; RESP 18; O2SAT 98
[2016-09-22 05:58] LABS: Magnesium 1.6 mg/dL (1.6-2.6); Phosphorus 2.7 mg/dL (2.5-4.9)
[2016-09-22] MEDS: Insulin LISPRO 300 Unit/3 mL Inj SUBQ SCH ×2 (07:45→12:00)
[2016-09-22] MEDS: Ertapenem Inj 1,000 MG in 0.9% Sodium Chloride 50 ML IV SCH (07:46)
[2016-09-22] MEDS: Micafungin Inj 150 MG in 0.9% Sodium Chloride 100 ML IV SCH (09:07)
--- NOTE | 2016-09-22 09:32 | PCM.PNSURG ---
Subjective Date of Service: Sep 22, 2016 Date of Service: Sep 22, 2016 Visit Information: Reason for Visit Bowel Perforated Surgery/Surgery Date Post-Op Day # 12 s/p laparoscopic lysis of adhesions and multiple drain placement secondary to abdominal abscess Date of Admission: Sep 09, 2016 at 22:18 Hospital Day # Subjective: Patient was seen with general surgery team this a.m. feeling well without significant complaints of nausea, vomiting, diarrhea, or related pain tolerating a normal diabetic diet, reporting recent flatus, and soft but not loose bowel movements daily. He continues to ambulate within normal limits outside of the room regularly. He also reports taking in plenty of by mouth fluids. The patient had a IR drain placement a couple days ago. He continues to be seen by Medicine and Infectious Disease who have him on antifungals and antibiotics. Dr. Ramirez saw the patient recommending removal of the SUZETTE drain and considered disposition home with IR drain; when on by mouth medications. However the patient indicates that his blood pressure is usually better at home. Postop General: No Complaints Gastrointestinal: Good Appetite, Tolerating Oral Feedings, No N/V, Passing Flatus, Passing Stool Pain Management: PO Postop Activity: Ambulating Independently Objective Vital Sign- Last 8 Hours Date Time Temp Pulse Resp B/P Pulse Ox O2 Delivery O2 Flow Rate FiO2 09/22/16 05:34 37.0 89 18 155/77 98 Room Air Intake and Output- Last 8 Hour 09/22/16 Cumulative From/Thru 07:00 09/08/16 03:00 - 09/22/16 06:00 Intake Total 687 ml 28656 ml Output Total 360 ml 55284 ml Balance 327 ml 52478 ml Intake Oral 437 ml 25393 ml IV Total 250 ml 59121 ml Packed Cells 585 ml Output Urine Total 300 ml 22815 ml Stool Total 150 ml Gastric Drainage Total 30 ml Drainage Total 60 ml 1600 ml # Voids 21 # Bowel Movements 20 General: Alert, Oriented X3, Cooperative, No Acute Distress Lungs: Clear to Auscultation Heart: Exam Unremarkable Abdomen: Soft, Non-tender, Non-distended, Normoactive bowel tones SURGICAL WOUND : Wound General Appearence: Intact, Well Approximated, Incision Healing, No Erythema, No Discharge, No Inflammatory Changes Wound Drainage Type: SUZETTE Drain #1 (minimal serosanguineous output), Other ( IR tube with 55ml serosanguineous output over shift) Extremities: Thigh&Calf Soft/Nontender Neuro: Normal Speech Catheters: None Result Diagram: 09/22/1644909/22/16449 Assessment & Plan Impression This is a 66-year-old male with a history of colorectal cancer postoperative day #12 status post lysis of adhesions and placement of multiple drains secondary to abdominal abscess performed by Dr. Ramirez approximately 4 weeks after takedown of ileostomy performed by Dr. Esposito. The patient is continuing to feel well undergoing CT-guided drain placement a couple days ago for a small amount of intra-abdominal fluid collection with negative Gram stain and no culture growth performed because of a spiked white blood cell count now improved to 21.3 increased platelet count to 685 and a negative C. difficile test. His creatinine has normalized and pro-calcitonin improved to 0.84. Previous abdominal and pelvis CT showed no related leak or abscess related to complications with the anastomosis. The patient continues to have no significant daily complaints including but not limited to nausea, vomiting, significant pain, or diarrhea. He is passing gas and had a soft but not loose bowel movement yesterday. He continues to tolerate a diabetic diet and regularly ambulating within normal limits outside of his room. The SUZETTE drain output is negligible with serosanguineous fluid. The IR drain showed 55 mL of serosanguineous fluid. His abdomen is nondistended without tenderness palpation and a otherwise negative related physical exam. The Infectious Disease team started him on antifungal and is following him regularly along with the Medical Service. Dr. Ramirez & Dr. Dowling rounded on the patient recommending removal of the SUZETTE drain and considering disposition with the IR drain with home IV antifungal infusions daily, drain care, weekly labs, and follow-up with outpatient infectious disease clinic on September 27 & , outpatient general surgery clinic in 2 weeks, and PCP next week. Primary Diagnoses 1. Feeling well postoperative day # 12 status post lysis of adhesions & drains 2 secondary to Intra-abdominal abscess resolving 2. Approximately 4 weeks status post Laparoscopic right colectomy with diverting loop ileostomy and closure of loop ileostomy and takedown of adhesions. 3. Persistent leukocytosis Past Medical & Surgical History: 1. Hypertension 2. Type II diabetes, uncontrolled with neuropathy and CKD 3. 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 Stage III colorectal cancer 5. Hyperlipidemia 6. Status post right elbow surgery 7. Status post Mohs procedure of right temporal region Problems: Plan 1. Remove SUZETTE drain #1. 2. DC IV fluids 3. DC patient home with IV antifungal infusion, drain care instructions & infectious disease instructions. 4. Follow-up with outpatient Infectious Disease Clinic on September 27 & , outpatient General Surgery Clinic in 2 weeks & PCP next week. VTE Prophylaxis: Sub-Q Heparin (Unfractionated), SCDs Resuscitation Status: CPR: Attempt Resuscitation Attending Statement: All documentation reviewed & orders authorized by Dr. Dilan Ramirez M.D. copies to: Darshana Yi PA-C, Scott PA-C Sep 22, 2016 09:32
[2016-09-22] MEDS: Famotidine Inj 20 MG in IV Premix 1 EACH IV SCH (11:05)
--- NOTE | 2016-09-22 11:33 | PROG NOTE ---
[address] [address] PROGRESS NOTE PATIENT: ANA RAY : 1950 MR#: [id number] ADMIT: 09/09/2016 JOB ID: [id number] DATE: 09/22/2016 INFECTIOUS DISEASE FOLLOWUP NOTE: REASON FOR FOLLOWUP: Complex intra-abdominal abscess following ileostomy takedown surgery, with possible fungal superinfection. INTERVAL HISTORY: Overnight, the patient has been somewhat depressed, as he is concerned that he will never be discharged. The patient has now been here a total of 14 days and is a quite weary of confinement in the hospital. He reports he has no fevers, no chills, no sweats, minimal abdominal pain and that he is able to get up and walk. He does still receive some pain meds, however, so it is unclear how pain free he is at this juncture. He has no cough, shortness of breath, or chest pain. No nausea or vomiting. He still has a left-sided SUZETTE drain from his original surgery but the plan is to pull this today. He also has a recently installed right abdominal drain, which was placed into a new abscess cavity, and this is supposed to remain for a bit longer. PHYSICAL EXAMINATION: Reveals an afebrile gentleman. Temp 37, pulse 89, respiratory rate 18, blood pressure 155/75. He is saturating well on room air and in no acute distress. He does look depressed, however. Oral cavity negative. Mental status is clear. Lungs clear. Cardiac tones without new murmur. Abdomen: Minimal tenderness. Left SUZETTE drain is present, as well as a right drain. The abdomen is relatively nontender as mentioned. No skin rash noted. He has a port catheter, which appears uninfected. LABORATORIES: Include a white count which dropped from 35,000 to 21,000 between September 19 and . Today, it just went down a bit and is now 20,000. The diff still with 83% segs. His creatinine is 1.21, which is stable. His liver function tests are normal. His procalcitonin continues to decline. It is down to 0.84 from a peak of 134 when he was admitted. Fungitell was 64. Micro studies include the original set of cultures from late August which grew Streptococcus anginosus, Bacteroides fragilis and peptostreptococcus from an abscess, and grew only peptostreptococcus from blood. Since then, we have additional negative cultures including blood cultures and the aspirate of the abscess done September 18 when the drain was placed. It showed many polys, no organisms and remains culture negative. IMPRESSION: This is a very complex case of a gentleman with a complex abdominal infection following ileostomy takedown. This was originally polymicrobial with the three organisms mentioned above, and he responded slowly to broad-spectrum antibiotics and appropriate drainage. More recently, the patient's white count bumped, and he was found to have a new apparent abscess on the right. A drain was placed into the right-sided fluid collection and yielded many polys but no organisms, and the culture remains negative. Because of the soaring white blood count, we added micafungin to his antibacterial regimen, and his white count has come down and the patient has improved considerably. At this point, we have no proof of the fungal superinfection but it seems very likely. he continues on broad-spectrum antibiotics with a steady fall in his procalcitonin from levels over 100 on admission, now to levels less than 1. The patient could be discharged at any time from an infectious disease point of view. The patient has used home intravenous therapy before when he received chemo for the [employer] at his home on [address], and that would be one option. Another option would be for him to come back and forth to the [facility] every day. One complicating factor may be that it seems intended for him to go home with a drain, and I have paged Dr. Ramirez to discuss this. RECOMMENDATIONS: 1. The patient can be discharged at any time from an infectious disease point of view but I do not think he is ready for oral antibiotics yet. 2. I would send him out on ertapenem a gram once a day IV through at least October 04. 3. In addition, he should go home on micafungin 150 once a day through at least October 04. 4. I will see the patient in my clinic on September 27 and again on October 04 to re-evaluate. 5. Weekly labs should include a CBC, CMP and procalcitonin, and these can be faxed to my office. 6. I plan to discuss this case with Dr. Ramirez, and I have already discussed it with Dr. Levine, as well as the nursing staff and the order planner, in hopes of getting this patient out of here today, as he so desperately desires.
--- NOTE | 2016-09-22 12:16 | NUR ---
Spoke with Ezequiel [phone] at [facility] and they out of pocket cost for the patient will be $2000 per week and this includes everything needed for home infusions. Patient and family need to updated and then Ezequiel would like call back either way regarding decision. Updated KEN Addendum: 09/22/16 at 1458 by KELLEY GREENE CM Faxed all orders and scripts to Ezequiel at [facility], they have contacted and planning to be out to the home in the morning between 9-11AM. is aware and okay with this plan. Updated RN and SALES AND MARKETING ASSOCIATE
--- NOTE | 2016-09-22 12:51 | NUR ---
Social Work: Multidisciplinary Rounds/Discharge D: Pt discussed in am rounds. Pt is medically stable if pt's IV ABX schedule/disposition can be facilitated. Order acknowledged to arrange for home infusions. Per [facility] and [facility], pt's share of cost for home infusions is $2000 a week. CLASSIFIER OPERATOR met with the patient and his at bedside to review discharge options: Info re: $2000/week share of cost for home infusions was provided to them along with options to receive IV abx at [facility] and discharge to skilled rehab. Pt and contemplated and discussed options. At this time, they would like to pay the $2000/week for home infusions; preference remains for [facility]. [facility] has informed Ezequiel at [facility] who can see the patient and tomorrow. morning for teaching and assessment. MD is aware of discharge plan and is writing orders. No concerns regarding pt's capacity for self-care. PT has cleared pt and recommending d/c home. A: Pt who is I at baseline. P: Pt to discharge home via POV with home infusions/abx through [facility]. Pt's spouse to transport. KEN Sarah
--- NOTE | 2016-09-22 13:19 | PCM.DIMED ---
Ana Cristina Levine MD 09/22/16 1319: Discharge Instructions Date of Service Sep 22, 2016 Dates of Hospitalization Sep 09, 2016 at 22:18 Discharge Diagnosis Discharge Diagnosis Septic shock right paracolic abscess with peritonitis Type II diabetes chronic kidney disease, stage 2 Hypertension Medication Instructions Additional med instructions You will be discharged with home IV antibiotics with [facility] a- Ertapenam 1 gram IV q 12 hours, Until at least October 04 b- Micafungin 150 mg daily IV, Until at least October 04 Diet Discharge Diet: Heart Healthy, Diabetic Activity Discharge Activity: Limited until seen by PCP Call your provider Call your provider for: Fever or Chills, Excessive diarrhea Patient Instructions Patient Instructions 1- Follow up with Dr. Dowling on September 27 and October 04 2- Need to do weekly blood test, (CBC, CMP, Procalcitonin) results to Dr. Dowling 3- Nurse will explain any "surgical" follow up to you 4- Follow up with your primary care provider soon. Follow-up with PCP in: 1 week Will Lerner PA-C 09/22/16 1355: Ana Cristina Levine MD Sep 22, 2016 13:19 Will Lerner PA-C Sep 22, 2016 13:55
[2016-09-22 13:24] VITALS: BP 161/78; PULSE 85; RESP 20; O2SAT 97
--- NOTE | 2016-09-22 13:26 | PCM.DC.MED ---
Discharge Summary Date of Service Sep 22, 2016 Dates of Hospitalization Date of Hospital Admission Sep 09, 2016 at 22:18 Date of Discharge: Sep 22, 2016 Providers: Admitting Physician: Dilan Ramirez MD Primary Care Physician: Darshana Yi PA-C Attending Physician: Dilan Ramirez MD Diagnosis at Time of Discharge Diagnosis at Time of Discharge Septic shock, poa, resolved right paracolic abscess with peritonitis, poa, improving Type II diabetes, poa, stable chronic kidney disease, stage 2, poa, stable Hypertension, poa, stable Consultations REASON FOR CONSULTATION: Septic shock secondary to a large intraabdominal abscess. HISTORY OF PRESENT ILLNESS: The patient is a 66-year-old gentleman who was diagnosed late last year with stage 3 colon cancer. In early March he underwent surgery and had formation of an ileostomy as well as resection of the tumor. He was found to have 17/45 lymph nodes, which were positive for malignancy and was started on FOLFOX chemotherapy. He has now received 7 of his scheduled 12 cycles of chemotherapy. He was having considerable problems with his ileostomy as it was right at the belt line in the right lower quadrant and it was causing him a great deal of just day-to-day difficulty, so on August 24 Dr. Esposito performed an ileostomy reanastomosis. This was initially quite successful and the patient was happy with the results. On September 08 though he was seen [facility] for followup on his chemotherapy regimen and was noted to have a very elevated white count without any explanation, such as any cytokine administration. The patient declined additional evaluation at that time, though as he did not really feel bad at all. Yesterday, on SundaySeptember 09, the patient went to take a nap feeling a bit fatigued and when he got up he noticed he had developed really agonizing lower mid abdominal pain, which he described as at least 10/10. This seemed to come out of nowhere and was associated with violent shaking chills, though the ER record says he complains of fever, the patient, who is now awake and alert, states he did not have fever, but only chills along with severe abdominal pain and nausea. This severe abdominal pain of course led the patient fairly quickly to the emergency department where he was evaluated and found to have an intraabdominal abscess. Dr. Ramirez took the patient to the operating room yesterday to clean out the abscess and look for possible leak or other process producing the abscess and that surgery was completed in the supervisor roller shop hours. The patient was returned to the ICU where he has now been extubated. He is perhaps a bit groggy because of some pain medications he is receiving, but is able to give a rather comprehensive history. At this point he states he is not having fever or chills. He continues to have abdominal pain and feels very weak. He notes that when his pain medications are turned up, he hallucinates. He states he had these hallucinatory problems with narcotics after his first surgery as well. He currently as mentioned has no headache. He is bothered by the NG tube present in his nose, but otherwise no sore throat, minimal if any cough. He has pain over deep inspiration but it actually hurts in his abdomen and not in his thorax. PAST MEDICAL HISTORY: 1. Colon cancer diagnosed late 2016 status post primary resection with formation of ileostomy and takedown of the ileostomy on August 24. 2. Status post 7/12 cycles of planned FOLFOX therapy. 3. Hypertension. 4. Hyperlipidemia. 5. Diabetes mellitus with neuropathy. 6. Mild chronic renal insufficiency with creatinine typically perhaps about 1.5, but numerous episodes that are documented in the record over the past few months when his creatinine bumped as high as 2.5. 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 He quit smoking in 1989, drinks alcohol rarely and has not traveled recently, though he did spend several years in the [employer] as a young man. FAMILY HISTORY: The patient has no exposure to tuberculosis and denies TB in either first or second-degree relatives. REVIEW OF SYSTEMS: Was done. The patient right now has no headache, no visual complaints. He is bothered by the NG tube in his nose. He does have some mild sore throat he attributes to that NG tube. His neck is not stiff. He has a port in his left upper chest which he says does not bother him. He has no cough and no real chest pain, though with deep inspiration he develops epigastric pain. He does have some significant abdominal pain as he is only hours removed from an abdominal exploration. He was not having urinary symptoms prior to admission. He now has a Beckford catheter. He was not having any synovitis or skin rash prior to admission and does not have any now that he is aware of. He notes neuropathy in his feet, but otherwise no neurologic complaints.Remainder of the ROS negative PHYSICAL EXAMINATION: Physical exam reveals an afebrile gentleman, temp 37.1, pulse 113, respiratory rate in the low to mid 20s. Blood pressure 105/60. Saturating well on room air. Note that his blood pressure is dropping, however and this morning it was 103/60 just an hour or so ago, when I am in the room it is 79/48, and there is a discussion and he will be started on vasopressor agents which represents a major change obviously in his status. Examination of the mental status reveals he is quite lucid. Eyes without conjunctivitis or scleral icterus. He has an NG tube. His oral cavity is without thrush or hairy leukoplakia. His neck is without adenopathy. He has a port in his left upper chest which appears benign. His lungs are clear. His cardiac tones regular rate and rhythm without murmur. His abdomen is freshly postop so I did not poke around too much. There is no dramatic tenderness or peritoneal signs, but he does have SUZETTE drains on the left side as well as a midline incision. There is also a bandage over the area where his ileostomy was taken down on the right lower quadrant. Penis and scrotum are normal. There is no inguinal adenopathy. A Beckford catheter is present. The extremities are without synovitis. There is no skin rash. Neurologically, he is intact except for some neuropathy in the feet reparable to his diabetes. Otherwise has good strength throughout. DIAGNOSTIC STUDIES: Labs include a white count of 4800. The diff is relatively normal. Platelets 374. Creatinine is 1.9. His lactic acid was 5.9 early this morning. It is now 3.0 so much improved. ALT is 46 yesterday, it was 66. Alk phos yesterday 266, today 146 so much improved. Albumin 1.4. Urinalysis without pyuria. Cultures of the abdomen were just received in the laboratory so I do not even have a Gram stain yet. MRSA screen is already back and it is fortunately negative. Blood cultures are pending. In looking at his data from outpatient visits he had a negative stool PCR for C. diff about two weeks ago, and he grew Staph pseudintermedius from a wound about a year ago. This is a dog staph. Imaging: Includes a chest x-ray done yesterday which I reviewed, which shows pneumoperitoneum below the left diaphragm which is of course one of the reasons he was taken to the operating room. IMPRESSION: This is an unfortunate gentleman who was diagnosed with fairly advanced colon cancer last year and in early March of this year underwent his initial surgery and started off on a long cycle of chemotherapy utilizing his left chest port catheter. He was bothered by his ileostomy placement and so on August 24 had his ileostomy reanastomosed and reversed. He did fine for about two weeks and then had an insidious creep in his white blood count noted on September 08 followed by development of very severe abdominal pain and the discovery of a large abdominal abscess yesterday which required surgery which only concluded early this morning. He is now relatively stable in the Intensive Care Unit, though his blood pressure is a bit soft and he is going to be requiring some vasopressor agents. Whether this hypotension is on truly on the basis of septic shock or secondary to the pain meds he is receiving in a contributory relative hypovolemia remains unclear, but it is certainly prudent to start the vasopressors and treat this as septic shock. Likely organisms here would include the usual bowel linwood including anaerobes. Whether or not to treat for yeast at this point is unclear, but I think I would probably hold off until we see what is in the cultures as we do have good material in the lab and if yeast grows we can subsequently add in fluconazole or micafungin. RECOMMENDATIONS: 1. Will continue with Zosyn. Note that his dose has been renally adjusted, but I think overly renally adjusted so I am going to increase that to q.8 hour dosing. In septic shock somewhat higher doses of Zosyn are definitely indicated, and I think that our dosing protocol may underdose people on occasion especially in critical illness such as this. 2. I would hold off on antifungal therapy at this point, but will closely follow the results of the cultures that were obtained during surgery. 3. This case discussed at the bedside with the ICU nurse as well as with Dr. Simental who kindly requested this consult. Donal Dowling MD 09/10/16 5684 DATE OF SERVICE: 09/09/2016 CHIEF COMPLAINT/IDENTIFICATION: Dr. Chiu has asked me to see this 66-year-old man with pneumoperitoneum on chest x-ray. HISTORY OF PRESENT ILLNESS: The patient is well known to the General Surgery service. He has a history of stage III colon cancer, status post laparoscopic resection in March of this year with a protective loop ileostomy. The ileostomy was closed roughly 16 days ago in an uneventful operation. The patient had received seven cycles of FOLFOX post initial resection, but has not received any chemotherapy since. Yesterday, he presented for routine lab check with his oncologist and was noted to have a white blood cell count of 28,000, and a potassium of 2.5, but be relatively asymptomatic. After negotiation to the patient, it was decided to simply hydrate him, replete his potassium and follow him up on Sunday. Today, the patient noted sudden onset of what he describes as a bubble popping in his abdomen and going up, followed by excruciating pain. He was seen in the emergency department where he is was noted to be tachycardic, mildly hypotensive, and chest x-ray demonstrates free air under the diaphragm. I was called in consultation. On questioning the patient, he confirms that he has been doing progressively better each day after his ileostomy closure. He has been having normal bowel movements. He has been having some of his chronic back pain for which he takes Misael's back pills. He says that he takes four pills a day, but his says it is more like six, possibly more. He takes no other nonsteroidal anti-inflammatory drugs other than 81 mg of aspirin a day. He has no known history of peptic ulcer disease. He has no known history of diverticulitis. PAST MEDICAL HISTORY: Hypertension, type 2 diabetes mellitus, chronic back pain. MEDICATIONS: 1. Lisinopril 5 mg daily. 2. Glipizide at 2.5 mg daily. 3. Atorvastatin. 4. Fish oils. 5. Aspirin 81 mg. ALLERGIES: None. SOCIAL HISTORY: The patient is seen with his . Negative tobacco. Negative daily alcohol. FAMILY HISTORY: Noncontributory. REVIEW OF SYSTEMS: Per Dr. Chiu's note. PHYSICAL EXAMINATION: The patient is not in extremis but is quite uncomfortable, lying relatively still on his ED gurney. Pulses range from 87-154 recorded, was in the 140s when I saw him. His temperature currently is 37.8, blood pressures range from 90/51 as a low, to 154/83 as a high. Currently, his room air saturation is 98%. HEENT: Sclerae are anicteric. His neck is supple. Lungs are clear. Heart sounds are regular. His abdomen is a bit tender, has a healing right lower quadrant ileostomy closure site. There is no purulence coming from the ileostomy site. He is diffusely tender to palpation. There are no groin hernias. LABORATORIES: Interestingly, his white count that was 28.4 yesterday is down to 12.5. Preoperatively, his white count is normal and was 12.2 on August 29. However, his platelets are ascending from 204 on discharge on the , at 11 days ago, to 534 on Sunday, and 745 today. Chemistries show a potassium of 3.2, a bicarbonate of only 12, BUN of 45, with a creatinine improving from yesterday of 1.94. His glucose is 146. His lactic acid is 5.8. Liver function tests are acceptable, with a total bilirubin of 0.6, mild elevation of his AST and ALT at 68 and 66, and alkaline phosphatase at 266. This is compared with normal liver function tests on the of this month. IMAGING: Chest x-ray: I have reviewed the chest x-ray films and the report, and I concur that he has a pneumoperitoneum beneath the left hemidiaphragm. This pneumoperitoneum is more than one would expect at 16 days status post surgery. IMPRESSION AND PLAN: A 66-year-old man with a pneumoperitoneum, complains of severe abdominal pain, and abnormal labs. My index of suspicion for a true bowel perforation that requires operative intervention is high enough that we will go ahead to the operating room. I have discussed with the patient and his the possibility of gastric or duodenal ulcer perforation versus some problem at the ileostomy closure site versus some other colon perforation. He understands that we will proceed with repair as needed in the OR and that he may end up with some sort of ostomy after the surgery. He agrees to proceed. He says that he is in too much pain to sign the consent and has asked his to do this for him. We will proceed to the OR emilie. Dilan Ramirez MD 09/09/16 2236 Procedures XRay, CTs & MRIs Chest x-ray IMPRESSION: Pneumoperitoneum beneath the left hemidiaphragm, consistent with bowel perforation in the absence of any recent laparotomy. Findings were discussed with patient's nurse at 2122 hrs on September 09, 2016. Dictated by: Anthony Cannon M.D. on 09/09/2016 at 21:17 PROCEDURE: US ABDOMEN INDICATIONS: rising Alk phos, possible ellen TECHNIQUE: Real-time scanning was performed of the abdominal and retroperitoneal organs, with image documentation. COMPARISON: [facility], US, US ABDOMEN, 02/01/2016, 10:42. FINDINGS: Liver length: 17.12 cm Spleen length: 13.40 cm Right kidney length: 10.90 cm Left kidney length: 11.14 cm Aorta(Proximal): 2.62 cm Aorta(Mid): 1.93 cm Aorta(Distal): 1.91 cm Liver: Liver is diffusely increased in echogenicity. No focal hepatic abnormalities identified. Normal hepatic size. Gallbladder: No gallstones or sludge. Gallbladder wall is prominent measuring 3.6 mm. Small amount pericholecystic fluid. Biliary ducts: Intrahepatic bile ducts are non-dilated. Extrahepatic bile duct is not well-seen. Pancreas: Visualized portions of the pancreas are sonographically normal. Spleen: Spleen is mildly enlarged in size and homogeneous in echotexture. Kidneys: Kidneys are normal in size and echotexture. No hydronephrosis or nephrolithiasis. No solid masses. Aorta: Visualized aorta is normal in caliber at less than 3 cm. Iliacs: Proximal common iliac arteries are normal in caliber at less than 2.5 cm. IVC: Intrahepatic inferior vena cava is patent. Miscellaneous: Small amount of complex fluid within the right and left upper quadrants as well as within the pelvis. Small pleural effusions. IMPRESSION: 1. Increased hepatic echogenicity noted likely related to fatty infiltration of the liver but other sources of hepatocellular disease cannot be excluded. Recommend clinical correlation. 2. Gallbladder wall is prominent which may be related to surrounding fluid. Correlate clinically. 3. Mild symmetric splenomegaly. 4. Trace amount of scattered complex fluid within the pelvis and upper abdomen with volume not sufficient for safe paracentesis. 5. Small pleural effusions. Dictated by: Ezequiel Choffel RRA Interpreted: Will De La Vega MD on 09/13/2016 at 14 :44 PROCEDURE: CT ABDOMEN AND PELVIS WITHOUT CONTRAST ([id number]) INDICATIONS: Elevated WBC's TECHNIQUE: After the administration of oral contrast, 5 mm thick sections acquired from the diaphragms to the symphysis. 5 mm coronal and sagittal reformats were performed. For radiation dose reduction, the following was used: automated exposure control, adjustment of mA and/or kV according to patient size. COMPARISON: [facility], CT, CT CHEST ABD PELVIS WO CON, 03/21/2016, 14:03. FINDINGS: Image quality: Excellent. ABDOMEN: Lung bases: Minimal to mild bilateral pleural effusions, left greater than right. Heart size is normal. Solid organs: Liver and spleen are normal in size. Gallbladder is contracted with a focal area of calcification.. Pancreas is normal in size. No adrenal nodules. Both kidneys are normal in size, without hydronephrosis. Nonobstructing right renal calculi are present. Peritoneum and bowel: Bowel loops are nonobstructed. There are scattered areas of bowel thickening. In addition, bowel is incompletely distended. A surgical drain is identified coursing across the anterior abdomen and into the right lower abdomen and right lower pelvis. There is a diffuse appearance of mesenteric fat stranding throughout the abdomen and pelvis. There is scattered areas of fluid throughout the abdomen and pelvis including prominent fluid in the right paracolic gutter measuring 82 mm AP by 46 mm transverse. Other focal, smaller pockets of fluid are noted within the lower central abdomen as well as anterior lateral left lower abdomen. Anastomotic sutures are identified within the bowel in the right lower quadrant. There is diffuse surrounding fluid. The right paracolic gutter fluid is noted along the superior level of the anastomotic site. No gross contrast extravasation. No free air is identified. Nodes and vessels: No retroperitoneal or mesenteric adenopathy by size criteria. Aorta and inferior vena cava are normal in size. Miscellaneous: No ventral hernias. PELVIS: Genitourinary: Bladder wall thickness is normal. Miscellaneous: No inguinal hernias or adenopathy. Bones: No suspicious bony lesions. No vertebral body compression fractures. IMPRESSION: 1. Diffuse mesenteric fat stranding within the abdomen and pelvis with diffuse scattered fluid as well as a larger focal pockets of fluid as described above. Surgical drain is present. It is noted that the prominent right paracolic other fluid collection is at the superior level of the surgical anastomotic site. However, there is no gross contrast extravasation identified indicative of bowel perforation. No free air. As clinical concern persists, short interval imaging followup is recommended. As tolerated, IV and oral contrast is recommended on followup imaging for better delineation of bowel-fluid interfaces. 2. Focal calcification within the gallbladder consistent with cholelithiasis. Gallbladder is significantly contracted, limiting evaluation for additional superimposed process. 3. Mild bilateral pleural effusions. Dictated by: Jenni Casas M.D. on 09/18/2016 at 13:28 PROCEDURE: CT ABCESS DRAIN PERITONEAL INDICATIONS: Elevated WBC COMPARISON: [facility], CT, CT ABD PELVIS WO CON, 09/18/2016, 13:16. FINDINGS: Informed, written consent from the patient was obtained prior to the procedure. The patient was brought to the CT suite and conscious sedation was administered intravenously by assisted staff while continuous cardiorespiratory monitoring was performed. Credit Assessment Analyst imaging of the intrahepatic fluid collection was performed with overlying localization grid. The appropriate skin site was identified, prepped and draped sterilely and infused with lidocaine. Under CT guidance an 18 gauge Chiba needle was advanced into the fluid collection. A 035 J-wire was advanced into the fluid collection. An 8 Latvian pigtail drainage catheter was placed. 10 cc of fluid was aspirated and sent to the lab for further evaluation. IMPRESSION: Successful drain placement in a subhepatic fluid collection. Aspirated fluid sent to the lab for further evaluation. Dictated by: Carlos Sharpe M.D. on 09/18/2016 at 19:12 Brief History 66-year-old man with type II diabetes, CKD secondary diabetes, hypertension, history of stage III colon cancer with resection in March 2016 with a loop ileostomy that was closed proximally 2 weeks ago without complication. The patient was doing well and received postop FOLFOX chemotherapy. Yesterday the patient presented to emergency department due to excruciating pain following what he describes as a popping in his abdomen. Patient presented emergency departments found to be in early septic shock and chest x-rays noted that there was a rind of the diaphragm. This is a step backwards for the patient has been doing relatively well since his last surgery and is back to having normal bowel movements. Of note, the patient was his oncologist office 24 hours before presentation and was noted to have a white count 28,000. At that time the patient requested that he only be treated with fluids and conservative measures. Last night Dr. Ramirez took the patient to surgery emergently and noted shiraz peritonitis but appears to be ruptured pericolonic abscess. The abdomen was washed and 3 drains were placed. There also number of adhesions that were taken down this time as well. 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 Patient is currently on Zosyn and intra-abdominal infection. Blood glucose at remained untouched tight control with the highest since surgery of only 144. Otherwise white count has decreased nicely from 12.5-4.8 his anemia appears to be stable, although initially attempted dropped from 9.0 to 7.7. Patient's lactic acid was 5.9 this morning but after fluid resuscitation is also trending down to 3.0. Hospital Course 66-year-old male with a history of type II diabetes, CK D, hypertension, and stage III colorectal cancer status post reversed ileostomy with new abscess formation with peritonitis. Acute Sepsis, poa, resolved -secondary to right paracolic abscess with peritonitis Right paracolic abscess, poa, improving -pt underwent laparoscopic washout by Dr. Ramirez on 09/09/16, pt underwent ICU course with vasopressors.Abscess culture showed strep Angionosus, pansensitive. Patient was initially started on zosyn, switched to PCN G 09/13 based on culture by ID, pt also received flagyl 09/15-09/18, added Ertapenem 09/19 given newly found possible abscess, added micafungin 09/19. Course was complicated as wbc was on wrong trends, CT on 09/18 showed worsening fluid collection in abdomen, underwent CT-guided drainage on 09/18. Pt tolerated procedure well. Diet was advanced. -pt is clinically stable, afebrile, HD stable, labs in right direction. -continue ertapenem, micafungin, appreciate ID follow up -Continue to follow labs procalcitonin and CBC -initially pain control with ECHOMETER ENGINEER dilaudid, stopped, now on Oxycodone and dialudid prn -drains managed by surgery, appreciate daily FU, likely to remove SUZETTE drain soon -Discharge patient home today: continue ertapenam 1 gram IV q 12 hours and Micafungin 150 mg q day until at least Act 19th with home infusion solutions, patient to follow up with Dr. Dowling on September 27 and October 04. Also patient needs to do weekly CBC, CMP, Procalcitonin with results to Dr. Dowling. -Nurse will explain and cordinated any surgical follow up for surgery Type II diabetes, poa, stable -last A1c of 6.5, continue RISS q6h, fsg qd CKD, poa, improved -Due to hypertension and diabetes, Baseline creatinine seems to be around 1.5, improving, avoid nephrotoxic meds, renally adjust meds Metabolic acidosis with lactic acidosis, poa, resolved Hypertension, poa, stable Reactive Depression, -He declines antidepressant therapy, seemed in good spirit dvt ppx: HSQ q8h Disposition:pending surgical course, coordinate with surgery, ID Exam Vital Signs (Last) Date Time Temp Pulse Resp B/P Pulse Ox O2 Delivery O2 Flow Rate FiO2 09/22/16 05:34 37.0 89 18 155/77 98 Room Air Test 09/09/16 20:30 09/10/16 02:00 09/11/16 03:00 09/12/16 05:30 Hold Purple Top Tube Received (Received) Activated Partial Thromboplast Time 22.9sec (22.8-33.0) Hold Blue Top Tube Received (Received) Troponin T 0.010ug/L (0.0-0.011) Hold Red Top Tube Received (Received) Hold [place] Top Tube Received (Received) Hold [place] Top Tube Received (Received) Urine Color Yellow (YELLOW) Urine Appearance Cloudy (CLEAR,HAZY) Urine pH 5.5 (5.0-8.0) Urine Specific [place] 1.015 (1.003-1.035) Urine Protein 30mg/dL (NEG,TRACE) Urine Glucose (UA) Negativemg/dL (NEGATIVE) Urine Ketones Negativemg/dL (NEGATIVE) Urine Occult Blood Negative (NEGATIVE) Urine Nitrite Negative (NEGATIVE) Urine Bilirubin Negative (NEGATIVE) Urine Urobilinogen Normalmg/dL (NORMAL) Urine Leukocyte Esterase Negative (NEGATIVE) Urine RBC 0-2/hpf (0-2) Urine WBC 0-5/hpf (0-5) Urine Epithelial Cells Few/hpf (NONE-MOD) Urine Crystals Uric acid crystals (NONE Urine Bacteria Few/hpf (NONE-FEW) Urine Hyaline Casts None/lpf (NONE) Urine Granular Casts None seen (NONE SEEN) Urine Waxy Casts None seen (NONE SEEN) Urine Red Blood Cell Casts None seen (NONE SEEN) Urine White Blood Cell Casts None seen (NONE SEEN) Urine Mucus None seen (None Seen) Urine Trichomonas None seen (NONE SEEN) Urine Yeast None (NONE SEEN) Urinalysis Comment Urine Culture Reflexed Not indicated Hemoglobin A1c 6.4% (4.8-5.6) Heparin-PF4 Ab Optical Density 0.135OD (<0.4) Heparin-PF4 Antibody Interpretation Not indicated Test 09/13/16 05:13 09/14/16 04:55 09/16/16 05:40 09/18/16 04:20 Gamma Glutamyl Transpeptidase 293IU/L (0-65) Myelocytes % 3% (0-0) Metamyelocytes % 2% (0-0) Nucleated Red Blood Cells 3/100 WBC (0-24) Prolactin 6.1ng/mL (4.0-15.2) Lipase 87U/L (13-60) Test 09/18/16 14:25 09/19/16 04:30 09/19/16 14:22 09/22/16 04:50 Prothrombin Time 12.8sec (8.1-12.5) Prothromb Time International Ratio 1.19ratio Lactic Acid Level 1.0mmol/L (0.4-2.0) Band Neutrophils % 1% (1-5) Fungal Antibodies 64pg/mL (<80) White Blood Count 20.3th/mm3 (3.8-10.1) Red Blood Count 2.48mil/mm3 (4.40-5.80) Hemoglobin 7.6g/dL (13.8-17.2) Hematocrit 23.7% (41.0-50.0) Mean Corpuscular Volume 95.6fL (81-100) Mean Corpuscular Hemoglobin 30.6pg (27.0-35.0) Mean Corpuscular Hemoglobin Concent 32.1% (32.0-37.0) Red Cell Distribution Width 16.1% (12.3-15.4) Platelet Count 685bil/L (150-400) Neutrophils (%) (Auto) 83.4% (40-74) Lymphocytes (%) (Auto) 8.0% (14-46) Monocytes (%) (Auto) 7.1% (4-12) Eosinophils (%) (Auto) 0.7% (0-5) Basophils (%) (Auto) 0.2% (0-3) Hematology Comments Sodium Level 132mEq/L (134-144) Potassium Level 5.2mEq/L (3.5-5.2) Chloride Level 97mEq/L (97-108) Carbon Dioxide Level 24mmol/L (18-29) Blood Urea Nitrogen 13mg/dL (8-27) Creatinine 1.21mg/dL (0.76-1.27) Estimat Glomerular Filtration Rate 64mL/min (>59) Glucose Level 134mg/dL (60-99) Calcium Level 7.3mg/dL (8.5-10.1) Phosphorus Level 2.7mg/dL (2.5-4.9) Magnesium Level 1.6mg/dL (1.6-2.6) Total Bilirubin 0.3mg/dL (0.0-1.2) Aspartate Amino Transf (AST/SGOT) 20U/L (0-50) Alanine Aminotransferase (ALT/SGPT) 6U/L (0-44) Alkaline Phosphatase 118U/L (25-160) Total Protein 4.9g/dL (6.4-8.4) Albumin 1.9g/dL (3.4-5.0) Procalcitonin 0.84ng/mL (0.00-0.08) Discharge Medications Discharge Medications Aspirin (Aspirin) 81 Mg Tablet 81 MG PO DAILY Prescribed by: THERESA VALLEJO Atorvastatin Calcium (Atorvastatin Calcium) 20 Mg Tablet 20 MG PO HS (Reported) Ertapenem Sodium (Invanz) 1,000 Mg/10 Ml Vial 1,000 MG IV BID Prescribed by: Ana Cristina LEVINE MD Glipizide ER (Glipizide ER) 2.5 Mg Tab.er.24 2.5 MG PO DAILY (Reported) Lisinopril (Lisinopril) 5 Mg Tablet 5 MG PO DAILY (Reported) Micafungin Sodium (Mycamine) 50 Mg/5 Ml Vial 150 MG IV DAILY Prescribed by: Ana Cristina LEVINE MD Additional med instructions You will be discharged with home IV antibiotics with [facility] a- Ertapenam 1 gram IV q 12 hours, Until at least October 04 b- Micafungin 150 mg daily IV, Until at least October 04 Followup Plan Discharge Diet: Heart Healthy, Diabetic Discharge Activity: Limited until seen by PCP Patient Instructions 1- Follow up with Dr. Dowling on September 27 and October 04 2- Need to do weekly blood test, (CBC, CMP, Procalcitonin) results to Dr. Dowling 3- Nurse will explain any "surgical" follow up to you 4- Follow up with your primary care provider soon. Follow-up with PCP in: 1 week Time spent 40 minutes time spent so far discharging patient home so far today Ana Cristina Levine MD Sep 22, 2016 13:26
[2016-09-22] MEDS ORDERED: INVANZ1I IV (13:38)
[2016-09-22] MEDS ORDERED: MICA50VI IV (13:38)
[2016-09-22] MEDS ORDERED: OXYC-474 PO (13:53)
--- NOTE | 2016-09-22 14:12 | PCM.DISURG ---
Surgical Discharge Instruction Date of Service Sep 22, 2016 Dates of Hospitalization Date of Hospital Admission Sep 09, 2016 at 22:18 Providers Admitting Physician: Dilan Ramirez MD Primary Care Physician: Darshana Yi PA-C Attending Physician: Dilan Ramirez MD Discharge Diagnosis Discharge Diagnosis Status post lysis of adhesions and placement of multiple drains for intra- abdominal abscess with intraperitoneal rupture. Post Operative diagnosis Status post lysis of adhesions and placement of multiple drains for intra- abdominal abscess with intraperitoneal rupture. Diet Discharge Diet: Diabetic Activity Discharge Activity-General: Activity as pain allows, Activity as energy allows Dressing and Incisional Care Dressing Care: Other (Keep drain and port sites clean as directed.) Hygiene: May shower Additional Instructions Discharge Instructions INFECTIOUS DISEASE INSTRUCTIONS 1. The patient can be discharged at any time from an infectious disease point of view but Dr. Dowling does not think he is ready for oral antibiotics yet. 2. Dr. Dowling Recommends ertapenem a gram once a day IV through at least October 04. 3. In addition, he also recommends the patient should go home on micafungin 150 once a day through at least October 04. 4. Dr. Dowling will see the patient in my clinic on September 27 and again on October 04 to re-evaluate. 5. Weekly labs should include a CBC, CMP and procalcitonin, and these can be faxed to Dr. Dowling's office before weekly outpatient appointments. Additional Instructions INTERVENTIONAL RADIOLOGY DRAIN INSTRUCTIONS 1. Keep drains clean and stripped daily as directed. 2. Flush drain twice daily with 50 mL of sterile normal saline 3. Record drain output daily. Follow Up Plan Follow Up Plan 1. Follow-up with Dr. Dowling in outpatient Infectious Disease Clinic every Sunday. 2. Follow-up with outpatient physician assistant technician general surgery clinic in 2 weeks. Follow-up Provider (F9): Don Alanis PA-C Mid-level Provider (F9): Darshana Yi PA-C Call your provider for: Fever (greater than 101 and not improved with Tylenol/ acetaminophen), Chills, Shortness of breath, Increasing abdominal pain, Nausea, Vomiting, Wound redness, Increasing wound pain, Warmth to touch, Discharge @ incision, pus discharge Additional Information Attending Statement All documentation reviewed & orders authorized by Attending General Surgeon Dr. Dilan Ramirez M.D. & Infectious Disease Specialist Dr. Dowling. Will Lerner PA-C Sep 22, 2016 14:11
--- NOTE | 2016-09-22 14:33 | PCM.DC.SUR ---
Discharge Summary Date of Service: Sep 22, 2016 Date of Hospital Admission: Sep 09, 2016 at 22:18 Date of Operation(s): 09/10/2016 Date of Discharge: 09/22/2016 Diagnosis at Time of Discharge Status post lysis of adhesions and placement of multiple drains secondary to intra-abdominal abscess with intraperitoneal rupture Problems: Operation Lysis of intra-abdominal adhesions and placement of multiple drains Brief History and Physical: [address] [address] Adult Medical H&P Patient Name: Kristofer Mccartney Unit Number: [id number] Date of : 1950 Patient Status: Admitted Inpatient Attending Doctor: Dilan Ramirez MD Adult Patient Data Subjective Date of Service Sep 10, 2016 Primary Provider: Admitting Physician: Dilan Ramirez MD Primary Care Physician: Darshana Yi PA-C Attending Physician: Dilan Ramirez MD Chief Complaint: Abdominal pain History of Present Illness: 66-year-old man with type II diabetes, CKD secondary diabetes, hypertension, history of stage III colon cancer with resection in March 2016 with a loop ileostomy that was closed proximally 2 weeks ago without complication. The patient was doing well and received postop FOLFOX chemotherapy. Yesterday the patient presented to emergency department due to excruciating pain following what he describes as a popping in his abdomen. Patient presented emergency departments found to be in early septic shock and chest x-rays noted that there was a rind of the diaphragm. This is a step backwards for the patient has been doing relatively well since his last surgery and is back to having normal bowel movements. Of note, the patient was his oncologist office 24 hours before presentation and was noted to have a white count 28,000. At that time the patient requested that he only be treated with fluids and conservative measures. Last night Dr. Ramirez took the patient to surgery emergently and noted shiraz peritonitis but appears to be ruptured pericolonic abscess. The abdomen was washed and 3 drains were placed. There also number of adhesions that were taken down this time as well. This morning the patient states he is feeling much better although does continue to have some abdominal pain that is fairly well controlled with Dilaudid MEDICAL MANAGEMENT SPECIALIST. Patient is currently on Zosyn and intra-abdominal infection. Blood glucose at remained untouched tight control with the highest since surgery of only 144. Otherwise white count has decreased nicely from 12.5-4.8 his anemia appears to be stable, although initially attempted dropped from 9.0 to 7.7. Patient's lactic acid was 5.9 this morning but after fluid resuscitation is also trending down to 3.0. 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 Stage III colorectal cancer Hyperlipidemia Surgical History Right elbow surgery Mohs procedure of right temporal region Laparoscopic right colectomy with diverting loop ileostomy Closure of loop ileostomy and takedown of adhesions Family History His father at age 86, he had dementia, diabetes His mother of car accident at age 47 Social History Hx Alcohol Use: No Hx Substance Use: No Smoking Status: Former Smoker Living Arrangement: with Family Medical Exam Exam Vital Signs Vital Sign - Last Date Time Temp Pulse Resp B/P Pulse Ox O2 Delivery O2 Flow Rate FiO2 09/10/16 19:38 37.3 106 26 137/49 94 Room Air 09/10/16 02:40 10 Intake and Output 09/09/16 09/09/16 09/10/16 Cumulative From/Thru 15:00 23:00 07:00 09/08/16 03:00 - 09/10/16 06:43 Intake Total 1000 ml 3688 ml 74772 ml Output Total 200 ml 840 ml Balance 1000 ml 3488 ml 9648 ml Intake Oral 100 ml 100 ml IV Total 1000 ml 3003 ml 9803 ml Packed Cells 585 ml 585 ml Output Urine Total 125 ml 455 ml Gastric Drainage Total 0 ml 0 ml Drainage Total 75 ml 385 ml Exam Gen.: Lying in bed, no acute distress HEENT: No lymphadenopathy, no lymphadenopathy, mucosa moist, no thrush Cardio: Regular rate and rhythm, no murmurs appreciated Respiratory: Clear to auscultation without wheezing Abdomen: [address]: Abdomen mildly tender, noted patient is on Dilaudid Extremities: No cyanosis clubbing, or edema present Psych: Patient seems appropriate but mentation soft Neuro: Appears to be intact grossly although full neurological exam was deferred at this time due to patient condition. Lab and Diagnostics Result Diagram: 09/10/16 0610 09/10/16 0226 X-Rays, CTs and MRIs Chest x-ray IMPRESSION: Pneumoperitoneum beneath the left hemidiaphragm, consistent with bowel perforation in the absence of any recent laparotomy. Findings were discussed with patient's nurse at 2122 hrs on September 09, 2016. Dictated by: Anthony Cannon M.D. on 09/09/2016 at 21:17 Assessment & Plan Assessment & Plan 66-year-old male with a history of type II diabetes, CK D, hypertension, and stage III colorectal cancer status post reversed ileostomy with new abscess formation with peritonitis. Septic shock secondary to right paracolic abscess with peritonitis; present admission; ongoing -Patient underwent laparoscopic washout by Dr. Ramirez on 09/09/16; appreciated his expertise on this case -Patient currently being treated by Zosyn -Patient currently off all pressor support -Continue to follow labs procalcitonin and CBC -Infectious disease following, appreciate recs by Dr. Dowling -Expect step down from ICU tomorrow Type II diabetes; present admission; ongoing -Patient presents with elevated blood glucose and last A1c of 6.5 -Patient currently on insulin subcutaneous -Continue to follow BG -Ordered new A1c Chronic kidney disease; present admission; ongoing -Due to hypertension and diabetes -Baseline creatinine seems to be around 1.5, currently at 1.9 -Patient is currently up close to 9 L fluid -Will continue to follow avoid nephrotoxic meds; we will attempt to avoid any drink Zosyn combinations Metabolic acidosis with lactic acidosis - AG 17, but earlier was 21; likely all due to elevated lactic acid which is resolving; likely some component of chronic kidney disease as well - Continue to trend Hypertension: Present admission; stable -Patient's been hypotensive and on pressors for most of his stay -Will continue to follow Disposition: Patient was admitted to inpatient status in the ICU due to severity of presentation, duration of treatment, risk of adverse events. Patient's length of stay is expected B greater than 2 minutes. Pain Evaluation: Adequate Pain Control VTE Mechanical Devices: Intermittant Pneumatic CD Resuscitation Status: CPR: Attempt Resuscitation Attending Statement The patient was seen and examined together with Dr. Carpio on 09/10/2016 and I agree with the history, exam and plan as outlined in the note above. copies to: Darshana Yi PA-C, Michael R DO Sep 10, 2016 21:00 Jaylan Simental MD Sep 12, 2016 03:54 .0. Consultants: Citlali Watson MD, Donal Dowling MD, & Osmar Levine MD Hospital Course: This is a 66-year-old male with a history of colorectal cancer status post takedown of ileostomy who presented to the emergency department with workup and history consistent with intra-abdominal abscess with intraperitoneal involvement undergoing emergent lysis of adhesions and placement of multiple drains performed by Dr. Dilan Ramirez MD. See operative report for details of the procedure. The patient's was improving postoperatively until his white blood cell and pro-calcitonin values began to increase. He underwent a postoperative CT scan of the abdomen & pelvis with oral contrast only indicating intra-abdominal fluid collection and need for interventional radiology to place a CT-guided drain. There was no sign of intra-abdominal leak or abscess associated with surgical anastomosis complications. The patient continued to improve with Medical & Infectious Disease Service treatment throughout the remainder of his hospital course. The patient had his drain removed SUZETTE drain removed and was stable for discharge on postop day #12 from a General Surgery, Medical, and Infectious Disease Service standpoint with specific postoperative interventional radiology drain care, home infusion nurse managed IV central line port antifulgal medication treatment, outpatient follow- up, and when to seek immediate medical assistance instructions; which the patient verbalized understanding. At the time of discharge the patient was showing signs of normal bowel & bladder function, tolerating a general diabetic diet without nausea or vomiting, minimal pain was controlled with by mouth analgesics as needed, ambulating without assistance, with clean, dry, and intact surgical wounds, drain, and port sites without related signs of infection , inflammation, and/or hematoma. Disposition: Home in stable condition per General Surgery Medical and Infectious Disease Services Follow-up Plan: 1. Follow-up in Outpatient Infectious Disease Clinic on September 27 & 2016. 2. Follow-up in Outpatient General Surgery Clinic in 2 weeks. 3. Follow-up with Darshana Yi PA-C next week. 4. Follow-up with outpatient oncology as scheduled or needed. Aspirin (Aspirin) 81 Mg Tablet 81 MG PO DAILY Atorvastatin Calcium (Atorvastatin Calcium) 20 Mg Tablet 20 MG PO HS (Reported) Ertapenem Sodium (Invanz) 1,000 Mg/10 Ml Vial 1,000 MG IV BID Glipizide ER (Glipizide ER) 2.5 Mg Tab.er.24 2.5 MG PO DAILY (Reported) Lisinopril (Lisinopril) 5 Mg Tablet 5 MG PO DAILY (Reported) Micafungin Sodium (Mycamine) 50 Mg/5 Ml Vial 150 MG IV DAILY Oxycodone (Roxicodone) 5 Mg Tablet 5 MG PO QID PRN PRN Severe break through pain Discharge Medications: Oxycodone 5 mg 1 tab by mouth every 6 hours when necessary severe breakthrough pain. IV infusion antifungal medication prescriptions detailed in discharge instructions. Additional Information Please see discharge instructions for specific recommendations regarding postoperative infectious disease treatment and follow-up as well as the interventional radiology placed intra-abdominal drain care. Attending Statement: All documentation will be reviewed & orders authorized by Dr. Dilan Ramirez M.D. copies to: Darshana Yi PA-C; Marck Draper MD; Don Alanis PA-C ; Donal Dowling MD, Scott PA-C Sep 22, 2016 14:33
--- NOTE | 2016-09-22 15:56 | NUR ---
Discharge Pt with multi-disciplinary discharge. He is going home with his via private vehicle. Home infusion set up for daily antibiotic administration through port; verified with social work and his that this has been arranged to start tomorrow. Teaching performed with teach back demonstration on irrigating his T-drain twice daily; pt sent home with additional supplies. confirmed understanding of follow up schedule with teach back on getting labs drawn the day before his follow up appointment with Dr. Dowling the next two Wednesdays. Locations and contact information given. All belongings with family and questions answered. Pt is very eager to go home at this time.
== END 2016-09-22 15:55 | disposition home or self-care (01) | DRG 856 ==
LOC: SED 19:59 → PCC 22:18 → CCU 23:23 → PCC 09-11 09:10 → OSC 09-11 13:28
PROVIDERS: ADMIT Surgery; ATTEND Internal Medicine
PROC: 0W9G40Z Drainage of Peritoneal Cavity with Drainage Device, Percutaneous Endoscopic Approach (ICD-10-PCS; principal; 2016-09-10)
PROC: 0DNB4ZZ Release Ileum, Percutaneous Endoscopic Approach (ICD-10-PCS; 2016-09-10)
PROC: 03HY32Z Insertion of Monitoring Device into Upper Artery, Percutaneous Approach (ICD-10-PCS; 2016-09-10)
DX: T81.4XXA Infection following a procedure, initial encounter (principal); R65.21 Severe sepsis with septic shock; K65.1 Peritoneal abscess; A40.8 Other streptococcal sepsis; E87.2 Acidosis; C18.9 Malignant neoplasm of colon, unspecified; E11.22 Type 2 diabetes mellitus with diabetic chronic kidney disease; I12.9 Hypertensive chronic kidney disease with stage 1 through stage 4 chronic kidney disease, or unspecified chronic kidney disease; B95.4 Other streptococcus as the cause of diseases classified elsewhere; E78.5 Hyperlipidemia, unspecified; Z87.891 Personal history of nicotine dependence; E11.40 Type 2 diabetes mellitus with diabetic neuropathy, unspecified; N18.2 Chronic kidney disease, stage 2 (mild); E11.65 Type 2 diabetes mellitus with hyperglycemia; K66.0 Peritoneal adhesions (postprocedural) (postinfection); Z79.84 Long term (current) use of oral hypoglycemic drugs